=== PATIENT | female | born 1960 | race Two or more races ===

== ENCOUNTER 2022-11-23 10:54 | Outpatient (AMB) | payer BC, SELFPAY ==
--- NOTE | 2022-11-23 11:08 | A.OFFVIS_ITS ---
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 Patient was previously seen at [facility] and her last cortisone injection was 09/2021 that provided her relief for about 3 months. She would like to discuss possible surgery. Currently has constant pain in shoulder that will travel down to hand as well as a tingling sensation. Limited ROM. Hx of PT with no results. 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 He was seen at [facility] and had her last injection in September 2021 which provided her relief for about 3 months. She states she has constant pain, limited ROM and tingling in her shoulder which radiates down to her hand. She had undergone physical therapy in the past without benefits. She would like to discuss other options as her shoulder continues to limit her daily activities. 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 Review of Systems Const All systems reviewed & are unremarkable except as noted in HPI and below Physical Exam Vital Signs: BMI result Body Mass Index 28.9 Const General: cooperative, healthy appearing, comfortable, no acute distress, well developed and alert Orientation/consciousness: patient oriented x3 HEENT Head: Yes normal to inspection, Yes normocephalic and Yes atraumatic Eyes General: appearance normal, both eyes and all related structures Resp Effort & Inspection: normal respiratory effort and able to speak in complete sentences Cardio Rate: regular rate Peripheral pulses: Peripheral pulses 2+ throughout GI Palpation (GI): Soft to palpation Skin Lesions: no lesions Rashes: no rashes Neuro General: patient oriented x3 Extrem Other: Left shoulder normal to inspection. Tenderness over the bicipital groove and along the deltoid region of the shoulder. Forward flexion to 175, external rotation to 90, internal rotation to S1. RTC weakness on left when compared to contralateral side. Negative Lemons and cross body abduction. NVI. Results Reviewed Results Reviewed: Xrays were obtained in the office today and personally reviewed by me of the left shoulder negative for fracture or dislocation Mri of the left shoulder imported from- [facility] 09/08/22 1. high-grade likely full thickness tear of the mid-distal supraspinatus tendon -partial thickness tear of the supraspinatus tendon more proximally 2. Mild moderate arthrosis at the ac joint 3. Mild OA changes at the gh joint Assessment & Plan Assessment & Plan (1) Rotator cuff tear, left: Code(s): M75.102 - Unspecified rotator cuff tear or rupture of left shoulder, not s pecified as traumatic Plan I discussed her findings of MRI on exam and explained to her that there does appear to be some abnormality of RTC tendon. I would like her to meet with Dr. Barber to discuss RTC repair. We did briefly discuss the surgery itself along with the recovery process. She is interested to meet with Dr. Barber to discuss surgical intervention. Orders: Orders XR shoulder LT min 2V Today M25.512 - Pain in left shoulder Patient Instructions: Scribed for Junito Mendieta PA-C, by Mehrdad Delarosa medical physicist, on 11/23/2022 at 11:00 AM EST. I, Junito Mendieta PA-C, have personally reviewed and agree with the information entered by the scribe. Coding Level of Care Code New Pt Level 4 (18192) Diagnoses Rotator cuff tear, left M75.102
[2022-11-23 11:13] VITALS: BMI 28.9
== END 2022-11-23 11:31 | disposition home or self-care (01) ==
PROVIDERS: PCP Nurse Practitioner Adult Health; Visit Provider Physician Assistant
DX: M75.122 Complete rotator cuff tear or rupture of left shoulder, not specified as traumatic (principal); M19.012 Primary osteoarthritis, left shoulder
CPT/HCPCS: 99204

== ENCOUNTER 2022-11-23 11:01 | Outpatient (REF) | payer BC, SELFPAY ==
--- NOTE | ~2022-11-23 | XR_ITS ---
EXAMINATION: XR SHOULDER, LEFT CLINICAL INFORMATION: Pain COMPARISON: None available. TECHNIQUE: AP external rotation, Grashey, scapular Y, and axillary views of the left shoulder. FINDINGS: The bones and soft tissues are normal. No fracture. Glenohumeral and acromioclavicular alignment is anatomic with normal joint space. No abnormal soft tissue calcifications. XR/XR shoulder LT min 2V IMPRESSION: Normal left shoulder.
== END 2022-11-23 11:02 | disposition home or self-care (01) ==
LOC: HO.HOSX 11:01
PROVIDERS: Visit Provider Physician Assistant
DX: M75.102 Unspecified rotator cuff tear or rupture of left shoulder, not specified as traumatic (principal)
CPT/HCPCS: 73030

== ENCOUNTER 2022-12-15 10:43 | Outpatient (AMB) | payer BC, SELFPAY ==
--- NOTE | 2022-12-15 11:03 | MHC.OFFVIS ---
Intake Intake Visit Reasons: Dr Barber discuss RTC repair -MRI scanned in Intake Note: Maki is a 63 year old female who presents today to discuss surgical intervention of the left shoulder. Allergies No Known Allergies Allergy (Verified 11/23/22 11:10) HPI Dr Barber discuss RTC repair -MRI scanned in HPI Details Maki is a 62 year old woman with a left RTC tear. She has pain with daily activity, worse with overhead activity, heavy lifting, and at night. She says she has some occasional pain that radiates down into her fingers. 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 She had minimal relief from 3 injections in the past, and limited improvement with PT last year. She has a hx of double mastectomy and takes a daily oral medication to keep her in remission. 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 Review of Systems Const All systems reviewed & are unremarkable except as noted in HPI and below Physical Exam Const General: no acute distress, alert and awake Orientation/consciousness: patient oriented x3 HEENT Head: Yes normocephalic and Yes atraumatic Eyes EOM: EOMs intact bilaterally Resp Effort & Inspection: normal respiratory effort and able to speak in complete sentences Cardio Jugular venous distension: no JVD Skin General skin exam: turgor normal Rashes: no rashes Neuro General: patient oriented x3 Extrem Other: Left Shoulder: 4/5 empty can 90/120/35/L5 - liftoff Psych Appearance: grossly normal Affect: normal affect Attitude: cooperative Results Reviewed Results Reviewed: I personally reviewed the MR images. High grade partial thickness vs full thickness rtc tear without retraction. Assessment & Plan Assessment & Plan (1) Rotator cuff tear, left: Code(s): M75.102 - Unspecified rotator cuff tear or rupture of left shoulder, not specified as traumatic Plan: This is a 62 year old woman with a high-grade partial tear of the left RTC. She has pain with daily activity, worse with overhead activity, lifting, and at night. She feels limited in her ADLs and at her workplace. She has failed conservative treatment and is unable to live her life the way she wants to. I discussed her diagnosis and treatment options. I recommend a left RTC repair. I discussed the risks, benefits, and alternatives including, but not limited to, the risk of pain, infection, stiffness, need for further surgery as well as potential medical complications such as blood clots, pulmonary embolism and cardiac complications. I discussed the recovery timeline and process as well as the importance of PT. Maki is a good candidate for this surgery, and she wishes to proceed with this decision. She will speak with our planner/scheduler for this procedure. Plan Scribed for Harley Barber MD by Oscar Almonte, durable medical equipment repairer, on 12/15/22 at 11:10 AM, EST. Coding Level of Care Code Est Pt Level 4 (83614) Diagnoses Rotator cuff tear, left M75.102
== END 2022-12-15 11:31 | disposition home or self-care (01) ==
PROVIDERS: PCP Nurse Practitioner Adult Health; Visit Provider Orthopaedic Surgery
DX: M75.112 Incomplete rotator cuff tear or rupture of left shoulder, not specified as traumatic (principal)
CPT/HCPCS: 99214

== ENCOUNTER → 2022-12-15 10:43 | Outpatient (BNVA) | payer BC, SELFPAY | PROVIDERS: PCP Nurse Practitioner Adult Health; Visit Provider Orthopaedic Surgery ==

== ENCOUNTER 2023-01-06 10:14 | Outpatient (AMB) | payer BC, SELFPAY ==
[2023-01-06 10:20] VITALS: BMI 28.9
--- NOTE | 2023-01-06 10:20 | A.OFFVIS_ITS ---
Intake Vital Signs 01/06/23 10:20 Height 5 ft 8 in Weight 190 lb BMI 28.9 Intake Visit Reasons: Pre-Op LT RTC Repair 01/18/23NE Intake Note: Maki is a 62 year old 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 female who presents today for a pre op appointment left RTC repair, 01/18/23 NE. Allergies No Known Allergies Allergy (Verified 01/06/23 10:24) HPI Pre-Op LT RTC Repair 01/18/23NE HPI Details 62-year-old 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 female who presents in the office today for her preoperative history and physical exam prior to a left rotator cuff repair to be performed on 01/18/[address] Barber. Patient has no known allergy history. 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 Review of Systems Const All systems reviewed & are unremarkable except as noted in HPI and below Physical Exam Vital Signs: BMI result Body Mass Index 28.9 Const General: cooperative, healthy appearing, comfortable, no acute distress, well developed, alert and awake Orientation/consciousness: patient oriented x3 HEENT Head: Yes normal to inspection, Yes normocephalic and Yes atraumatic Eyes General: appearance normal, both eyes and all related structures EOM: EOMs intact bilaterally Neck Neck: Yes normal visual inspection and Yes no lymphadenopathy Resp Effort & Inspection: normal respiratory effort and able to speak in complete sentences Cardio Jugular venous distension: no JVD Rate: regular rate Peripheral pulses: Peripheral pulses 2+ throughout GI Inspection: Yes normal to inspection Palpation (GI): Soft to palpation Skin General skin exam: no rashes or lesions noted Rashes: no rashes Neuro General: patient oriented x3 Extrem Other: Left Shoulder: Skin is clean, dry, and intact. 4/5 empty can 90/120/35/L5 - liftoff Psych Appearance: grossly normal Mental Status: mental status grossly normal Affect: normal affect Attitude: cooperative Assessment & Plan Assessment & Plan (1) Rotator cuff tear, left: Code(s): M75.102 - Unspecified rotator cuff tear or rupture of left shoulder, not specified as traumatic Plan Ms. Whitfield is a 62-year-old 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 female who presents in the office today for her preoperative history and physical exam prior to a left rotator cuff repair to be performed on 01/18/[address] Barber. Patient has no known allergy history. Patient is currently taking, as follows: -Anastrozole 1 mg PO daily -Escitalopram oxalate (Lexapro) 20 mg PO daily -Gabapentin 800 mg PO TID -Lorazepam (Ativan) 0.5 mg PO daily PRN Patient has a medical history, as follows: -Anxiety -Hx of breast cancer Patient has a surgical history, as follows: -Hx of bilateral mastectomy I discussed in detail the procedure and what to expect pre and post operatively. We discussed the risks, benefits and alternatives to the surgery as well as the rehabilitation course. The risks; which include, but are not limited to infection, bleeding, nerve injury, ongoing pain, swelling, and stiffness, perioperative risk of injury to bones and soft tissues, and blood clots. I have answered all questions and with their understanding they have consented to move forward with a left rotator cuff repair to be performed on 01/18/[address] Harley Barber. Follow up will be at the post operative appointment on 01/23/2023 at 2:15 pm, or sooner if needed. Patient Instructions: Scribed for Sindhu Howell PA-C by Leonie Rosas medical data entry clerk, on 01/06/2023 at 10:17 am, EST. Coding Level of Care Code Global (08356) Diagnoses Rotator cuff tear, left M75.102
== END 2023-01-06 10:50 | disposition home or self-care (01) ==
PROVIDERS: PCP Nurse Practitioner Adult Health; Visit Provider Physician Assistant
DX: M75.102 Unspecified rotator cuff tear or rupture of left shoulder, not specified as traumatic (principal)
CPT/HCPCS: 99024

== ENCOUNTER → 2023-01-06 10:14 | Outpatient (BNVA) | payer BC, SELFPAY | PROVIDERS: PCP Nurse Practitioner Adult Health; Visit Provider Physician Assistant ==

== ENCOUNTER 2023-01-18 06:53 | Day surgery (SDC) | payer BC, SELFPAY ==
[2023-01-13 10:56] VITALS: BMI 28.9
--- NOTE | 2023-01-17 08:29 | HO.ANESPROP2 ---
Documented by User: Shanique Mueller NP 01/17/23 08:29 HPI - Anesthesia Eval Consult details Narrative: 62yo F for Left Arthroscopic Rotator Cuff Repair PMFSH Active Problems Active Problems: All Active Problems (Updated 01/13/23 @ 10:52 by Dulce Maria Gómez RN) Rotator cuff tear, left (Acute) Past Medical History Medical History Anxiety Anxiety HX: breast cancer Hyperlipidemia Palpitations Surgical History Surgical History H/O colonoscopy Hx of bilateral mastectomy Social History Social History Patient Tobacco Use Status: Former Tobacco user Advance Directives: No Advance Directives Information Provided: Yes Current occupational status: employed 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, 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 Meds Allergies Allergy/AdvReac Type Severity Reaction Status Date / Time No Known Allergies Allergy Verified 01/06/23 10:24 Home Medications Medication Instructions Recorded Confirmed Last Taken Type anastrozole 1 mg tablet 1 mg PO DAILY 11/23/22 01/13/23 Unknown History escitalopram oxalate 20 mg tablet 20 mg PO DAILY 11/23/22 01/13/23 Unknown History (Lexapro) gabapentin 800 mg tablet 800 mg PO TID 11/23/22 01/13/23 Unknown History lorazepam 0.5 mg tablet (Ativan) 0.5 mg PO DAILY PRN Anxiety 11/23/22 01/13/23 Unknown History omeprazole 20 mg tablet,delayed 20 mg PO DAILY 01/13/23 01/13/23 Unknown History release Exam Exam Date and Time: January 17, 2023 0829 Height,Weight and Vital Signs: Height 5 ft 8 in Weight 86.183 kg Assessment and Plan Assessment Anesthesia Assessment: Chart Reviewed Documented by User: Enoch Stephens MD 01/18/23 07:15 PMFSH Past Medical History Medical History Anxiety Anxiety HX: breast cancer Hyperlipidemia Palpitations Family History Family history of problems with anesthesia: No Surgical History Surgical History H/O colonoscopy Hx of bilateral mastectomy History of Problems with Anesthesia: No Social History Social History Patient Tobacco Use Status: Former Tobacco user Advance Directives: No Advance Directives Information Provided: Yes Current occupational status: employed 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, 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 Meds Allergies Allergy/AdvReac Type Severity Reaction Status Date / Time No Known Allergies Allergy Verified 01/06/23 10:24 Home Medications Medication Instructions Recorded Confirmed Last Taken Type anastrozole 1 mg tablet 1 mg PO DAILY 11/23/22 01/13/23 Unknown History escitalopram oxalate 20 mg tablet 20 mg PO DAILY 11/23/22 01/13/23 Unknown History (Lexapro) gabapentin 800 mg tablet 800 mg PO TID 11/23/22 01/13/23 Unknown History lorazepam 0.5 mg tablet (Ativan) 0.5 mg PO DAILY PRN Anxiety 11/23/22 01/13/23 Unknown History omeprazole 20 mg tablet,delayed 20 mg PO DAILY 01/13/23 01/13/23 Unknown History release Exam Airway Mallampati Class: III TM Dist: >3cm Neck ROM: Full Loose/Missing/Broken Teeth: No Heart: [id number]+[id number] Lungs: cta b/l Assessment and Plan Assessment Anesthesia Assessment: Anesthesia Plan Discussed Final Anesthetic Review Family History of Problems with Anesthesia: No History of Problems with Anesthesia: No NPO: Yes ASA Class: III Final Preanesthetic Review: No Changes in Pt Med Stat, Meds/Allgs Chart Reviewed, Consent Obtained/Reviewed and Anes Risks/Benef Reviewed Patient Risk: Intermediate Procedure Risk: Intermediate Assessment/Block/Sedation in SS: Assess/Block/Sedation-SS Anesthetic Plan Anesthetic Plan: GA, Regional Block and Agree w/ Assess. and Plan Disposition: Standard PACU
[2023-01-18] VITALS (10 sets, daily range): BP systolic 125–148; BP diastolic 72–85; PULSE 62–93; RESP 14–16; TEMP 36.2–36.5; O2SAT 93–96
[2023-01-18] MEDS: Lactated Ringers 1,000 ML 100 ML IVCONT (07:33)
--- NOTE | 2023-01-18 09:12 | P.BOP_ITS ---
Brief Operative Note Date of Service: 01/18/23 Pre-op diagnosis: Left RTC tear Post-op diagnosis: other (1- left RTC tear 2) left SLAP tear) Procedure: 1) RTC repair 2) Biceps tentomy and labral debridement Implants: [employer] double loaded halacoil x 2 and knotless 5.0 helacoil x 2 Surgeon: Harley Barber MD Anesthesia: GETA Was an Manufacturing Assembler used for this Procedure?: Yes Manufacturing Assembler: Junito Mendieta Estimated blood loss (mL): 10 IV fluids (mL): 850 Pathology: none sent Condition: stable Disposition: PACU
--- NOTE | 2023-01-18 09:12 | MHC.SHP ---
Pre-Procedural Eval Section A Date of Service: 01/18/23 The patient is an INPATIENT: No Changes since office visit: No Cold of Flu in the past 2 weeks, No New Medical Problems, No Changes in Medication and No Patient answered all questions The History & Physical has been completed within 30 days and I have reviewed it.: Yes Section B Chief Complaint: Unspecified rotator cuff tear or rupture of left s Allergies: Allergies Allergy/AdvReac Type Severity Reaction Status Date / Time No Known Allergies Allergy Verified 01/06/23 10:24 Plan I have reviewed the history and physical and performed a pertinent physical examination on my patient. No changes have occurred unless specified. Time Spent With Patient Time: Total time managing care of this patient today ____ minutes.
--- NOTE | 2023-02-03 09:21 | W.PM.OPN ---
Operative Note Operative Note Date of Service: 01/18/23 Narrative: Date of Service: 01/18/23 Pre-op diagnosis: Left RTC tear Post-op diagnosis: other (1- left RTC tear 2) left SLAP tear) Procedure: 1) RTC repair 2) Biceps tentomy and labral debridement Implants: [employer] double loaded halacoil x 2 and knotless 5.0 helacoil x 2 Surgeon: Harley Barber MD Anesthesia: GETA Was an Director Financial Systems used for this Procedure?: Yes Director Financial Systems: Junito Mendieta Estimated blood loss (mL): 10 IV fluids (mL): 850 Pathology: none sent Condition: stable Disposition: PACU Procedure in detail: Patient was brought to the operating room and placed the the beach chair position. All bony prominences were well padded and the limb was prepped and draped in standard sterile fashion. A time out was called to identify proper site, proper procedure and proper surgeon. IV antibiotics per weight were administered. I began by making a posterolateral stab incision with a 15 blade. A blunt trochar was placed into the glenohumeral joint and I insufflated the joint with saline and a 30 degree arthroscope was placed. I established an outside- in anterior portal just distal to the biceps tendon. I then began my inspection of the glenohumeral joint. There was a large degenerative SLAP tear at hte biceps anchor ( Type 2). There were minimal cartilage changes at the inferior glenoid without humeral head changes. There was a full thickness undersurface RTC tear. The subcapularis was intact. I debrided the loose cartilage of the glenoid and the degenerative labral tearing and performed a biceps tenotomy. I then removed the trochar and entered the subacromial space. A direct lateral portal was then established and I performed a bursectomy. The cuff was then examined. There was a full thickness tear of the supra and infraspinatus without retraction. The tear was mobile. I placed two medial row double loaded anchors after using a tap just adjacent to the articular cartilage and then brought the suture limbs ( 8) through the medial cuff. I then debrided the bare area down to bleeding bone and, using a cross bridge configuration, brought 4 limbs to each of two lateral 5.0 anchors. This re-approximated the cuff anatomy anatomically. Once I was satisfied with the repair final images were captured and I removed all instrumentation. Portals were closed with nylon. Patient was placed in an abduction sling, extubated and brought to the recovery room in stable condition. There were no known complications.
== END 2023-01-18 12:19 | disposition home or self-care (01) ==
PROVIDERS: PCP Nurse Practitioner Adult Health; Visit Provider Orthopaedic Surgery
PROC: (CPT 29827; principal; 2023-01-18 08:40)
DX: M75.102 Unspecified rotator cuff tear or rupture of left shoulder, not specified as traumatic (principal); S43.432A Superior glenoid labrum lesion of left shoulder, initial encounter; X58.XXXA Exposure to other specified factors, initial encounter; Y93.9 Activity, unspecified; Y92.9 Unspecified place or not applicable; Y99.8 Other external cause status; C50.812 Malignant neoplasm of overlapping sites of left female breast; Z17.0 Estrogen receptor positive status [ER+]; Z79.811 Long term (current) use of aromatase inhibitors; Z92.21 Personal history of antineoplastic chemotherapy; Z90.13 Acquired absence of bilateral breasts and nipples; T45.1X5A Adverse effect of antineoplastic and immunosuppressive drugs, initial encounter; G62.0 Drug-induced polyneuropathy; R00.2 Palpitations; E78.00 Pure hypercholesterolemia, unspecified; E66.3 Overweight; Z68.28 Body mass index [BMI] 28.0-28.9, adult; F41.1 Generalized anxiety disorder; Z79.899 Other long term (current) drug therapy; Z87.891 Personal history of nicotine dependence
CPT/HCPCS: 29827; 29826; 29822; C1713; J0171; J0690; J1100; J1885; J2250; J2795; J3010

== ENCOUNTER → 2023-01-18 06:53 | Outpatient (BNV) | payer BC, SELFPAY | PROVIDERS: PCP Nurse Practitioner Adult Health; Visit Provider Orthopaedic Surgery | DX: S43.431A Superior glenoid labrum lesion of right shoulder, initial encounter (principal); M75.121 Complete rotator cuff tear or rupture of right shoulder, not specified as traumatic | CPT/HCPCS: 29807; 29827 ==

== ENCOUNTER 2023-01-19 10:23 | Outpatient (AMB) | payer BC, SELFPAY ==
--- NOTE | 2023-01-19 10:35 | MHC.OFFVIS ---
Intake Intake Visit Reasons: PO, pain control discussion Intake Note: Maki a 62 year old female who presents today for a post operative LT RTC repair, biceps tentomy and labral debridement on 01/18/23. Patient reports here to discuss pain control. Allergies No Known Allergies Allergy (Verified 01/06/23 10:24) HPI PO, pain control discussion HPI Details 62-year-old female who returns to the office today s/p left RTC repair, bicep tenotomy and labral debridement, 01/18/23. She states she is here to discuss pain control. She states since the nerve block wore off she has had a difficult time managing her pain. She finds no relief with morphine and transient relief with Percocet. She does have a h/o opiate dependence and has concerns of becoming dependent again. 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 Splint intact. NVI. Assessment & Plan Assessment & Plan (1) Rotator cuff tear, left: Code(s): M75.102 - Unspecified rotator cuff tear or rupture of left shoulder, not specified as traumatic Qualifiers: Rotator cuff tear extent: complete Rotator cuff tear trauma status: unspecified whether traumatic Qualified Code(s): M75.122 - Complete rotator cuff tear or rupture of left shoulder, not specified as traumatic Plan I briefly discussed the procedure and operative findings from DOS 01/18/23. She will continue to use the sling at all times except for hygiene and pendulum. We did discuss pain management. We will discontinue the use of Percocet and begin oxycodone 5 mg every 4-6 hours as needed. She can also supplement with a Tylenol 650 mg every 4-6 hours as needed. I did explain that her pain may be present for the next several weeks especially as she begins physical therapy, but this is something we should continue to manage with occasional pain medication, icing and being sure to not overuse the shoulder. She does have a referral for physical therapy which she should begin in the next couple of days and her post-op appointment is scheduled for January 23 which she will attend. She will see me back sooner if needed. Medications: New oxycodone Partial Fill upon patient request. 5 mg PO Q4-6H 5 days PRN 30 tabs 0RF pain M75.102 - Unspecified rotator cuff tear or rupture of left shoulder, not specified as traumatic acetaminophen 650 mg (2 x 325 mg) PO Q4-6H 30 days PRN 240 tabs 0RF fever or pain Patient Instructions: Scribed for Junito Mendieta PA-C, by Mehrdad Delarosa district medical examiner, on 01/19/2023 at 10:30 AM EST. I, Junito Mendieta PA-C, have personally reviewed and agree with the information entered by the scribe. Coding Level of Care Code Global (29379) Diagnoses Complete tear of left rotator cuff, unspecified whether traumatic M75.122 Rotator cuff tear extent: complete Rotator cuff tear trauma status: unspecified whether traumatic
== END 2023-01-19 11:52 | disposition home or self-care (01) ==
LOC: HO.HOS 10:23
PROVIDERS: PCP Nurse Practitioner Adult Health; Visit Provider Physician Assistant
DX: M75.122 Complete rotator cuff tear or rupture of left shoulder, not specified as traumatic (principal)
CPT/HCPCS: 99024

== ENCOUNTER → 2023-01-19 10:23 | Outpatient (BNVA) | payer BC, SELFPAY | PROVIDERS: PCP Nurse Practitioner Adult Health; Visit Provider Physician Assistant ==

== ENCOUNTER 2023-01-23 14:15 | Outpatient (AMB) | payer BC, SELFPAY ==
--- NOTE | 2023-01-23 14:16 | A.OFFVIS_ITS ---
Intake Intake Visit Reasons: PO LT RTC Repair 01/18/23NE Intake Note: Maki a 62 year old female who presents today for a post operative left RTC repair on 01/18/23. Patient reports she is doing well, states pain is controlled. Allergies No Known Allergies Allergy (Verified 01/23/23 14:21) HPI PO LT RTC Repair 01/18/23NE HPI Details 62-year-old female who returns to the [facility] today for post-op left RTC repair, 01/18/[address] Barber. She has been taking Oxycodone 10mg q8 hrs with the tylenol which has been helping. She has no concerns today. 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 Minimal swelling. Deltoid sensation is intact. Assessment & Plan Assessment & Plan (1) Rotator cuff tear, left: Code(s): M75.102 - Unspecified rotator cuff tear or rupture of left shoulder, not specified as traumatic Qualifiers: Rotator cuff tear extent: complete Rotator cuff tear trauma status: unspecified whether traumatic Qualified Code(s): M75.122 - Complete rotator cuff tear or rupture of left shoulder, not specified as traumatic Plan Sutures removed today, steri strips applied. She will begin physical therapy tomorrow to work on ROM, periscapular stabilization, no RTC strengthening. She will continue to use her sling at all time but she can remove the sling for hygiene and therapy. She will see us back in 4-5 weeks, sooner if needed. Patient Instructions: Scribed for Junito Mendieta PA-C, by Mehrdad Delarosa medical lab technician, on 01/23/2023 at 2:15 PM EST. I, Junito Mendieta PA-C, have personally reviewed and agree with the information entered by the scribe. Coding Level of Care Code Global (98387) Diagnoses Complete tear of left rotator cuff, unspecified whether traumatic M75.122 Rotator cuff tear extent: complete Rotator cuff tear trauma status: unspecified whether traumatic
== END 2023-01-23 14:51 | disposition home or self-care (01) ==
PROVIDERS: PCP Nurse Practitioner Adult Health; Visit Provider Physician Assistant
DX: M75.122 Complete rotator cuff tear or rupture of left shoulder, not specified as traumatic (principal); Z48.02 Encounter for removal of sutures
CPT/HCPCS: 99024

== ENCOUNTER → 2023-01-23 14:15 | Outpatient (BNVA) | payer BC, SELFPAY | PROVIDERS: PCP Nurse Practitioner Adult Health; Visit Provider Physician Assistant ==

== ENCOUNTER 2023-01-27 08:55 | Emergency (ER) | payer BC, SELFPAY ==
[2023-01-27 09:03] VITALS: BP 141/71; PULSE 64; RESP 17; TEMP 36; O2SAT 96; BMI 29.0
--- NOTE | 2023-01-27 11:03 | ED.GENADULT ---
HPI - General Adult General Chief complaint: Wound/Laceration Stated complaint: R arm cut Time Seen by Provider: 01/27/23 09:25 Source: patient Mode of arrival: ambulatory Limitations: no limitations History of Present Illness HPI narrative: 62 female history of breast cancer and recent left shoulder rotator cuff tear presents to the ED for right forearm laceration caused by cutting her wrist onto objects return to break a fall. Patient denies hitting head or loss of consciousness. Patient has complete range of motion of right upper extremity and does not have pain on range of motion. Related Data Home Medications Medication Instructions Recorded Confirmed anastrozole 1 mg tablet 1 mg PO DAILY 11/23/22 01/13/23 escitalopram oxalate 20 mg tablet 20 mg PO DAILY 11/23/22 01/13/23 (Lexapro) gabapentin 800 mg tablet 800 mg PO TID 11/23/22 01/13/23 lorazepam 0.5 mg tablet (Ativan) 0.5 mg PO DAILY PRN Anxiety 11/23/22 01/13/23 omeprazole 20 mg tablet,delayed 20 mg PO DAILY 01/13/23 01/13/23 release Previous Rx's Medication Instructions Recorded morphine 15 mg tablet,extended 15 mg PO Q12H 3 days #6 tabs 01/18/23 release (MS Contin) acetaminophen 325 mg tablet 650 mg (2 x 325 mg) PO Q4-6H PRN 01/19/23 fever or pain 30 days #240 tabs oxycodone 10 mg tablet 10 mg PO Q8H 7 days #21 tabs 01/22/23 cephalexin 500 mg capsule 500 mg PO QID 7 days #28 caps 01/27/23 Allergies Allergy/AdvReac Type Severity Reaction Status Date / Time No Known Allergies Allergy Verified 01/23/23 14:21 Review of Systems Review of Systems: Right forearm laceration Yes all other systems are reviewed and are negative [facility] Past Medical History Medical History Anxiety Anxiety HX: breast cancer Hyperlipidemia Palpitations Surgical History H/O colonoscopy Hx of bilateral mastectomy Social History Social History Alcohol intake: never Patient Tobacco Use Status: Former Tobacco user Current occupational status: employed 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, 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 Physical Exam ED Vital Signs: Vital Signs - 24 hr 01/27/23 09:03 Temperature 96.8 F Pulse Rate 64 Respiratory Rate 17 Blood Pressure 141/71 H Pulse Oximetry 96 Oxygen Delivery Method Room Air BMI result Body Mass Index 29.0 Const General: cooperative, healthy appearing, comfortable, no acute distress, well developed, alert, awake and Physically active Orientation/consciousness: oriented to person, oriented to place, oriented to time and patient oriented x3 [facility] Head: Yes normal to inspection, Yes No palpable skull fracture present, Yes normocephalic, Yes atraumatic and No abrasion Eyes General: appearance normal, both eyes and all related structures Neck Neck: Yes normal visual inspection, Yes full ROM, Yes no lymphadenopathy, Yes no meningeal signs, Yes trachea midline, Yes supple, No anterior neck swelling and No tender Chest Chest palpation & inspection: normal inspection of the chest and normal palpation of entire chest wall Resp Effort & Inspection: normal respiratory effort and able to speak in complete sentences Auscultation: clear to auscultation bilaterally Cardio Jugular venous distension: no JVD Heart sounds: S1 normal heart sound present and S2 normal heart sound present GI Inspection: Yes normal to inspection and No abdominal wall ecchymosis Palpation (GI): Soft to palpation, not firm, nontender, no guarding and not rigid General: No CVA tenderness and Yes no CVA tenderness Back/Spine/Pelvis Back: no CVA tenderness, No CVA tenderness and No back tenderness Skin General skin exam: no rashes or lesions noted and elasticity normal Neuro General: oriented to person, oriented to place, oriented to time, patient oriented x3, gait normal, tone normal, moves all extremities, Normal light touch and pain sensation, no meningeal signs, no focal motor deficits, CN's II-XI intact bilaterally and normal sensation to monofilament Extrem General: Yes normal to inspection and Yes full ROM Elbow/forearm/wrist images: 1. with laceration with skin coming off. negative for any nerve or tendon exposure. Negative for bone exposure. Negative for signs of tendon/nerve injury. Motor/ neuro/vascular exam of right upper extremity intact. Psych Appearance: grossly normal, well kempt and not disheveled Medications Administered Discontinued Medications Generic Name Dose Route Start Last Admin Trade Name Freq PRN Reason Stop Dose Admin Diphtheria/Tetanus/Acell Pertussis 0.5 ml 01/27/23 10:06 01/27/23 11:04 Diphth,Pertus(Acell),Tet Adult 0.5 Ml Syringe IM 01/27/23 10:07 0.5 ml .ONCE ONE Administration Lidocaine HCl 2 ml 01/27/23 10:08 01/27/23 10:26 Lidocaine Hcl 2% 2 Ml Vial INFILTRATI 01/27/23 10:09 2 ml ONCE ONE Administration Lidocaine HCl 2 ml 01/27/23 10:08 01/27/23 10:26 Lidocaine Hcl 2% 2 Ml Vial INFILTRATI 01/27/23 10:09 2 ml ONCE ONE Administration Lidocaine HCl 2 ml 01/27/23 10:08 01/27/23 10:26 Lidocaine Hcl 2% 2 Ml Vial INFILTRATI 01/27/23 10:09 2 ml ONCE ONE Administration Lidocaine HCl 2 ml 01/27/23 10:08 01/27/23 10:26 Lidocaine Hcl 2% 2 Ml Vial INFILTRATI 01/27/23 10:09 2 ml ONCE ONE Administration Lidocaine HCl 2 ml 01/27/23 10:08 01/27/23 10:26 Lidocaine Hcl 2% 2 Ml Vial INFILTRATI 01/27/23 10:09 2 ml ONCE ONE Administration Medical Decision Making Medical Decision Making MDM Narrative: 62-year-old female history of recent left shoulder rotator cuff surgery and breast cancer presents to ED for right forearm laceration caused by a metal object in kitchen while breaking her fall. Patient denies any head trauma, loss of consciousness, or any other complaints. Patient has complete range of motion right upper extremity. Negative for tenderness ecchymosis, erythema, crepitus on exam of right upper extremity including forearm. Tdap ordered. This piece of skin that was coming off was cut off which made laceration wider. Laceration cleaned with sterile saline Betadine iodine. Laceration anesthetized with 2% lidocaine 10 mL. Size 4 mono filament nylon suture used. To vertical mattress sutures were placed. Three more simple sutures were placed. Differential Diagnosis Differential Diagnoses: The differential diagnosis associated with the presentation includes ( Forearm/wrist / hand/ elbow fracture, cellulitis, nerve injury, tendon injury, dislocation) Independent Historian Clinical information obtained from an independent historian. History obtained from or confirmed by: Spouse External Record Review External record reviewed: Other (Prior to ED visit) Tests considered The following testing was considered but not selected: Xray Prescription Management I considered prescription management with: Antibiotic Discharge Plan Discharge Clinical Impression: Laceration Patient Disposition: Home, Self-Care Instructions: Laceration (ED) Additional Instructions: return to the ED immediately for any redness, swelling, red streaks, pus discharge, foul odor, bluish black discoloration, fever, chills, inability to move extremity, tingling /numbness, or any other concerning symptoms. Please follow-up with primary care provider. You will be discharged with antibiotics. Sutures should be removed in 10-11 days for suture removal. Prescriptions: New cephalexin 500 mg capsule 500 mg PO QID 7 Days Qty: 28 0RF No Action oxycodone 10 mg tablet 10 mg PO Q8H 7 Days Qty: 21 0RF Rx Instructions: Partial Fill upon patient request. omeprazole 20 mg Tablet,Delayed Release (Dr/Ec) 20 mg PO DAILY morphine [MS Contin] 15 mg tablet extended release 15 mg PO Q12H 3 Days Qty: 6 0RF Rx Instructions: Partial Fill upon patient request. acetaminophen 325 mg tablet 650 mg PO Q4-6H PRN (Reason: fever or pain) 30 Days Qty: 240 0RF gabapentin 800 mg tablet 800 mg PO TID anastrozole 1 mg tablet 1 mg PO DAILY escitalopram oxalate [Lexapro] 20 mg tablet 20 mg PO DAILY lorazepam [Ativan] 0.5 mg tablet 0.5 mg PO DAILY PRN (Reason: Anxiety) Interventions: ED Discharge Assessment Last Done: 01/27/23 11:17 Discharge Date/Time: 01/27/23 11:18 Print Language: Welsh
[2023-01-27] MEDS: Diphth,Pertus(ACell),Tet Adult 0.5 ML SYRINGE IM (11:04)
== END 2023-01-27 11:18 | disposition home or self-care (01) ==
PROVIDERS: Emergency Provider Emergency Medicine Emergency Medical Services; PCP Nurse Practitioner Adult Health
DX: S51.811A Laceration without foreign body of right forearm, initial encounter (principal); W26.9XXA Contact with unspecified sharp object(s), initial encounter; Y93.9 Activity, unspecified; Y92.89 Other specified places as the place of occurrence of the external cause; Y99.9 Unspecified external cause status
CPT/HCPCS: 12001; 90471; 90715; 99283; 99284

== ENCOUNTER 2023-02-23 11:06 | Outpatient (AMB) | payer BC, SELFPAY ==
--- NOTE | 2023-02-23 11:09 | MHC.OFFVIS ---
Intake Vital Signs 02/23/23 11:10 Height 5 ft 8 in Weight 190 lb BMI 28.9 Intake Visit Reasons: PO, LT RTC Repair 01/18/23 NE Intake Note: Maki is a 62 year old 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 female who presents today for a post operative visit s/p left RTC repair on 01/18/23. Patient reports that she is doing well with no concerns. Denies numbness and tingling Allergies No Known Allergies Allergy (Verified 01/23/23 14:21) HPI PO, LT RTC Repair 01/18/23 NE HPI Details Maki is a 62 year old woman ~1 month S/P left RTC repair with biceps tenotomy & labral debridement. She says she is doing well and has no complaints today. She has some pain if she moves her shoulder wrong but denies any usual pain since her first week following surgery. She has been attending PT and would like to know when she is able to stop wearing her sling. She would also like to know when she can resume driving. 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 Review of Systems Const All systems reviewed & are unremarkable except as noted in HPI and below Physical Exam Vital Signs: BMI result Body Mass Index 28.9 Const General: no acute distress, alert and awake Orientation/consciousness: patient oriented x3 HEENT Head: Yes normocephalic and Yes atraumatic Eyes EOM: EOMs intact bilaterally Resp Effort & Inspection: normal respiratory effort and able to speak in complete sentences Cardio Jugular venous distension: no JVD Skin General skin exam: turgor normal Rashes: no rashes Neuro General: patient oriented x3 Extrem Other: Left Shoulder: Portals C/D/I Psych Appearance: grossly normal Affect: normal affect Attitude: cooperative Assessment & Plan Assessment & Plan (1) S/P left rotator cuff repair: Code(s): Z98.890 - Other specified postprocedural states Plan: This is a 62 year old woman S/P left RTC repair with biceps tenotomy & labral debridement, DOS: 01/18/23. She is doing well, without complaints, and is happy with the results of her surgery. She has been attending PT. She will discontinue her sling at this time, and I ordered a new course of PT for her. She will avoid any heavy lifting or overhead activities and be mindful to not push through pain. She will follow up in 6 weeks. She is able to resume driving in 2 weeks. Plan Scribed for Harley Barber MD by Oscar Almonte, medical research assistant, on 02/23/23 at 11:40 AM, EST. Coding Level of Care Code Global (48562) Diagnoses S/P left rotator cuff repair Z98.890
[2023-02-23 11:10] VITALS: BMI 28.9
== END 2023-02-23 11:56 | disposition home or self-care (01) ==
PROVIDERS: PCP Nurse Practitioner Adult Health; Visit Provider Orthopaedic Surgery
DX: Z98.890 Other specified postprocedural states (principal)
CPT/HCPCS: 99024

== ENCOUNTER → 2023-02-23 11:06 | Outpatient (BNVA) | payer BC, SELFPAY | PROVIDERS: PCP Nurse Practitioner Adult Health; Visit Provider Orthopaedic Surgery ==

== ENCOUNTER 2023-03-12 10:35 | Emergency (ER) | payer BC, SELFPAY ==
[2023-03-12 10:43] VITALS: BP 165/89; PULSE 74; RESP 19; TEMP 36.6; O2SAT 99; BMI 28.9
--- NOTE | 2023-03-12 10:46 | ECG_ITS ---
Test Reason : PALP Blood Pressure : / mmHG Vent. Rate : 071 BPM Atrial Rate : 071 BPM P-R Int : 156 ms QRS Dur : 074 ms QT Int : 414 ms P-R-T Axes : 038 -21 047 degrees QTc Int : 449 ms Normal sinus rhythm Inferior infarct , age undetermined Abnormal ECG No previous ECGs available Referred By: Generic ED Physician Electronically Signed By:MOISÉS ANGULO MD
[2023-03-12 11:09] LABS: MANUAL DIFF FLAG NO
[2023-03-12 11:12] LABS: Basophils Absolute Auto 0.1 X10*3/uL (0.0-0.2); Basophils Percent Auto 1.3 % (0-2); Eosinophils Absolute Auto 0.2 X10*3/uL (0.0-0.4); Eosinophils Percent Auto 6.1 % (0-4); Hematocrit 44.3 % (37.0-47.0); Hemoglobin 15.1 g/dl (12.0-16.0); Imm Gran Abs Auto 0.01 X10*3/uL (0.00-0.03); Imm Gran Pct Auto 0.3 % (0.0-0.4); Lymphocytes Absolute Auto 1.4 X10*3/uL (1.2-4.9); Lymphocytes Percent Auto 34.9 % (20-40); Mean Corpuscular HGB Conc 34.1 g/dl (31.0-35.0); Mean Corpuscular Hemoglobin 30.5 pg (27.0-33.0); Mean Corpuscular Volume 89.5 fL (80.0-98.0); Mean Platelet Volume 9.2 fL (9.4-12.3); Monocytes Absolute Auto 0.3 X10*3/uL (0.1-1.2); Monocytes Percent Auto 6.3 % (2-11); Neutrophils Percent Auto 51.1 % (45-73); Platelet Count 238 X10*3/uL (160-400); Red Blood Count 4.95 X10*6/uL (4.20-5.50); Red Cell Distribution Width 11.9 % (11.0-16.0)
[2023-03-12 11:25] LABS: Anion Gap 15 (12-20); Blood Urea Nitrogen 15 mg/dL (9-16); Calcium 10.2 mg/dL (8.4-10.2); Carbon Dioxide 24 mmol/L (22-29); Chloride 106 mmol/L (96-108); Estimated Glomerular Filt Rate > 60; Glucose Random 108 mg/dL (60-115); Sodium 141 mmol/L (135-145)
[2023-03-12 11:37] LABS: Troponin-I High Sensitivity < 2.7 ng/L (<3.5-17.0)
[2023-03-12 12:00] VITALS: BP 165/89; PULSE 61; PULSE 62; RESP 18; TEMP 36.6; O2SAT 95
--- NOTE | 2023-03-12 12:03 | PC.NURSE ---
a&ox3, vss aside from being slightly hypertensive, nsr on the cardiac sonographer. pt states that she was at oncology appointment last monday where she had elevated BP. pt states checking BP throughout the week and she was having intermittent hypertensive episodes. pt c/o constant palpitations. pt has hx of anxiety- takes 1mg of ativan at bedtime. pt verbalizes a significant increase in life stressors w/ family at this time. pt currently denies SOB or any other sx at this time. respirations even and unlabored. call hanna placed within reach.
--- NOTE | 2023-03-12 13:44 | ED.GENADULT ---
HPI - General Adult General Chief complaint: Arrhythmia/Palpitations Stated complaint: high bp Time Seen by Provider: 03/12/23 13:13 Source: patient and family Mode of arrival: ambulatory History of Present Illness HPI narrative: 62F presents with concerns of having high blood pressure and she has no history. She denies any issues of visual changes/speech changes/motor or sensory deficits. Patient also denies chest pain or palpitations. Patient denies any use of steroids or ibuprofen/Motrin Related Data Home Medications Medication Instructions Recorded Confirmed anastrozole 1 mg tablet 1 mg PO DAILY 11/23/22 01/13/23 escitalopram oxalate 20 mg tablet 20 mg PO DAILY 11/23/22 01/13/23 (Lexapro) gabapentin 800 mg tablet 800 mg PO TID 11/23/22 01/13/23 lorazepam 0.5 mg tablet (Ativan) 0.5 mg PO DAILY PRN Anxiety 11/23/22 01/13/23 omeprazole 20 mg tablet,delayed 20 mg PO DAILY 01/13/23 01/13/23 release Previous Rx's Medication Instructions Recorded morphine 15 mg tablet,extended 15 mg PO Q12H 3 days #6 tabs 01/18/23 release (MS Contin) acetaminophen 325 mg tablet 650 mg (2 x 325 mg) PO Q4-6H PRN 01/19/23 fever or pain 30 days #240 tabs oxycodone 10 mg tablet 10 mg PO Q8H 7 days #21 tabs 01/22/23 cephalexin 500 mg capsule 500 mg PO QID 7 days #28 caps 01/27/23 Allergies Allergy/AdvReac Type Severity Reaction Status Date / Time No Known Allergies Allergy Verified 03/12/23 10:42 Review of Systems Review of Systems: Pertinent positives and negatives as stated in HPI [facility] Past Medical History Source: nursing notes reviewed Medical History Palpitations Anxiety Hyperlipidemia Anxiety HX: breast cancer Surgical History H/O colonoscopy Hx of bilateral mastectomy Social History Social History Alcohol intake: current Alcohol intake frequency: a few times a week Patient Tobacco Use Status: Former Tobacco user Smoked in Last 30 Days: No Use of substances other than those prescribed or required for medical reasons: No Advance Directives: Yes Advance Directives Information Provided: Yes Advance Directives on File: No Patient : No Current occupational status: employed 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 GENERAL: Well developed, well nourished, in no acute distress. HEAD: Normocephalic/atraumatic EYES: PERRLA, EOMI EARS: Ext canals without abnormality NOSE: Nares patent bilateral OROPHARYNX: no oral lesions noted, posterior pharynx clear NECK: Supple, no adenopathy LUNGS: Normal breath sounds. No adventitious sounds or accessory muscle use. SpO2<95> CARDIOVASCULAR: Regular rate and rhythm without noted murmurs ABDOMEN: Soft, non-tender, non-distended with bowel sounds. MUSCULOSKELETAL: No tenderness, deformities, or effusions noted on gross inspection. EXTREMITIES: No cyanosis, clubbing or edema. SKIN: Inspection of the skin reveals no rashes NEUROLOGIC: Alert and oriented x 4. Strength and sensation to light touch were grossly intact x 4 no facial asymmetry, no pronator drift, cranial nerves 2-12 are grossly intact.. Medical Decision Making Medical Decision Making [facility] Narrative: 62 year old female with history and clinical presentation, DDX: Medication etiology for elevated blood pressure, diet for elevated blood pressure but otherwise no cardiac or neurologic symptoms. I reviewed all investigations and hematologic indices are negative for leukocytosis or left shift, there is no anemia or thrombocytopenia. Chemistry indices are negative for MICHELLE or electrolyte derangements and high sensitivity troponin is undetectable. EKG does not demonstrate any STEMI. And repeat blood pressures have continued to trend down words. My interpretation is that patient likely has essential hypertension without concerning symptoms and she was given all results and instructed to follow-up with primary care doctor for which she has a scheduled appointment tomorrow and discuss possible medication. Differential Diagnosis Differential Diagnoses: The differential diagnosis associated with the presentation includes Please see the discussion above Admission/Observation Consideration of admission/observation: Escalation of care including admission/observation considered Please see the discussion above Lab Data [facility] Lab Attestation statement: I reviewed the patient's lab results. Please see the discussion above 03/12/23 11:03 03/12/23 11:03 Labs: Lab Results 03/12/23 Range/Units 11:03 WBC 4.0 L (4.8-10.8) X10*3/uL RBC 4.95 (4.20-5.50) X10*6/uL Hgb 15.1 (12.0-16.0) g/dl Hct 44.3 (37.0-47.0) % MCV 89.5 (80.0-98.0) fL MCH 30.5 (27.0-33.0) pg MCHC 34.1 (31.0-35.0) g/dl RDW 11.9 (11.0-16.0) % Plt Count 238 (160-400) X10*3/uL MPV 9.2 L (9.4-12.3) fL Immature Gran % (Auto) 0.3 (0.0-0.4) % Neut % (Auto) 51.1 (45-73) % Lymph % (Auto) 34.9 (20-40) % Norman % (Auto) 6.3 (2-11) % Eos % (Auto) 6.1 H (0-4) % Baso % (Auto) 1.3 (0-2) % Lymph # (Auto) 1.4 (1.2-4.9) X10*3/uL Norman # (Auto) 0.3 (0.1-1.2) X10*3/uL Eos # (Auto) 0.2 (0.0-0.4) X10*3/uL Baso # (Auto) 0.1 (0.0-0.2) X10*3/uL Abs Immat Gran (auto) 0.01 (0.00-0.03) X10*3/uL Absolute Neuts (auto) 2.0 (2.0-8.3) x10*3/uL Absolute Nucleated RBC 0.000 (0.0-0.012) X10*3/uL Nucleated RBC % (auto) 0.0 (0.0-0.2) /100WBC Sodium 141 (135-145) mmol/L Potassium 4.0 (3.3-5.1) mmol/L Chloride 106 (96-108) mmol/L Carbon Dioxide 24 (22-29) mmol/L Anion Gap 15 (12-20) BUN 15 (9-16) mg/dL Creatinine 0.77 (0.5-1.4) mg/dL Estim Creat Clear Calc 87.0 Estimated GFR > 60 Random Glucose 108 (60-115) mg/dL Calcium 10.2 (8.4-10.2) mg/dL Troponin I High Sens < 2.7 (<3.5-17.0) ng/L Independent Interpretation I performed an independent interpretation of an: EKG Interpretation: Normal sinus rhythm, HR-71, no STEMI, NM/QRS/QTC is within normal limits. External Record Review External record reviewed: Outpatient record, Prior outpatient labs and Prior outpatient radiology Chronic Conditions Patient?s care impacted by: Cancer and Other Anxiety Critical Care Time Critical Care Time Critical Care Time: Yes Total Critical Care Time: 30 Attestation: I personally attest to this time spent taking care of the patient. Discharge Plan Discharge Clinical Impression: Elevated blood pressure reading Patient Disposition: Home, Self-Care Instructions: DASH Eating Plan (ED), Hypertension (ED) Additional Instructions: 1. Please keep your scheduled appointment with your primary care doctor tomorrow and discuss being started on a medication to control your blood pressure. Do not hesitate to return to the emergency room if you experience any visual/speech difficulties, chest pain/palpitations. Prescriptions: No Action oxycodone 10 mg tablet 10 mg PO Q8H 7 Days Qty: 21 0RF Rx Instructions: Partial Fill upon patient request. cephalexin 500 mg capsule 500 mg PO QID 7 Days Qty: 28 0RF omeprazole 20 mg Tablet,Delayed Release (Dr/Ec) 20 mg PO DAILY morphine [MS Contin] 15 mg tablet extended release 15 mg PO Q12H 3 Days Qty: 6 0RF Rx Instructions: Partial Fill upon patient request. acetaminophen 325 mg tablet 650 mg PO Q4-6H PRN (Reason: fever or pain) 30 Days Qty: 240 0RF gabapentin 800 mg tablet 800 mg PO TID anastrozole 1 mg tablet 1 mg PO DAILY escitalopram oxalate [Lexapro] 20 mg tablet 20 mg PO DAILY lorazepam [Ativan] 0.5 mg tablet 0.5 mg PO DAILY PRN (Reason: Anxiety) Referrals: Darryl Henriquez [facility] [Primary Care Provider] - Interventions: ED Discharge Assessment Last Done: 03/12/23 13:51 Discharge Date/Time: 03/12/23 13:52
== END 2023-03-12 13:52 | disposition home or self-care (01) ==
PROVIDERS: Emergency Provider Student in an Organized Health Care Education/Training Program; PCP Nurse Practitioner Adult Health
DX: R03.0 Elevated blood-pressure reading, without diagnosis of hypertension (principal); R00.2 Palpitations; Z79.899 Other long term (current) drug therapy
CPT/HCPCS: 36415; 80048; 84484; 85025; 93005; 99284; 99285

== ENCOUNTER 2023-03-21 13:00 | Outpatient (RCR) | payer BC, SELFPAY ==
--- NOTE | 2023-06-13 11:44 | MHC.PT.DC ---
[facility] [place] Office [place] Office [place] Office [address] Mary Mondragon [address] [phone] F: [phone] F: [phone] F: [phone] F: [phone] Physical Therapy Discharge Report Diagnosis: L large RTC tear with L SLAP tear, underwent RTC repair Supraspinatus and infraspinatus, with bicep tenotomy and labral debridement Date of Surgery: 01/18/23 Date of Evaluation: 02/03/23 Date of Discharge: 04/21/23 Treatments to Date: 11 Cancellations to Date: 2 No Shows to Date: 1 Discharge Status: Improved Function Patient Elected to Stop Visit Non-compliance Discharge Summary: Pt is a 62yo female who participated in 11 PT treatment sessions for post-op shoulder rehab. Pt progressed slowly due to extensive scar tissue s/p B mastectomy, and limitations of protocol. Pt's elevation ROM improved to 110 degrees. Pt f/u with MD and did not return to PT to continue rehab despite need to progress ROM and strength further. 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 D/C at this time due to loss of contact with patient and visit non-compliance. Recommend return to PT for further rehab as indicated by MD. Electronically signed by: Dianne Kee PT, DPT Please sign and return to therapist. Thank you for your referral.
== END 2023-06-13 11:45 | disposition home or self-care (01) ==
LOC: HO.PT 13:00
PROVIDERS: PCP Nurse Practitioner Adult Health; Visit Provider Physician Assistant
DX: M75.102 Unspecified rotator cuff tear or rupture of left shoulder, not specified as traumatic (principal)
CPT/HCPCS: 97110; 97140; 97162

== ENCOUNTER 2023-04-03 10:45 | Outpatient (AMB) | payer BC, SELFPAY ==
--- NOTE | 2023-04-03 10:50 | A.OFFVIS_ITS ---
Intake Intake Visit Reasons: PO- LT RTC Repair 01/18/23 NE Intake Note: Maik is a 62 year old 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 female who presents today for a post operative visit s/p left RTC repair on 01/18/23. Patient reports that she is doing well overall, she does feel like something is snapping over occasionally in the shoulder. Allergies No Known Allergies Allergy (Verified 04/03/23 10:51) HPI PO- LT RTC Repair 01/18/23 NE HPI Details Maki is a 62 year old woman ~3 months S/P left RTC repair with biceps tenotomy & labral debridement. She says she is doing well and denies any pain. She reports feeling something snap or move over her shoulder at times with motion, and she is concerned about this. She says this is only mildly bothersome and not particularly painful. She has been attending PT, which she says is going well. 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 Review of Systems Const All systems reviewed & are unremarkable except as noted in HPI and below Physical Exam Const General: no acute distress, alert and awake Orientation/consciousness: patient oriented x3 HEENT Head: Yes normocephalic and Yes atraumatic Eyes EOM: EOMs intact bilaterally Resp Effort & Inspection: normal respiratory effort and able to speak in complete sentences Cardio Jugular venous distension: no JVD Skin General skin exam: turgor normal Rashes: no rashes Neuro General: patient oriented x3 Extrem Other: Left Shoulder: Psych Appearance: grossly normal Affect: normal affect Attitude: cooperative Assessment & Plan Assessment & Plan (1) S/P left rotator cuff repair: Code(s): Z98.890 - Other specified postprocedural states Plan: This is a 62 year old woman S/P left RTC repair with biceps tenotomy & labral debridement, DOS: 01/18/23. She is doing well, without complaints, and is happy with the results of her surgery. She has been attending PT. I recommend she continue with PT and activity as tolerated, being mindful to not push through pain. She can follow up prn. Plan Scribed for Harley Barber MD by Oscar Almonte, medical office asst, on 04/03/23 at 11:00 AM, EST. Coding Level of Care Code Global (42216) Diagnoses S/P left rotator cuff repair Z98.890
== END 2023-04-03 11:09 | disposition home or self-care (01) ==
PROVIDERS: PCP Nurse Practitioner Adult Health; Visit Provider Orthopaedic Surgery
DX: Z98.890 Other specified postprocedural states (principal)
CPT/HCPCS: 99024

== ENCOUNTER → 2023-04-03 10:45 | Outpatient (BNVA) | payer BC, SELFPAY | PROVIDERS: PCP Nurse Practitioner Adult Health; Visit Provider Orthopaedic Surgery ==

== ENCOUNTER 2023-05-22 14:00 | Outpatient (AMB) | payer BC, SELFPAY ==
--- NOTE | 2023-05-22 14:08 | MHC.OFFVIS ---
Intake Vital Signs 05/22/23 14:31 Height 5 ft 8 in Weight 195 lb BMI 29.6 BP 130/82 Blood Pressure Location Lt brachial Position Sitting Respiration 12 Pulse 87 Pulse Source Pulse Oximeter Pulse Oximetry (%) 98 Oxygen Delivery Method Room Air Intake Visit Reasons: Chemotherapy-induced peripheral neuropathy/# not w Allergies No Known Allergies Allergy (Verified 05/22/23 14:33) Medication List - Last Reconciled 05/22/23 by Mely Javed LPN acetaminophen 650 mg (2 x 325 mg) PO Q4-6H PRN 30 days anastrozole 1 mg PO DAILY escitalopram oxalate (Lexapro) 20 mg PO DAILY gabapentin 800 mg PO TID lorazepam (Ativan) 0.5 mg PO DAILY PRN omeprazole 20 mg PO DAILY oxycodone 10 mg PO Q8H 7 days HPI Chemotherapy-induced peripheral neuropathy/# not w HPI Details 62-year-old female who presents today to the office for an evaluation of chemotherapy induced peripheral neuropathy. The patient was diagnosed with breast cancer in 2019. She had a bilateral mastectomy eight months ago. She is currently on chemotherapy treatment. She reports developing neuropathy after the second round of chemotherapy. She reports constant mild numbness and paresthesia in her hands and feet. She reports warm and cold sensations in the hands and feet since chemotherapy. She has been taking oxycodone for pain management. She has tried topical patches for the pain but had an allergic reaction to the skin and also had cramps in her neck and calf. She has tried acupuncture and meditation in the past with some relief. The patient underwent left RTC repair with a biceps tenotomy and labral debridement on 01/18/23. She is currently in physical therapy. She continues to take gabapentin and Tylenol. 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 Alert and oriented. Mood and affect appropriate. Follows and participates in conversation appropriately. Respiratory effort is unlabored. Able to transition from sit to stand unassisted. Ambulates with bilaterally normal heel strike and toe off. Results Reviewed Results Reviewed: No imaging is available for review. Assessment & Plan Assessment & Plan (1) Chemotherapy-induced peripheral neuropathy: Code(s): G62.0 - Drug-induced polyneuropathy; T45.1X5A - Adverse effect of antineoplastic and immunosuppressive drugs, initial encounter Plan We discussed different types of conservative measures of treatment with the patient. I recommended trying scrambler therapy for her pain. We also went through some locations that are available nearby. The patient will call to let us know when she finds a location to proceed. I also advised trying Tramadol for her pain management. The patient can reach out to her primary care physician for the prescription of Tramadol. Follow up as needed. Scribed for Dr. Marr by Hai Julian, medical laboratory technicians, on 05/22/2023. I, Dr. Marr, have personally reviewed and agree with the information entered by the scribe. Coding Level of Care Code New Pt Level 4 (62538) Diagnoses Chemotherapy-induced peripheral neuropathy G62.0; T45.1X5A
[2023-05-22 14:31] VITALS: BP 130/82; PULSE 87; RESP 12; O2SAT 98; BMI 29.6
== END 2023-05-22 15:48 | disposition home or self-care (01) ==
PROVIDERS: PCP Nurse Practitioner Adult Health; Referring Provider Nurse Practitioner Adult Health; Visit Provider Internal Medicine
DX: G62.0 Drug-induced polyneuropathy (principal); T45.1X5A Adverse effect of antineoplastic and immunosuppressive drugs, initial encounter
CPT/HCPCS: 99203

== ENCOUNTER → 2023-05-22 14:00 | Outpatient (BNVA) | payer BC, SELFPAY | PROVIDERS: PCP Nurse Practitioner Adult Health; Referring Provider Nurse Practitioner Adult Health; Visit Provider Internal Medicine ==

== ENCOUNTER 2023-12-21 13:32 | Outpatient (AMB) | payer BC, SELFPAY ==
--- NOTE | 2023-12-21 13:35 | MHC.OFFVIS ---
Vital Signs 12/21/23 13:41 Height 5 ft 8 in Weight 187 lb 8 oz BMI 28.5 BP 136/91 H Blood Pressure Location Rt brachial Position Sitting Pulse 67 Pulse Source Pulse Oximeter Pulse Oximetry (%) 97 Oxygen Delivery Method Room Air Intake Visit Reasons: Neuropathy due to chemotherapy? 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 She was initially seen by Dr. Marr in May and was recommended to pursue trying scrambler therapy for her pain. Patient reports she has found several places who offer scrambler therapy but due to high out of pocket costs, she did not trial it. Patient is currently on hormone based chemotherapy, anastrozole 1 mg daily for 5 more years per patient. Reports chronic daily burning, tingling, numbness, hot and cold sensations in her hands and feet since chemotherapy. She takes gabapentin and cannabis gummies through local dispensary for pain and sleep with partial relief. Patient lorazepam for anxiety. Denies any recent cough, cold, infection, fever or other significant changes in medical history since last office visit. PRIOR Dr. Marr 05/22/23: 62-year-old female who presents today to the office for an evaluation of chemotherapy induced peripheral neuropathy. The patient was diagnosed with breast cancer in 2019. She had a bilateral mastectomy eight months ago. She is currently on chemotherapy treatment. She reports developing neuropathy after the second round of chemotherapy. She reports constant mild numbness and paresthesia in her hands and feet. She reports warm and cold sensations in the hands and feet since chemotherapy. She has been taking oxycodone for pain management. She has tried topical patches for the pain but had an allergic reaction to the skin and also had cramps in her neck and calf. She has tried acupuncture and meditation in the past with some relief. The patient underwent left RTC repair with a biceps tenotomy and labral debridement on 01/18/23. She is currently in physical therapy. She continues to take gabapentin and Tylenol. 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 Alert and oriented. Mood and affect appropriate. Follows and participates in conversation appropriately. Respiratory effort is unlabored. Able to transition from sit to stand unassisted. Ambulates with bilaterally normal heel strike and toe off. Neuro General: moves all extremities, Normal light touch and pain sensation and CN's II-XI intact bilaterally Cognition (Neuro): normal cognition Gait exam (Neuro): Normal gait present Motor exam (neuro): 5/5 motor strength present throughout and no tremor noted Extrem General: Yes capillary refill normal, Yes no clubbing, cyanosis or edema and Yes no calf tenderness Quality Reporting (2020) Depression/Bipolar (159/160/161/177) PHQ-9: Total score: 3 Results Reviewed Results Reviewed: No imaging is available for review. Assessment & Plan Assessment & Plan (1) Chemotherapy-induced peripheral neuropathy: Code(s): G62.0 - Drug-induced polyneuropathy; T45.1X5A - Adverse effect of antineoplastic and immunosuppressive drugs, initial encounter Category: Medical (2) Chronic pain syndrome: Code(s): G89.4 - Chronic pain syndrome Category: Medical Plan Discussed and reviewed different types of interventional treatments with the patient, including topical 8% capsaicin application and spinal cord stimulation, acupuncture, compression therapy, TENS unit, massage therapy and medical management. Will try to arrange topical 8% capsaicin application for bilateral foot pain as the next step once we have confirmed availability. On evaluation, it was determined that there was a continued need to continue palliative chronic opioid prescribing. Patient reports her current PCP does not offer opioid prescribing. Risks and benefits were discussed with the patient. Patient believes she was more functional and less symptomatic on chronic opioids, especially during severe pain exacerbations up to 3-4 times during every month. MassPAT was reviewed and is consistent with her history. Patient agreed to have the UDS performed tomorrow, Monday morning. She is aware that this office can not prescribe until the UDS is reviewed and contracts are signed. All questions were answered and she is agreeable to the plan. Follow up in two weeks for a UDS review and to thoroughly review/sign contracts. Coding Level of Care Code Est Pt Level 4 (08726) Diagnoses Chemotherapy-induced peripheral neuropathy G62.0; T45.1X5A Chronic pain syndrome G89.4 PHQ-9 Over the last 2 weeks, how often have you been bothered by any of the following problems? 1. Little interest or pleasure in doing things: several days 2. Feeling down, depressed, or hopeless: several days 3. Trouble falling or staying asleep, or sleeping too much: several days 4. Feeling tired or having little energy: not at all 5. Poor appetite or overeating: not at all 6. Feeling bad about yourself - or that you are a failure or have let yourself or your family down: not at all 7. Trouble concentrating on things, such as reading the newspaper or watching television: not at all 8. Moving or speaking so slowly that other people could have noticed. Or the opposite - being so fidgety or restless that you have been moving around a lot more than usual: not at all 9. Thoughts that you would be better off or of hurting yourself in some way: not at all Total score: 3 Depression Screening Interpretation: Positive Depression Screening Follow-up: Existing condition Depression Screening Done: Yes 62525 - PHQ-9 Billing: Yes Source: Developed by Drs. Micheal Nails, Olivia Charlton, Sanya Willson and colleagues, with an educational jamie from [employer].
[2023-12-21 13:41] VITALS: BP 136/91; PULSE 67; O2SAT 97; BMI 28.5
== END 2023-12-21 14:14 | disposition home or self-care (01) ==
PROVIDERS: PCP Nurse Practitioner Adult Health; Visit Provider Nurse Practitioner Family
DX: G62.0 Drug-induced polyneuropathy (principal); T45.1X5A Adverse effect of antineoplastic and immunosuppressive drugs, initial encounter; G89.4 Chronic pain syndrome
CPT/HCPCS: 99214

== ENCOUNTER → 2023-12-21 13:32 | Outpatient (BNVA) | payer BC, SELFPAY | PROVIDERS: PCP Nurse Practitioner Adult Health; Visit Provider Nurse Practitioner Family ==

== ENCOUNTER 2024-01-08 11:31 | Outpatient (AMB) | payer BC, SELFPAY ==
--- NOTE | 2024-01-08 11:32 | MHC.OFFVIS ---
Vital Signs 01/08/24 11:41 Height 5 ft 8 in Weight 188 lb BMI 28.6 BP 148/72 H Blood Pressure Location Rt brachial Position Sitting Pulse 62 Pulse Source Pulse Oximeter Pulse Oximetry (%) 100 Oxygen Delivery Method Room Air Intake Visit Reasons: Follow up Intake Note: Pain today 11/21. Allergies No Known Allergies Allergy (Verified 12/21/23 13:38) Medication List - Last Reconciled 01/08/24 by VIRY Licea anastrozole 1 mg PO DAILY escitalopram oxalate (Lexapro) 20 mg PO DAILY gabapentin 800 mg PO TID ketorolac 0.5% dradali ophthalmic (eye) lorazepam (Ativan) 0.5 mg PO DAILY PRN HPI Comments Details: Patient presents today for UDS review and opioid contract paperwork review. UDS was consistent, noted for positive THC. Per risk assessment, she is at moderate risk for adverse effects from opioids. PHQ score was 4. Detailed risk assessment scanned under activity tab. Contract reviewed and signed. Patient is also interested to start topical 8% capsaicin for chronic peripheral neuropathy. Denies any recent cough, cold, infection, fever, any significant changes in her medical history, medications or recent hospitalizations. PHQ-9 SCORE: 4 OPIOID RISK STRATIFICATION SURVEY SCORE: 15 Given this, patient is deemed to be a MODERATE RISK for chronic opioid addiction. 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 The patient understands that the medication she is requesting is an opioid, which carries risks of dependence, tolerance, hyperalgesia, addiction, respiratory failure and possibly . Patient verbalized understanding of this and accepted these risks on her own volition. The patient accepts the responsibility to adhere to the opioid medication use agreement. There is no evidence of misuse, abuse or diversion at this time. Patient is aware she will be required to attend monthly pill counts and if there are any discrepancies, because of her risk of addiction she will be suspended for ONE YEAR. ?? PRIOR: Patient is a pleasant 63 years old female presents today for follow up for painful chronic chemotherapy induced peripheral neuropathy. She was initially seen by Dr. Marr in May and was recommended to pursue trying scrambler therapy for her pain. Patient reports she has found several places who offer scrambler therapy but due to high out of pocket costs, she did not trial it. Patient is currently on hormone based chemotherapy, anastrozole 1 mg daily for 5 more years per patient. Reports chronic daily burning, tingling, numbness, hot and cold sensations in her hands and feet since chemotherapy. She takes gabapentin and cannabis gummies through local dispensary for pain and sleep with partial relief. Patient lorazepam for anxiety. Denies any recent cough, cold, infection, fever or other significant changes in medical history since last office visit. PRIOR Dr. Marr 05/22/23: 62-year-old female who presents today to the office for an evaluation of chemotherapy induced peripheral neuropathy. The patient was diagnosed with breast cancer in 2019. She had a bilateral mastectomy eight months ago. She is currently on chemotherapy treatment. She reports developing neuropathy after the second round of chemotherapy. She reports constant mild numbness and paresthesia in her hands and feet. She reports warm and cold sensations in the hands and feet since chemotherapy. She has been taking oxycodone for pain management. She has tried topical patches for the pain but had an allergic reaction to the skin and also had cramps in her neck and calf. She has tried acupuncture and meditation in the past with some relief. The patient underwent left RTC repair with a biceps tenotomy and labral debridement on 01/18/23. She is currently in physical therapy. She continues to take gabapentin and Tylenol. 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 Alert and oriented. Mood and affect appropriate. Follows and participates in conversation appropriately. Respiratory effort is unlabored. Able to transition from sit to stand unassisted. Ambulates with bilaterally normal heel strike and toe off. Extrem General: Yes capillary refill normal, Yes no clubbing, cyanosis or edema and Yes no calf tenderness Psych Appearance: grossly normal and well kempt Mental Status: mental status grossly normal Speech and movement: Normal speech and movement present and Clear speech present Affect: normal affect Attitude: cooperative Thought process: Normal thought process present Thought content: Normal thought content present, suicidality (none), no hallucinations and No Depressive thoughts present Insight: Good insight present (Psych) Judgement: Good judgement present (Psych) Results Reviewed Results Reviewed: No imaging is available for review. 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 UDS was consistent, noted for positive THC which patient informed our office before and Per risk assessment, she is at moderate risk for adverse effects from opioids. Detailed risk assessment scanned under activity tab. Contract reviewed and signed. Script sent for hydrocodone-acetaminophen 5-325 mg BID prn for moderate-severe pain. Side effects and precautions reviewed with herminio. Discussed with the patient the risks associated with benzodiazepine and opioid use. She is aware and verbalized an agreement to take the medications at least two hours apart and she has Narcan at home. Topical 8% capsaicin application for chemotherapy-induced peripheral neuropathy has been approved. Script sent for EMLA cream. Also previously discussed spinal cord stimulation, acupuncture, compression therapy, TENS unit and massage therapy. All questions and concerns have been answered and patient agreed with the plan. Follow up in 2 weeks and sooner as needed. Medications: New lidocaine-prilocaine 2.5-2.5 % Apply to both clean feet 15-30 min prior to Qutenza visit 1 appl topical ONCE 1 day 30 grams 3RF pain G62.0 - Drug-induced polyneuropathy, T45.1X5A - Adverse effect of antineoplastic and immunosuppressive drugs, initial encounter hydrocodone-acetaminophen 5-325 mg Partial Fill upon patient request. 1 tab PO BID 2 weeks PRN 28 tabs 0RF pain G62.0 - Drug-induced polyneuropathy, G89.4 - Chronic pain syndrome, T45.1X5A - Adverse effect of antineoplastic and immunosuppressive drugs, initial encounter naloxone 4 mg/actuation (Narcan) spray 1 dose into ONE nostril; alternate nostrils w each dose until help arrives 4 mg intranasal Q2M PRN 2 ea 0RF opioid overdose Z79.891 - half-way (current) use of opiate analgesic Coding Level of Care Code Est Pt Level 4 (85410) Diagnoses Chemotherapy-induced peripheral neuropathy G62.0; T45.1X5A Chronic pain syndrome G89.4 Opioid contract exists Z79.891
[2024-01-08 11:41] VITALS: BP 148/72; PULSE 62; O2SAT 100; BMI 28.6
== END 2024-01-08 12:13 | disposition home or self-care (01) ==
PROVIDERS: PCP Nurse Practitioner Adult Health; Visit Provider Nurse Practitioner Family
DX: G62.0 Drug-induced polyneuropathy (principal); T45.1X5A Adverse effect of antineoplastic and immunosuppressive drugs, initial encounter; G89.4 Chronic pain syndrome; Z79.891 Long term (current) use of opiate analgesic
CPT/HCPCS: 99214

== ENCOUNTER → 2024-01-08 11:31 | Outpatient (BNVA) | payer BC, SELFPAY | PROVIDERS: PCP Nurse Practitioner Adult Health; Visit Provider Nurse Practitioner Family ==

== ENCOUNTER 2024-01-22 13:27 | Outpatient (AMB) | payer BC, SELFPAY ==
--- NOTE | 2024-01-22 13:41 | MHC.OFFVIS ---
Vital Signs 01/22/24 13:42 01/22/24 13:58 01/22/24 14:19 01/22/24 14:21 Height 5 ft 8 in Weight 188 lb BMI 28.6 BP 138/78 142/79 H 164/104 H 144/95 H Blood Pressure Location Rt brachial Rt brachial Rt brachial Rt brachial Position Sitting Sitting Sitting Sitting Pulse 72 77 70 70 Pulse Source Pulse Oximeter Pulse Oximeter Pulse Oximeter Pulse Oximeter Pulse Oximetry (%) 99 98 98 Oxygen Delivery Method Room Air Room Air Room Air Comment 15 mins after qutenza application 30 mins after qutenza application Intake Visit Reasons: PILL COUNT/QUTENZA Intake Note: Maki comes in today for a pill count to hydrocodone-acetaminophen, patient should have 0 tablets 21.5 tablets which she last took about 1 week ago. 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 Patient is supposed to have #0 pills, in her possession has #21.5 pills. This demonstrates a responsible attitude in regards to the medication regimen. Patient reports she could not obtain significant pain relief with hydrocodone-acetaminophen as she was in the past so she stopped taking it. Denies any adverse or side effects. Pain is rated at 8/10. Denies any fever, chills, nausea, sedation, dizziness, or urinary retention. Patient reports she used Smooth Move tea for occasional constipation with good results. PRIOR: Patient presents today for UDS review and opioid contract paperwork review. UDS was consistent, noted for positive THC. Per risk assessment, she is at moderate risk for adverse effects from opioids. PHQ score was 4. Detailed risk assessment scanned under activity tab. Contract reviewed and signed. Patient is also interested to start topical 8% capsaicin for chronic peripheral neuropathy. Denies any recent cough, cold, infection, fever, any significant changes in her medical history, medications or recent hospitalizations. PHQ-9 SCORE: 4 OPIOID RISK STRATIFICATION SURVEY SCORE: 15 Given this, patient is deemed to be a MODERATE RISK for chronic opioid addiction. Educated patient on senior care effects of opioid use including sexual dysfunction, cardiac, renal and immunosuppressive effects. The patient understands that the medication she is requesting is an opioid, which carries risks of dependence, tolerance, hyperalgesia, addiction, respiratory failure and possibly . Patient verbalized understanding of this and accepted these risks on her own volition. The patient accepts the responsibility to adhere to the opioid medication use agreement. There is no evidence of misuse, abuse or diversion at this time. Patient is aware she will be required to attend monthly pill counts and if there are any discrepancies, because of her risk of addiction she will be suspended for ONE YEAR. ?? PRIOR: Patient is a pleasant 63 years old female presents today for follow up for painful chronic chemotherapy induced peripheral neuropathy. She was initially seen by Dr. Marr in May and was recommended to pursue trying scrambler therapy for her pain. Patient reports she has found several places who offer scrambler therapy but due to high out of pocket costs, she did not trial it. Patient is currently on hormone based chemotherapy, anastrozole 1 mg daily for 5 more years per patient. Reports chronic daily burning, tingling, numbness, hot and cold sensations in her hands and feet since chemotherapy. She takes gabapentin and cannabis gummies through local dispensary for pain and sleep with partial relief. Patient lorazepam for anxiety. Denies any recent cough, cold, infection, fever or other significant changes in medical history since last office visit. PRIOR Dr. Marr 05/22/23: 62-year-old female who presents today to the office for an evaluation of chemotherapy induced peripheral neuropathy. The patient was diagnosed with breast cancer in 2019. She had a bilateral mastectomy eight months ago. She is currently on chemotherapy treatment. She reports developing neuropathy after the second round of chemotherapy. She reports constant mild numbness and paresthesia in her hands and feet. She reports warm and cold sensations in the hands and feet since chemotherapy. She has been taking oxycodone for pain management. She has tried topical patches for the pain but had an allergic reaction to the skin and also had cramps in her neck and calf. She has tried acupuncture and meditation in the past with some relief. The patient underwent left RTC repair with a biceps tenotomy and labral debridement on 01/18/23. She is currently in physical therapy. She continues to take gabapentin and Tylenol. 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 Alert and oriented. Mood and affect appropriate. Follows and participates in conversation appropriately. Respiratory effort is unlabored. Able to transition from sit to stand unassisted. Ambulates with bilaterally normal heel strike and toe off. Extrem Other: There is a decreased sensation over the soles of the feet and toes. Reports numbness, burning, hot, tingling in both feet, worse at night time. No breaks in the skin. No soft tissue swelling or warmth. +2 pedal pulses bilaterally. General: Yes capillary refill normal, Yes no clubbing, cyanosis or edema and Yes no calf tenderness Psych Appearance: grossly normal and well kempt Mental Status: mental status grossly normal Speech and movement: Normal speech and movement present and Clear speech present Affect: normal affect Attitude: cooperative Thought process: Normal thought process present Thought content: Normal thought content present, suicidality (none), no hallucinations and No Depressive thoughts present Insight: Good insight present (Psych) Judgement: Good judgement present (Psych) Office Procedures Topical Capsaicin Date 1:: 01/22/24 Main area of pain on the body: Bilateral feet and toes Laterality: Bilateral Location of left foot pain: Anterior, Posterior, Plantar, Proximal, Dorsal, Medial, Lateral and Distal Location of right foot pain: Anterior, Posterior, Plantar, Proximal, Dorsal, Medial, Lateral and Distal Quality of pain: Aching, Nagging, Burning, Gnawing, Numb-like and Penetrating Details:: Two patches, 560 cm2 were utilized per each foot. EMLA Cream (lidocaine 2.5% and prilocaine 2.5%) was not applied at home by patient prior to application of the patches. Patient elected to proceed with the procedure without EMLA cream. The patient tolerated the procedure well. Patient?s vitals signs remained stable throughout the procedure. Patient was able to complete the stipulated 30 minutes of the therapeutic application without any discomfort. 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 Assessment & Plan Assessment & Plan (1) Chemotherapy-induced peripheral neuropathy: Code(s): G62.0 - Drug-induced polyneuropathy; T45.1X5A - Adverse effect of antineoplastic and immunosuppressive drugs, initial encounter Category: Medical (2) Chronic pain syndrome: Code(s): G89.4 - Chronic pain syndrome Category: Medical (3) Opioid contract exists: Code(s): Z79.891 - long-term (current) use of opiate analgesic Category: Medical Plan Patient has shown accountability for her medication regimen and the pill count was accurate. There is no evidence of misuse, abuse or diversion at this time. MassPat reviewed. Patient will stop hydrocodone-acetaminophen. Medication discarded per office policy. Script sent today for oxycodone 5 mg BID prn for moderate-severe pain. Side effects and precautions reviewed with herminio. Discussed with the patient the risks associated with benzodiazepine and opioid use. She is aware and verbalized an agreement to take the medications at least two hours apart and she has Narcan at home. Patient is status post 1st round of application of topical capsaicin 8% for peripheral neuropathy in bilateral feet. Patient tolerated the procedure without significant discomfort without application of EMLA cream prior to the procedure. She was discharged home in stable condition with discharge instructions. Previously discussed spinal cord stimulation, acupuncture, compression therapy, TENS unit and massage therapy. All questions and concerns have been answered and patient agreed with the plan. Follow up in 2 weeks and sooner as needed. Greater than 45 minutes were spent in therapeutic application, pill count, documentation and coordination of the care. Orders: Orders AMB Capsaicin Patch - Practice Supplied Today G62.0 - Drug-induced polyneuropathy, T45.1X5A - Adverse effect of antineoplastic and immunosuppressive drugs, initial encounter Medications: New oxycodone Partial Fill upon patient request. 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 Discontinued Reason: Patient no longer taking 1 tab PO BID 2 weeks PRN 28 tabs 0RF pain G62.0 - Drug-induced polyneuropathy, G89.4 - Chronic pain syndrome, T45.1X5A - Adverse effect of antineoplastic and immunosuppressive drugs, initial encounter Coding Level of Care Code Est Pt Level 4 (18281) Complex EM visit Add On G2211 Diagnoses Chemotherapy-induced peripheral neuropathy G62.0; T45.1X5A Chronic pain syndrome G89.4 Opioid contract exists Z79.890
[2024-01-22 13:42] VITALS: BP 138/78; PULSE 72; O2SAT 99; BMI 28.6
[2024-01-22 13:58] VITALS: BP 142/79; PULSE 77; O2SAT 98
[2024-01-22 14:19] VITALS: BP 164/104; PULSE 70
[2024-01-22 14:21] VITALS: BP 144/95; PULSE 70; O2SAT 98
== END 2024-01-22 14:24 | disposition home or self-care (01) ==
PROVIDERS: PCP Nurse Practitioner Adult Health; Visit Provider Nurse Practitioner Family
DX: G62.0 Drug-induced polyneuropathy (principal); T45.1X5A Adverse effect of antineoplastic and immunosuppressive drugs, initial encounter; G89.4 Chronic pain syndrome; Z79.891 Long term (current) use of opiate analgesic; Z45.1 Encounter for adjustment and management of infusion pump
CPT/HCPCS: 17999; 99214

== ENCOUNTER → 2024-01-22 13:27 | Outpatient (BNVA) | payer BC, SELFPAY | PROVIDERS: PCP Nurse Practitioner Adult Health; Visit Provider Nurse Practitioner Family | DX: G62.0 Drug-induced polyneuropathy (principal); T45.1X5A Adverse effect of antineoplastic and immunosuppressive drugs, initial encounter; G89.4 Chronic pain syndrome; Z79.891 Long term (current) use of opiate analgesic | CPT/HCPCS: 17999; J7336 ==

== ENCOUNTER 2024-02-05 12:53 | Outpatient (AMB) | payer BC, SELFPAY ==
--- NOTE | 2024-02-05 12:55 | MHC.OFFVIS ---
Vital Signs 02/05/24 13:01 Height 5 ft 8 in Weight 188 lb BMI 28.6 BP 135/75 Blood Pressure Location Rt brachial Position Sitting Pulse 61 Pulse Source Pulse Oximeter Pulse Oximetry (%) 99 Oxygen Delivery Method Room Air Intake Visit Reasons: Pill Count Intake Note: Maki comes in today for a pill count to oxycodone, patient should have 0 tablets and presents with 9 tablets which she last took last night 02/04/24 at 7pm. 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 Patient is supposed to have #0 pills, in her possession has # pills. This demonstrates a responsible attitude in regards to the medication regimen. Patient reports adequate analgesia on current regime oxycodone 5 mg BID prn without noted side effects. Denies any adverse or side effects. Pain is rated at 5/10. Denies any fever, chills, nausea, sedation, dizziness, or urinary retention. She utilizes dietary fiber and Smooth move tea for occasional constipation. Patient reports opioid medication allows her to be less symptomatic and more functional. 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 Alert and oriented. Mood and affect appropriate. Follows and participates in conversation appropriately. Respiratory effort is unlabored. Able to transition from sit to stand unassisted. Ambulates with bilaterally normal heel strike and toe off. Extrem General: Yes capillary refill normal, Yes no clubbing, cyanosis or edema and Yes no calf tenderness Psych Appearance: grossly normal Mental Status: mental status grossly normal Speech and movement: Normal speech and movement present and Clear speech present Affect: normal affect Attitude: cooperative Thought process: Normal thought process present Thought content: Normal thought content present, suicidality (none), no hallucinations and No Depressive thoughts present Insight: Good insight present (Psych) Judgement: Good judgement present (Psych) Results Reviewed Results Reviewed: No imaging is available for review. Assessment & Plan Assessment & Plan (1) Chemotherapy-induced peripheral neuropathy: Code(s): G62.0 - Drug-induced polyneuropathy; T45.1X5A - Adverse effect of antineoplastic and immunosuppressive drugs, initial encounter Category: Medical (2) Chronic pain syndrome: Code(s): G89.4 - Chronic pain syndrome Category: Medical (3) Opioid contract exists: Code(s): Z79.891 - assisted (current) use of opiate analgesic Category: Medical Plan Patient has shown accountability for her medication regimen and the pill count was accurate. There is no evidence of misuse, abuse or diversion at this time. MassPat reviewed. Refill sent for oxycodone 5 mg BID prn for moderate-severe pain with advanced date of 02/22/24. Patient has Narcan at home. Discussed with the patient the risks associated with benzodiazepine and opioid use. She is aware and verbalized an agreement to take the medications at least two hours apart. All questions and concerns have been answered and patient agreed with the plan. Follow up in 4 weeks and sooner as needed. Medications: Changed From oxycodone Partial Fill upon patient request. 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
[2024-02-05 13:01] VITALS: BP 135/75; PULSE 61; O2SAT 99; BMI 28.6
== END 2024-02-05 13:07 | disposition home or self-care (01) ==
PROVIDERS: PCP Nurse Practitioner Adult Health; Visit Provider Nurse Practitioner Family
DX: G62.0 Drug-induced polyneuropathy (principal); T45.1X5A Adverse effect of antineoplastic and immunosuppressive drugs, initial encounter; G89.4 Chronic pain syndrome; Z79.891 Long term (current) use of opiate analgesic
CPT/HCPCS: 99214

== ENCOUNTER → 2024-02-05 12:53 | Outpatient (BNVA) | payer BC, SELFPAY | PROVIDERS: PCP Nurse Practitioner Adult Health; Visit Provider Nurse Practitioner Family ==

== ENCOUNTER 2024-03-04 13:02 | Outpatient (AMB) | payer BC, SELFPAY ==
--- NOTE | 2024-03-04 13:03 | MHC.OFFVIS ---
Vital Signs 03/04/24 13:10 Height 5 ft 8 in Weight 188 lb BMI 28.6 BP 130/70 Blood Pressure Location Rt brachial Position Sitting Pulse 72 Pulse Source Pulse Oximeter Pulse Oximetry (%) 98 Oxygen Delivery Method Room Air Intake Visit Reasons: Pill Count Intake Note: Maki comes in today for a pill count to oxycodone, patient should have 18 tablets and presents with 30 tablets which she last took last bight 03/03/24 at 8pm. Pain today 11/21 Visual Developer Required: No Accompanied by: Self / Same As Patient Allergies No Known Allergies Allergy (Verified 03/04/24 13:11) HPI Comments Details: Patient presents today for a pill count. Patient is supposed to have #18 pills, in her possession has #30 pills. This demonstrates a responsible attitude in regards to the medication regimen. Patient reports adequate analgesia on current regime oxycodone 5 mg BID prn without noted side effects. Denies any adverse or side effects. Pain is rated at 5/10. Denies any fever, chills, nausea, sedation, dizziness, or urinary retention. She utilizes dietary fiber and Smooth move tea for occasional constipation. Patient reports opioid medication allows her to be less symptomatic and more functional. 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 Alert and oriented. Mood and affect appropriate. Follows and participates in conversation appropriately. Respiratory effort is unlabored. Able to transition from sit to stand unassisted. Ambulates with bilaterally normal heel strike and toe off. Psych Appearance: grossly normal Mental Status: mental status grossly normal Speech and movement: Normal speech and movement present and Clear speech present Affect: normal affect Attitude: cooperative Thought process: Normal thought process present Thought content: Normal thought content present, suicidality (none), no hallucinations and No Depressive thoughts present Insight: Good insight present (Psych) Judgement: Good judgement present (Psych) Results Reviewed Results Reviewed: No imaging is available for review. 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 There is no evidence of misuse, abuse or diversion at this time. MassPat reviewed. Refill sent for oxycodone 5 mg BID prn for moderate-severe pain with advanced date of 03/18/24. Patient has Narcan at home. Discussed with the patient the risks associated with benzodiazepine and opioid use. She is aware and verbalized an agreement to take the medications at least two hours apart. Neurodiagnostic studies to evaluate degree of peripheral neuropathy in BLE. Reports significant burning pain s/p recent Qutenza application-will hold capsaicin applications at this time. All questions and concerns have been answered and patient agreed with the plan. Follow up in 4 weeks and sooner as needed. Orders: Orders NE electromyogram (EMG) Today G62.0 - Drug-induced polyneuropathy, T45.1X5A - Adverse effect of antineoplastic and immunosuppressive drugs, initial encounter NE nerve conduction velocity Today G62.0 - Drug-induced polyneuropathy, T45.1X5A - Adverse effect of antineoplastic and immunosuppressive drugs, initial encounter Medications: Refilled oxycodone Partial Fill upon patient request. 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
[2024-03-04 13:10] VITALS: BP 130/70; PULSE 72; O2SAT 98; BMI 28.6
== END 2024-03-04 13:24 | disposition home or self-care (01) ==
PROVIDERS: PCP Nurse Practitioner Adult Health; Visit Provider Nurse Practitioner Family
DX: G62.0 Drug-induced polyneuropathy (principal); T45.1X5A Adverse effect of antineoplastic and immunosuppressive drugs, initial encounter; G89.4 Chronic pain syndrome; Z79.891 Long term (current) use of opiate analgesic
CPT/HCPCS: 99214

== ENCOUNTER → 2024-03-04 13:02 | Outpatient (BNVA) | payer BC, SELFPAY | PROVIDERS: PCP Nurse Practitioner Adult Health; Visit Provider Nurse Practitioner Family ==

== ENCOUNTER 2024-03-28 13:34 | Outpatient (REF) | payer BC, SELFPAY ==
--- NOTE | 2024-03-28 13:36 | EMG_ITS ---
Chief complaint: At least 2 years of numbness and pain on both feet, associated with chemotherapy for breast cancer Reason for referral: Evaluate for neuropathy Referred by: Lakshmi Watson NP Procedure done: Bilateral lower extremity NCS/EMG Precautions and/or limitations: None The limb temperature was monitored continuously and remained between 32-36 degrees C during the performance of the NCS. Nerve Conduction Studies Anti Sensory Summary Table ?Stim Site NR Onset (ms) Norm Onset (ms) Peak (ms) Norm Peak (ms) O-P Amp (?V) Norm O-P Amp Site1 Site2 Delta-0 (ms) Dist (cm) Mykel (m/s) Norm Mykel (m/s) Left Sural Anti Sensory Run #1 (Lat Mall) Calf ? 2.4 3.3 <4.0 8.2 >5.0 Calf Lat Mall 2.4 14.0 58 ? 2.7 3.4 5.7 Left Sural Anti Sensory Run #2 (Lat Mall) Calf ? 2.9 3.8 <4.0 0.5 >5.0 Calf Lat Mall 2.9 14.0 48 Right Sural Anti Sensory (Lat Mall) Calf ? 3.3 4.0 <4.0 5.7 >5.0 Calf Lat Mall 3.3 14.0 42 Motor Summary Table ?Stim Site NR Onset (ms) Norm Onset (ms) O-P Amp (mV) Norm O-P Amp iAmp (mV) Amp (1st) (%) Site1 Site2 Delta-0 (ms) Dist (cm) Mykel (m/s) Norm Mykel (m/s) Right Peroneal Motor (Ext Dig Brev) Ankle ? 5.0 <4.0 2.9 >2.5 3.5 100.0 Ankle Ext Dig Brev 5.0 0.0 B Fib ? 13.1 2.4 2.7 82.8 B Fib Ankle 8.1 32.0 40 >40 Poplt ? 14.3 2.3 2.7 79.3 Poplt B Fib 1.2 5.0 42 >40 Left Tibial Motor (Abd Jeffers Brev) Ankle ? 5.1 <5 5.1 >2.5 5.1 100.0 Ankle Abd Jeffers Brev 5.1 0.0 Knee ? 17.3 2.3 2.3 45.1 Knee Ankle 12.2 38.0 31 >40 Right Tibial Motor (Abd Jeffers Brev) Ankle ? 4.4 <5 6.0 >2.5 6.0 100.0 Ankle Abd Jeffers Brev 4.4 0.0 Knee ? 16.3 2.6 2.7 43.3 Knee Ankle 11.9 39.0 33 >40 EMG ?Side Muscle Nerve Root Ins Act Fibs Psw Amp Dur Poly Recrt Int Pat Comment Right AbdHallucis MedPlantar S1-2 Incr 1+ 1+ Nml Nml 0 Nml Complete Right AntTibialis Dp Br Peron L4-5 Nml Nml Nml Nml Nml 0 Nml Complete Right PostTibialis Tibial L5, S1 Nml Nml Nml Nml Nml 0 Nml Complete Right MedGastroc Tibial S1-2 Nml Nml Nml Nml Nml 0 Nml Complete Right VastusMed Femoral L2-4 Nml Nml Nml Nml Nml 0 Nml Complete Left AbdHallucis MedPlantar S1-2 Incr 1+ 1+ Nml Nml 0 Nml Complete Left AntTibialis Dp Br Peron L4-5 Nml Nml Nml Nml Nml 0 Nml Complete Left PostTibialis Tibial L5, S1 Nml Nml Nml Nml Nml 0 Nml Complete Left MedGastroc Tibial S1-2 Nml Nml Nml Nml Nml 0 Nml Complete Left VastusMed Femoral L2-4 Nml Nml Nml Nml Nml 0 Nml Complete Paraspinal EMG ?Side Muscle Nerve Root Ins Act Fibs Psw Comment Right Lumbar Upper Rami Nml Nml Nml Right Lumbar Mid Rami Nml Nml Nml Right Lumbar Lower Rami Nml Nml Nml Left Lumbar Upper Rami Nml Nml Nml Left Lumbar Mid Rami Nml Nml Nml Left Lumbar Lower Rami Nml Nml Nml FINDINGS: Right peroneal nerve showed prolonged distal latency, normal amplitude and normal conduction velocity. Right tibial nerve showed normal distal latency, normal amplitude and slow conduction velocity. Left tibial nerve showed prolonged distal latency, normal amplitude and slow conduction velocity. Bilateral sural nerves were present but on the low side for amplitude. Concentric needle EMG was performed in selected muscles of the bilateral lower extremity and lumbar paraspinals. Study revealed signs of electric abnormalities as shown in the table above. Bilateral AH showed increased insertional activity, PSWs and fibrillations. No denervation seen on lumbar paraspinals. IMPRESSION: 1. This is an abnormal study. 2. There are electrodiagnostic findings suggestive for peripheral neuropathy, affecting motor primarily. 3. There is no electrodiagnostic evidence for lumbosacral plexopathy or lumbar radiculopathy. Thank you for your kind referral. Rosario Knapp MD, SABRINA Board Certified, [place] [employer] and [employer] (ABPMR) Board Certified, [place] Board [employer] Electrodiagnostic Medicine (ABEM) CODIN 67617 x 2 MTDD
== END 2024-03-28 13:35 | disposition home or self-care (01) ==
LOC: HO.NEURO 13:34
PROVIDERS: PCP Nurse Practitioner Adult Health; Visit Provider Nurse Practitioner Family
DX: G62.0 Drug-induced polyneuropathy (principal); T45.1X5A Adverse effect of antineoplastic and immunosuppressive drugs, initial encounter
CPT/HCPCS: 95886; 95909

== ENCOUNTER → 2024-03-28 13:36 | Outpatient (BNV) | payer BC, SELFPAY | PROVIDERS: PCP Nurse Practitioner Adult Health; Visit Provider Physical Medicine & Rehabilitation | DX: G62.0 Drug-induced polyneuropathy (principal) | CPT/HCPCS: 95886; 95909 ==

== ENCOUNTER 2024-04-01 13:31 | Outpatient (AMB) | payer BC, SELFPAY ==
--- NOTE | 2024-04-01 13:33 | A.OFFVIS_ITS ---
Vital Signs 04/01/24 13:34 Height 5 ft 8 in Weight 188 lb BMI 28.6 BP 177/78 H Blood Pressure Location Rt brachial Position Sitting Respiration 16 Pulse 64 Pulse Source Pulse Oximeter Pulse Oximetry (%) 97 Oxygen Delivery Method Room Air Intake Visit Reasons: Pill Count Intake Note: Pt states she last took oxy 03/31/24 @ 8pm Allergies No Known Allergies Allergy (Verified 04/01/24 13:36) Medication List - Last Reconciled 04/01/24 by Mely Javed LPN anastrozole 1 mg PO DAILY escitalopram oxalate (Lexapro) 20 mg PO DAILY gabapentin 800 mg PO TID lorazepam (Ativan) 0.5 mg PO DAILY PRN naloxone 4 mg/actuation (Narcan) 4 mg intranasal Q2M PRN oxycodone 5 mg PO BID PRN 30 days HPI Comments Details: Patient presents today for a pill count. Patient is supposed to have #28 pills, in her possession has #30 pills. This demonstrates a responsible attitude in regards to the medication regimen. She reports mild analgesia on current regime oxycodone 5 mg BID prn without noted side effects. Reports increasing pain in her feet, especially with walking. Pain is rated at 6/10. Patient reports analgesia with oxycodone is lasting about 2 hours. She has several days when she needs to take a third pill due to significant pain. Neurodiagnostic studies were complete on 03/28/24 and are noted below. She continues to take gabapentin. Denies any fever, chills, nausea, sedation, dizziness, or urinary retention. She utilizes dietary fiber and Smooth move tea for occasional constipation. Patient reports opioid medication allows her to be less symptomatic and more functional. 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 Alert and oriented. Mood and affect appropriate. Follows and participates in conversation appropriately. Respiratory effort is unlabored. Able to transition from sit to stand unassisted. Ambulates with bilaterally normal heel strike and toe off. Extrem Other: There is a decreased sensation over the soles of the feet and toes. Reports numbness, burning, hot, tingling in both feet, worse at night time. No soft tissue swelling or warmth. +2 pedal pulses bilaterally. General: Yes capillary refill normal, Yes no clubbing, cyanosis or edema and Yes no calf tenderness Psych Appearance: grossly normal Mental Status: mental status grossly normal Speech and movement: Normal speech and movement present and Clear speech present Affect: normal affect Attitude: cooperative Thought process: Normal thought process present Thought content: Normal thought content present, suicidality (none), no hallucinations and No Depressive thoughts present Insight: Good insight present (Psych) Judgement: Good judgement present (Psych) Results Reviewed Results Reviewed: NE electromyogram (EMG); NE nerve conduction velocity 03/28/24: FINDINGS: Right peroneal nerve showed prolonged distal latency, normal amplitude and normal conduction velocity. Right tibial nerve showed normal distal latency, normal amplitude and slow conduction velocity. Left tibial nerve showed prolonged distal latency, normal amplitude and slow conduction velocity. Bilateral sural nerves were present but on the low side for amplitude. Concentric needle EMG was performed in selected muscles of the bilateral lower extremity and lumbar paraspinals. Study revealed signs of electric abnormalities as shown in the table above. Bilateral AH showed increased insertional activity, PSWs and fibrillations. No denervation seen on lumbar paraspinals. IMPRESSION: 1. This is an abnormal study. 2. There are electrodiagnostic findings suggestive for peripheral neuropathy, affecting motor primarily. 3. There is no electrodiagnostic evidence for lumbosacral plexopathy or lumbar radiculopathy. Assessment & Plan Assessment & Plan (1) Chemotherapy-induced peripheral neuropathy: Code(s): G62.0 - Drug-induced polyneuropathy; T45.1X5A - Adverse effect of antineoplastic and immunosuppressive drugs, initial encounter Category: Medical (2) Chronic pain syndrome: Code(s): G89.4 - Chronic pain syndrome Category: Medical (3) Opioid contract exists: Code(s): Z79.891 - long-term (current) use of opiate analgesic Category: Medical Plan Patient has shown accountability for her medication regimen and the pill count was accurate. There is no evidence of misuse, abuse or diversion at this time. [employer] reviewed. Refill sent for an increased dose for oxycodone 5 mg TID prn for moderate-severe pain with advanced date of 04/09/24. Patient has Narcan at home. Continue with gabapentin. Discussed with the patient the risks associated with benzodiazepine and opioid use. She is aware and verbalized an agreement to take the medications at least two hours apart. Neurodiagnostic studies results were discussed with patient today. Patient is holding off on [employer] applications due to significant increase in burning pain with last application. All questions and concerns have been answered and patient agreed with the plan. Follow up in 4 weeks and sooner as needed. Medications: Changed From oxycodone Partial Fill upon patient request. 5 mg PO BID 30 days PRN 60 tabs 0RF pain (scale score 7-10) G62.0 - Drug-induced polyneuropathy, G89.4 - Chronic pain syndrome, T45.1X5A - Adverse effect of antineoplastic and immunosuppressive drugs, initial encounter, Z79.891 - long-term (current) use of opiate analgesic To oxycodone Partial Fill upon patient request. 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
[2024-04-01 13:34] VITALS: BP 177/78; PULSE 64; RESP 16; O2SAT 97; BMI 28.6
== END 2024-04-01 13:53 | disposition home or self-care (01) ==
PROVIDERS: PCP Nurse Practitioner Adult Health; Visit Provider Nurse Practitioner Family
DX: G62.0 Drug-induced polyneuropathy (principal); T45.1X5A Adverse effect of antineoplastic and immunosuppressive drugs, initial encounter; G89.4 Chronic pain syndrome; Z79.891 Long term (current) use of opiate analgesic
CPT/HCPCS: 99214

== ENCOUNTER 2024-04-29 13:30 | Outpatient (AMB) | payer BC, SELFPAY ==
--- NOTE | 2024-04-29 13:34 | MHC.OFFVIS ---
Vital Signs 04/29/24 13:42 Height 5 ft 8 in Weight 190 lb 2 oz BMI 28.9 BP 156/75 H Blood Pressure Location Rt brachial Position Sitting Pulse 64 Pulse Source Pulse Oximeter Pulse Oximetry (%) 97 Oxygen Delivery Method Room Air Intake Visit Reasons: PILL COUNT Intake Note: Maki comes in today for a pill count to oxycodone, patient should have 45 tablets and presents with 60.5 tablets which she last took last night 04/28/24 at 8pm. Pain today 8/10 Chemical Maker Required: No Accompanied by: Self / Same As Patient Allergies No Known Allergies Allergy (Verified 04/29/24 13:43) HPI Comments Details: Patient presents today for a pill count. Patient is supposed to have #45 pills, in her possession has #60.5 pills. This demonstrates a responsible attitude in regards to the medication regimen. She reports adequate analgesia on current regime oxycodone 5 mg TID prn without noted side effects. Pain is rated at 8/10. She has not taking any pills today yet as she avoids taking medication during work hours. Denies any fever, chills, nausea, sedation, dizziness, or urinary retention. She utilizes dietary fiber and Smooth move tea for occasional constipation. Patient reports opioid medication allows her to be less symptomatic and more functional. Denies any significant changes in her medical history, medications or recent hospitalizations except for getting her COVID and flu vaccines yesterday. 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 Alert and oriented. Mood and affect appropriate. Follows and participates in conversation appropriately. Respiratory effort is unlabored. Able to transition from sit to stand unassisted. Ambulates with bilaterally normal heel strike and toe off. Extrem General: Yes capillary refill normal, Yes no clubbing, cyanosis or edema and Yes no calf tenderness Psych Appearance: grossly normal Mental Status: mental status grossly normal Speech and movement: Normal speech and movement present and Clear speech present Affect: normal affect Attitude: cooperative Thought process: Normal thought process present Thought content: Normal thought content present, suicidality (none), no hallucinations and No Depressive thoughts present Insight: Good insight present (Psych) Judgement: Good judgement present (Psych) Results Reviewed Results Reviewed: NE electromyogram (EMG); NE nerve conduction velocity 03/28/24: FINDINGS: Right peroneal nerve showed prolonged distal latency, normal amplitude and normal conduction velocity. Right tibial nerve showed normal distal latency, normal amplitude and slow conduction velocity. Left tibial nerve showed prolonged distal latency, normal amplitude and slow conduction velocity. Bilateral sural nerves were present but on the low side for amplitude. Concentric needle EMG was performed in selected muscles of the bilateral lower extremity and lumbar paraspinals. Study revealed signs of electric abnormalities as shown in the table above. Bilateral AH showed increased insertional activity, PSWs and fibrillations. No denervation seen on lumbar paraspinals. IMPRESSION: 1. This is an abnormal study. 2. There are electrodiagnostic findings suggestive for peripheral neuropathy, affecting motor primarily. 3. There is no electrodiagnostic evidence for lumbosacral plexopathy or lumbar radiculopathy. Assessment & Plan Assessment & Plan (1) Chemotherapy-induced peripheral neuropathy: Code(s): G62.0 - Drug-induced polyneuropathy; T45.1X5A - Adverse effect of antineoplastic and immunosuppressive drugs, initial encounter Category: Medical (2) Chronic pain syndrome: Code(s): G89.4 - Chronic pain syndrome Category: Medical (3) Opioid contract exists: Code(s): Z79.891 - residential (current) use of opiate analgesic Category: Medical Plan Patient has shown accountability for her medication regimen and the pill count was accurate. There is no evidence of misuse, abuse or diversion at this time. [employer] reviewed. Script sent for oxycodone 5 mg TID prn for moderate-severe pain with advanced date of 05/18/24. Patient has Narcan at home. Continue with gabapentin. Discussed with the patient the risks associated with benzodiazepine and opioid use. She is aware and verbalized an agreement to take the medications at least two hours apart. All questions and concerns have been answered and patient agreed with the plan. Follow up in 4-5 weeks and sooner as needed. Medications: Refilled oxycodone Partial Fill upon patient request. 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
[2024-04-29 13:42] VITALS: BP 156/75; PULSE 64; O2SAT 97; BMI 28.9
== END 2024-04-29 13:47 | disposition home or self-care (01) ==
PROVIDERS: PCP Nurse Practitioner Adult Health; Visit Provider Nurse Practitioner Family
DX: G62.0 Drug-induced polyneuropathy (principal); T45.1X5A Adverse effect of antineoplastic and immunosuppressive drugs, initial encounter; G89.4 Chronic pain syndrome; Z79.891 Long term (current) use of opiate analgesic
CPT/HCPCS: 99214

== ENCOUNTER → 2024-04-29 13:30 | Outpatient (BNVA) | payer BC, SELFPAY | PROVIDERS: PCP Nurse Practitioner Adult Health; Visit Provider Nurse Practitioner Family ==

== ENCOUNTER → 2024-06-03 13:17 | Outpatient (BNVA) | payer BC, SELFPAY | PROVIDERS: PCP Nurse Practitioner Adult Health; Visit Provider Nurse Practitioner Family ==

== ENCOUNTER 2024-07-04 13:27 | Outpatient (AMB) | payer OTHER, SELFPAY ==
--- NOTE | 2024-07-04 13:28 | A.OFFVIS_ITS ---
Vital Signs 07/04/24 13:34 Height 5 ft 8 in Weight 190 lb BMI 28.9 BP 133/82 Blood Pressure Location Lt brachial Position Sitting Pulse 84 Pulse Source Pulse Oximeter Pulse Oximetry (%) 98 Oxygen Delivery Method Room Air Intake Visit Reasons: PILL COUNT Intake Note: Maki comes in today for a pill count to oxycodone, patient should have 42 tablets and presents with 48 tablets which she last took last night 07/03/24 at 7pm. Pain today 710 Brand Leader Required: No Accompanied by: Self / Same As Patient Allergies No Known Allergies Allergy (Verified 04/29/24 13:43) Medication List - Last Reconciled 07/04/24 by VIRY Licea anastrozole 1 mg PO DAILY escitalopram oxalate (Lexapro) 20 mg PO DAILY escitalopram oxalate 5 mg PO BEDTIME gabapentin 800 mg PO TID lorazepam (Ativan) 0.5 mg PO DAILY PRN naloxone 4 mg/actuation (Narcan) 4 mg intranasal Q2M PRN oxycodone 5 mg PO TID PRN 23 days HPI Comments Details: Patient presents today for a pill count. Patient is supposed to have #42 pills, in her possession has #48 pills. This demonstrates a responsible attitude in regards to the medication regimen. She reports mild-moderate analgesia on current regime oxycodone 5 mg TID prn without noted side effects. Pain is rated at 7/10. Denies any fever, chills, nausea, sedation, dizziness, or urinary retention. She utilizes dietary fiber and Smooth move tea for occasional constipation. Patient reports opioid medication allows her to be less symptomatic and more functional. Denies any significant changes in her medical history, medications or recent hospitalizations. 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 Alert and oriented. Mood and affect appropriate. Follows and participates in conversation appropriately. Respiratory effort is unlabored. Able to transition from sit to stand unassisted. Ambulates with bilaterally normal heel strike and toe off. Resp Effort & Inspection: normal respiratory effort, able to speak in complete sentences, no cough, no respiratory distress and symmetric chest movement Extrem General: Yes capillary refill normal, Yes no clubbing, cyanosis or edema and Yes no calf tenderness Psych Appearance: grossly normal Mental Status: mental status grossly normal Speech and movement: Normal speech and movement present and Clear speech present Affect: normal affect Attitude: cooperative Thought process: Normal thought process present Thought content: Normal thought content present, suicidality (none), no hallucinations and No Depressive thoughts present Insight: Good insight present (Psych) Judgement: Good judgement present (Psych) Results Reviewed Results Reviewed: NE electromyogram (EMG); NE nerve conduction velocity 03/28/24: FINDINGS: Right peroneal nerve showed prolonged distal latency, normal amplitude and normal conduction velocity. Right tibial nerve showed normal distal latency, normal amplitude and slow conduction velocity. Left tibial nerve showed prolonged distal latency, normal amplitude and slow conduction velocity. Bilateral sural nerves were present but on the low side for amplitude. Concentric needle EMG was performed in selected muscles of the bilateral lower extremity and lumbar paraspinals. Study revealed signs of electric abnormalities as shown in the table above. Bilateral AH showed increased insertional activity, PSWs and fibrillations. No denervation seen on lumbar paraspinals. IMPRESSION: 1. This is an abnormal study. 2. There are electrodiagnostic findings suggestive for peripheral neuropathy, affecting motor primarily. 3. There is no electrodiagnostic evidence for lumbosacral plexopathy or lumbar radiculopathy. 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 There is no evidence of misuse, abuse or diversion at this time. [employer] reviewed. Script sent for oxycodone 5 mg TID prn for moderate-severe pain with advanced date of 07/24/24. Patient has Narcan at home. Continue with gabapentin. Di scussed with the patient the risks associated with benzodiazepine and opioid use. She is aware and verbalized an agreement to take the medications at least two hours apart. We discussed long-term opioid, Belbuca and Butrans patch for more adequate pain control. Patient reports history of rash with patch application. She recently completed 12-lead EKG at [facility]. We will request medical release for it prior to consideration of Belbuca to current regime with the goal of oxycodone for breakthrough pain only. All questions and concerns have been answered and patient agreed with the plan. Follow up in 4-5 weeks and sooner as needed. Coding Level of Care Code Est Pt Level 4 (22062) Complex EM visit Add On G2211 Diagnoses Chemotherapy-induced peripheral neuropathy G62.0; T45.1X5A Chronic pain syndrome G89.4 Opioid contract exists Z79.891
[2024-07-04 13:34] VITALS: BP 133/82; PULSE 84; O2SAT 98; BMI 28.9
== END 2024-07-04 13:52 | disposition home or self-care (01) ==
PROVIDERS: PCP Nurse Practitioner Adult Health; Visit Provider Nurse Practitioner Family
DX: G89.4 Chronic pain syndrome (principal); G62.0 Drug-induced polyneuropathy; T45.1X5A Adverse effect of antineoplastic and immunosuppressive drugs, initial encounter; Z79.891 Long term (current) use of opiate analgesic
CPT/HCPCS: 99214

== ENCOUNTER → 2024-07-04 13:27 | Outpatient (BNVA) | payer OTHER, SELFPAY | PROVIDERS: PCP Nurse Practitioner Adult Health; Visit Provider Nurse Practitioner Family ==

== ENCOUNTER → 2024-08-02 12:58 | Outpatient (BNVA) | payer OTHER, SELFPAY | PROVIDERS: PCP Nurse Practitioner Adult Health; Visit Provider Nurse Practitioner Family ==

== ENCOUNTER 2024-08-30 13:14 | Outpatient (AMB) | payer OTHER, SELFPAY ==
[2024-08-30 13:38] VITALS: BP 138/69; PULSE 72; O2SAT 98; BMI 27.4
--- NOTE | 2024-08-30 13:38 | MHC.OFFVIS ---
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 Patient is supposed to have #48 pills, in her possession has #45 pills. She reports mild-moderate analgesia on current regime oxycodone 5 mg TID prn without noted side effects. Pain is rated at 8/10. Denies any fever, chills, nausea, sedation, dizziness, or urinary retention. She utilizes dietary fiber and Smooth move tea for occasional constipation. She also takes gabapentin 800 mg TID which she prefers taken in 8 caps of 100 mg for easy swallowing. Patient reports opioid medication allows her to be less symptomatic and more functional. Denies any significant changes in her medical history, medications or recent hospitalizations. 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 Alert and oriented. Mood and affect appropriate. Follows and participates in conversation appropriately. Respiratory effort is unlabored. Able to transition from sit to stand unassisted. Ambulates with bilaterally normal heel strike and toe off. Extrem General: Yes capillary refill normal, Yes no clubbing, cyanosis or edema and Yes no calf tenderness Psych Appearance: grossly normal Mental Status: mental status grossly normal Speech and movement: Normal speech and movement present and Clear speech present Affect: normal affect Attitude: cooperative Thought process: Normal thought process present Thought content: Normal thought content present, suicidality (none), no hallucinations and No Depressive thoughts present Insight: Good insight present (Psych) Judgement: Good judgement present (Psych) Results Reviewed Results Reviewed: NE electromyogram (EMG); NE nerve conduction velocity 03/28/24: FINDINGS: Right peroneal nerve showed prolonged distal latency, normal amplitude and normal conduction velocity. Right tibial nerve showed normal distal latency, normal amplitude and slow conduction velocity. Left tibial nerve showed prolonged distal latency, normal amplitude and slow conduction velocity. Bilateral sural nerves were present but on the low side for amplitude. Concentric needle EMG was performed in selected muscles of the bilateral lower extremity and lumbar paraspinals. Study revealed signs of electric abnormalities as shown in the table above. Bilateral AH showed increased insertional activity, PSWs and fibrillations. No denervation seen on lumbar paraspinals. IMPRESSION: 1. This is an abnormal study. 2. There are electrodiagnostic findings suggestive for peripheral neuropathy, affecting motor primarily. 3. There is no electrodiagnostic evidence for lumbosacral plexopathy or lumbar radiculopathy. Assessment & Plan Assessment & Plan (1) Chemotherapy-induced peripheral neuropathy: Code(s): G62.0 - Drug-induced polyneuropathy; T45.1X5A - Adverse effect of antineoplastic and immunosuppressive drugs, initial encounter Category: Medical (2) Chronic pain syndrome: Code(s): G89.4 - Chronic pain syndrome Category: Medical (3) Opioid contract exists: Code(s): Z79.891 - intermediate (current) use of opiate analgesic Category: Medical Plan Patient has shown accountability for her medication regimen and the pill count was accurate. There is no evidence of misuse, abuse or diversion at this time. [facility]. Script sent for oxycodone 5 mg TID prn for moderate-severe pain with advanced date of 09/14/24. Patient has Narcan at home. Continue with gabapentin. Patient reports challenges with refilling gabapentin 800 mg TID which she prefers 100 mg capsules x8 for easy swallowing due to esophageal stricture which gets dilatation every few years. She states 800 mg capsules are very large and difficult to swallow and prompts her to cut in half or more pieces to be able to swallow. Due to recent provider change, she is asking me to take over prescribing for gabapentin. Discussed with the patient the risks associated with benzodiazepine and opioid use. She is aware and verbalized an agreement to take the medications at least two hours apart. All questions and concerns have been answered and patient agreed with the plan. Follow up in 4-5 weeks and sooner as needed. 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 5 mg PO TID 30 days PRN 90 tabs 0RF pain (scale score 7-10) G62.0 - Drug-induced polyneuropathy, G89.4 - Chronic pain syndrome, T45.1X5A - Adverse effect of antineoplastic and immunosuppressive drugs, initial encounter, Z79.891 - intermediate (current) use of opiate analgesic Coding Level of Care Code Est Pt Level 4 (69998) Complex EM visit Add On G2211 Diagnoses Chemotherapy-induced peripheral neuropathy G62.0; T45.1X5A Chronic pain syndrome G89.4 Opioid contract exists Z79.891
== END 2024-08-30 13:47 | disposition home or self-care (01) ==
LOC: HO.PMC 13:15
PROVIDERS: PCP Nurse Practitioner Adult Health; Visit Provider Nurse Practitioner Family
DX: G62.0 Drug-induced polyneuropathy (principal); T45.1X5A Adverse effect of antineoplastic and immunosuppressive drugs, initial encounter; G89.4 Chronic pain syndrome; Z79.891 Long term (current) use of opiate analgesic
CPT/HCPCS: 99214

== ENCOUNTER → 2024-08-30 13:14 | Outpatient (BNVA) | payer OTHER, SELFPAY | PROVIDERS: PCP Nurse Practitioner Adult Health; Visit Provider Nurse Practitioner Family ==

== ENCOUNTER 2024-09-27 13:18 | Outpatient (AMB) | payer OTHER, SELFPAY ==
--- NOTE | 2024-09-27 13:20 | A.OFFVIS_ITS ---
Vital Signs 09/27/24 13:28 Height 5 ft 8 in Weight 180 lb BMI 27.4 BP 133/102 H Blood Pressure Location Rt brachial Position Sitting Pulse 70 Pulse Source Pulse Oximeter Pulse Oximetry (%) 97 Oxygen Delivery Method Room Air Intake Visit Reasons: Pill count Intake Note: Maki comes in today for a pill count to oxycodone, patient should have 48 tablets and presents with 53 tablets which she last took last night 09/26/24 at 11pm. 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 Patient is supposed to have #48 pills, in her possession has #53 pills. She reports mild-moderate analgesia on current regime oxycodone 5 mg TID prn without noted side effects. Pain is rated at 8/10. The patient experiences difficulty in obtaining adequate pain control, especially after work hours, necessitating evening doses to ensure sleep and comfort. A recent addition to her medication regimen for hypercholesterolemia has been noted to cause muscle aches but is otherwise manageable with mild rashes already under control. Previous trials of morphine for pain were ineffective, and the patient prefers not to repeat its use. Pain management needs careful reassessment to enhance efficacy without significant side effects. Denies any fever, chills, nausea, sedation, dizziness, or urinary retention. She utilizes dietary fiber and Smooth move tea for occasional constipation. She also takes gabapentin 800 mg TID which she prefers taken in 8 caps of 100 mg for easy swallowing. Patient reports opioid medication allows her to be less symptomatic and more functional. Denies any significant changes in her medical history, medications or recent hospitalizations. 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 Alert and oriented. Mood and affect appropriate. Follows and participates in conversation appropriately. Respiratory effort is unlabored. Able to transition from sit to stand unassisted. Ambulates with bilaterally normal heel strike and toe off. Psych Appearance: grossly normal Mental Status: mental status grossly normal Speech and movement: Normal speech and movement present and Clear speech present Affect: normal affect Attitude: cooperative Thought process: Normal thought process present Thought content: Normal thought content present, suicidality (none), no hallucinations and No Depressive thoughts present Insight: Good insight present (Psych) Judgement: Good judgement present (Psych) Results Reviewed Results Reviewed: NE electromyogram (EMG); NE nerve conduction velocity 03/28/24: FINDINGS: Right peroneal nerve showed prolonged distal latency, normal amplitude and normal conduction velocity. Right tibial nerve showed normal distal latency, normal amplitude and slow condu ction velocity. Left tibial nerve showed prolonged distal latency, normal amplitude and slow conduction velocity. Bilateral sural nerves were present but on the low side for amplitude. Concentric needle EMG was performed in selected muscles of the bilateral lower extremity and lumbar paraspinals. Study revealed signs of electric abnormalities as shown in the table above. Bilateral AH showed increased insertional activity, PSWs and fibrillations. No denervation seen on lumbar paraspinals. IMPRESSION: 1. This is an abnormal study. 2. There are electrodiagnostic findings suggestive for peripheral neuropathy, affecting motor primarily. 3. There is no electrodiagnostic evidence for lumbosacral plexopathy or lumbar radiculopathy. 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 There is no evidence of misuse, abuse or diversion at this time. [facility] sent for [facility]one 5 mg TID prn for moderate-severe pain with advanced date of 09/14/24. Patient has Narcan at home. Continue gabapentin. Discussed with the patient the risks associated with benzodiazepine and opioid use. She is aware and verbalized an agreement to take the medications at least two hours apart. We will maintain the current analgesic regime of gabapentin and oxycodone, reviewing the pain efficacy and side effects for potential adjustments. Regular checking for constipation due to oxycodone is necessary, but current management seems effective. Further interventions may involve a cautious increase in either pain medication subject to future assessments for sustained relief. We'll closely monitor her response to treatment and adjust as necessary. All questions and concerns have been answered and patient agreed with the plan. Follow up in 4-5 weeks for pill count and sooner as needed. Patient was informed and verbally consented to the use of an ambient scribe for clinic note documentation during this visit. Medications: Refilled oxycodone Partial Fill upon patient request. 5 mg PO TID 30 days PRN 90 tabs 0RF pain (scale score 7-10) G62.0 - Drug-induced polyneuropathy, G89.4 - Chronic pain syndrome, T45.1X5A - Adverse effect of antineoplastic and immunosuppressive drugs, initial encounter, Z79.891 - [facility] (current) use of opiate analgesic Coding Level of Care Code Est Pt Level 4 (98506) Complex EM visit Add On G2211 Diagnoses Chemotherapy-induced peripheral neuropathy G62.0; T45.1X5A Chronic pain syndrome G89.4 Opioid contract exists Z79.891
[2024-09-27 13:28] VITALS: BP 133/102; PULSE 70; O2SAT 97; BMI 27.4
== END 2024-09-27 13:35 | disposition home or self-care (01) ==
LOC: HO.PMC 13:18
PROVIDERS: PCP Nurse Practitioner Adult Health; Visit Provider Nurse Practitioner Family
DX: G62.0 Drug-induced polyneuropathy (principal); T45.1X5A Adverse effect of antineoplastic and immunosuppressive drugs, initial encounter; G89.4 Chronic pain syndrome; Z79.891 Long term (current) use of opiate analgesic
CPT/HCPCS: 99214

== ENCOUNTER → 2024-09-27 13:18 | Outpatient (BNVA) | payer OTHER, SELFPAY | PROVIDERS: PCP Nurse Practitioner Adult Health; Visit Provider Nurse Practitioner Family ==

== ENCOUNTER 2024-10-25 12:57 | Outpatient (AMB) | payer OTHER, SELFPAY ==
--- NOTE | 2024-10-25 13:01 | A.OFFVIS_ITS ---
Vital Signs 10/25/24 13:10 Height 5 ft 8 in Weight 180 lb BMI 27.4 BP 137/78 Blood Pressure Location Rt brachial Position Sitting Pulse 66 Pulse Source Pulse Oximeter Pulse Oximetry (%) 97 Oxygen Delivery Method Room Air Intake Visit Reasons: Pill count Intake Note: Maki comes in today for a pill count to oxycodone, patient should have 60 tablets and presents with 65 tablets which she last took last night 10/24/24 at 10pm. 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 Patient is supposed to have #60 pills, in her possession has #65 pills. She reports mild analgesia on current regime oxycodone 5 mg TID prn without noted side effects. Pain is rated at 8/10. Her chronic pain syndrome primarily affects her feet, with associated neuropathy in her hands. Pain intensity is reported to be severe, leading to sleep disturbances. The patient has managed this medication regimen carefully to maintain functionality during work hours but reports inconsistent pain relief and possible tolerance development, as the effectiveness of the medication has diminished over time. She has had previous unsuccessful experiences with a Butrans patch that caused skin reactions and neck cramps. The patient supplements her pain management with gabapentin for neuropathy and a liquid form of marijuana for sleep. Denies any fever, chills, nausea, sedation, dizziness, or urinary retention. She utilizes dietary fiber and Smooth move tea for occasional constipation. - Onset/Timing: Chronic, severe pain primarily in the feet, with episodes intensifying post work and waking her at night. - Quality/Character: Severe, with sensations of freezing in hands and severe foot pain. - Primary Location: Feet, with neuropathic involvement of the hands. - Exacerbating Factors: Activity and working hours delay medication intake. - Relieving Factors: Partial relief with oxycodone, additional pain perceived when medication effect diminishes. - Functional Interference: Impacts sleep significantly and necessitates careful management of medication around work hours. - Affect: The pain has significant impact on her sleep quality and daily functioning. - Analgesia: Currently using oxycodone 5 mg, three times a day as needed. Reports inconsistent relief and possible development of tolerance. - Adverse Effects: No drowsiness with current 5 mg oxycodone dose; significant adverse effects with previous Butrans patch. - Activities of Daily Living: Pain management strategy involves not taking medication during work hours due to concern for side effects, impacting daily functioning. - Aberrant Drug Related Behaviors: None reported; committed to keeping medication use within prescribed regimen. 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 - Musculoskeletal: Reports chronic severe pain in feet. - Dermatological: Reports skin irritation with past use of Butrans patch. - Sleep: Reports insomnia due to pain. All systems reviewed & are unremarkable except as noted in HPI and below Physical Exam General: Appears afebrile. Alert and oriented. Mood and affect appropriate. Follows and participates in conversation appropriately. Respiratory effort is unlabored. Able to transition from sit to stand unassisted. Ambulates with bilaterally normal heel strike and toe off. Psych Appearance: grossly normal Mental Status: mental status grossly normal Speech and movement: Normal speech and movement present and Clear speech present Affect: normal affect Attitude: cooperative Thought process: Normal thought process present Thought content: Normal thought content present, suicidality (none), no hallucinations and No Depressive thoughts present Insight: Good insight present (Psych) Judgement: Good judgement present (Psych) Results Reviewed Results Reviewed: NE electromyogram (EMG); NE nerve conduction velocity 03/28/24: FINDINGS: Right peroneal nerve showed prolonged distal latency, normal amplitude and normal conduction velocity. Right tibial nerve showed normal distal latency, normal amplitude and slow conduction velocity. Left tibial nerve showed prolonged distal latency, normal amplitude and slow conduction velocity. Bilateral sural nerves were present but on the low side for amplitude. Concentric needle EMG was performed in selected muscles of the bilateral lower extremity and lumbar paraspinals. Study revealed signs of electric abnormalities as shown in the table above. Bilateral AH showed increased insertional activity, PSWs and fibrillations. No denervation seen on lumbar paraspinals. IMPRESSION: 1. This is an abnormal study. 2. There are electrodiagnostic findings suggestive for peripheral neuropathy, affecting motor primarily. 3. There is no electrodiagnostic evidence for lumbosacral plexopathy or lumbar radiculopathy. Assessment & Plan Assessment & Plan (1) Chemotherapy-induced peripheral neuropathy: Code(s): G62.0 - Drug-induced polyneuropathy; T45.1X5A - Adverse effect of antineoplastic and immunosuppressive drugs, initial encounter Category: Medical (2) Chronic pain syndrome: Code(s): G89.4 - Chronic pain syndrome Category: Medical (3) Opioid contract exists: Code(s): Z79.891 - long-term (current) use of opiate analgesic Category: Medical Plan Patient has shown accountability for her medication regimen and the pill count was accurate. There is no evidence of misuse, abuse or diversion at this time. [facility] reviewed. Script sent for icnreased dose of oxycodone 5 mg from TID to QID prn for moderate-severe pain with advanced date of 11/09/24. Patient has Narcan at home. Continue gabapentin. Discussed with the patient the risks associated with benzodiazepine and opioid use. She is aware and verbalized an agreement to take the medications at least two hours apart. We will maintain the current analgesic regime of gabapentin and oxycodone, reviewing the pain efficacy and side effects for potential adjustments. All questions and concerns have been answered and patient agreed with the plan. Follow up in 4-5 weeks for pill count and sooner as needed. Patient was informed and verbally consented to the use of an ambient scribe for clinic note documentation during this visit. Medications: Changed From oxycodone Partial Fill upon patient request. 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 - Continue using gabapentin as prescribed for neuropathy. - Monitor for any side effects or insufficient relief with the adjusted dosage. - Maintain a log of pain relief duration and any breakthrough pain occurrences. - Use pain medication reasonably around work hours. - Seek care if experiencing unmanageable side effects or ineffective pain control. - Return for follow-up as scheduled or sooner if pain management goals are not met. Coding Level of Care Code Est Pt Level 4 (77160) Complex EM visit Add On G2211 Diagnoses Chemotherapy-induced peripheral neuropathy G62.0; T45.1X5A Chronic pain syndrome G89.4 Opioid contract exists Z79.517
[2024-10-25 13:10] VITALS: BP 137/78; PULSE 66; O2SAT 97; BMI 27.4
== END 2024-10-25 13:28 | disposition home or self-care (01) ==
LOC: HO.PMC 12:58
PROVIDERS: PCP Nurse Practitioner Adult Health; Visit Provider Nurse Practitioner Family
DX: G62.0 Drug-induced polyneuropathy (principal); T45.1X5A Adverse effect of antineoplastic and immunosuppressive drugs, initial encounter; G89.4 Chronic pain syndrome; Z79.891 Long term (current) use of opiate analgesic
CPT/HCPCS: 99214

== ENCOUNTER → 2024-10-25 12:57 | Outpatient (BNVA) | payer OTHER, SELFPAY | PROVIDERS: PCP Nurse Practitioner Adult Health; Visit Provider Nurse Practitioner Family ==

== ENCOUNTER 2024-11-18 12:36 | Outpatient (AMB) | payer OTHER, SELFPAY ==
[2024-11-18 12:48] VITALS: BP 118/78; PULSE 73; TEMP 36.9; O2SAT 96; BMI 27.5
--- NOTE | 2024-11-18 12:48 | MHC.OFFWIV ---
Intake Vital Signs 11/18/24 12:48 Height 5 ft 8 in Weight 181 lb BMI 27.5 BP 118/78 Blood Pressure Location Rt brachial Position Sitting Pulse 73 Pulse Source Pulse Oximeter Temp 98.4 F Temp Source Oral Pulse Oximetry (%) 96 Oxygen Delivery Method Room Air Intake Visit Reasons: EP Cough,wheezing Intake Note: presents with non productive cough, chest congestion, headache x4 days on robitussin Patient Tobacco Use Status: Former Tobacco user Allergies No Known Allergies Allergy (Verified 11/18/24 12:51) Do you need a note to return to daycare/school/sports/work: No HPI HPI Comments History of Present Illness Details History - The patient is a 63-year-old female presenting with a persistent cough. - The cough has persisted for approximately four days, characterized by a sensation of phlegm without expectoration. - The patient reports slight fever and night sweats, but no significant fever. - Wheezing is noted, although the patient has no history of asthma. - The patient has been using Robitussin DM with some relief, but symptoms persist. - COVID-19 and influenza tests were conducted at home, both yielding negative results. - The patient experiences postnasal drip contributing to chest congestion. - No ear pain, sore throat, or gastrointestinal symptoms reported. - She denies CP or SOB, abd pain, n/v/d. - She denies recent travel. Physical Exam General: Cooperative, healthy appearing, comfortable and no acute distress Orientation/consciousness: Patient oriented x3 Limitations: No limitations Head: Normal to inspection Ears: Hearing grossly normal bilaterally, external ears normal and TM's normal bilaterally Nose: Normal external nose present, normal nares present, and no nasal discharge present. Face and sinus: Sinuses nontender to palpation. Mouth: Normal oral and palatal mucosa present and moist mucous membranes noted. Throat: Tonsils normal. Uvula is midline. Posterior oropharynx with erythema and no exudates. Eyes: Appearance normal, both eyes and all related structures Neck: Normal visual inspection, full ROM. No lymphadenopathy noted. Respiratory: Wheezing noted. Clear to auscultation bilaterally. Normal respiratory effort, able to speak in complete sentences. No respiratory distress, not tachypneic, no tripod positioning and no use of accessory muscles. Cardiovascular: Regular rate and rhythm. 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 Review of Systems Const All systems reviewed & are unremarkable except as noted in HPI and below Physical Exam Vital Signs: Last Vital Signs Temp 98.4 F 11/18/24 12:48 Pulse 73 11/18/24 12:48 BP 118/78 11/18/24 12:48 Pulse Ox 96 11/18/24 12:48 Oxygen Delivery Method Room Air 11/18/24 12:48 BMI result Body Mass Index 27.5 Assessment & Plan Assessment & Plan (1) Acute cough: Code(s): R05.1 - Acute cough Plan Most likely URI vs CAP vs bronchitis vs covid vs flu vs viral illness Plan - Prescribe antibiotics to cover potential bacterial infection - Prescribe an inhaler to alleviate wheezing and improve airflow. - Continue use of Robitussin DM for symptomatic relief of cough. - VSS, pt well appearing - tylenol or motrin as needed for pain or fever - follow up with PCP Medications: New azithromycin For 250 mg dose pack: take 500 mg today (day 1), then 250 mg for 4 days (days 2-5) PO 6 tabs 0RF albuterol sulfate 90 mcg/actuation 2 puffs inhalation Q6H PRN 8.5 grams 0RF shortness of breath or wheezing or cough Coding Level of Care Code Est Pt Level 3 (21066) Diagnoses Acute cough R05.1
== END 2024-11-18 13:44 | disposition home or self-care (01) ==
PROVIDERS: PCP Nurse Practitioner Adult Health; Visit Provider Physician Assistant Medical
DX: R05.1 Acute cough (principal)

== ENCOUNTER 2024-12-17 11:00 | Outpatient (AMB) | payer OTHER, SELFPAY ==
--- NOTE | 2024-12-17 11:08 | A.OFFVIS_ITS ---
Vital Signs 12/17/24 11:15 Height 5 ft 8 in Weight 178 lb 8 oz BMI 27.1 BP 139/84 Blood Pressure Location Rt brachial Position Sitting Pulse 65 Pulse Source Pulse Oximeter Pulse Oximetry (%) 97 Oxygen Delivery Method Room Air Intake Visit Reasons: Pill count/random UDS Intake Note: Maki comes in today for a pill count to oxycodone, patient should have 108 tablets and presents with 114 which she last took today 12/17/24 at 8am. Pain today 09/21 Patient will also have a random UDS done today, aware that she will need to go to the lab on the first floor of this building today 12/17/24 before 12pm. Operational Risk Consultant Required: No Allergies No Known Allergies Allergy (Verified 12/17/24 11:58) HPI Comments Details: Patient presents today for a pill count. Patient is supposed to have #108 pills, in her possession has #114 pills. She reports mild to moderate analgesia on current regime oxycodone 5 mg QID prn without noted side effects. Pain is rated at 5/10. Her chronic pain syndrome primarily affects her feet, with associated neuropathy in her hands. Patient supplements her pain management with gabapentin for neuropathy and a liquid form of marijuana for sleep. The chronic pain has been persistent, with fluctuations in intensity, sometimes reaching a level of 9-10/10, making it difficult for her to walk. She has been managing the pain with oxycodone, gabapentin, and occasionally Tylenol or ibuprofen, but the pain remains significant at times. The peripheral neuropathy is attributed to prior chemotherapy treatment, and the patient reports that the condition affects her legs. She has been advised that opioids are not effective for neuropathic pain, and alternative treatments such as spinal cord stimulation have been discussed. The patient has expressed concerns about the invasiveness of such procedures. Denies any fever, chills, nausea, sedation, dizziness, or urinary retention. She utilizes dietary fiber and Smooth move tea for occasional constipation. 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 Alert and oriented. Mood and affect appropriate. Follows and participates in conversation appropriately. Respiratory effort is unlabored. Able to transition from sit to stand unassisted. Ambulates with bilaterally normal heel strike and toe off. Eyes General: appearance normal, both eyes and all related structures Psych Appearance: grossly normal Mental Status: mental status grossly normal Speech and movement: Normal speech and movement present and Clear speech present Affect: normal affect Attitude: cooperative Thought process: Normal thought process present Thought content: Normal thought content present, suicidality (none), no hallucinations and No Depressive thoughts present Insight: Good insight present (Psych) Judgement: Good judgement present (Psych) Results Reviewed Results Reviewed: NE electromyogram (EMG); NE nerve conduction velocity 03/28/24: FINDINGS: Right peroneal nerve showed prolonged distal latency, normal amplitude and normal conduction velocity. Right tibial nerve showed normal distal latency, normal amplitude and slow conduction velocity. Left tibial nerve showed prolonged distal latency, normal amplitude and slow conduction velocity. Bilateral sural nerves were present but on the low side for amplitude. Concentric needle EMG was performed in selected muscles of the bilateral lower extremity and lumbar paraspinals. Study revealed signs of electric abnormalities as shown in the table above. Bilateral AH showed increased insertional activity, PSWs and fibrillations. No denervation seen on lumbar paraspinals. IMPRESSION: 1. This is an abnormal study. 2. There are electrodiagnostic findings suggestive for peripheral neuropathy, affecting motor primarily. 3. There is no electrodiagnostic evidence for lumbosacral plexopathy or lumbar radiculopathy. Assessment & Plan Assessment & Plan (1) Chemotherapy-induced peripheral neuropathy: Code(s): G62.0 - Drug-induced polyneuropathy; T45.1X5A - Adverse effect of antineoplastic and immunosuppressive drugs, initial encounter Category: Medical (2) Chronic pain syndrome: Code(s): G89.4 - Chronic pain syndrome Category: Medical (3) Opioid contract exists: Code(s): Z79.891 - alf (current) use of opiate analgesic Category: Medical Plan Patient has shown accountability for her medication regimen and the pill count was accurate. There is no evidence of misuse, abuse or diversion at this time. [facility] Will obtain random [facility]DS today. Refill sent for oxycodone 5 mg QID prn for moderate-severe pain with advanced date of 01/15/24. Patient has Narcan at home. Discussed with the patient the risks associated with benzodiazepine and opioid use. She is aware and verbalized an agreement to take the medications at least two hours apart. Alternative pain management strategies, such as spinal cord stimulation, have been discussed, although the patient is hesitant about the procedure. The patient is advised to continue with current pain management strategies without further opioid increases and to consider consulting a Neurologist for further evaluation of her peripheral neuropathy. All questions and concerns have been answered and patient agreed with the plan. Follow up next month for pill count and sooner as needed. Patient was informed and verbally consented to the use of an ambient scribe for clinic note documentation during this visit. Medications: Refilled oxycodone Partial Fill upon patient request. 5 mg PO Q6H PRN 120 tabs 0RF pain (scale score 7-10) 30 days G62.0 - Drug-induced polyneuropathy, G89.4 - Chronic pain syndrome, T45.1X5A - Adverse effect of antineoplastic and immunosuppressive drugs, initial encounter, Z79.891 - alf (current) use of opiate analgesic Coding Level of Care Code Est Pt Level 4 (03994) Complex EM visit Add On G2211 Diagnoses Chemotherapy-induced peripheral neuropathy G62.0; T45.1X5A Chronic pain syndrome G89.4 Opioid contract exists Z79.891
[2024-12-17 11:15] VITALS: BP 139/84; PULSE 65; O2SAT 97; BMI 27.1
--- OUTSIDE RECORDS SUMMARY | 2024-12-17 11:49 | XMS_ITS | Encounter Summary ---
Author Organization [facility] Address [address] [place] [address] [address] [place] [address] Phone Care Team Providers Care Certified Pedorthotist Name Role Phone Bay Aguilar MD Unavailable Santino Santacruz MD Unavailable [phone] Heriberto Apodaca MD Unavailable Russell Ge MD Unavailable Maryan Christy TOBACCO STRIPPER Unavailable Sisi Pinto MD Unavailable Francois Nails MD Unavailable Darryl Henriquez [facility] Primary Care Provider Ana Soria COMMUNITY SERVICE PATROL OFFICER Unavailable Heriberto Apodaca MD Primary Care Provider [phone] Darryl Henriquez [facility] Primary Care Provider [phone] Justen Etienne DO Unavailable Meghana Green Unavailable Bin Hsieh MD Unavailable Darryl Henriquez [facility] Primary Care Provider Darryl Henriquez [facility] Primary Care Provider Heriberto Apodaca MD Primary Care Provider [phone] Darryl Henriquez CNP Primary Care Provider + Heriberto Apodaca MD Primary Care Provider [phone] Darryl Henriquez APARTMENT COORDINATOR Primary Care Provider [phone] Silvia Spencer MD Unavailable [phone] Don Chen MD Unavailable [phone] Soledad Menard MD Unavailable [phone] Don Chen MD Primary Care Provider [phone] Darryl Henriquez CNP Primary Care Provider + Heriberto Apodaca MD Unavailable [phone] Encounter Details Date Type Department Care Team (Late Contact Info) Description 07/27/2020 Procedure Pass [facility], [address] [address] Social History Tobacco Use Types Packs/Day Years Used Date Smoking Tobacco: Former Cigarettes 1 25 1 979 - 2004 Smokeless Tobacco: Never Alcohol Use Standard Drinks/Week Comments Never 0 (1 standard drink = 0.6 oz pur e alcohol) Comments No Sex and Gender Information Value Date Recorded Sex Assigned at Female 05/22/2017 9:38 AM EST Legal Sex Female 9:47 PM EDT Gender Identity Female 05/22/2017 9:38 AM EST Sexual Orientation Lesbian or Montiel 01/20/2022 12 :51 PM EDT 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 Not on file Not on file documented as of this encounter Plan of Treatment Upcoming Encounters Date Type Department Care Team (Late Contact Info) Description 01/02/2025 1:00 PM EDT Telemedicine - audio only [facility] Genetic Counseling [address] [place] [address] Silvia Spencer MD [address] [place] [phone] [email or web address] documented as of this encounter Visit Diagnoses Not on filedocumented in this encounter Additional Health Concerns Infection Onset Date Last Indicated Resolved Time CoV-Presumed 10/29/2021 10/29/2021 11/19/2021 1:21 AM EDT CoV-Risk 01/12/2022 01/12/2022 01/23/2022 1:22 AM EDT CoV-Risk 06/22/2022 06/22/2022 07/03/2022 1:22 AM EST COVID-19 05/03/2024 05/03/2024 05/24/2024 1:23 AM EST Assessment Noted Time PHQ-2 Depression Total Score: 0 11/01/19 8:47 AM EDT documented as of this encounter Care Teams Certified Pedorthotist Relationship Specialty Start Date End Date Darryl Henriquez CNP [address] [facility], [address] [place] [address] [email or web address] PCP - General Family Medicine 01/28/20 07/29/20 Heriberto Apodaca MD [address] [facility], [address] [place] [id number] [email or web address] PCP - General Family Medicine 07/30/20 08/13/20 Darryl Henriquez CNP [address] [facility], [address] [place] [phone] PCP - General Family Medicine 08/14/20 03/21/21 Darryl Henriquez CNP [address] [facility], [address] [place] [address] [email or web address] PCP - General Family Medicine 03/22/21 03/22/21 Darryl Henriquez CNP [address] [place] [address], [address] [place] [address] [email or web address] PCP - General Family Medicine 03/23/21 03/30/21 Heriberto Apodaca MD [address] [place] [address], [address] [place] [address] [email or web address] PCP - General Family Medicine 03/31/21 05/31/21 Darryl Henriquez CNP [address] [place] [address], [address] [place] [address] [email or web address] PCP - General Family Medicine 06/01/21 07/19/21 Heriberto Apodaca MD [address] [place] [address], [address] [place] [address] [email or web address] PCP - General Family Medicine 07/20/21 08/30/21 Darryl Henriquez CNP [address] [place] [address], [address] [place] [address] [email or web address] PCP - General Family Medicine 08/31/21 10/23/23 Don Chen MD [address] [place] [address], [address] [place] [address] [email or web address] PCP - General Internal Medicine 10/24/23 11/19/23 Darryl Henriquez CNP [address] [place] [address], [address] [place] [address] [email or web address] PCP - General Adult Health 11/20/23 Bay Aguilar MD [address] [place] [id number] [email or web address] Historical LMR Provider 02/28/17 05/22/21 Santino Santacruz MD [address] [facility], [address] [place] [address] [email or web address] Historical LMR Provider 02/28/17 05/22/21 Heriberto Apodaca MD [address] [facility] [place] [address] [email or web address] Insurance Assigned Provider 09/15/18 08/20/22 Russell Ge MD [address] [place] [address], [address] [place] [address] [email or web address] Ophthalmology 10/31/18 Maryan Christy, TOBACCO STRIPPER [address] [place] [phone] Psychiatry 11/26/19 Sisi Pinto MD [address] [place] [address], 2nd [place] [address] [email or web address] General Surgery 01/13/20 Francois Nails MD [address] [place] [phone] [email or web address] Endocrinology 01/28/20 Ana Soria, COMMUNITY SERVICE PATROL OFFICER [address] [place] [address] Nurse Practitioner Medical Oncology 06/26/20 Justen Etienne DO [address] [place] [address], [address] [place] [address] [email or web address] Allergy and Immunology 09/29/20 Meghana Green PA [address] [place] [address] [email or web address] Physician Cost Control Specialist Oncology 11/10/20 02/02/21 Bin Hsieh MD [address] [place] [phone] Palliative Care 02/27/21 Silvia Spencer MD [address] [place] [address] Primary Oncologist Medical Oncology 02/28/22 Don Chen MD [address] [place] [address], [address] [place] [phone] Insurance Assigned Provider 08/19/23 09/21/24 Soledad Menard MD [address] [place] [address] Ophthalmology 10/24/23 Heriberto Apodaca MD [address] [place] [address], [address] [place] [phone] Insurance Assigned Provider 09/21/24 documented as of this encounter Additional Source Comments The information contained in this document represents components of the legal health record. It is not the complete legal health record.[facility]
== END 2024-12-17 11:32 | disposition home or self-care (01) ==
LOC: HO.PMC 11:01
PROVIDERS: PCP Nurse Practitioner Adult Health; Visit Provider Nurse Practitioner Family
DX: G62.0 Drug-induced polyneuropathy (principal); T45.1X5A Adverse effect of antineoplastic and immunosuppressive drugs, initial encounter; G89.4 Chronic pain syndrome; Z79.891 Long term (current) use of opiate analgesic
CPT/HCPCS: 99214

== ENCOUNTER 2025-01-28 11:23 | Outpatient (AMB) | payer OTHER, SELFPAY ==
--- NOTE | 2025-01-28 11:22 | MHC.OFFVIS ---
Vital Signs 01/28/25 11:29 Height 5 ft 8 in Weight 178 lb BMI 27.1 BP 146/61 H Blood Pressure Location Rt brachial Position Sitting Pulse 75 Pulse Source Pulse Oximeter Pulse Oximetry (%) 98 Oxygen Delivery Method Room Air Intake Visit Reasons: Pill Count Intake Note: Maki comes in today for a pill count to oxycodone, patient should have 76 tablets and presents with 74 tablets which she last took today 01/28/25 at 7:30 am. Pain today 7/10 Party Supply Specialist Required: No Accompanied by: Self / Same As Patient Allergies No Known Allergies Allergy (Verified 01/28/25 11:29) HPI Comments Details: Patient presents today for a pill count. Patient is supposed to have #76 pills, in her possession has #74 pills. She reports adequate analgesia on current regime oxycodone 5 mg QID prn without noted side effects. Pain is rated at 7/10. Her chronic pain syndrome primarily affects her feet, with associated neuropathy in her hands. Patient supplements her pain management with gabapentin for neuropathy and a liquid form of marijuana for sleep. The chronic pain has been persistent, with fluctuations in intensity, sometimes reaching a level of 9-10/10, making it difficult for her to walk. She also reports experiencing falls due to balance issues, although she has not sustained any injuries since a previous significant fall that required an emergency room visit. She attributes the falls to a loss of balance and is awaiting further evaluation to determine the cause through her other providers. She has been managing the pain with oxycodone, gabapentin, and occasionally Tylenol or ibuprofen, but the pain remains significant at times. The patient reports a history of esophageal stricture, which causes food to occasionally get caught before reaching the stomach. The condition was previously managed by a physician who stretched the esophagus, but symptoms have recurred. She reports there is a pending GI referral. Denies any fever, chills, nausea, sedation, dizziness, or urinary retention. She utilizes dietary fiber and Smooth move tea for rare constipation. 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 Alert and oriented. Mood and affect appropriate. Follows and participates in conversation appropriately. Respiratory effort is unlabored. Able to transition from sit to stand unassisted. Ambulates with bilaterally normal heel strike and toe off. Eyes General: appearance normal, both eyes and all related structures Back/Spine/Pelvis Cervical Spine: cervical ROM normal, cervical muscular tenderness, pain with cervical ROM and No Cervical spine tenderness Thoracic/Lumbar Spine: thoraco-lumbar ROM normal, paraspinal muscle tenderness, thoraco-lumbar ROM limited, No thoracic spinal tenderness and No lumbar spinal tenderness Psych Appearance: grossly normal Mental Status: mental status grossly normal Speech and movement: Normal speech and movement present and Clear speech present Affect: normal affect Attitude: cooperative Thought process: Normal thought process present Thought content: Normal thought content present, suicidality (none), no hallucinations and No Depressive thoughts present Insight: Good insight present (Psych) Judgement: Good judgement present (Psych) Results Reviewed Results Reviewed: NE electromyogram (EMG); NE nerve conduction velocity 03/28/24: FINDINGS: Right peroneal nerve showed prolonged distal latency, normal amplitude and normal conduction velocity. Right tibial nerve showed normal distal latency, normal amplitude and slow conduction velocity. Left tibial nerve showed prolonged distal latency, normal amplitude and slow conduction velocity. Bilateral sural nerves were present but on the low side for amplitude. Concentric needle EMG was performed in selected muscles of the bilateral lower extremity and lumbar paraspinals. Study revealed signs of electric abnormalities as shown in the table above. Bilateral AH showed increased insertional activity, PSWs and fibrillations. No denervation seen on lumbar paraspinals. IMPRESSION: 1. This is an abnormal study. 2. There are electrodiagnostic findings suggestive for peripheral neuropathy, affecting motor primarily. 3. There is no electrodiagnostic evidence for lumbosacral plexopathy or lumbar radiculopathy. Assessment & Plan Assessment & Plan (1) Chemotherapy-induced peripheral neuropathy: Code(s): G62.0 - Drug-induced polyneuropathy; T45.1X5A - Adverse effect of antineoplastic and immunosuppressive drugs, initial encounter Category: Medical (2) Chronic pain syndrome: Code(s): G89.4 - Chronic pain syndrome Category: Medical (3) Opioid contract exists: Code(s): Z79.891 - termite technician (current) use of opiate analgesic Category: Medical Plan Patient has shown accountability for her medication regimen and the pill count was accurate. There is no evidence of misuse, abuse or diversion at this time. MassPat reviewed. Recent random UDS was positive for THC otherwise UDS was concordant. Refill sent for oxycodone 5 mg QID prn for moderate-severe pain with advanced date of 02/14/24. Patient has Narcan at home. Discussed with the patient the risks associated with benzodiazepine and opioid use. She is aware and verbalized an agreement to take the medications at least two hours apart. She is advised to follow up with a rhythmic gymnastics coach for further evaluation of her esophageal stricture, as she is awaiting a procedure to investigate the cause of her symptoms. Additionally, she should monitor her balance issues and consider further evaluation if the falls persist or worsen. All questions and concerns have been answered and patient agreed with the plan. Follow up one month for pill count and sooner as needed. Patient was informed and verbally consented to the use of an ambient scribe for clinic note documentation during this visit. Medications: Refilled oxycodone Partial Fill upon patient request. 5 mg PO Q6H PRN 120 tabs 0RF pain (scale score 7-10) 30 days G62.0 - Drug-induced polyneuropathy, G89.4 - Chronic pain syndrome, T45.1X5A - Adverse effect of antineoplastic and immunosuppressive drugs, initial encounter, Z79.891 - senior living (current) use of opiate analgesic Coding Level of Care Code Est Pt Level 4 (00231) Complex EM visit Add On G2211 Diagnoses Chemotherapy-induced peripheral neuropathy G62.0; T45.1X5A Chronic pain syndrome G89.4 Opioid contract exists Z79.891
[2025-01-28 11:29] VITALS: BP 146/61; PULSE 75; O2SAT 98; BMI 27.1
--- OUTSIDE RECORDS SUMMARY | 2025-01-28 15:27 | XMS_ITS | Encounter Summary ---
Author Organization [facility] Address [address] [place] [address] [address] [place] [address] Phone Care Team Providers Care Casino Cashier Name Role Phone Bay Aguilar MD Unavailable [phone] Santino Santacruz MD Unavailable Heriberto Apodaca MD Unavailable [phone] Russell Ge MD Unavailable Maryan Christy PRICER BAGGER Unavailable Sisi Pinto MD Unavailable Francois Nails MD Unavailable [phone] Darryl Henriquez [facility] Primary Care Provider [phone] Heriberto Apodaca MD Primary Care Provider [phone] Darryl Henriquez [facility] Primary Care Provider [phone] Justen Etienne DO Unavailable Meghana Green Unavailable Bin Hsieh MD Unavailable Darryl Henriquez [facility] Primary Care Provider [phone] Darryl Henriquez [facility] Primary Care Provider [phone] Heriberto Apodaca MD Primary Care Provider [phone] LynnDarryl jacobson [employer] Primary Care Provider +[phone] Heriberto Apodaca MD Primary Care Provider + JurgenmarioParisjessy [facility] Primary Care Provider + Silvia Spencer MD Unavailable [phone] Don Chen MD Unavailable [phone] Soledad Menard MD Unavailable [phone] Don Chen MD Primary Care Provider JurgenmarioDarryl [facility] Primary Care Provider + Heriberto Apodaca MD Unavailable + [phone] Encounter Details Date Type Department Care Team (Late Contact Info) Description 04/08/2020 Telephone [facility] [address] [place] [address] Sisi Pinto MD [address] [place] [address] [email or web address] Social History Tobacco Use Types Packs/Day Years [...] Department Care Team (Late Contact Info) Description 01/31/2025 2:00 PM EDT Office Visit [facility] [address] [place] [address] Silvia Spencer MD [address] [place] [address] [email or web address] documented as of this encounter Visit Diagnoses [...] documented as of this encounter Care Teams Casino Cashier Relationship Specialty Start Date End Date Darryl Henriquez CNP [address] [place] [address], [address] [place] [address] [email or web address] PCP - General Family Medicine 01/28/20 07/29/20 Heriberto Apodaca MD [address] [place] [address], [address] [place] [address] [email or web address] PCP - General Family Medicine 07/30/20 08/13/20 Darryl Henriquez CNP [address] [place] [address], [address] [place] [address] [email or web address] PCP - General Family Medicine 08/14/20 03/21/21 Darryl Henriquez CNP [address] [place] [address], [address] [place] [address] [email or web address] PCP - General Family Medicine 03/22/21 03/22/21 Darryl Henriquez CNP [address] [place] [address], [address] [place] [address] [email or web address] PCP - General Family Medicine 03/23/21 03/30/21 Heriberto Apodaca MD [address] [place] [address], [address] [place] [address] [email or web address] PCP - General Family Medicine 03/31/21 05/31/21 Darryl Henriquez CNP [address] [place] [address], [address] [place] [address] [email or web address] PCP - General Family Medicine 06/01/21 07/19/21 Heriberto Apodaca MD [address] [place] [address], [address] [place] [address] [email or web address] PCP - General Family Medicine 07/20/21 08/30/21 Darryl Henriquez CNP [address] [place] [address], [address] [place] [address] [email or web address] PCP - General Family Medicine 08/31/21 10/23/23 Don Chen MD [address] [place] [address], [address] [place] [address] [email or web address] PCP - General Internal Medicine 10/24/23 11/19/23 Darryl Henriquez CNP [address] [place] [address], [address] [place] [address] [email or web address] PCP - General Adult Health 11/20/23 Bay Aguilar MD [address] [place] [address] [email or web address] Historical LMR Provider 02/28/17 05/22/21 Santino Santacruz MD [address] [place] [address], [address] [place] [address] [email or web address] Historical LMR Provider 02/28/17 05/22/21 Heriberto Apodaca MD [address] [place] [address], [address] [place] [address] [email or web address] Insurance Assigned Provider 09/15/18 08/20/22 Russell Ge MD [address] [place] [address], [address] [place] [address] [email or web address] Ophthalmology 10/31/18 Maryan Christy, PRICER BAGGER [address] [place] [address] Psychiatry 11/26/19 Sisi Pinto MD [address] [place] [address], 2nd [place] [address] [email or web address] General Surgery 01/13/20 Francois Nails MD [address] [place] [address] [email or web address] Endocrinology 01/28/20 Justen Etienne DO [address] [place] [address], [address] [place] [address] [email or web address] and [email or web address] 09/29/20 Meghana Green PA [address] [place] [address] [email or web address] Physician Belly Roller Oncology 11/10/20 02/02/21 Bin Hsieh MD [address] [place] [address] Palliative Care 02/27/21 Silvia Spencer MD [address] [place] [address] Primary Oncologist Medical Oncology 02/28/22 Don Chen MD [address] [place] [address], [address] [place] [address] Insurance Assigned Provider 08/19/23 09/21/24 Soledad Menard MD [address] [place] [address] Ophthalmology 10/24/23 Heriberto Apodaca MD [address] [place] [address], [address] [place] [address] Insurance Assigned Provider 09/21/24 documented as of this encounter Additional Source Comments The information contained in this document represents components of the legal health record. It is not the complete legal health record.[facility]
--- OUTSIDE RECORDS SUMMARY | 2025-01-28 15:27 | XMS_ITS | Encounter Summary ---
Author Organization [facility] Address [address] [place] [address] [address] [place] [address] Phone Care Team Providers Care Photogrammetric Technician Name Role Phone Bay Aguilar MD Unavailable [phone] Santino Santacruz MD Unavailable Heriberto Apodaca MD Unavailable [phone] Russell Ge MD Unavailable [phone] Maryan Christy ASSOCIATE CIVIL ENGINEER Unavailable Sisi Pinto MD Unavailable Francois Nails MD Unavailable Darryl Hneriquez [facility] Primary Care Provider [phone] Heriberto Apodaca MD Primary Care Provider [phone] Darryl Henriquez [facility] Primary Care Provider [phone] Justen Etienne DO Unavailable Meghana Green Unavailable [phone] Bin Hsieh MD Unavailable Darryl Henriquez [facility] Primary Care Provider [phone] Darryl Henriquez [facility] Primary Care Provider [phone] Heriberto Apodaca MD Primary Care Provider [phone] FlorenceDarryl NETWORK ENGINEER ADMINISTRATOR Primary Care Provider [phone] Heriberto Apodaca MD Primary Care Provider +[phone] Darryl Henriquez [facility] Primary Care Provider + Silvia Spencer MD Unavailable [phone] Don Chen MD Unavailable [phone] Soledad Menard MD Unavailable [phone] Don Chen MD Primary Care Provider JurgenmarioParisjessy [facility] Primary Care Provider + Heriberto Apodaca MD Unavailable + [phone] Encounter Details Date Type Department Care Team (Late Contact Info) Description 04/18/2020 Procedure [facility] [address] [place] [address] Social History Tobacco Use Types Packs/Day Years Used Date Smoking Tobacco: Former Cigarettes 1 25 1 979 - 2003 Smokeless Tobacco: Never Alcohol Use Standard Drinks/Week [...] Description 01/31/2025 2:00 PM EDT Office Visit [facility] at [address] [address] Silvia Spencer MD [address] [place] [address] [email or web address] documented as of this encounter Visit Diagnoses [...] documented as of this encounter Care Teams Photogrammetric Technician Relationship Specialty Start Date End Date Darryl Henriquez CNP [address] [place] [address], [address] [place] [address] PCP - General Family Medicine 01/28/20 07/29/20 Heriberto Apodaca MD [address] [place] [address], [address] [place] [address] PCP - General Family Medicine 07/30/20 08/13/20 Darryl Henriquez CNP [address] [place] [address], [address] [place] [address] PCP - General Family Medicine 08/14/20 03/21/21 Darryl Henriquez CNP [address] [place] [address], [address] [place] [address] PCP - General Family Medicine 03/22/21 03/22/21 Darryl Henriquez CNP [address] [place] [address], [address] [place] [address] PCP - General Family Medicine 03/23/21 03/30/21 Heriberto Apodaca MD [address] [place] [address], [address] [place] [address] [email or web address] PCP - General Family Medicine 03/31/21 05/31/21 Darryl Henriquez CNP [address] [place] [address], [address] [place] [address] [email or web address] PCP - General Family Medicine 06/01/21 07/19/21 Heriberto Apodaca MD [address] [place] [address], [address] [place] [address] [email or web address] PCP - General Family Medicine 07/20/21 08/30/21 Darryl Henriquez CNP [address] [place] [address], [address] [place] [address] [email or web address] PCP - General Family Medicine 08/31/21 10/23/23 Don Chen MD [address] [place] [address], [address] [place] [address] [email or web address] PCP - General Internal Medicine 10/24/23 11/19/23 Darryl Henriquez CNP [address] [place] [address], [address] [place] [address] [email or web address] PCP - General Adult Health 11/20/23 Bay Aguilar MD [address] [place] [address] [email or web address] Historical LMR Provider 02/28/17 05/22/21 Santino Santacruz MD [address] [place] [address], [address] [place] [address] [email or web address] Historical LMR Provider 02/28/17 05/22/21 Heriberto Apodaca MD [address] [place] [address], [address] [place] [address] [email or web address] Insurance Assigned Provider 09/15/18 08/20/22 Russell Ge MD [address] [place] [address], [address] [place] [address] [email or web address] Ophthalmology 10/31/18 Maryan Christy CNS [address] [place] [address] Psychiatry 11/26/19 Sisi Pinto MD [address] [place] [address], 2nd [place] [address] [email or web address] General Surgery 01/13/20 Francois Nails MD [address] [place] [address] [email or web address] Endocrinology 01/28/20 Justen Etienne DO [address] [place] [address], [address] [place] [address] [email or web address] and [email or web address] 09/29/20 Meghana Green PA [address] [place] [address] [email or web address] Physician Faith Doctor Oncology 11/10/20 02/02/21 Bin Hsieh MD [address] [place] [address] Palliative Care 02/27/21 Silvia Spencer MD [address] [place] [address] Primary Oncologist Medical Oncology 02/28/22 Don Chen MD [address] [place] [address], [address] [place] [address] Insurance Assigned Provider 08/19/23 09/21/24 Soledad Menard MD [address] [place] [address] Ophthalmology 10/24/23 Heriberto Apodaca MD [address] [place] [address], [address] [place] [address] Insurance Assigned Provider 09/21/24 documented as of this encounter Additional Source Comments The information contained in this document represents components of the legal health record. It is not the complete legal health record.[facility]
--- OUTSIDE RECORDS SUMMARY | 2025-01-28 15:27 | XMS_ITS | Encounter Summary ---
Author Organization [facility] Address [address] [place] [address] Phone Care Team Providers Care Machine Sizer Name Role Phone Russell Ge MD Unavailable [phone] Maryan Christy [facility] Unavailable Sisi Pinto MD Unavailable Francois Nails MD Unavailable Justen Etienne DO Unavailable [phone] Bin Hsieh MD Unavailable Silvia Spencer MD Unavailable [phone] Soledad Menard MD Unavailable [phone] Darryl Henriquez [facility] Primary Care Provider [phone] Heriberto Apodaca MD Unavailable [phone] Reason for Visit * Reason Onset Date Comments Results 01/20/2025 Encounter Details Date Type Department Care Team (Late st Contact Info) Description 01/20/2025 Telephone [employer] [facility] [address] [place], [place] [id number] Beatrice Villaotro, RN [address] [place] [address] [email or web address] Results Social History Tobacco Use Types Packs/Day Years Used Date Smoking Tobacco: Former Cigarettes 1 25 1 979 - 2003 Smokeless Tobacco: Never Alcohol Use Standard Drinks/Week Comments Not Currently 0 (1 standard drink = 0.6 oz pur e alcohol) occasionally Child or Family Care Answer Date Record ed Do you have problems with on e of the following making it difficult for you to work, study, or receive health care? No 10/04/2023 Education Answer Date Recorded Are you interested in help w ith more adult education (for example, completing high school, GED, job training, learning the Lithuanian language, technical skills, or developing parenting skills)? No 10/04/2023 Are you concerned about learning? Not on file 10/04/2023 No 10/04/2023 Yes 10/04/2023 Food Answer Date Recorded Within the past 6 months we worried whether our food would run out before we got money to buy more. Never True 10/04/2023 Within the past 6 months the food we bought just didn't last and we didn't have enough money to get more. Never True Residential Stability Answer Date Recor ded What is your housing situation today? I have chastity sing 10/04/2023 How many times have you move d in the past 12 months? Zero (I did not move) 10/04/2023 Paying for Meds Answer Date Recorded Do you have trouble paying for medicines? No 10/04/2023 Paying Utility Bills Answer Date Record ed Do you have trouble paying your heating or elect ricity bill? No 10/04/2023 Transportation Answer Date Recorded Has the lack of transportati on kept you from medical appointments or from getting medications? No 10/04/2023 Unemployment Answer Date Recorded Are you currently unemployed or working on a part-time or temporary basis, and looking for work? No 07/13/2022 Digital Access Answer Date Recorded No 10/06/2022 No 10/06/2022 Reliable internet access at home? Not on file 10/06/2022 Device with a working camera? Not on file Intimate Partner Violence Answer Date R ecorded Are you denied basic needs s uch as food, clothing, or medical care? No 10/11/2024 In the past 12 months have y ou been in a relationship with a person who hurts, threatens, or tries to control you? No 10/11/2024 Are you denied basic needs s uch as food, clothing, or medical care? No 10/11/2024 In the past 12 months have y ou been in a relationship with a person who hurts, threatens, or tries to control you? 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 * Beatrice Villatoro RN - 01/20/2025 8:58 AM EDT Patient notified of EEG results and instructions as per provider. Verbalizes understanding and agreement. She was not aware of the needing to [facility] neurolog[facility]. She has been to them in the past and will give them a call. She asks about the GI referral. Notified referral signed for [facility]. She will give them a call. Verbalizes she will call Dr. Spencer to schedule an appointment. Message Received: Today Darryl Henriquez CNP [facility] Rn Please call Javier. There is no evidence of seizure activity on the EEG. Is she scheduled with neuro at [facility]? When? Please also ask her to schedule a follow up with Dr. Spencer (oncology) as it looks like she has missed a couple of calls from them since she reached out to schedule. documented in this encounter Plan of Treatment Upcoming Encounters Date Type Department Care Team (Late st Contact Info) Description 01/31/2025 2:00 PM EDT Office Visit [facility] at [address] [address] Silvia Spencer MD [address] [place] [address] [email or web address] documented as of this encounter Visit Diagnoses Not on filedocumented in this encounter Additional Health Concerns Assessment Noted Time PHQ-9 Depression Total Score: 11 025 11:24 AM EDT PHQ-2 Depression Total Score: 3 01/02/20 25 11:24 AM EDT documented as of this encounter Care Teams Machine Sizer Relationship Specialty Start Date End Date Darryl Henriquez CNP [address] [facility] [facility] [place] [address] [email or web address] PCP - General Adult Health 11/20/23 Russell Ge MD [email or web address] Ophthalmology 10/31/18 Maryan Christy, DIRECTOR OF OFFICIATING [address] [place] [address] Psychiatry 11/26/19 Sisi Pinto MD [address] [facility], 2nd [place] [address] [email or web address] General Surgery 01/13/20 Francois Nails MD [address] [place] [address] [email or web address] Endocrinology 01/28/20 Justen Etienne DO [address] [place] [address] [email or web address] Allergy and Immunology 09/29/20 Bin Hsieh MD [address] [place] [address] [email or web address] Palliative Care 02/27/21 Silvia Spencer MD [address] [place] [address] [email or web address] Primary Oncologist Medical Oncology 02/28/22 Soledad Menard MD [address] [place] [address] Ophthalmology 10/24/23 Heriberto Apodaca MD [address] [place] [address], [address] [place] [address] [email or web address] Insurance Assigned Provider 09/21/24 documented as of this encounter Additional Source Comments The information contained in this document represents components of the legal health record. It is not the complete legal health record.[facility]
--- OUTSIDE RECORDS SUMMARY | 2025-01-28 15:27 | XMS_ITS | Encounter Summary ---
Author Organization [facility] Address [address] [place] [address] [address] [place] [address] Phone Care Team Providers Care Composite Laminator Name Role Phone Bay Aguilar MD Unavailable Santino Santacruz MD Unavailable [phone] Heriberto Apodaca MD Unavailable [phone] Russell Ge MD Unavailable Maryan Christy [employer]ATING [employer] RE[employer]ERATION INSPECTOR Unavailable Darryl Henriquez [facility] Primary Care Provider [phone] Heriberto Apodaca MD Primary Care Provider [phone] Darryl Henriquez [facility] Primary Care Provider [phone] Heriberto Apodaca MD Primary Care Provider [phone] Darryl Henriquez [facility] Primary Care Provider [phone] Sisi Pinto MD Unavailable Heriberto Apodaca MD Primary Care Provider [phone] Francois Nails MD Unavailable Darryl Henriquez [facility] Primary Care Provider Heriberto Apodaca MD Primary Care Provider [phone] Darryl Henriquez [facility] Primary Care Provider Justen Etienne Unavailable [phone] Meghana Green Unavailable Bin Hsieh MD Unavailable Florence Parisjessy [facility] Primary Care Provider [phone] Darryl Henriquez [facility] Primary Care Provider Heriberto Apodaca MD Primary Care Provider [phone] JurgenDarryl martin [facility] Primary Care Provider Heriberto Apodaca MD Primary Care Provider [phone] JurgenDarryl martin [facility] Primary Care Provider Silvia Spencer MD Unavailable [phone] Don Chen MD Unavailable [phone] Soledad Menard MD Unavailable [phone] Don Chen MD Primary Care Provider JurgenDarryl martin [facility] Primary Care Provider Heriberto Apodaca MD Unavailable [phone] Encounter Details Date Type Department Care Team (Late st Contact Info) Description 12/23/2019 Ancillary Orders [address] [id number] Sisi Pinto MD [address] [place] [address], [address] [place] [address] [email or web address] Breast mass Social History Tobacco Use Types Packs/Day Years Used Date Smoking Tobacco: Former Cigarettes 1 25 1 979 - 2004 Smokeless Tobacco: Never Alcohol Use Standard Drinks/Week Comments Yes 0 (1 standard drink = 0.6 oz pur e alcohol) <1 drink/year Comments No Sex and Gender Information Value [...] Description 01/31/2025 2:00 PM EDT Office Visit [facility] at [address] [address] Silvia Spencer MD [address] [place] [address] [email or web address] documented as of this encounter Results * BI MAMMOGRAM DIAGNOSTIC POST PROCEDURE NO TOMOSYNTHESIS NO CAD (LEFT) (12/23/2019 10:00 AM EDT) Anatomical Region Laterality Modality Breast Left Left Mammography 12/23/2019 10:3 9 AM EDT Addenda Addendum by Betty Bernard MD on 12/25/2019 12:30 PM EDT ADDENDUM: Pathology results as follows: Lesion #1, deeper 2:00 to 3:00 at 4 cm from the nipple, heart clip: Invasive ductal carcinoma grade 3 Lesion #2, superficial 2:00 to 3:00 at 4 cm from the nipple, [place] clip: Invasive ductal carcinoma, grade 3 Lesion #3, superficial 3:00 at 2 cm from the nipple, ribbon clip: Invasive ductal carcinoma with micropapillary features, grade 3 All three pathology results are malignant and concordant with imaging findings. Dr. Pinto is aware of the pathology results at the time of this addendum. Impressions 12/23/2019 1:37 PM EDT Left breast ultrasound-guided core biopsy of three targets completed. Pathology pending. Concordance addendum will be generated when pathologic analysis is complete. Narrative 12/23/2019 1:37 PM EDT EXAMS: 1.BI LONG-TERM BIOPSY OF BREAST (LEFT) 2.BI MAMMOGRAM DIAGNOSTIC POST PROCEDURE NO TOMOSYNTHESIS NO CAD (LEFT) History: Left breast mass for ultrasound-guided core biopsy. Diagnostic mammogram/ultrasound workup for palpable abnormality on December 19, 2019 revealed three suspicious masses as follows: -- 2:30 o'clock at 4 cm from the nipple measuring 1.6 cm -- 2-3:00 at 4 cm from the nipple measuring 2.8 cm x 1.6 x 2.3 cm -- 1 o'clock position at 2 cm from the nipple measuring 2.1 cm x 2.5 x 1.9 cm The procedure was explained to the patient including benefits and alternatives. The risks, including but not limited to infection and bleeding, were reviewed and the patient agreed to undergo the procedure, signing the consent form. Her identity was confirmed with two unique patient identifiers. Left breast ultrasound-guided core biopsy: The patient's left breast was imaged with the [facility] ultrasound unit and images of the following 3 masses were obtained: --Superficial 2:00 to 3:00 at 4 cm from the nipple measuring 1.7 x 0.6 x 0.8 cm labeled as lesion #2 --Deeper 2:00 to 3:00 at 4 cm from the nipple measuring 3.2 x 3.0 x 1.6 cm, labeled as lesion #1 --Superficial 3:00 at 2 cm from the nipple measuring 2.2 x 1.9 x 2.2 cm labeled as lesion #3 The breast was prepped for the procedure and area was anesthetized with a local anesthetic. Using a Bard 14-gauge 13 cm needle, one pass was made through the area and --Three specimens were obtained for the lesion #1, followed by heart shaped clip placement --Three specimens were obtained for the lesion #2, followed by Suly shape clip placement --Three specimens were obtained for the lesion #3, followed by ribbon shape clip placement. Not that the ribbon shape clip was deployed adjacent to the distal margin of the lesion. The patient experienced no complications during the procedure. Postprocedure full field digital mammogram: The patient was then moved to a digital mammographic room where CC, MLO and ML 90 degrees full field digital mammographic images of the breast were obtained. These show satisfactory placement of all 3 micromarkers. Note that the ribbon shape clip is positioned adjacent to the medial margin of the lesion (and not centered). Procedure Note Betty Bernard MD - 12/23/2019 EXAMS: 1.BI LONG-TERM BIOPSY OF BREAST (LEFT) 2.BI MAMMOGRAM DIAGNOSTIC POST PROCEDURE NO TOMOSYNTHESIS NO CAD (LEFT) History: Left breast mass for ultrasound-guided core biopsy. Diagnosticmammogram/ultrasound workup for palpable abnormality on December 19, 2019revealed three suspicious masses as follows: -- 2:30 o'clock at 4 cm from the nipple measuring 1.6 cm -- 2-3:00 at 4 cm from the nipple measuring 2.8 cm x 1.6 x 2.3 cm -- 1 o'clock position at 2 cm from the nipple measuring 2.1 cm x 2.5 x 1.9cm The procedure was explained to the patient including benefits andalternatives. The risks, including but not limited to infection andbleeding, were reviewed and the patient agreed to undergo the procedure,signing the consent form. Her identity was confirmed with two uniquepatient identifiers. Left breast ultrasound-guided core biopsy: The patient's left breast was imaged with the [facility] ultrasound unit andimages of the following 3 masses were obtained: --Superficial 2:00 to 3:00 at 4 cm from the nipple measuring 1.7 x 0.6 x0.8 cm labeled as lesion #2 --Deeper 2:00 to 3:00 at 4 cm from the nipple measuring 3.2 x 3.0 x 1.6cm, labeled as lesion #1 --Superficial 3:00 at 2 cm from the nipple measuring 2.2 x 1.9 x 2.2 cmlabeled as lesion #3 The breast was prepped for the procedure and area was anesthetized with alocal anesthetic. Using a Bard 14-gauge 13 cm needle, one pass was madethrough the area and --Three specimens were obtained for the lesion #1, followed by heartshaped clip placement --Three specimens were obtained for the lesion #2, followed by Suly shapeclip placement --Three specimens were obtained for the lesion #3, followed by ribbonshape clip placement. Not that the ribbon shape clip was deployed adjacentto the distal margin of the lesion. The patient experienced no complications during the procedure. Postprocedure full field digital mammogram: The patient was then moved to a digital mammographic room where Jos KING 90 degrees full field digital mammographic images of the breastwere obtained. These show satisfactory placement of all 3 micromarkers.Note that the ribbon shape clip is positioned adjacent to the medialmargin of the lesion (and not centered). IMPRESSION: Left breast ultrasound-guided core biopsy of three targets completed.Pathology pending. Concordance addendum will be generated when pathologic analysis iscomplete. us Sisi Pinto MD IMG MG EXAMS Edited Resul t - Final documented in this encounter Visit Diagnoses Diagnosis Breast mass Lump or mass in breast Breast mass Lump or mass in breast documented in this encounter Additional Health Concerns Infection Onset Date Last Indicated Resolved Time CoV-Presumed 10/29/2021 10/29/2021 11/19/2021 1:21 AM EDT CoV-Risk 01/12/2022 01/12/2022 01/23/2022 1:22 AM EDT CoV-Risk 06/22/2022 06/22/2022 07/03/2022 1:22 AM EST COVID-19 05/03/2024 05/03/2024 05/24/2024 1:23 AM EST Assessment Noted Time PHQ-2 Depression Total Score: 0 11/01/19 19 8:47 AM EDT documented as of this encounter Care Teams Composite Laminator Relationship Specialty Start Date End Date Darryl Henriquez CNP [address] [place] [address], [address] [place] [address] PCP - General Family Medicine 12/20/19 12/26/19 Heriberto Apodaca MD [address] [place] [address], [address] [place] [address] PCP - General Family Medicine 12/27/19 12/29/19 Darryl Henriquez CNP [address] [place] [address], [address] [place] [address] [email or web address] PCP - General Family Medicine 12/30/19 12/30/19 Heriberto Apodaca MD [address] [place] [address], [address] [place] [address] [email or web address] PCP - General Family Medicine 12/31/19 01/07/20 Darryl Henriquez CNP [address] [place] [address], [address] [place] [address] [email or web address] PCP - General Family Medicine 01/08/20 01/20/20 Heriberto Apodaca MD [address] [place] [address], [address] [place] [address] [email or web address] PCP - General Family Medicine 01/21/20 01/27/20 Darryl Henriquez CNP [address] [place] [address], [address] [place] [address] [email or web address] PCP - General Family Medicine 01/28/20 07/29/20 Heriberto Apodaca MD [address] [place] [address], [address] [place] [address] [email or web address] PCP - General Family Medicine 07/30/20 08/13/20 Darryl Henriquez CNP [address] [place] [address], [address] [place] [address] PCP - General Family Medicine 08/14/20 03/21/21 Darryl Henriquez CNP [address] [place] [address], [address] [place] [address] [email or web address] PCP - General Family Medicine 03/22/21 03/22/21 Darryl Henriquez CNP [address] [place] [address], [address] [place] [address] [email or web address] PCP - General Family Medicine 03/23/21 03/30/21 Heriberto Apodaca MD [address] [place] [address], [address] [place] [address] [email or web address] PCP - General Family Medicine 03/31/21 05/31/21 Darryl Henriquez CNP [address] [place] [address], [address] [place] [address] [email or web address] PCP - General Family Medicine 06/01/21 07/19/21 Heriberto Apodaca MD [address] [place] [address], [address] [place] [address] [email or web address] PCP - General Family Medicine 07/20/21 08/30/21 Darryl Henriquez CNP [address] [place] [address], [address] [place] [address] [email or web address] PCP - General Family Medicine 08/31/21 10/23/23 Don Chen MD [address] [place] [address], [address] [place] [address] [email or web address] PCP - General Internal Medicine 10/24/23 11/19/23 Darryl Henriquez CNP [address] [facility] [place] [address] [email or web address] PCP - General Adult Health 11/20/23 Bay Aguilar MD [address] [place] [address] [email or web address] Historical LMR Provider 02/28/17 05/22/21 Santino Santacruz MD [address] [place] [address], [address] [place] [address] [email or web address] Historical LMR Provider 02/28/17 05/22/21 Heriberto Apodaca MD [address] [place] [address], [address] [place] [address] [email or web address] Insurance Assigned Provider 09/15/18 08/20/22 Russell Ge MD [address] [place] [address], [address] [place] [address] Ophthalmology 10/31/18 Maryan Christy CNS [address] [place] [address] Psychiatry 11/26/19 Sisi Pinto MD [address] [place] [address], 2nd [place] [address] General Surgery 01/13/20 Francois Nails MD [address] [place] [address] [email or web address] Endocrinology 01/28/20 Justen Etienne DO [address] [place] [address] [email or web address] 09/29/20 Meghana Green PA [address] [place] [address] [email or web address] Physician Refractive Surgeon Oncology 11/10/20 02/02/21 Bin Hsieh MD [address] [place] [address] Palliative Care 02/27/21 Silvia Spencer MD [address] [place] [address] Primary Oncologist Medical Oncology 02/28/22 Don Chen MD [address] [place] [address], [address] [place] [address] Insurance Assigned Provider 08/19/23 09/21/24 Soledad Menard MD [address] [place] [address] Ophthalmology 10/24/23 Heriberto Apodaca MD [address] [place] [address], [address] [place] [address] Insurance Assigned Provider 09/21/24 documented as of this encounter Additional Source Comments The information contained in this document represents components of the legal health record. It is not the complete legal health record.[facility]
--- OUTSIDE RECORDS SUMMARY | 2025-01-28 15:27 | XMS_ITS | Encounter Summary ---
Author Organization [facility] Address [address] [place] [address] [address] [place] [address] Phone Care Team Providers Care School Cook Name Role Phone Bay Aguilar MD Unavailable Santino Santacruz MD Unavailable Heriberto Apodaca MD Unavailable [phone] Russell Ge MD Unavailable Maryan Christy [facility] Unavailable Heriberto Apodaca MD Primary Care Provider [phone] Darryl Henriquez [facility] Primary Care Provider [phone] Heriberto Apodaca MD Primary Care Provider [phone] Darrly Henriquez [facility] Primary Care Provider [phone] Sisi Pinto MD Unavailable [phone] Heriberto Apodaca MD Primary Care Provider +[phone] Francois Nails MD Unavailable Darryl Henriquez [facility] Primary Care Provider [phone] Heriberto Apodaca MD Primary Care Provider +[phone] Darryl Henriquez [facility] Primary Care Provider [phone] Justen Etienne DO Unavailable +[phone] NormaMeghana jin Shawnadaryn BETH Unavailable +[phone] Bin Hsieh MD Unavailable JurgenmarioDarryl [facility] Primary Care Provider [phone] Santrabiakavon Darryl [facility] Primary Care Provider [phone] Heriberto Apodaca MD Primary Care Provider +[phone] Jurgenmario Darryl [facility] Primary Care Provider [phone] Heriberto Apodaca MD Primary Care Provider +[phone] Jurgenmario Darryl [facility] Primary Care Provider +[phone] Silvia Spencer MD Unavailable [phone] Don Chen MD Unavailable Soledad Menard MD Unavailable [phone] Don Chen MD Primary Care Provider +[phone] Jurgenrabiakavon Darryl [facility] Primary Care Provider +[phone] Heriberto Apodaca MD Unavailable [phone] Encounter Details Date Type Department Care Team (Late st Contact Info) Description 12/27/2019 Procedure Pass [facility], Ct Scan - [address] [address] Social History Tobacco Use Types Packs/Day Years [...] Description 01/31/2025 2:00 PM EDT Office Visit [facility] [address] [place] [address] Silvia Spencer MD [address] [place] [address] [email or web address] documented as of this encounter Visit Diagnoses [...] documented as of this encounter Care Teams School Cook Relationship Specialty Start Date End Date Heriberto Apodaca MD [address] [place] [address], [address] [address] [email or web address] PCP - General Family Medicine 12/27/19 12/29/19 Darryl Henriquez, DIRECT SUPPORT PROFESSIONAL [address] [place] [address], [address] [address] [email or web address] PCP - General Family Medicine 12/30/19 12/30/19 Heriberto Apodaca MD [address] [place] [address], [address] [address] [email or web address] PCP - General Family Medicine 12/31/19 01/07/20 Darryl Henriquez CNP [address] [place] [address], [address] [address] [email or web address] PCP - General Family Medicine 01/08/20 01/20/20 Heriberto Apodaca MD [address] [place] [address], [address] [place] [address] [email or web address] PCP - General Family Medicine 01/21/20 01/27/20 Darryl Henriquez CNP [address] [place] [address], [address] [place] [address] PCP - General Family Medicine 01/28/20 07/29/20 Heriberto Apodaca MD [address] [place] [address], [address] [place] [address] [email or web address] PCP - General Family Medicine 07/30/20 08/13/20 Darryl Henriquez CNP [address] [place] [address], [address] [place] [address] [email or web address] PCP - General Family Medicine 08/14/20 03/21/21 Darryl Henriquez CNP [address] [place] [address], [address] [place] [address] PCP - General Family Medicine 03/22/21 03/22/21 Darryl Henriquez CNP [address] [place] [address], [address] [place] [address] PCP - General Family Medicine 03/23/21 03/30/21 Heriberto Apodaca MD 22 [facility], [address] [place] [address] [email or web address] PCP - General Family Medicine 03/31/21 05/31/21 Darryl Henriquez CNP 22 [facility], [address] [place] [address] [email or web address] PCP - General Family Medicine 06/01/21 07/19/21 Heriberto Apodaca MD [address] [place] [address], [address] [place] [address] [email or web address] PCP - General Family Medicine 07/20/21 08/30/21 Darryl Henriquez CNP [address] [place] [address], [address] [place] [address] [email or web address] PCP - General Family Medicine 08/31/21 10/23/23 Don Chen MD [address] [place] [address], [address] [place] [address] [email or web address] PCP - General Internal Medicine 10/24/23 11/19/23 Darryl Henriquez CNP [address] [place] [address], [address] [place] [address] [email or web address] PCP - General Adult Health 11/20/23 Bay Aguilar MD [address] [place] [address] [email or web address] Historical LMR Provider 02/28/17 05/22/21 Santino Santacruz MD [address] [place] [address], [address] [place] [address] [email or web address] Historical LMR Provider 02/28/17 05/22/21 Heriberto Apodaca MD [address] [place] [address], [address] [place] [address] [email or web address] Insurance Assigned Provider 09/15/18 08/20/22 Russell Ge MD [address] [place] [address], [address] [place] [address] [email or web address] Ophthalmology 10/31/18 Maryan Christy [facility] [address] [place] [address] Psychiatry 11/26/19 Sisi Pinto MD [address] [place] [address], 2nd [place] [address] [email or web address] General Surgery 01/13/20 Francois Nails MD [address] [place] [address] [email or web address] Endocrinology 01/28/20 Justen Etienne DO [address] [place] [address] [email or web address] [email or web address] 09/29/20 Meghana Green PA [address] [place] [address] [email or web address] Physician Data Technician Oncology 11/10/20 02/02/21 Bin Hsieh MD [address] [place] [address] Palliative Care 02/27/21 Silvia Spencer MD [address] [place] [address] Primary Oncologist Medical Oncology 02/28/22 Don Chen MD [address] [place] [address], [address] [place] [address] Insurance Assigned Provider 08/19/23 09/21/24 Soledad Menard MD [address] [place] [address] Ophthalmology 10/24/23 Heriberto Apodaca MD [address] [place] [address], [address] [address] Insurance Assigned Provider 09/21/24 documented as of this encounter Additional Source Comments The information contained in this document represents components of the legal health record. It is not the complete legal health record.[facility]
--- OUTSIDE RECORDS SUMMARY | 2025-01-28 15:27 | XMS_ITS | Encounter Summary ---
Author Organization [facility] Address [address] [place] [address] [address] [place] [address] Phone Care Team Providers Care C Engineer Name Role Phone Bay Aguilar MD Unavailable Santino Santacruz MD Unavailable [phone] Heriberto Apodaca MD Unavailable [phone] Russell Ge MD Unavailable [phone] Maryan Christy [facility] Unavailable Heriberto Apodaca MD Primary Care Provider [phone] Darryl Henriquez [facility] Primary Care Provider [phone] Heriberto Apodaca MD Primary Care Provider [phone] Darryl Henriquez [facility] Primary Care Provider [phone] Sisi Pinto MD Unavailable [phone] Heriberto Apodaca MD Primary Care Provider [phone] Francois Nails MD Unavailable Darryl Henriquez [facility] Primary Care Provider [phone] Heriberto Apodaca MD Primary Care Provider [phone] Darryl Henriquez [facility] Primary Care Provider [phone] Justen Etienne DO Unavailable [phone] NormaMeghana jin Shawnadrayn BETH Unavailable [phone] Bin Hsieh MD Unavailable JurgenmarioDarryl [facility] Primary Care Provider [phone] Santrabiakavon Darryl [facility] Primary Care Provider [phone] Heriberto Apodaca MD Primary Care Provider [phone] Jurgenmario Darryl [facility] Primary Care Provider [phone] Heriberto Apodaca MD Primary Care Provider [phone] Jurgenmario Darryl [facility] Primary Care Provider [phone] Silvia Spencer MD Unavailable [phone] Don Chen MD Unavailable [phone] Soledad Menard MD Unavailable [phone] Don Chen MD Primary Care Provider [phone] Jurgenrabiakavon Darryl [facility] Primary Care Provider [phone] Heriberto Apodaca MD Unavailable [phone] Encounter Details Date Type Department Care Team (Late st Contact Info) Description 12/27/2019 Procedure Pass [place] [facility], Ct Scan - [address] [address] Social History Tobacco Use Types Packs/Day Years [...] Office Visit [facility] [address] [place] [address] Silvia Spencer MD [address] [place] [address] [email or web address] documented as of this encounter Visit Diagnoses [...] documented as of this encounter Care Teams C Engineer Relationship Specialty Start Date End Date Heriberto Apodaca MD [address] [place] [address], [address] [address] [email or web address] PCP - General Family Medicine 12/27/19 12/29/19 Darryl Henriquez, GLASS MELT OPERATOR [address] [place] [address], [address] [address] [email or web address] PCP - General Family Medicine 12/30/19 12/30/19 Heriberto Apodaca MD [address] [place] [address], [address] [address] [email or web address] PCP - General Family Medicine 12/31/19 01/07/20 Darryl Henriquez CNP [address] [place] [address], [address] [address] [email or web address] PCP - General Family Medicine 01/08/20 01/20/20 Heriberto Apodaca MD [address] [place] [address], [address] [place] [address] [email or web address] PCP - General Family Medicine 01/21/20 01/27/20 Darryl Henriquez CNP [address] [place] [address], [address] [place] [address] PCP - General Family Medicine 01/28/20 07/29/20 Heriberto Apodaca MD [address] [place] [address], [address] [place] [address] [email or web address] PCP - General Family Medicine 07/30/20 08/13/20 Darryl Henriquez CNP [address] [place] [address], [address] [place] [address] [email or web address] PCP - General Family Medicine 08/14/20 03/21/21 Darryl Henriquez CNP [address] [place] [address], [address] [place] [address] PCP - General Family Medicine 03/22/21 03/22/21 Darryl Henriquez CNP [address] [place] [address], [address] [place] [address] PCP - General Family Medicine 03/23/21 03/30/21 Heriberto Apodaca MD 22 [facility], [address] [place] [address] [email or web address] PCP - General Family Medicine 03/31/21 05/31/21 Darryl Henriquez CNP 22 [facility], [address] [place] [address] [email or web address] PCP - General Family Medicine 06/01/21 07/19/21 Heriberto Apodaca MD [address] [place] [address], [address] [place] [address] [email or web address] PCP - General Family Medicine 07/20/21 08/30/21 Darryl Henriquez CNP [address] [place] [address], [address] [place] [address] [email or web address] PCP - General Family Medicine 08/31/21 10/23/23 Don Chen MD [address] [place] [address], [address] [place] [address] [email or web address] PCP - General Internal Medicine 10/24/23 11/19/23 Darryl Henriquez CNP [address] [place] [address], [address] [place] [address] [email or web address] PCP - General Adult Health 11/20/23 Bay Aguilar MD [address] [place] [address] [email or web address] Historical LMR Provider 02/28/17 05/22/21 Santino Santacruz MD [address] [place] [address], [address] [place] [address] [email or web address] Historical LMR Provider 02/28/17 05/22/21 Heriberto Apodaca MD [address] [place] [address], [address] [place] [address] [email or web address] Insurance Assigned Provider 09/15/18 08/20/22 Russell Ge MD [address] [place] [address], [address] [place] [address] [email or web address] Ophthalmology 10/31/18 Maryan Christy [facility] [address] [place] [address] Psychiatry 11/26/19 Sisi Pinto MD [address] [place] [address], 2nd [place] [address] [email or web address] General Surgery 01/13/20 Francois Nails MD [address] [place] [address] [email or web address] Endocrinology 01/28/20 Justen Etienne DO [address] [place] [address] [email or web address] and [email or web address] 09/29/20 Meghana Green PA [address] [place] [address] [email or web address] Physician Whittling Room Operator Oncology 11/10/20 02/02/21 Bin Hsieh MD [address] [place] [address] Palliative Care 02/27/21 Silvia Spencer MD [address] [place] [email or web address] Primary Oncologist Medical Oncology 02/28/22 Don Chen MD [address] [place] [address], [address] [place] [address] Insurance Assigned Provider 08/19/23 09/21/24 Soledad Menard MD [address] [place] [address] Ophthalmology 10/24/23 Heriberto Apodaca MD [address] [place] [address], [address] [address] Insurance Assigned Provider 09/21/24 documented as of this encounter Additional Source Comments The information contained in this document represents components of the legal health record. It is not the complete legal health record.[facility]
--- OUTSIDE RECORDS SUMMARY | 2025-01-28 15:27 | XMS_ITS | Encounter Summary ---
Author Organization [facility] Address [address] [place] [address] [place] [address] Phone Care Team Providers Care Engineering Clerk Name Role Phone Bay Aguilar MD Unavailable [phone] Santino Santacruz MD Unavailable [phone] Heriberto Apodaca MD Unavailable [phone] Russell Ge MD Unavailable Maryan Christy TECHN[employer] SOLUTIONS DIRECTOR Unavailable Sisi Pinto MD Unavailable Francois Nails MD Unavailable Darryl Henriquez [facility] Primary Care Provider [phone] Justen Etienne DO Unavailable Meghana Green Unavailable Bin Hsieh MD Unavailable Darryl Henriquez CNP Primary Care Provider [phone] Darryl Henriquez [facility] Primary Care Provider [phone] Heriberto Apodaca MD Primary Care Provider [phone] Darryl Henriquez [facility] Primary Care Provider [phone] Heriberto Apodaca MD Primary Care Provider [phone] Darryl Henriquez [facility] Primary Care Provider [phone] Silvia Spencer MD Unavailable [phone] Don Chen MD Unavailable [phone] Soledad Menard MD Unavailable [phone] Don Chen MD Primary Care Provider Darryl Henriquez [facility] Primary Care Provider +[phone] Heriberto Apodaca MD Unavailable [phone] Encounter Details Date Type Department Care Team (Late Contact Info) Description 10/20/2020 Procedure Pass [facility] [address] [place] [address] Social History Tobacco Use Types Packs/Day Years [...] Description 01/31/2025 2:00 PM EDT Office Visit [facility] [address] [place] [address] Silvia Spencer MD [address] [place] [address] [email or web address] documented as of this encounter Visit Diagnoses [...] documented as of this encounter Care Teams Engineering Clerk Relationship Specialty Start Date End Date Darryl Henriquez CNP [address] [facility], [address] [place] [address] [email or web address] PCP - General Family Medicine 08/14/20 03/21/21 Darryl Henriquez CNP [address] [facility], [address] [place] [address] PCP - General Family Medicine 03/22/21 03/22/21 Darryl Henriquez CNP [address] [facility], [address] [place] [address] PCP - General Family Medicine 03/23/21 03/30/21 Heriberto Apodaca MD [address] [facility], [address] [place] [address] PCP - General Family Medicine 03/31/21 05/31/21 Darryl Henriquez CNP [address] [place] [address], [address] [place] [address] PCP - General Family Medicine 06/01/21 07/19/21 Heriberto Apodaca MD [address] [place] [address], [address] [place] [address] [email or web address] PCP - General Family Medicine 07/20/21 08/30/21 Darryl Henriquez, BLAZE [address] [place] [address], [address] [place] [address] [email or web address] PCP - General Family Medicine 08/31/21 10/23/23 Don Chen MD [address] [place] [address], [address] [place] [address] [email or web address] PCP - General Internal Medicine 10/24/23 11/19/23 Darryl Henriquez CNP [address] [place] [address], [address] [place] [address] [email or web address] PCP - General Adult Health 11/20/23 Bay Aguilar MD [address] [place] [address] [email or web address] Historical LMR Provider 02/28/17 05/22/21 Santino Santacruz MD [address] [place] [address], [address] [place] [address] [email or web address] Historical LMR Provider 02/28/17 05/22/21 Heriberto Apodaca MD [address] [place] [address], [address] [place] [address] [email or web address] Insurance Assigned Provider 09/15/18 08/20/22 Russell Ge MD [address] [place] [address], [address] [place] [address] [email or web address] Ophthalmology 10/31/18 Maryan Christy CNS [address] [place] [address] Psychiatry 11/26/19 Sisi Pinto MD [address] [place] [address], 2nd [place] [address] [email or web address] General Surgery 01/13/20 Francois Nails MD [address] [place] [address] [email or web address] Endocrinology 01/28/20 Justen Etienne DO [address] [place] [address], [address] [place] [address] [email or web address] and [email or web address] 09/29/20 Meghana Green PA [address] [place] [address] [email or web address] Physician Celery Cutter Oncology 11/10/20 02/02/21 Bin Hsieh MD [address] [place] [address] Palliative Care 02/27/21 Silvia Spencer MD [address] [place] [address] Primary Oncologist Medical Oncology 02/28/22 Don Chen MD [address] [place] [address], [address] [place] [address] [email or web address] Insurance Assigned Provider 08/19/23 09/21/24 Soledad Menard MD [address] [place] [address] Ophthalmology 10/24/23 Heriberto Apodaca MD [address] [place] [address], [address] [place] [address] [email or web address] Insurance Assigned Provider 09/21/24 documented as of this encounter Additional Source Comments The information contained in this document represents components of the legal health record. It is not the complete legal health record.[facility]
--- OUTSIDE RECORDS SUMMARY | 2025-01-28 15:27 | XMS_ITS | Encounter Summary ---
Author Organization [facility] Address [address] [place] [address] [address] [place] [address] Phone Care Team Providers Care Lap Welder Name Role Phone Bay Aguilar MD Unavailable Santino Santacruz MD Unavailable [phone] Heriberto Apodaca MD Unavailable [phone] Russell Ge MD Unavailable Maryan Christy DEPUTY DIRECTOR OF FINANCE Unavailable Darryl Henriquez [facility] Primary Care Provider [phone] Heriberto Apodaca MD Primary Care Provider [phone] Darryl Henriquez [facility] Primary Care Provider [phone] Heriberto Apodaca MD Primary Care Provider [phone] Darryl Henriquez [facility] Primary Care Provider [phone] Sisi Pinto MD Unavailable Heriberto Apodaca MD Primary Care Provider [phone] Francois Nails MD Unavailable Darryl Henriquez [facility] Primary Care Provider Heriberto Apodaca MD Primary Care Provider +[phone] Darryl Henriquez [facility] Primary Care Provider Justen Etienne DO Unavailable [phone] Meghana Green Unavailable Bin Hsieh MD Unavailable Jurgenmario Darryl HAULPAK DRIVER Primary Care Provider [phone] Darryl Henriquez [facility] Primary Care Provider [phone] Heriberto Apodaca MD Primary Care Provider [phone] JurgenDarryl martin [facility] Primary Care Provider [phone] Heriberto Apodaca MD Primary Care Provider +[phone] JurgenDarryl martin [facility] Primary Care Provider +[phone] Silvia Spencer MD Unavailable [phone] Don Chen MD Unavailable [phone] Soledad Menard MD Unavailable [phone] Don Chen MD Primary Care Provider +[phone] JurgenDarryl martin [facility] Primary Care Provider +[phone] Heriberto Apodaca MD Unavailable [phone] Encounter Details Date Type Department Care Team (Late st Contact Info) Description 12/25/2019 Procedure Pass [address] [place] [address] Social History Tobacco Use Types Packs/Day Years [...] on file documented as of this encounter Last Filed Vital Signs Vital Sign Reading Time Taken Comments Blood Pressure - - Pulse - - Temperature - - Respiratory Rate - - Oxygen Saturation - - Inhaled Oxygen Concentration - - Weight 86.2 kg (190 lb) 12/25/2019 1:41 PM EDT Height 170.2 cm (5' 7 ) 12/25/2019 1:41 PM EDT Body Mass Index 29.76 12/25/2019 1:41 PM EDT documented in this encounter Plan of Treatment Upcoming Encounters Date Type Department Care Team (Late st Contact Info) Description 01/31/2025 2:00 PM EDT Office Visit [facility] [address] [place] [address] Silvia Spencer MD [address] [place] [address] [email or web address] documented as of this [...] documented as of this encounter Care Teams Lap Welder Relationship Specialty Start Date End Date Darryl Henriquez CNP [address] [place] [address], [address] [place] [address] PCP - General Family Medicine 12/20/19 12/26/19 Heriberto Apodaca MD [address] [place] [address], [address] [place] [address] PCP - General Family Medicine 12/27/19 12/29/19 Darryl Henriquez CNP 22 [facility], [address] [place] [address] [email or web address] PCP - General Family Medicine 12/30/19 12/30/19 Heriberto Apodaca MD [address] [place] [address], [address] [place] [address] [email or web address] PCP - General Family Medicine 12/31/19 01/07/20 Darryl Henriquez CNP [address] [place] [address], [address] [place] [address] [email or web address] PCP - General Family Medicine 01/08/20 01/20/20 Heriberto Apodaca MD [address] [place] [address], [address] [place] [address] [email or web address] PCP - General Family Medicine 01/21/20 01/27/20 Darryl Henriquez CNP [address] [place] [address], [address] [place] [address] [email or web address] PCP - General Family Medicine 01/28/20 07/29/20 Heriberto Apodaca MD 22 [facility], [address] [place] [address] [email or web address] PCP - General Family Medicine 07/30/20 08/13/20 Darryl Henriquez CNP [address] [place] [address], [address] [place] [address] [email or web address] PCP - General Family Medicine 08/14/20 03/21/21 Darryl Henriquez CNP 22 [facility], [address] [place] [address] [email or web address] PCP - General Family Medicine 03/22/21 03/22/21 Darryl Henriquez, HAULPAK DRIVER 22 [facility], [address] [place] [address] [email or web address] PCP - General Family Medicine 03/23/21 03/30/21 Heriberto Apodaca MD [address] [place] [address], [address] [place] [address] [email or web address] PCP - General Family Medicine 03/31/21 05/31/21 Darryl Henriquez CNP [address] [place] [address], [address] [place] [address] [email or web address] PCP - General Family Medicine 06/01/21 07/19/21 Heriberto Apodaca MD [address] [place] [address], [address] [place] [address] [email or web address] PCP - General Family Medicine 07/20/21 08/30/21 Darryl Henriquez CNP [address] [place] [address], [address] [place] [address] PCP - General Family Medicine 08/31/21 10/23/23 Don Chen MD 22 [facility], [address] [place] [address] [email or web address] PCP - General Internal Medicine 10/24/23 11/19/23 Darryl Henriquez CNP [address] [place] [address], [address] [place] [address] [email or web address] PCP - General Adult Health 11/20/23 Bay Aguilar MD [address] [place] [address] [email or web address] Historical LMR Provider 02/28/17 05/22/21 Santino Santacruz MD [address] [place] [address], [address] [place] [address] [email or web address] Historical LMR Provider 02/28/17 05/22/21 Heriberto Apodaca MD [address] [place] [address], [address] [place] [address] Insurance Assigned Provider 09/15/18 08/20/22 Russell Ge MD [address] [place] [address], [address] [place] [address] [email or web address] Ophthalmology 10/31/18 Maryan Christy CNS [address] [place] [address] Psychiatry 11/26/19 Sisi Pinto MD [address] [place] [address], 2nd [place] [address] [email or web address] General Surgery 01/13/20 Francois Nails MD [address] [place] [address] [email or web address] Endocrinology 01/28/20 Justen Etienne DO [address] [place] [address] [email or web address] Allergy and Immunology 09/29/20 Meghana Green PA [address] [place] [address] [email or web address] Physician Dry Ice Machine Operator Oncology 11/10/20 02/02/21 Bin Hsieh MD [address] [place] [address] [email or web address] Palliative Care 02/27/21 Silvia Spencer MD [address] [place] [address] [email or web address] Primary Oncologist Medical Oncology 02/28/22 Don Chen MD 22 [facility], [address] [place] [address] [email or web address] Insurance Assigned Provider 08/19/23 09/21/24 Soledad Menard MD [address] [place] [address] Ophthalmology 10/24/23 Heriberto Apodaca MD [address] [place] [address], [address] [place] [address] [email or web address] Insurance Assigned Provider 09/21/24 documented as of this encounter Additional Source Comments The information contained in this document represents components of the legal health record. It is not the complete legal health record.[facility]
--- OUTSIDE RECORDS SUMMARY | 2025-01-28 15:27 | XMS_ITS | Encounter Summary ---
Author Organization [facility] Address [address] [place] [address] [address] [place] [address] Phone Care Team Providers Care Host Name Role Phone Bay Aguilar MD Unavailable [phone] Santino Santacruz MD Unavailable [phone] Heriberto Apodaca MD Unavailable [phone] Russell Ge MD Unavailable Maryan Christy BOTANY LABORATORY ASSISTANT Unavailable Sisi Pinto MD Unavailable Francois Nails MD Unavailable Darryl Henriquez [facility] Primary Care Provider [phone] Heriberto Apodaca MD Primary Care Provider [phone] Darryl Henriquez [facility] Primary Care Provider [phone] Justen Etienne DO Unavailable Meghana Green Unavailable [phone] Bin Hsieh MD Unavailable Darryl Henriquez [facility] Primary Care Provider [phone] Darryl Henriquez [facility] Primary Care Provider [phone] Heriberto Apodaca MD Primary Care Provider +[phone] FlorenceDarryl MOTION DESIGNER Primary Care Provider + Heriberto Apodaca MD Primary Care Provider + Darryl Henriquez [facility] Primary Care Provider + Silvia Spencer MD Unavailable [phone] Don Chen MD Unavailable [phone] Soledad Menard MD Unavailable [phone] Don Chen MD Primary Care Provider [phone] JurgenmarioParisjessy MOTION DESIGNER Primary Care Provider + Heriberto Apodaca MD Unavailable + Encounter Details Date Type Department Care Team (Late st Contact Info) Description 07/27/2020 Procedure Pass [facility], [address] [address] Social History Tobacco Use Types Packs/Day Years [...] Description 01/31/2025 2:00 PM EDT Office Visit [facility] at [address] [address] Silvia Spencer MD [address] [place] [address] [email or web address] documented as of this encounter Visit [...] documented as of this encounter Care Teams Host Relationship Specialty Start Date End Date Darryl Henriquez CNP [address] [place] [address], [address] [place] [address] PCP - General Family Medicine 01/28/20 07/29/20 Heriberto Apodaca MD [address] [place] [address], [address] [place] [address] PCP - General Family Medicine 07/30/20 08/13/20 Darryl Henriquez CNP [address] [place] [address], [address] [place] [address] PCP - General Family Medicine 08/14/20 03/21/21 Darryl Henriquez CNP 22 [facility], [address] [place] [address] PCP - General Family Medicine 03/22/21 03/22/21 Darryl Henriquez CNP [address] [place] [address], [address] [place] [address] PCP - General Family Medicine 03/23/21 03/30/21 Heriberto Apodaca MD [address] [place] [address], [address] [place] [address] [email or web address] PCP - General Family Medicine 03/31/21 05/31/21 Darryl Henriquez CNP [address] [place] [address], [address] [place] [address] [email or web address] PCP - General Family Medicine 06/01/21 07/19/21 Heriberto Apodaca MD [address] [place] [address], [address] [place] [address] [email or web address] PCP - General Family Medicine 07/20/21 08/30/21 Darryl Henriquez CNP [address] [place] [address], [address] [place] [address] [email or web address] PCP - General Family Medicine 08/31/21 10/23/23 Don Chen MD [address] [place] [address], [address] [place] [address] [email or web address] PCP - General Internal Medicine 10/24/23 11/19/23 Darryl Henriquez CNP [address] [place] [address], [address] [place] [address] [email or web address] PCP - General Adult Health 11/20/23 Bay Aguilar MD [address] [place] [address] [email or web address] Historical LMR Provider 02/28/17 05/22/21 Santino Santacruz MD [address] [place] [address], [address] [place] [address] [email or web address] Historical LMR Provider 02/28/17 05/22/21 Heriberto Apodaca MD [address] [place] [address], [address] [place] [address] [email or web address] Insurance Assigned Provider 09/15/18 08/20/22 Russell Ge MD [address] [place] [address], [address] [place] [address] [email or web address] Ophthalmology 10/31/18 Maryan Christy, BOTANY LABORATORY ASSISTANT [address] [place] [address] Psychiatry 11/26/19 Sisi Pinto MD [address] [place] [address], 2nd [place] [address] [email or web address] General Surgery 01/13/20 Francois Nails MD [address] [place] [address] [email or web address] Endocrinology 01/28/20 Justen Etienne DO [address] [place] [address], [address] [place] [address] [email or web address] and Immunology 09/29/20 Meghana Green PA [address] [place] [address] [email or web address] Physician Brass Wind Instruments Tube Bender Oncology 11/10/20 02/02/21 Bin Hsieh MD [address] [place] [address] Palliative Care 02/27/21 Silvia Spencer MD [address] [place] [email or web address] Primary Oncologist Medical Oncology 02/28/22 Don Chen MD [address] [place] [address], [address] [place] [address] Insurance Assigned Provider 08/19/23 09/21/24 Soledad Menard MD [address] [place] [address] Ophthalmology 10/24/23 Heriberto Apodaca MD [address] [place] [address], [address] [place] [address] Insurance Assigned Provider 09/21/24 documented as of this encounter Additional Source Comments The information contained in this document represents components of the legal health record. It is not the complete legal health record.[facility]
--- OUTSIDE RECORDS SUMMARY | 2025-01-28 15:27 | XMS_ITS | Encounter Summary ---
Author Organization [facility] Address [address] [place] [address] [address] [place] [address] Phone Care Team Providers Care Molten Iron Pourer Name Role Phone Bay Aguilar MD Unavailable [phone] Santino Santacruz MD Unavailable Heriberto Apodaca MD Unavailable [phone] Russlel Ge MD Unavailable Maryan Christy SWING SAW OPERATOR Unavailable Sisi Pinto MD Unavailable Francois Nails MD Unavailable Darryl Henriquez [facility] Primary Care Provider [phone] Heriberto Apodaca MD Primary Care Provider [phone] Darryl Henriquez [facility] Primary Care Provider [phone] Justen Etienne DO Unavailable Meghana Green Unavailable [phone] Bin Hsieh MD Unavailable Darryl Henriquez [facility] Primary Care Provider [phone] Darryl Henriquez [facility] Primary Care Provider +[phone] Heriberto Apodaca MD Primary Care Provider +1- FlorenceDaryrl [facility] Primary Care Provider + Heriberto Apodaca MD Primary Care Provider + Darryl Henriquez [facility] Primary Care Provider + Silvia Spencer MD Unavailable [phone] oDn Chen MD Unavailable +[phone] Soledad Menard MD Unavailable [phone] Don Chen MD Primary Care Provider [phone] JurgenmarioParisjessy [facility] Primary Care Provider + Heriberto Apodaca MD Unavailable + Encounter Details Date Type Department Care Team (Late Contact Info) Description 04/07/2020 Procedure Pass OR Admitting Dept - Virtual Department [address] [place] [address] Social History Tobacco Use Types Packs/Day Years [...] Description 01/31/2025 2:00 PM EDT Office Visit [facility] at [address] [address] Silvia Spencer MD [address] [place] [address] [email or web address] documented as of this [...] documented as of this encounter Care Teams Molten Iron Pourer Relationship Specialty Start Date End Date Darryl Henriquez CNP [address] [place] [address], [address] [place] [address] PCP - General Family Medicine 01/28/20 07/29/20 Heriberto Apodaca MD [address] [place] [address], [address] [place] [address] PCP - General Family Medicine 07/30/20 08/13/20 Darryl Henriquez CNP [address] [place] [address], [address] [place] [address] PCP - General Family Medicine 08/14/20 03/21/21 Darryl Henriquez CNP 22 [facility], [address] [place] [address] PCP - General Family Medicine 03/22/21 03/22/21 Darryl Henriquez CNP [address] [place] [address], [address] [place] [address] PCP - General Family Medicine 03/23/21 03/30/21 Heriberto Apodaca MD [address] [place] [address], [address] [place] [address] [email or web address] PCP - General Family Medicine 03/31/21 05/31/21 Darryl Henriquez CNP [address] [place] [address], [address] [place] [address] [email or web address] PCP - General Family Medicine 06/01/21 07/19/21 Heriberto Apodaca MD [address] [place] [address], [address] [place] [address] [email or web address] PCP - General Family Medicine 07/20/21 08/30/21 Darryl Henriquez CNP [address] [place] [address], [address] [place] [address] [email or web address] PCP - General Family Medicine 08/31/21 10/23/23 Don Chen MD [address] [place] [address], [address] [place] [address] [email or web address] PCP - General Internal Medicine 10/24/23 11/19/23 Darryl Henriquez CNP [address] [place] [address], [address] [place] [address] [email or web address] PCP - General Adult Health 11/20/23 Bay Aguilar MD [address] [place] [address] [email or web address] Historical LMR Provider 02/28/17 05/22/21 Santino Santacruz MD [address] [place] [address], [address] [place] [address] [email or web address] Historical LMR Provider 02/28/17 05/22/21 Heriberto Apodaca MD [address] [place] [address], [address] [place] [address] [email or web address] Insurance Assigned Provider 09/15/18 08/20/22 Russell Ge MD [address] [place] [address], [address] [place] [address] [email or web address] Ophthalmology 10/31/18 Maryan Christy, SWING SAW OPERATOR [address] [place] [address] Psychiatry 11/26/19 Sisi Pinto MD [address] [place] [address], 2nd [place] [address] [email or web address] General Surgery 01/13/20 Franocis Nails MD [address] [place] [address] [email or web address] Endocrinology 01/28/20 Justen Etienne DO [address] [place] [address], [address] [place] [address] [email or web address] Allergy and Immunology 09/29/20 Meghana Green PA [address] [place] [address] [email or web address] Physician System Planning Engineer Oncology 11/10/20 02/02/21 Bin Hsieh MD [address] [place] [address] Palliative Care 02/27/21 Silvia Spencer MD [address] [place] [address] Primary Oncologist Medical Oncology 02/28/22 Don Chen MD [address] [place] [address], [address] [place] [address] Insurance Assigned Provider 08/19/23 09/21/24 Soledad Menard MD [address] [place] [address] Ophthalmology 10/24/23 Heriberto Apodaca MD [address] [place] [address], [address] [place] [address] Insurance Assigned Provider 09/21/24 documented as of this encounter Additional Source Comments The information contained in this document represents components of the legal health record. It is not the complete legal health record.[facility]
--- OUTSIDE RECORDS SUMMARY | 2025-01-28 15:28 | XMS_ITS | Encounter Summary ---
Author Organization [facility] Address [address] [place] [address] [address] [place] [address] Phone Care Team Providers Care Potato Loader Name Role Phone Bay Aguilar MD Unavailable Heriberto Apodaca MD Unavailable [phone] Santino Santacruz MD Unavailable Bren Walker MD Unavailable [phone] Darryl Henriquez CNP Primary Care Provider + Heriberto Apodaca MD Unavailable +[phone] Russell Ge MD Unavailable [phone] Heriberto Apodaca MD Primary Care Provider +[phone] Darryl Henriquez CNP Primary Care Provider +[phone] Maryan Christy PRODUCTION MAINTENANCE MECHANIC Unavailable [phone] Heriberto Apodaca MD Primary Care Provider [phone] Darryl Henriquez CNP Primary Care Provider + Heriberto Apodaca MD Primary Care Provider [phone] Darryl Henriquez CNP Primary Care Provider [phone] Heriberto Apodaca MD Primary Care Provider [phone] Darryl Henriquez CNP Primary Care Provider [phone] Sisi Pinto MD Unavailable [phone] Heriberto Apodaca MD Primary Care Provider +[phone] Francois Nails MD Unavailable +[phone] Santrabiali Parisice CYTOGENETIC TECHNICIAN Primary Care Provider [phone] Heriberto Apodaca MD Primary Care Provider [phone] Santorelli Chalice CYTOGENETIC TECHNICIAN Primary Care Provider +[phone] Justen Etienne DO Unavailable +[phone] Meghana Green Unavailable Bin Hsieh MD Unavailable Santorelli, Parisice CYTOGENETIC TECHNICIAN Primary Care Provider [phone] Santorelli, Chalice CYTOGENETIC TECHNICIAN Primary Care Provider +[phone] Heriberto Apodaca MD Primary Care Provider +[phone] SantrabialiParisice CYTOGENETIC TECHNICIAN Primary Care Provider +[phone] Heriberto Apodaca MD Primary Care Provider +[phone] SantDarryl martin CYTOGENETIC TECHNICIAN Primary Care Provider [phone] Silvia Spencer MD Unavailable +[phone] Don Chen MD Unavailable [phone] Soledad Menard MD Unavailable [phone] Don Chen MD Primary Care Provider SantDarryl martin CYTOGENETIC TECHNICIAN Primary Care Provider Heriberto Apodaca MD Unavailable [phone] Encounter Details Date Type Department Care Team (Late st Contact Info) Description 04/04/2018 Ancillary Orders [address] [place] [address] SantDarryl martin, CYTOGENETIC TECHNICIAN [address] [facility], [address] [place] [address] [email or web address] Breast screening Social History Tobacco Use Types Packs/Day Years Used Date Smoking Tobacco: Former Smokeless Tobacco: Never Alcohol Use Standard Drinks/Week Comments No 0 (1 standard drink = 0.6 oz pur e alcohol) Comments No Sex and Gender Information Value Date Recorded Sex Assigned at Female 05/22/2017 9:38 AM EST Legal Sex Female 9:47 PM EDT Gender Identity Female 05/22/2017 9:38 AM EST Sexual Orientation Lesbian or Montiel 01/20/2022 12 :51 PM EDT documented as of this encounter Plan of Treatment Upcoming Encounters Date Type Department Care Team (Late st Contact Info) Description 01/31/2025 2:00 PM EDT Office Visit [facility] at [address] [address] Silvia Spencer MD [address] [place] [address] [email or web address] documented as of this encounter Results * BI MAMMOGRAM SCREENING WITH TOMOSYNTHESIS WITH CAD (BILATERAL) (05/07/2018 9:00 AM EST) Anatomical Region Laterality Modality Breast Left, Breast Right, Breast Bilateral Bila teral Mammography 05/07/2018 10:4 4 AM EST Impressions 05/07/2018 10:46 AM EST No mammographic evidence of malignancy. BI-RADS CATEGORY: 1 - Negative. DENSITY: There are scattered fibroglandular densities. POS - CDHMAMA Narrative 05/07/2018 10:46 AM EST Standard digital full-field 2-D C view and two-plane tomographic imaging was performed and compared with multiple prior studies, most recently 03/07/2017, with utilization of computer-aided detection. The breasts are composed of scattered fibroglandular densities. The stromal markings are essentially unchanged in overall appearance and distribution. No dominant spiculated mass, suspicious clustered microcalcifications, or focal zone of pathologic skin thickening or retraction are noted to have arisen in the interim. Procedure Note Cuco Clark MD - 05/07/2018 Standard digital full-field 2-D C view and two-plane tomographic imagingwas performed and compared with multiple prior studies, most oikumhym90/24/2017, with utilization of computer-aided detection. The breasts are composed of scattered fibroglandular densities. Thestromal markings are essentially unchanged in overall appearance anddistribution. No dominant spiculated mass, suspicious clusteredmicrocalcifications, or focal zone of pathologic skin thickening orretraction are noted to have arisen in the interim. IMPRESSION: No mammographic evidence of malignancy. BI-RADS CATEGORY: 1 - Negative. DENSITY: There are scattered fibroglandular densities. POS - CDHMAMA us Darryl Henriquez CNP IMG MG EXAMS Final Res ult documented in this encounter Visit Diagnoses Diagnosis Breast screening Breast screening, unspecified Breast screening Breast screening, unspecified documented in this encounter Additional Health Concerns Infection Onset Date Last Indicated Resolved Time CoV-Presumed 10/29/2021 10/29/2021 11/19/2021 1:21 AM EDT CoV-Risk 01/12/2022 01/12/2022 01/23/2022 1:22 AM EDT CoV-Risk 06/22/2022 06/22/2022 07/03/2022 1:22 AM EST COVID-19 05/03/2024 05/03/2024 05/24/2024 1:23 AM EST documented as of this encounter Care Teams Potato Loader Relationship Specialty Start Date End Date Darryl Henriquez CNP [address] [place] [address], [address] [place] [address] PCP - General 05/05/17 05/10/19 Heriberto Apodaca MD [address] [place] [address], [address] [place] [address] PCP - General Family Medicine 05/11/19 05/13/19 Darryl Henriquez CNP [address] [facility], [address] [place] [address] [email or web address] PCP - General Family Medicine 05/14/19 12/18/19 Heriberto Apodaca MD [address] [place] [address], [address] [place] [address] [email or web address] PCP - General Family Medicine 12/19/19 12/19/19 Darryl Henriquez CNP [address] [place] [address], [address] [place] [address] [email or web address] PCP - General Family Medicine 12/20/19 12/26/19 Heriberto Apodaca MD [address] [place] [address], [address] [place] [address] [email or web address] PCP - General Family Medicine 12/27/19 12/29/19 Darryl Henriquez CNP [address] [place] [address], [address] [place] [address] [email or web address] PCP - General Family Medicine 12/30/19 12/30/19 Heriberto Apodaca MD [address] [place] [address], [address] [place] [address] [email or web address] PCP - General Family Medicine 12/31/19 01/07/20 Darryl Henriquez CNP [address] [place] [address], [address] [place] [address] [email or web address] PCP - General Family Medicine 01/08/20 01/20/20 Heriberto Apodaca MD [address] [place] [address], [address] [place] [address] [email or web address] PCP - General Family Medicine 01/21/20 01/27/20 Darryl Henriquez CNP [address] [place] [address], [address] [place] [address] [email or web address] PCP - General Family Medicine 01/28/20 07/29/20 Heriberto Apodaca MD [address] [place] [address], [address] [place] [address] [email or web address] PCP - General Family Medicine 07/30/20 08/13/20 Darryl Henriquez CNP [address] [place] [address], [address] [place] [address] [email or web address] PCP - General Family Medicine 08/14/20 03/21/21 Darryl Henriquez CNP [address] [place] [address], [address] [place] [address] [email or web address] PCP - General Family Medicine 03/22/21 03/22/21 Darryl Henriquez CNP [address] [place] [address], [address] [place] [address] [email or web address] PCP - General Family Medicine 03/23/21 03/30/21 Heriberto Apodaca MD [address] [place] [address], [address] [place] [address] [email or web address] PCP - General Family Medicine 03/31/21 05/31/21 Darryl Henriquez CNP [address] [place] [address], [address] [place] [address] [email or web address] PCP - General Family Medicine 06/01/21 07/19/21 Heriberto Apodaca MD [address] [place] [address], [address] [place] [address] [email or web address] PCP - General Family Medicine 07/20/21 08/30/21 Darryl Henriquez CNP [address] [place] [address], [address] [place] [address] [email or web address] PCP - General Family Medicine 08/31/21 10/23/23 Don Chen MD [address] [place] [address], [address] [place] [id number] [email or web address] PCP - General Internal Medicine 10/24/23 11/19/23 Darryl Henriquez CNP [address] [place] [address], [address] [place] [address] [email or web address] PCP - General Adult Health 11/20/23 Bay Aguilar MD [address] [place] [address] [email or web address] Historical LMR Provider 02/28/17 05/22/21 Heriberto Apodaca MD [address] [facility], [address] [place] [address] [email or web address] Historical LMR Provider 02/28/17 10/30/18 Santino Santacruz MD [address] [place] [address], [address] [place] [address] [email or web address] Historical LMR Provider 02/28/17 05/22/21 Bren Walker MD [address] [place] [address], [address] [place] [address] [email or web address] Historical LMR Provider 02/28/17 11/25/19 Heriberto Apodaca MD [address] [place] [address], [address] [place] [address] [email or web address] Insurance Assigned Provider 09/15/18 08/20/22 Russell Ge MD [address] [place] [address], [address] [place] [address] Ophthalmology 10/31/18 Maryan Christy CNS [address] [place] [address] Psychiatry 11/26/19 Sisi Pinto MD [address] [place] [address] General Surgery 01/13/20 Francois Nails MD [address] [place] [address] [email or web address] 01/28/20 Justen Etienne DO [address] [place] [address] [email or web address] and [email or web address] 09/29/20 Meghana Green PA [address] [place] [address] [email or web address] Physician Office Clerk Assistant Oncology 11/10/20 02/02/21 Bin Hsieh MD [address] [place] [address] Palliative Care 02/27/21 Silvia Spencer MD [address] [place] [phone] [email or web address] Primary Oncologist Medical Oncology 02/28/22 Don Chen MD [address] [place] [address], [address] [place] [address] Insurance Assigned Provider 08/19/23 09/21/24 Soledad Menard MD [address] [place] [address] Ophthalmology 10/24/23 Heriberto Apodaca MD [address] [place] [address], [address] [place] [address] Insurance Assigned Provider 09/21/24 documented as of this encounter Additional Source Comments The information contained in this document represents components of the legal health record. It is not the complete legal health record.[facility]
--- OUTSIDE RECORDS SUMMARY | 2025-01-28 15:28 | XMS_ITS | Encounter Summary ---
Author Organization [facility] Address [address] [place] [address] [address] [place] [address] Phone Care Team Providers Care Cast Associate Name Role Phone Bay Aguilar MD Unavailable [phone] Santino Santacruz MD Unavailable Heriberto Apodaca MD Unavailable [phone] Russell Ge MD Unavailable [phone] Maryan Christy CIGAR HEAD HOLER Unavailable Darryl Henriquez [facility] Primary Care Provider [phone] Sisi Pinto MD Unavailable Heriberto Apodaca MD Primary Care Provider [phone] Francois Nails MD Unavailable Darryl Henriquez [facility] Primary Care Provider [phone] Heriberto Apodaca MD Primary Care Provider [phone] Darryl Henriquez [facility] Primary Care Provider [phone] Justen Etienne DO Unavailable Meghana Green Unavailable [phone] Bin Hsieh MD Unavailable Darryl Henriquez [facility] Primary Care Provider [phone] FlorenceDarryl MICROFILM EQUIPMENT INSPECTOR Primary Care Provider [phone] Heriberto Apodaca MD Primary Care Provider +[phone] Jurgenmario Parisjessy [facility] Primary Care Provider +[phone] Heriberto Apodaca MD Primary Care Provider [phone] Darryl Henriquez [facility] Primary Care Provider +[phone] Silvia Spencer MD Unavailable [phone] Don Chen MD Unavailable [phone] Soledad Menard MD Unavailable Don Chen MD Primary Care Provider JurgenmarioDarryl [facility] Primary Care Provider + Heriberto Apodaca MD Unavailable +[phone] Encounter Details Date Type Department Care Team (Late Contact Info) Description 01/16/2020 Procedure Pass OR Admitting Dept - Virtual Department [address] [place] [phone] Social History Tobacco Use Types Packs/Day Years [...] Description 01/31/2025 2:00 PM EDT Office Visit [facility] at [address] [address] Silvia Spencer MD [address] [place] [address] [email or web address] documented as of this encounter Visit Diagnoses [...] documented as of this encounter Care Teams Cast Associate Relationship Specialty Start Date End Date Darryl Henriquez CNP [address] [place] [address], [address] [place] [address] [email or web address] PCP - General Family Medicine 01/08/20 01/20/20 Heriberto Apodaca MD [address] [place] [address], [address] [place] [address] [email or web address] PCP - General Family Medicine 01/21/20 01/27/20 Darryl Henriquez CNP [address] [place] [address], [address] [place] [address] [email or web address] PCP - General Family Medicine 01/28/20 07/29/20 Heriberto Apodaca MD [address] [place] [address], [address] [place] [address] [email or web address] PCP - General Family Medicine 07/30/20 08/13/20 Darryl Henriquez CNP [address] [place], [place] [address] [place] [address] [email or web address] PCP - General Family Medicine 08/14/20 03/21/21 Darryl Henriquez CNP [address] [place] [address], [address] [place] [address] [email or web address] PCP - General Family Medicine 03/22/21 03/22/21 Darryl Henriquez CNP [address] [place] [address], [address] [place] [address] [email or web address] PCP - General Family Medicine 03/23/21 03/30/21 Heriberto Apodaca MD [address] [place] [address], [address] [place] [address] [email or web address] PCP - General Family Medicine 03/31/21 05/31/21 Darryl Henrqiuez CNP [address] [place] [address], [address] [place] [address] [email or web address] PCP - General Family Medicine 06/01/21 07/19/21 Heriberto Apodaca MD [address] [place] [address], [address] [place] [address] PCP - General Family Medicine 07/20/21 08/30/21 Darryl Henriquez CNP [address] [place] [address], [address] [place] [address] PCP - General Family Medicine 08/31/21 10/23/23 oDn Chen MD [address] [place] [address], [address] [place] [address] [email or web address] PCP - General Internal Medicine 10/24/23 11/19/23 Darryl Henriquez CNP [address] [place] [address], [address] [place] [address] [email or web address] PCP - General Adult Health 11/20/23 Bay Aguilar MD [address] [place] [address] [email or web address] Historical LMR Provider 02/28/17 05/22/21 Santino Santacruz MD [address] [place] [address], [address] [place] [address] [email or web address] Historical LMR Provider 02/28/17 05/22/21 Heriberto Apodaca MD [address] [place] [address], [address] [place] [address] [email or web address] Insurance Assigned Provider 09/15/18 08/20/22 Russell Ge MD [address] [place] [address], [address] [place] [address] [email or web address] Ophthalmology 10/31/18 Maryan Christy CNS [address] [place] [address] Psychiatry 11/26/19 Sisi Pinto MD [address] [facility], [address]nd [place] [address] [email or web address] General Surgery 01/13/20 Francois Nails MD [address] [place] [address] [email or web address] 01/28/20 Justen Etienne DO [address] [place] [address] [email or web address] Allergy and Immunology 09/29/20 Meghana Green PA [address] [place] [address] [email or web address] Physician Wastewater Project Manager Oncology 11/10/20 02/02/21 Bin Hsieh MD [address] [place] [address] Palliative Care 02/27/21 Silvia Spencer MD [address] [place] [address] [email or web address] Primary Oncologist Medical Oncology 02/28/22 Don Chen MD [address] [facility], [address] [place] [address] [email or web address] Insurance Assigned Provider 08/19/23 09/21/24 Soledad Menard MD [address] [place] [address] Ophthalmology 10/24/23 Heriberto Apodaca MD [address] [place] [address], [address] [place] [address] [email or web address] Insurance Assigned Provider 09/21/24 documented as of this encounter Additional Source Comments The information contained in this document represents components of the legal health record. It is not the complete legal health record.[facility]
--- OUTSIDE RECORDS SUMMARY | 2025-01-28 15:28 | XMS_ITS | Encounter Summary ---
Author Organization [facility] Address [address] [place] [address] [address] [place] [address] Phone Care Team Providers Care Senior Power Scheduler Name Role Phone Bay Aguilar MD Unavailable [phone] Santino Santacruz MD Unavailable Heriberto Apodaca MD Unavailable [phone] Russell Ge MD Unavailable Maryan Christy [employer] Unavailable Sisi Pinto MD Unavailable Francois Nails MD Unavailable Darryl Henriquez [facility] Primary Care Provider [phone] Heriberto Apodaca MD Primary Care Provider [phone] Darryl Henriquez [facility] Primary Care Provider [phone] Justen Etienne DO Unavailable Meghana Green Unavailable [phone] Bin Hsieh MD Unavailable Darryl Henriquez [facility] Primary Care Provider [phone] Darryl Henriquez [facility] Primary Care Provider [phone] Heriberto Apodaca MD Primary Care Provider [phone] Darryl Henriquez CNP Primary Care Provider + Heriberto Apodaca MD Primary Care Provider + Darryl Henriquez [facility] Primary Care Provider + Silvia Spenecr MD Unavailable [phone] Don Chen MD Unavailable [phone] Soledad Menard MD Unavailable [phone] Don Chen MD Primary Care Provider [phone] Darryl Henriquez CNP Primary Care Provider + Heriberto Apodaca MD Unavailable + Encounter Details Date Type Department Care Team (Late st Contact Info) Description 03/10/2020 Procedure Pass [facility], [address] [place] [address] Social History Tobacco Use Types Packs/Day Years Used Date Smoking Tobacco: Former Cigarettes 1 1 979 - 2003 Smokeless Tobacco: Never [...] - Inhaled Oxygen Concentration - - Weight 88 kg (194 lb) 03/12/2020 5:24 PM EDT Height 170.2 cm (5' 7 ) 03/12/2020 5:24 PM EDT Body Mass Index 30.38 03/12/2020 5:24 PM EDT documented in this encounter Plan of Treatment Upcoming Encounters Date Type Department Care Team (Late st Contact Info) Description 01/31/2025 2:00 PM EDT Office Visit [facility] at [address] [place] [address] Silvia Spencer MD [address] [place] [address] [email or web address] documented as of this encounter Visit Diagnoses [...] documented as of this encounter Care Teams Senior Power Scheduler Relationship Specialty Start Date End Date Darryl Henriquez CNP [address] [place] [address], [address] [place] [address] [email or web address] PCP - General Family Medicine 01/28/20 07/29/20 Heriberto Apodaca MD [address] [place] [address], [address] [address] [email or web address] PCP - General Family Medicine 07/30/20 08/13/20 Darryl Henriquez CNP [address] [facility], [address] [place] [address] [email or web address] PCP - General Family Medicine 08/14/20 03/21/21 Darryl Henriquez CNP [address] [place] [address], [address] [place] [address] [email or web address] PCP - General Family Medicine 03/22/21 03/22/21 Darryl Henriquez CNP [address] [place] [address], [address] [place] [address] [email or web address] PCP - General Family Medicine 03/23/21 03/30/21 Heriberto Apodaca MD [address] [place] [address], [address] [place] [address] [email or web address] PCP - General Family Medicine 03/31/21 05/31/21 Darryl Henriquez CNP [address] [place] [address], [address] [place] [address] [email or web address] PCP - General Family Medicine 06/01/21 07/19/21 Heriberto Apodaca MD [address] [place] [address], [address] [place] [address] [email or web address] PCP - General Family Medicine 07/20/21 08/30/21 Darryl Henriquez CNP [address] [place] [address], [address] [place] [address] [email or web address] PCP - General Family Medicine 08/31/21 10/23/23 Don Chen MD [address] [place] [address], [address] [place] [address] PCP - General Internal Medicine 10/24/23 11/19/23 Darryl Henriquez CNP [address] [place] [address], [address] [place] [address] [email or web address] PCP - General Adult Health 11/20/23 Bay Aguilar MD [address] [place] [address] [email or web address] Historical LMR Provider 02/28/17 05/22/21 Santino Santacruz MD [address] [facility], [address] [place] [address] [email or web address] Historical LMR Provider 02/28/17 05/22/21 Heriberto Apodaca MD [address] [facility] [place] [address] [email or web address] Insurance Assigned Provider 09/15/18 08/20/22 Russell Ge MD [address] [place] [address], [address] [place] [address] [email or web address] Ophthalmology 10/31/18 Maryan Christy, [employer] [address] [place] [address] Psychiatry 11/26/19 Sisi Pinto MD [address] [facility], 2nd [place] [address] [email or web address] General Surgery 01/13/20 Francois Nails MD [address] [place] [address] [email or web address] Endocrinology 01/28/20 Justen Etienne DO [address] [place] [address], [address] [place] [address] [email or web address] Allergy and Immunology 09/29/20 Meghana Green PA [address] [place] [address] [email or web address] Officer Oncology 11/10/20 02/02/21 Bin Hsieh MD [address] [place] [address] Palliative Care 02/27/21 Silvia Spencer MD [address] [place] [email or web address] Primary Oncologist Medical Oncology 02/28/22 Don Chen MD [address] [place] [address], [address] [place] [address] Insurance Assigned Provider 08/19/23 09/21/24 Soledad Menard MD [address] [place] [address] Ophthalmology 10/24/23 Heriberto Apodaca MD [address] [place] [address], [address] [address] Insurance Assigned Provider 09/21/24 documented as of this encounter Additional Source Comments The information contained in this document represents components of the legal health record. It is not the complete legal health record.[facility]
--- OUTSIDE RECORDS SUMMARY | 2025-01-28 15:28 | XMS_ITS ---
Author Organization [facility] Address [address] [facility] [address] [address] [place] [address] Phone Care Team Providers Care Classifier Operator Name Role Phone Russell Ge MD Unavailable Maryan Christy [facility] Unavailable Sisi Pinto MD Unavailable Francois Nails MD Unavailable [phone] Justen Etienne DO Unavailable Bin Hsieh MD Unavailable Silvia Spencer MD Unavailable Soledad Menard MD Unavailable [phone] Darryl Henriquez [facility] Primary Care Provider [phone] Heriberto Apodaca MD Unavailable Active Problems Patient Care Coordination No te Formatting of this note migh t be different from the original. Height 172 cm no shoes 03/08/22 Problem Noted Date Diagnosed Date Abnormal barium swallow 07/03/2024 Assessment & Plan (01/01/2025 12:18 PM EDT): She will call [facility] to reschedule the esophageal manometry. She had mild symptoms yesterday. Assessment & Plan (07/03/2024 1:45 PM EST): Plan is for EGD for evaluation of possible early achalasia. Eczema 12/21/2023 Assessment & Plan (12/21/2023 3:09 PM EDT): Chronic redness and flaking of the skin on the face, particularly on the forehead and sides of the nose. Discussed the risks/benefits of topical corticosteroids, including skin thinning and withdrawal symptoms with prolonged use. -Prescribe Triamcinolone cream, apply twice daily for a maximum of two weeks at a time. -Advise to moisturize daily with a plain moisturizer like CeraVe, applying over the steroid cream. -If no improvement or worsening, patient to contact the office. -If symptoms resolve within the two-week treatment period, stop the cream. -If symptoms recur after a week off treatment, the cream can be restarted. Cataract 10/24/2023 Status post left rotator cuff repair 03/14/2023 Assessment & Plan (03/14/2023 7:34 AM EDT): She is doing PT once weekly due to high co-pay cost and is compliant with HEP. Continue the same. F/up with orthopedics as planned. Elevated LDL cholesterol level 07/13/2022 Assessment & Plan (01/01/2025 12:18 PM EDT): She will try to have fasting lipid panel drawn this week. New order placed as the prior . Orders: Lipid panel; Future Assessment & Plan (07/10/2024 12:23 PM EST): LDL should be less than 100 blood pressure less than 130 systolic Chemotherapy-induced peripheral neuropathy 02/05 Assessment & Plan (01/01/2025 12:18 PM EDT): On opioid therapy and gabapentin through [facility] pain [facility]. [employer] P[employer] B[employer]ER checked. Assessment & Plan (10/24/2023 11:36 AM EDT): She had SI on duloxetine. She continues on gabapentin 800 mg TID. Defer to oncology re: opioids. Support offered. Assessment & Plan (06/19/2023 4:17 PM EST): She continues on gabapentin through oncology. Pain management recommended consideration of scramble therapy which is cost prohibitive. Avoid opioids. Assessment & Plan (03/14/2023 7:36 AM EDT): She continues on gabapentin. She plans to hold Arimidex in March to see if pain improves. She is referred to [facility] to discuss further. Wellbutrin and duloxetine caused suicidal ideation. She has not tried pregabalin and this may be an option. She will avoid opioids but pain is limiting. Overweight (BMI 25.0-29.9) 07/13/2020 Malignant neoplasm of overla pping sites of left breast in female, estrogen receptor positive 01/08/2020 Assessment & Plan (01/01/2025 12:18 PM EDT): Due for follow up visit with Dr. Spencer/oncology. She will call to schedule. On anastrozole. Assessment & Plan (10/21/2024 5:05 PM EDT): Assessment & Plan (07/03/2024 1:45 PM EST): Assessment & Plan (06/19/2023 4:18 PM EST): She will see Dr. Spencer in follow up later this week. Javier does think that anastrazole is contributing to pain symptoms. Assessment & Plan (03/23/2020 1:02 PM EST): Pausing chemotherapy at this juncture as above. Surgery with Dr. Pinto is scheduled for 04/07. Patient with follow up with Dr. Spencer 1.5 - 2 weeks post-op. Will adjuvantly resume planned care with Taxol and Herceptin. Palpitations 05/14/2019 Assessment & Plan (07/10/2024 12:23 PM EST): She has no cardiorespiratory symptoms at this time Alvarado fracture 02/19/2019 Retinal hole of left eye 05/23/2018 Posterior vitreous detachment of left eye 2018 Anxiety 04/10/2017 Assessment & Plan (01/01/2025 12:18 PM EDT): She continues on medications through psychiatry. She has the name of a new therapist from whom she is waiting to hear. She endorses high stress at work and related to the political situation. Written reminders provided. Assessment & Plan (07/10/2024 12:23 PM EST): She has anxiety but I reassured her today Former smoker 04/10/2017 History of hyperlipidemia 04/10/2017 Seborrheic dermatitis 04/10/2017 Viral wart 04/10/2017 Current Treatment and Therapy Plans ACCESS AND FLUSH ([facility])* Plan Start Date:02/11/2020 Plan Provider:Silvia Spencer MD Linked Problems Malignant neoplasm of overla pping sites of left breast in female, estrogen receptor positive Treatment Medications No medications scheduled. Past Treatment and Therapy Plans TREATMENT PLAN Plan Name Start Date Discontinue Date Treatment Medications Discontinue Reason Plan Provider Cycles TRASTUZUMAB WEEKLY/PACLITA XEL WEEKLY 05/06/20 20 04/01/2021 PACLitaxel (TAXOL) IVPB in 250 mL (Doses >85 mg to 199 mg)trastuzumab-dks t (OGIVRI) IVPB Bag a. Therapy Complete Silvia Spencer MD 15 of 16 cycles started ACTH - AC/PACLITAXEL/ TRASTUZUMAB 0 03/23/2020 cycloPHOSphamide (CYTOXAN) infusion 250 mL (powder vial)DOXOrubicin (ADRIAMYCIN)PACLit triny (TAXOL)trastuzumab e. Reapplying Amended Protocol / Plan Silvia Spencer MD 4 of 21 cycles started Lifetime Dose Tracking * Chemical Lifetime Dose Automatic Entry Manual Entr y doxorubicin 239.701 mg/m2 (480 mg) 239.701 mg/m2 (480 mg) 0 mg/m2 (0 mg) Resolved Problems Problem Noted Date Diagnosed Date Resolved Date Pre-op exam 10/24/2023 10/21/2024 Assessment & Plan (10/24/2023 11:35 AM EDT): Javier reports that her retinal specialist cleared her for surgery. From my perspective she is of acceptable risk for planned left cataract surgery in November. Copy of this note to Dr. Menard today. Acute cough 10/24/2023 10/21/2024 Assessment & Plan (10/24/2023 11:35 AM EDT): O2 saturation is normal, lungs are clear. Push fluids, limit dairy. Try to expectorate sputum; she could use Mucinex if needed. Acute midline low back pain without sciatica 4 10/24/2023 Assessment & Plan (06/19/2023 4:17 PM EST): 6 week history of low back pain. Pelvis is high on the left. No red flags to suggest cauda equina, strength is intact. I recommended manual physical therapy and HEP as well as consult with physiatry to consider injections if symptoms worsen or fail to improve. CT imaging in the ER was reassuring for no evidence of malignancy. Sinus congestion 06/22/2022 10/24/2023 Assessment & Plan (06/22/2022 12:22 PM EST): Will get rapid flu and COVID PCR. Likely result of viral upper respiratory infection. Advised continued home care measures such as saline nasal rinses for congestion. Advised tea with honey, salt water gargle and/or throat lozenges for sore throat. Advised she could use Tylenol 1000 mg every 6 hours as needed for pain or fever or ibuprofen 600 mg every 8 hours as needed for pain or fever. Advised she continue to use saline nasal spray every 1-2 hours in each nostril as needed for nasal congestion. Advised to call the office if her symptoms are not improving in about 1 week, or if they have not resolved in 3 weeks. If your symptoms are getting worse, please call the office sooner. Localized swelling of left lower leg 11/26/2019 07/13/2022 Otalgia of left ear 09/06/2019 10/24/19 Assessment & Plan (09/06/2019 1:43 PM EDT): She probably has some inflammation of her cartilage from the ear buds. I recommend she discontinue using them and she can use Tylenol or ibuprofen as needed for pain. She will let us know if her symptoms do not gradually improve. Medical marijuana use 06/28/20172018 Elevated blood pressure read ing in office without diagnosis of hypertension 05/23/20172023 Assessment & Plan (03/14/2023 7:33 AM EDT): Blood pressure is at goal during her visit today. Blood pressure readings through the [facility] system recently have been fine as well. It seems that her home cuff may be inaccurate and I suggested that she not use it since she is not having symptoms of HTN and BP was good today. She is planning cataract surgery in early 2023 and will schedule a pre-op when she has her surgical date; we'll recheck BP at that time. Syncope 04/10/2017 10/24/2023
--- OUTSIDE RECORDS SUMMARY | 2025-01-28 15:28 | XMS_ITS | Encounter Summary ---
Author Organization [facility] Address [address] [place] [address] Phone Care Team Providers Care Top Ironer Name Role Phone Russell Ge MD Unavailable Maryan Christy [facility] Unavailable Sisi Pinto MD Unavailable Francois Nails MD Unavailable Justen Etienne DO Unavailable [phone] Bin Hsieh MD Unavailable Silvia Spencer MD Unavailable Soledad Menard MD Unavailable [phone] Darryl Henriquez [employer] Primary Care Provider [phone] Heriberto Apodaca MD Unavailable [phone] Encounter Details Date Type Department Care Team (Late st Contact Info) Description 10/21/2024 Procedure Pass [facility], Ct Scan - [facility] [address] [place] [address] Social History Tobacco Use Types Packs/Day Years [...] high school, GED, job training, learning the Greek language, technical skills, or developing parenting skills)? [...] your housing situation today? I have chastity eg 10/04/2023 How many times have you move [...] Description 01/31/2025 2:00 PM EDT Office Visit [facility] at [facility] [address] [place] [address] Silvia Spencer MD [address] [place] [address] documented as of this encounter Visit Diagnoses Not on filedocumented in this encounter Additional Health Concerns Assessment Noted Time PHQ-9 Depression Total Score: 4 03/13/20 23 3:55 PM EDT PHQ-2 Depression Total Score: 1 03/13/20 23 3:55 PM EDT documented as of this encounter Care Teams Top Ironer Relationship Specialty Start Date End Date Darryl Henriquez CNP [address] [facility] [place] [address] PCP - General Adult Health 11/20/23 Russell Ge MD Ophthalmology 10/31/18 Maryan Christy CNS [address] [place] [address] Psychiatry 11/26/19 Sisi Pinto MD [address] [facility], 2nd [place] [address] [email or web address] General Surgery 01/13/20 Francois Nails MD [address] [place] [address] [email or web address] Endocrinology 01/28/20 Jusetn Etienne DO [address] [place] [address] [email or web address] Allergy and Immunology 09/29/20 Bin Hsieh MD [address] [place] [address] Palliative Care 02/27/21 Silvia Spencer MD [address] [place] [address] Primary Oncologist Medical Oncology 02/28/22 Soledad Menard MD [address] [place] [address] Ophthalmology 10/24/23 Heriberto Apodaca MD [address] [place] [address], [address] [place] [address] [email or web address] Insurance Assigned Provider 09/21/24 documented as of this encounter Additional Source Comments The information contained in this document represents components of the legal health record. It is not the complete legal health record.[facility]
--- OUTSIDE RECORDS SUMMARY | 2025-01-28 15:28 | XMS_ITS | Encounter Summary ---
Author Organization [facility] Address [address] [place] [address] Phone Care Team Providers Care Civil Rights Representative Name Role Phone Russell Ge MD Unavailable Maryan Christy [facility] Unavailable Sisi Pinto MD Unavailable Francois Nails MD Unavailable Justen Etienne DO Unavailable [phone] Bin Hsieh MD Unavailable Silvia Spencer MD Unavailable [phone] Don Chen MD Unavailable [phone] Soledad Menard MD Unavailable [phone] Darryl Henriquez [facility] Primary Care Provider [phone] Heriberto Apodaca MD Unavailable [phone] Encounter Details Date Type Department Care Team (Late st Contact Info) Description 06/21/2024 Procedure Pass [facility] [address] [place] [address] Social History Tobacco Use Types Packs/Day Years Used Date Smoking Tobacco: Former Cigarettes 1 25 1 979 - 2004 Smokeless Tobacco: Never Alcohol Use Standard Drinks/Week Comments Not Currently 0 (1 standard drink = 0.6 oz pur e alcohol) <1 drink/week (2023) Child or Family Care Answer Date Record ed Do you have problems with on e of the following making it difficult for you to work, study, or receive health care? No 10/04/2023 Education Answer Date Recorded Are you interested in help w ith more adult education (for example, completing high school, GED, job training, learning the Senegalese language, technical skills, or developing parenting skills)? [...] as food, clothing, or medical care? No 05/09/2023 In the past 12 months have y ou been in a relationship with a person who hurts, threatens, or tries to control you? No 05/09/2023 Are you denied basic needs s uch as food, clothing, or medical care? No 05/09/2023 In the past 12 months have y ou been in a relationship with a person who hurts, threatens, or tries to control you? No 05/09/2023 Comments No Sex and Gender Information Value [...] Description 01/31/2025 2:00 PM EDT Office Visit [facility] [address] [place] [address] Silvia Spencre MD [address] [place] [address] documented as of this encounter Visit Diagnoses Not on filedocumented in this encounter Additional Health Concerns Assessment Noted Time PHQ-9 Depression Total Score: 4 03/13/20 23 3:55 PM EDT PHQ-2 Depression Total Score: 1 03/13/20 23 3:55 PM EDT documented as of this encounter Care Teams Civil Rights Representative Relationship Specialty Start Date End Date Darryl Henriquez CNP [address] [facility] [place] [address] PCP - General Adult Health 11/20/23 Russell Ge MD Ophthalmology 10/31/18 Maryan Christy CNS [address] [place] [address] Psychiatry 11/26/19 Sisi Pinto MD [address] [facility], 2nd [place] [address] [email or web address] General Surgery 01/13/20 Francois Nails MD [address] [place] [address] [email or web address] Endocrinology 01/28/20 Justen Etienne DO [address] [place] [address] [email or web address] Allergy and Immunology 09/29/20 Bin Hsieh MD [address] [place] [address] Palliative Care 02/27/21 Silvia Spencer MD [address] [place] [address] Primary Oncologist Medical Oncology 02/28/22 Don Chen MD [address] [place] [address], [address] [place] [address] Insurance Assigned Provider 08/19/23 09/21/24 Soledad Menard MD [address] [place] [address] Ophthalmology 10/24/23 Heriberto Apodaca MD [address] [place] [address], [address] [address] [email or web address] Insurance Assigned Provider 09/21/24 documented as of this encounter Additional Source Comments The information contained in this document represents components of the legal health record. It is not the complete legal health record.[facility]
--- OUTSIDE RECORDS SUMMARY | 2025-01-28 15:28 | XMS_ITS | Encounter Summary ---
Author Organization [facility] Address [address] [place] [address] [address] [place] [address] Phone Care Team Providers Care Manager Search Engine Name Role Phone Bay Aguilar MD Unavailable [phone] Santino Santacruz MD Unavailable Heriberto Apodaca MD Unavailable [phone] [place] Ge MD Unavailable Maryan Christy SPOT WELDER LINE Unavailable Sisi Pinot MD Unavailable Francois Nails MD Unavailable Darryl Henriquez [facility] Primary Care Provider [phone] Heriberto Apodaca MD Primary Care Provider [phone] Darryl Henriquez [facility] Primary Care Provider [phone] Justen Etienne DO Unavailable eMghana Green Unavailable Bin Hsieh MD Unavailable Darryl Henriquez [facility] Primary Care Provider [phone] Darryl Henriquez [facility] Primary Care Provider [phone] Heriberto Apodaca MD Primary Care Provider [phone] LynnDarryl jacobson FINISHING POWDER PRESS OPERATOR Primary Care Provider +[phone] Heriberto Apodaca MD Primary Care Provider +[phone] JurgenrabiaDarryl jacobson [facility] Primary Care Provider + Silvia Spencer MD Unavailable [phone] Don Chen MD Unavailable [phone] Soledad Menard MD Unavailable [phone] Don Chen MD Primary Care Provider [phone] JurgenrabiaDarryl jacobson [facility] Primary Care Provider + Heriberto Apodaca MD Unavailable + [phone] Encounter Details Date Type Department Care Team (Late st Contact Info) Description 03/23/2020 Prep for Surgery [facility] General Surgical Care [address] [place] [address] Sisi Pinto MD [address] [place] [address], [address] [place] [address] [email or web address] Malignant neoplasm of upper-outer quadrant of left breast in female, estrogen receptor positive (Primary Dx) Social History Tobacco Use Types Packs/Day Years [...] Description 01/31/2025 2:00 PM EDT Office Visit [facility] [address] [place] [address] Silvia Hernandez MD [address] [place] [address] [email or web address] documented as of this encounter Visit Diagnoses Diagnosis Malignant neoplasm of upper-outer quadrant of left breast in female, estrogen receptor positive- Primary documented in this encounter Additional Health Concerns Infection Onset Date Last Indicated Resolved Time CoV-Presumed 10/29/2021 10/29/2021 11/19/2021 1:21 AM EDT CoV-Risk 01/12/2022 01/12/2022 01/23/2022 1:22 AM EDT CoV-Risk 06/22/2022 06/22/2022 07/03/2022 1:22 AM EST COVID-19 05/03/2024 05/03/2024 05/24/2024 1:23 AM EST Assessment Noted Time PHQ-2 Depression Total Score: 0 11/01/19 8:47 AM EDT documented as of this encounter Care Teams Manager Search Engine Relationship Specialty Start Date End Date Darryl Henriquez CNP [address] [place] [address], [address] [place] [address] [email or web address] PCP - General Family Medicine 01/28/20 07/29/20 Heriberto Apodaca MD [address] [place] [address], [address] [address] [email or web address] PCP - General Family Medicine 07/30/20 08/13/20 Darryl Henriquez CNP [address] [facility], [address] [place] [address] PCP - General Family Medicine 08/14/20 03/21/21 Darryl Henriquez CNP [address] [place] [address], [address] [place] [address] [email or web address] PCP - General Family Medicine 03/22/21 03/22/21 Darryl Henriquez CNP [address] [place] [address], [address] [place] [address] [email or web address] PCP - General Family Medicine 03/23/21 03/30/21 Heriberto Apodaca MD [address] [place] [address], [address] [place] [address] [email or web address] PCP - General Family Medicine 03/31/21 05/31/21 Darryl Henriquez CNP [address] [place] [address], [address] [place] [address] [email or web address] PCP - General Family Medicine 06/01/21 07/19/21 Heriberto Apodaca MD [address] [place] [address], [address] [place] [address] [email or web address] PCP - General Family Medicine 07/20/21 08/30/21 Darryl Henriquez CNP [address] [place] [address], [address] [place] [address] [email or web address] PCP - General Family Medicine 08/31/21 10/23/23 Don Chen MD [address] [place] [address], [address] [place] [address] [email or web address] PCP - General Internal Medicine 10/24/23 11/19/23 Darryl Henriquez CNP [address] [place] [address], [address] [place] [address] [email or web address] PCP - General Adult Health 11/20/23 Bay Augilar MD [address] [place] [address] [email or web address] Historical LMR Provider 02/28/17 05/22/21 Santino Santacruz MD [address] [place] [address], [address] [place] [address] [email or web address] Historical LMR Provider 02/28/17 05/22/21 Heriberto Apodaca MD [address] [place] [address], [address] [place] [address] [email or web address] Insurance Assigned Provider 09/15/18 08/20/22 [place] Ge MD [address] [place] [address], [address] [place] [address] [email or web address] Ophthalmology 10/31/18 Maryan Christy, SPOT WELDER LINE [address] [place] [address] Psychiatry 11/26/19 Sisi Pinto MD [address] [place] [address], 2nd [place] [address] [email or web address] General Surgery 01/13/20 Francois Nails MD [address] [place] [address] [email or web address] Endocrinology 01/28/20 Justen Etienne DO [address] [place] [address], [address] [place] [address] [email or web address] [email or web address] and Immunology 09/29/20 Meghana Green PA [address] [place] [address] [email or web address] Physician Gaming Surveillance Observer Oncology 11/10/20 02/02/21 Bin Hsieh MD [address] [place] [address] Palliative Care 02/27/21 Silvia [place] MD [address] [place] [address] [email or web address] Primary Oncologist Medical Oncology 02/28/22 Don Chen MD [address] [place] [address], [address] [place] [address] Insurance Assigned Provider 08/19/23 09/21/24 Soledad Menard MD [address] [place] [address] Ophthalmology 10/24/23 Heriberto Apodaca MD [address] [place] [address], [address] [place] [address] Insurance Assigned Provider 09/21/24 documented as of this encounter Additional Source Comments The information contained in this document represents components of the legal health record. It is not the complete legal health record.[facility]
--- OUTSIDE RECORDS SUMMARY | 2025-01-28 15:28 | XMS_ITS | Encounter Summary ---
Author Organization [facility] Address [address] [place] [address] [address] [place] [address] Phone Care Team Providers Care Senior Information Security Analyst Name Role Phone Bay Aguilar MD Unavailable Santino Santacruz MD Unavailable Heriberto Apodaca MD Unavailable [phone] [place] Ge MD Unavailable Maryan Christy MAIL ORDER BILLER Unavailable Darryl Henriquez [facility] Primary Care Provider [phone] Heriberto Apodaca MD Primary Care Provider [phone] Darryl Henriquez [facility] Primary Care Provider [phone] Heriberto Apodaca MD Primary Care Provider [phone] Darryl Henriquez [facility] Primary Care Provider [phone] Sisi Pinto MD Unavailable Heriberto Apodaca MD Primary Care Provider [phone] Francois Nails MD Unavailable [phone] Darryl Henriquez [facility] Primary Care Provider Heriberto Apodaca MD Primary Care Provider [phone] Darryl Henriquez [facility] Primary Care Provider [phone] Justen Etienne Unavailable [phone] Meghana Green Unavailable [phone] Bin Hsieh MD Unavailable Florence Darryl SENIOR ESCROW OFFICER Primary Care Provider [phone] Paris Henriquezjessy [facility] Primary Care Provider [phone] Heriberto Apodaca MD Primary Care Provider [phone] JurgenDarryl martin [facility] Primary Care Provider Heriberto Apodaca MD Primary Care Provider [phone] JurgenDarryl martin [facility] Primary Care Provider [phone] Silvia [place] MD Unavailable [phone] Don Chen MD Unavailable [phone] Soledad Menard MD Unavailable [phone] Don Chen MD Primary Care Provider JurgenDarryl martin [facility] Primary Care Provider [phone] Heriberto Apodaca MD Unavailable [phone] Encounter Details Date Type Department Care Team (Late st Contact Info) Description 12/20/2019 Procedure Pass [facility], [address] [address] Social History Tobacco Use Types Packs/Day Years [...] Description 01/31/2025 2:00 PM EDT Office Visit [facility] [address] [place] [address] Silvia [place] MD [address] [place] [address] [email or web address] documented as of this encounter Visit Diagnoses [...] as of this encounter Care Teams Senior Information Security Analyst Relationship Specialty Start Date End Date Darryl Henriquez CNP [address] [place] [address], [address] [address] PCP - General Family Medicine 12/20/19 12/26/19 Heribetro Apodaca MD [address] [place] [address], [address] [address] PCP - General Family Medicine 12/27/19 12/29/19 Darryl Henriquez CNP [address] [place] [address], [address] [address] PCP - General Family Medicine 12/30/19 12/30/19 Heriberto Apodaca MD 22 [facility], [address] [place] [address] [email or web address] PCP - General Family Medicine 12/31/19 01/07/20 Darryl Henriquez CNP [address] [facility], [address] [place] [address] [email or web address] PCP - General Family Medicine 01/08/20 01/20/20 Heriberto Apodaca MD [address] [place] [address], [address] [place] [address] [email or web address] PCP - General Family Medicine 01/21/20 01/27/20 Darryl Henriquez CNP [address] [place] [address], [address] [place] [address] [email or web address] PCP - General Family Medicine 01/28/20 07/29/20 Heriberto Apodaca MD 22 [facility], [address] [place] [address] [email or web address] PCP - General Family Medicine 07/30/20 08/13/20 Darryl Henriquez CNP 22 [facility], [address] [place] [address] PCP - General Family Medicine 08/14/20 03/21/21 Darryl Henriquez CNP 22 [facility], [address] [place] [address] PCP - General Family Medicine 03/22/21 03/22/21 Darryl Henriquez CNP [address] [place] [address], [address] [place] [address] [email or web address] PCP - General Family Medicine 03/23/21 03/30/21 Heriberto Apodaca MD [address] [place] [address], [address] [place] [address] [email or web address] PCP - General Family Medicine 03/31/21 05/31/21 Darryl Henriquez CNP [address] [place] [address], [address] [place] [address] [email or web address] PCP - General Family Medicine 06/01/21 07/19/21 Heriberto Apodaca MD [address] [place] [address], [address] [place] [address] [email or web address] PCP - General Family Medicine 07/20/21 08/30/21 Darryl Henriquez CNP [address] [place] [address], [address] [place] [address] [email or web address] PCP - General Family Medicine 08/31/21 10/23/23 Don Chen MD [address] [place] [address], [address] [place] [address] [email or web address] PCP - General Internal Medicine 10/24/23 11/19/23 Darryl Henriquez CNP [address] [place] [address], [address] [place] [address] [email or web address] PCP - General Adult Health 11/20/23 Bay Aguilar MD [address] [place] [address] [email or web address] Historical LMR Provider 02/28/17 05/22/21 Santino Santacruz MD [address] [place] [address], [address] [place] [address] [email or web address] Historical LMR Provider 02/28/17 05/22/21 Heriberto Apodaca MD [address] [place] [address], [address] [place] [address] [email or web address] Insurance Assigned Provider 09/15/18 08/20/22 [place] Ge MD [address] [place] [address], [address] [place] [address] [email or web address] Ophthalmology 10/31/18 Maryan Christy, MAIL ORDER BILLER [address] [place] [address] Psychiatry 11/26/19 Sisi Pinto MD [address] [place] [address], 2nd [place] [address] [email or web address] General Surgery 01/13/20 Francois Nails MD [address] [place] [address] [email or web address] Endocrinology 01/28/20 Justen Etienne DO [address] [place] [address] [email or web address] and [email or web address] 09/29/20 Meghana Green PA [address] [place] [address] [email or web address] Physician Right Of Way Man Oncology 11/10/20 02/02/21 Bin Hsieh MD [address] [place] [address] Palliative Care 02/27/21 Silvia [place] MD [address] [place] [address] [email or web address] Primary Oncologist Medical Oncology 02/28/22 Don Chen MD [address] [place] [address], [address] [place] [address] Insurance Assigned Provider 08/19/23 09/21/24 Soledad Menard MD [address] [place] [address] Ophthalmology 10/24/23 Heriberto Apodaca MD [address] [place] [address], [address] [place] [address] Insurance Assigned Provider 09/21/24 documented as of this encounter Additional Source Comments The information contained in this document represents components of the legal health record. It is not the complete legal health record.[facility]
--- OUTSIDE RECORDS SUMMARY | 2025-01-28 15:28 | XMS_ITS | Encounter Summary ---
Author Organization [facility] Address [address] [facility] [address] [place] [address] Phone Care Team Providers Care Pasteurizing Machine Operator Name Role Phone [place] Ge MD Unavailable Maryan Christy [facility] Unavailable [phone] Sisi Pinto MD Unavailable Francois Nails MD Unavailable Justen Etienne DO Unavailable [phone] Bin Hsieh MD Unavailable Silvia [place] MD Unavailable [phone] Soledad Menard MD Unavailable [phone] Darryl Henriquez [facility] Primary Care Provider [phone] Heriberto Apodaca MD Unavailable [phone] Encounter Details Date Type Department Care Team (Late st Contact Info) Description 11/12/2024 Telephone [facility]oscopy [address] [place] [address] Elaine Kumar, RN [address] [place] [address] [email or web address] Social History Tobacco Use [...] high school, GED, job training, learning the Frisian language, technical skills, or developing parenting skills)? [...] Description 01/31/2025 2:00 PM EDT Office Visit [facility] at [address] [address] Silvia [place] MD [address] [place] [address] documented as of this encounter Visit Diagnoses Not on filedocumented in this encounter Additional Health Concerns Assessment Noted Time PHQ-9 Depression Total Score: 4 03/13/20 23 3:55 PM EDT PHQ-2 Depression Total Score: 1 03/13/20 23 3:55 PM EDT documented as of this encounter Care Teams Pasteurizing Machine Operator Relationship Specialty Start Date End Date Darryl Henriquez CNP [address] [facility], [address] [place] [address] PCP - General Adult Health 11/20/23 [place] Ge MD Ophthalmology 10/31/18 Maryan Christy CNS [address] [place] [address] Psychiatry 11/26/19 Sisi Pinto MD [address] [facility], 2nd [place] [address] [email or web address] General Surgery 01/13/20 Francois Nails MD [address] [place] [address] [email or web address] Endocrinology 01/28/20 Justen Etienne DO [address] [place] [address] [email or web address] Allergy and Immunology 09/29/20 Bin Hsieh MD [address] [place] [address] Palliative Care 02/27/21 Silvia [place] MD [address] [place] [address] [email or web address] Primary Oncologist Medical Oncology 02/28/22 Soledad Menard MD [address] [place] [address] Ophthalmology 10/24/23 Heriberto Apodaca MD [address] [facility], [address] [place] [address] [email or web address] Insurance Assigned Provider 09/21/24 documented as of this encounter Additional Source Comments The information contained in this document represents components of the legal health record. It is not the complete legal health record.[facility]
--- OUTSIDE RECORDS SUMMARY | 2025-01-28 15:28 | XMS_ITS | Encounter Summary ---
Author Organization [facility] Address [address] [place] [address] [address] [place] [address] Phone Care Team Providers Care Fur Clipper Name Role Phone Bay Aguilar MD Unavailable Santino Santacruz MD Unavailable Bren Walker MD Unavailable [phone] Darryl Henriquez CNP Primary Care Provider [phone] Heriberto Apodaca MD Unavailable [phone] Russell Ge MD Unavailable [phone] Heriberto Apodaca MD Primary Care Provider [phone] Darryl Henriquez [facility] Primary Care Provider [phone] Maryan Christy SENIOR FIELD SERVICE ENGINEER Unavailable Heriberto Apodaca MD Primary Care Provider [phone] Darryl Henriquez MENU PLANNER Primary Care Provider [phone] Heriberto Apodaca MD Primary Care Provider [phone] Darryl Henriquez [facility] Primary Care Provider + Heriberto Apodaca MD Primary Care Provider [phone] Darryl Henriquez [facility] Primary Care Provider [phone] Sisi Pinto MD Unavailable [phone] Heriberto Apodaca MD Primary Care Provider [phone] Francois Nails MD Unavailable [phone] Florence Parisjessy [facility] Primary Care Provider [phone] Heriberto Apodaca MD Primary Care Provider [phone] Jurgenmario Parisjessy [facility] Primary Care Provider [phone] Justen Etienne DO Unavailable [phone] Meghana Green Unavailable Bin Hsieh MD Unavailable Darryl Henriquez [facility] Primary Care Provider [phone] Florence Parisjessy MENU PLANNER Primary Care Provider +[phone] Heriberto Apodaca MD Primary Care Provider +[phone] JurgenDarryl martin [facility] Primary Care Provider [phone] Heriberto Apodaca MD Primary Care Provider [phone] Jurgenmario Parisjessy [facility] Primary Care Provider +[phone] Silvia Spencer MD Unavailable [phone] Don Chen MD Unavailable [phone] Soledad Menard MD Unavailable [phone] Don Chen MD Primary Care Provider Darryl Henriquez [facility] Primary Care Provider +[phone] Heriberto Apodaca MD Unavailable [phone] Encounter Details Date Type Department Care Team (Late st Contact Info) Description 04/04/2019 Ancillary Orders Virtual Department [address] [place] [address] Darryl Henriquez CNP [address] [facility], [address] [place] [address] [email or web address] Breast [email or web address] Social History Tobacco Use [...] Visit [facility] at [address] [address] Silvia Spencer MD [address] [place] [address] [email or web address] documented as of this encounter Visit Diagnoses Diagnosis Breast screening Breast screening, unspecified documented in [...] documented as of this encounter Care Teams Fur Clipper Relationship Specialty Start Date End Date Darryl Henriquez CNP [address] [place] [address], [address] [place] [address] PCP - General 05/05/17 05/10/19 Heriberto Apodaca MD [address] [facility], [address] [place] [address] [email or web address] PCP - General Family Medicine 05/11/19 05/13/19 Darryl Henriquez, MENU PLANNER [address] [place] [address], [address] [place] [address] [email or web address] PCP - General Family Medicine 05/14/19 12/18/19 Heriberto Apodaca MD [address] [place] [address], [address] [place] [address] [email or web address] PCP - General Family Medicine 12/19/19 12/19/19 Darryl Henriquez, MENU PLANNER [address] [place] [address], [address] [place] [address] [email or web address] PCP - General Family Medicine 12/20/19 12/26/19 Heriberto Apodaca MD [address] [place] [address], [address] [place] [address] [email or web address] PCP - General Family Medicine 12/27/19 12/29/19 Darryl Henriquez, MENU PLANNER [address] [place] [address], [address] [place] [address] [email or web address] PCP - General Family Medicine 12/30/19 12/30/19 Heriberto Apodaca MD [address] [place] [address], [address] [place] [address] [email or web address] PCP - General Family Medicine 12/31/19 01/07/20 Darryl Henriquez CNP [address] [facility] [place] [address] [email or web address] PCP - General Family Medicine 01/08/20 01/20/20 Heriberto Apodaca MD [address] [facility], [address] [place] [address] [email or web address] PCP - General Family Medicine 01/21/20 01/27/20 Darryl Henriquez CNP [address] [place] [address], [address] [place] [address] [email or web address] PCP - General Family Medicine 01/28/20 07/29/20 Heriberto Apodaca MD [address] [place] [address], [address] [place] [address] [email or web address] PCP - General Family Medicine 07/30/20 08/13/20 Darryl Henriquez CNP [address] [facility], [address] [place] [address] [email or web address] PCP - General Family Medicine 08/14/20 03/21/21 Darryl Henriquez CNP [address] [facility], [address] [place] [address] [email or web address] PCP - General Family Medicine 03/22/21 03/22/21 Darryl Henriquez CNP [address] [place] [address], [address] [place] [address] [email or web address] PCP - General Family Medicine 03/23/21 03/30/21 Heriberto Apodaca MD [address] [place] [address], [address] [place] [address] [email or web address] PCP - General Family Medicine 03/31/21 05/31/21 Darryl Henriquez CNP [address] [place] [address], [address] [place] [address] [email or web address] PCP - General Family Medicine 06/01/21 07/19/21 Heriberto Apodaca MD [address] [place] [address], [address] [place] [address] [email or web address] PCP - General Family Medicine 07/20/21 08/30/21 Darryl Henriquez CNP [address] [place] [address], [address] [place] [address] [email or web address] PCP - General Family Medicine 08/31/21 10/23/23 Don Chen MD [address] [place] [address], [address] [place] [address] [email or web address] PCP - General Internal Medicine 10/24/23 11/19/23 Darryl Henriquez CNP [address] [place] [address], [address] [place] [address] [email or web address] PCP - General Adult Health 11/20/23 Bay Aguilar MD [address] [place] [address] [email or web address] Historical LMR Provider 02/28/17 05/22/21 Santino Santacruz MD [address] [place] [address], [address] [place] [address] [email or web address] Historical LMR Provider 02/28/17 05/22/21 Bren Walker MD [address] [place] [address] [email or web address] Historical LMR Provider 02/28/17 11/25/19 Heriberto Apodaca MD [address] [place] [address], [address] [place] [address] [email or web address] Insurance Assigned Provider 09/15/18 08/20/22 Russell Ge MD [address] [place] [address], [address] [place] [address] Ophthalmology 10/31/18 Maryan Christy, SENIOR FIELD SERVICE ENGINEER [address] [place] [address] Psychiatry 11/26/19 Sisi Pinto MD [address] [place] [address] General Surgery 01/13/20 Francois Nails MD [address] [place] [address] [email or web address] Endocrinology 01/28/20 Justen Etienne DO [address] [place] [address] [email or web address] Allergy and Immunology 09/29/20 Meghana Green PA [address] [place] [address] [email or web address] Physician Music Therapist Oncology 11/10/20 02/02/21 Bin Hsieh MD [address] [place] [address] Palliative Care 02/27/21 Silvia Spencer MD [address] [place] [address] Primary Oncologist Medical Oncology 02/28/22 Don Chen MD [address] [place] [address], [address] [place] [address] Insurance Assigned Provider 08/19/23 09/21/24 Soledad Menard MD [address] [place] [address] Ophthalmology 10/24/23 Heriberto Apodaca MD [address] [place] [address] Insurance Assigned Provider 09/21/24 documented as of this encounter Additional Source Comments The information contained in this document represents components of the legal health record. It is not the complete legal health record.[facility]
--- OUTSIDE RECORDS SUMMARY | 2025-01-28 15:28 | XMS_ITS | Encounter Summary ---
Author Organization [facility] Address [address] [facility] [address] [place] [address] Phone Care Team Providers Care Credit Card Control Clerk Name Role Phone Russell Ge MD Unavailable Maryan Christy [facility] Unavailable Sisi Pinto MD Unavailable Francois Nails MD Unavailable [phone] Justen Etienne DO Unavailable [phone] Bin Hsieh MD Unavailable Silvia Spencer MD Unavailable [phone] Soledad Menard MD Unavailable [phone] Darryl Henriquez [facility] Primary Care Provider + [phone] Heriberto Apodaca MD Unavailable [phone] Encounter Details Date Type Department Care Team (Late st Contact Info) Description 11/20/2024 Procedure Pass [facility] Endoscopy Admitting Dept Virtual Department [address] [place] [address] Social History Tobacco Use Types Packs/Day Years [...] high school, GED, job training, learning the [place] Citizen language, technical skills, or developing parenting skills)? [...] 01/31/2025 2:00 PM EDT Office Visit [facility] [address] [place] [address] Silvia Spencer MD [address] [place] [address] [email or web address] documented as of this encounter Visit Diagnoses Not on filedocumented in this encounter Additional Health Concerns Assessment Noted Time PHQ-9 Depression Total Score: 4 03/13/20 23 3:55 PM EDT PHQ-2 Depression Total Score: 1 03/13/20 23 3:55 PM EDT documented as of this encounter Care Teams Credit Card Control Clerk Relationship Specialty Start Date End Date Darryl Henriquez CNP [address] [facility], [address] [place] [address] PCP - General Adult Health 11/20/23 Russell Ge MD Ophthalmology 10/31/18 Maryan Christy CNS [address] [place] [address] Psychiatry 11/26/19 Sisi Pinto MD [address] [facility], 2nd [place] [address] [email or web address] General Surgery 01/13/20 Francois Nails MD [address] [place] [address] [email or web address] Endocrinology 01/28/20 Justen Etienne DO [address] [place] [address] [email or web address] and [email or web address] 09/29/20 Bin Hsieh MD [address] [place] [address] Palliative Care 02/27/21 Silvia Spencer MD [address] [place] [address] [email or web address] Primary Oncologist Medical Oncology 02/28/22 Soledad Menard MD [address] [place] [address] Ophthalmology 10/24/23 Heriberto Apodaca MD [address] [place] [address], [address] [place] [address] [email or web address] Insurance Assigned Provider 09/21/24 documented as of this encounter Additional Source Comments The information contained in this document represents components of the legal health record. It is not the complete legal health record.[facility]
--- OUTSIDE RECORDS SUMMARY | 2025-01-28 15:28 | XMS_ITS | Encounter Summary ---
Author Organization [facility] Address [address] [facility] [address] [place] [address] Phone Care Team Providers Care Commercial Energy Rater Name Role Phone Russell Ge MD Unavailable [phone] Maryan Christy [facility] Unavailable Sisi Pinto MD Unavailable [phone] Francois Nails MD Unavailable Justen Etienne DO Unavailable Bin Hsieh MD Unavailable Silvia Spencer MD Unavailable [phone] Soledad Menard MD Unavailable [phone] Darryl Henriquez [facility] Primary Care Provider + [phone] Heriberto Apodaca MD Unavailable [phone] Encounter Details Date Type Department Care Team (Late st Contact Info) Description 11/06/2024 Procedure Pass [facility] Endoscopy Admitting Dept Virtual Department [address] [place] [address] Social History Tobacco Use Types Packs/Day Years Used Date Smoking Tobacco: Former Cigarettes 25 1 979 - 2004 Smokeless Tobacco: [...] high school, GED, job training, learning the [place] language, technical skills, or developing parenting skills)? [...] Description 01/31/2025 2:00 PM EDT Office Visit [facility] [address] [place] [address] Silvia Spencer MD [address] [place] [address] [email or web address] documented as of this encounter Visit Diagnoses Not on filedocumented in this encounter Additional Health Concerns Assessment Noted Time PHQ-9 Depression Total Score: 4 03/13/20 23 3:55 PM EDT PHQ-2 Depression Total Score: 1 03/13/20 23 3:55 PM EDT documented as of this encounter Care Teams Commercial Energy Rater Relationship Specialty Start Date End Date Darryl Henriquez CNP [address] [facility], [address] [place] [address] PCP - General Adult Health 11/20/23 Russell Ge MD Ophthalmology 10/31/18 Maryan Christy CNS [address] [place] [address] Psychiatry 11/26/19 Sisi Pinto MD [address] [facility], 2nd [place] [address] [email or web address] General Surgery 01/13/20 Francois Nails MD [address] [place] [address] [email or web address] Endocrinology 01/28/20 Justen Etienne DO [address] [place] [address] [email or web address] [email or web address] and [email or web address] 09/29/20 Bin Hsieh MD [address] [place] [address] Palliative Care 02/27/21 Silvia Spencer MD [address] [place] [address] [email or web address] Primary Oncologist Medical Oncology 02/28/22 Soledad Menard MD [address] [place] [address] Ophthalmology 10/24/23 Heriberto Apodaca MD [address] [place] [address], [address] [place] [address] [email or web address] Insurance Assigned Provider 09/21/24 documented as of this encounter Additional Source Comments The information contained in this document represents components of the legal health record. It is not the complete legal health record.[facility]
--- OUTSIDE RECORDS SUMMARY | 2025-01-28 15:28 | XMS_ITS | Encounter Summary ---
Author Organization [facility] Address [address] [place] [address] [address] [place] [address] Phone Care Team Providers Care Personal Development Mentor Name Role Phone Bay Aguilar MD Unavailable Santino Santacruz MD Unavailable [phone] Bren Walker MD Unavailable [phone] Darryl Henriquez CNP Primary Care Provider [phone] Heriberto Apodaca MD Unavailable [phone] Russell Ge MD Unavailable [phone] Heriberto Apdoaca MD Primary Care Provider [phone] Darryl Henriquez [facility] Primary Care Provider [phone] Maryan Christy TEST CENTER ADMINISTRATOR Unavailable Heriberto Apodaca MD Primary Care Provider [phone] Darryl Henriquez ASSET AVAILABILITY LEADER Primary Care Provider [phone] Heriberto Apodaca MD Primary Care Provider [phone] Darryl Henriquez [facility] Primary Care Provider + Heriberto Apodaca MD Primary Care Provider [phone] Darryl Henriquez [facility] Primary Care Provider [phone] Sisi Pinto MD Unavailable [phone] Heriberto Apodaca MD Primary Care Provider [phone] Francois Nails MD Unavailable [phone] Darryl Henriquez [facility] Primary Care Provider [phone] Heriberto Apodaca MD Primary Care Provider [phone] Darryl Henriquez [facility] Primary Care Provider [phone] Justen Etienne DO Unavailable [phone] Meghana Green Unavailable +[phone] iBn Hsieh MD Unavailable Darryl Henriquez [facility] Primary Care Provider Darryl Henriquez ASSET AVAILABILITY LEADER Primary Care Provider [phone] Heriberto Apodaca MD Primary Care Provider [phone] Darryl Henriquez [facility] Primary Care Provider Heriberto Apodaca MD Primary Care Provider +[phone] Darryl Henriquez [facility] Primary Care Provider [phone] Silvia Spencer MD Unavailable [phone] Don Chen MD Unavailable [phone] Soledad Menard MD Unavailable [phone] Don Chen MD Primary Care Provider Darryl Henriquez [facility] Primary Care Provider Heriberto Apodaca MD Unavailable [phone] Encounter Details Date Type Department Care Team (Late st Contact Info) Description 04/04/2019 [facility] [address] [place] [address] Darryl Henriquez CNP [address] [facility], [address] [place] [address] Social History Tobacco Use Types Packs/Day Years [...] Description 01/31/2025 2:00 PM EDT Office Visit [facility] at [address] [address] Silvia Spencer MD [address] [place] [address] documented as of this encounter Visit Diagnoses [...] documented as of this encounter Care Teams Personal Development Mentor Relationship Specialty Start Date End Date Darryl Henriquez CNP [address] [place] [address], [address] [place] [address] PCP - General 05/05/17 05/10/19 Heriberto Apodaca MD [address] [place] [address], [address] [place] [address] [email or web address] PCP - General Family Medicine 05/11/19 05/13/19 Darryl Henriquez, ASSET AVAILABILITY LEADER [address] [facility] [place] [address] [email or web address] PCP - General Family Medicine 05/14/19 12/18/19 Heriberto Apodaca MD [address] [place] [address], [address] [place] [address] [email or web address] PCP - General Family Medicine 12/19/19 12/19/19 Darryl Henriquez, ASSET AVAILABILITY LEADER [address] [place] [address], [address] [place] [address] [email or web address] PCP - General Family Medicine 12/20/19 12/26/19 Heriberto Apodaca MD [address] [place] [address], [address] [place] [address] [email or web address] PCP - General Family Medicine 12/27/19 12/29/19 Darryl Henriquez, ASSET AVAILABILITY LEADER [address] [place] [address], [address] [place] [address] [email or web address] PCP - General Family Medicine 12/30/19 12/30/19 Heriberto Apodaca MD [address] [place] [address], [address] [place] [address] [email or web address] PCP - General Family Medicine 12/31/19 01/07/20 Darryl Henriquez CNP [address] [place] [address], [address] [place] [address] [email or web address] PCP - General Family Medicine 01/08/20 01/20/20 Heriberto Apodaca MD [address] [facility] [place] [address] [email or web address] PCP - General Family Medicine 01/21/20 01/27/20 Darryl Henriquez CNP [address] [place] [address], [address] [place] [address] [email or web address] PCP - General Family Medicine 01/28/20 07/29/20 Heriberto Apodaca MD [address] [place] [address], [address] [place] [address] [email or web address] PCP - General Family Medicine 07/30/20 08/13/20 Darryl Henriquez CNP [address] [facility] [place] [address] [email or web address] PCP - General Family Medicine 08/14/20 03/21/21 Darryl Henriquez CNP [address] [place] [address], [address] [place] [address] [email or web address] PCP - General Family Medicine 03/22/21 03/22/21 Darryl Henriquez CNP [address] [place] [address], [address] [place] [address] [email or web address] PCP - General Family Medicine 03/23/21 03/30/21 Heriberto Apodaca MD [address] [place] [address], [address] [place] [address] [email or web address] PCP - General Family Medicine 03/31/21 05/31/21 Darryl Henriquez CNP [address] [place] [address], [address] [place] [address] [email or web address] PCP - General Family Medicine 06/01/21 07/19/21 Heriberto Apodaca MD [address] [place] [address], [address] [place] [address] [email or web address] PCP - General Family Medicine 07/20/21 08/30/21 Darryl Henriquez CNP [address] [place] [address], [address] [place] [address] [email or web address] PCP - General Family Medicine 08/31/21 10/23/23 Don Chen MD [address] [place] [address], [address] [place] [address] [email or web address] PCP - General Internal Medicine 10/24/23 11/19/23 Darryl Henriquez CNP [address] [place] [address], [address] [place] [address] [email or web address] PCP - General Adult Health 11/20/23 Bay Aguilar MD [address] [place] [address] [email or web address] Historical LMR Provider 02/28/17 05/22/21 Santino Santacruz MD [address] [place] [address], [address] [place] [address] [email or web address] Historical LMR Provider 02/28/17 05/22/21 Bren Walker MD [address] [place] [address], [address] [place] [address] [email or web address] Historical LMR Provider 02/28/17 11/25/19 Heriberto Apodaca MD [address] [place] [address], [address] [place] [address] [email or web address] Insurance Assigned Provider 09/15/18 08/20/22 Russell Ge MD [address] [place] [address], [address] [place] [address] [email or web address] Ophthalmology 10/31/18 Maryan Christy, TEST CENTER ADMINISTRATOR [address] [place] [address] Psychiatry 11/26/19 Sisi Pinto MD [address] [place] [address], [address] [place] [address] General Surgery 01/13/20 Francois Nails MD [address] [place] [address] [email or web address] Endocrinology 01/28/20 Justen Etienne DO [address] [place] [address] [email or web address] [email or web address] and [email or web address] 09/29/20 Meghana Green PA [address] [place] [address] [email or web address] [facility] Physician Mainframe Applications Developer Oncology 11/10/20 02/02/21 Bin Hsieh MD [address] [place] [address] Palliative Care 02/27/21 Silvia Spencer MD [address] [place] [address] Primary Oncologist Medical Oncology 02/28/22 Don Chen MD [address] [place] [address], [address] [place] [address] Insurance Assigned Provider 08/19/23 09/21/24 Soledad Menard MD [address] [place] [address] Ophthalmology 10/24/23 Heriberto Apodaca MD [address] [place] [address], [address] [place] [address] Insurance Assigned Provider 09/21/24 documented as of this encounter Additional Source Comments The information contained in this document represents components of the legal health record. It is not the complete legal health record.[facility]
--- OUTSIDE RECORDS SUMMARY | 2025-01-28 15:28 | XMS_ITS | Encounter Summary ---
Author Organization [facility] Address [address] [facility] [address] [place] [address] Phone Care Team Providers Care Registered Nurse Bone Marrow Transplant Name Role Phone Russell Ge MD Unavailable Maryan Christy [facility] Unavailable Sisi Pinto MD Unavailable [phone] Francois Nails MD Unavailable [phone] Justen Etienne DO Unavailable [phone] Bin Hsieh MD Unavailable Silvia Spencer MD Unavailable Don Chen MD Unavailable [phone] Soledad Menard MD Unavailable [phone] Darryl Henriquez [facility] Primary Care Provider [phone] Heriberto Apodaca MD Unavailable [phone] Reason for Visit * Reason Comments Medication Refill Encounter Details Date Type Department Care Team (Late st Contact Info) Description 08/03/2024 Refill [facility] [address] [place] [address] Ana Soria, [facility] [address] [place] [address] Medication Refill Social History Tobacco Use Types Packs/Day Years Used Date Smoking Tobacco: Former Cigarettes 25 1 979 - 2003 Smokeless Tobacco: [...] high school, GED, job training, learning the [place] language, technical skills, or developing parenting skills)? [...] as of this encounter Progress Notes * Asa Duffy CMA - 08/05/2024 2:11 PM EDT TO: DESTINY documented in this encounter Plan of Treatment Upcoming Encounters Date Type Department Care Team (Late st Contact Info) Description 01/31/2025 2:00 PM EDT Office Visit [facility] at [address] [address] Silvia Spencer MD [address] [place] [address] [email or web address] documented as of this encounter Visit Diagnoses Diagnosis Malignant neoplasm of overlapping sites of left breast in female, estrogen receptor positive documented in this encounter Additional Health Concerns Assessment Noted Time PHQ-9 Depression Total Score: 4 03/13/20 23 3:55 PM EDT PHQ-2 Depression Total Score: 1 03/13/20 23 3:55 PM EDT documented as of this encounter Care Teams Registered Nurse Bone Marrow Transplant Relationship Specialty Start Date End Date Darryl Henriquez CNP [address] [place] [address], [address] [place] [address] PCP - General Adult Health 11/20/23 Russell Ge MD Ophthalmology 10/31/18 Maryan Christy, DEPUTY K [address] [place] [address] Psychiatry 11/26/19 Sisi Pinto MD [address] [place] [address], 2nd [place] [address] [email or web address] General Surgery 01/13/20 Francois Nails MD [address] [place] [address] [email or web address] Endocrinology 01/28/20 Justen Etienne DO [address] [place] [address] [email or web address] 09/29/20 Bin Hsieh MD [address] [place] [address] [email or web address] Palliative Care 02/27/21 Silvia Spencer MD [address] [place] [address] [email or web address] Primary Oncologist Medical Oncology 02/28/22 Don Chen MD [address] [place] [address], [address] [place] [address] [email or web address] Insurance Assigned Provider 08/19/23 09/21/24 Soledad Menard MD [address] [place] [address] Ophthalmology 10/24/23 Heriberto Apodaca MD [address] [place] [address], [address] [place] [address] [email or web address] Insurance Assigned Provider 09/21/24 documented as of this encounter Additional Source Comments The information contained in this document represents components of the legal health record. It is not the complete legal health record.[facility]
--- OUTSIDE RECORDS SUMMARY | 2025-01-28 15:28 | XMS_ITS | Encounter Summary ---
Author Organization [facility] Address [address] [place] [address] [address] [place] [address] Phone Care Team Providers Care Manufacturer Agent Name Role Phone Bay Aguilar MD Unavailable Santino Santacruz MD Unavailable Bren Walker MD Unavailable [phone] Heriberto Apodaca MD Unavailable [phone] Russell Ge MD Unavailable [phone] Darryl Henriquez [facility] Primary Care Provider [phone] Maryan Christy DEALER CARD ROOM Unavailable Heriberto Apodaca MD Primary Care Provider [phone] Darryl Henriquez [facility] Primary Care Provider +[phone] Heriberto Apodaca MD Primary Care Provider +[phone] Darryl Henriquez [facility] Primary Care Provider +[phone] Heriberto Apodaca MD Primary Care Provider +[phone] Darryl Henriquez [facility] Primary Care Provider [phone] Sisi Pinto MD Unavailable [phone] Heriberto Apodaca MD Primary Care Provider +[phone] Francois Nails MD Unavailable Darryl Henriquez NETWORK SUPPORT ENGINEER Primary Care Provider [phone] Heriberto Apodaca MD Primary Care Provider [phone] Darryl Henriquez [facility] Primary Care Provider [phone] Jaimie Justen Garcia Unavailable Meghana Green Unavailable Bin Hsieh MD Unavailable Darryl Henriquez [facility] Primary Care Provider [phone] Darryl Henriquez [facility] Primary Care Provider [phone] Heriberto Apodaca MD Primary Care Provider [phone] Darryl Henriquez [facility] Primary Care Provider [phone] Heriberto Apodaca MD Primary Care Provider +[phone] Darryl Henriquez [facility] Primary Care Provider [phone] Silvia Spencer MD Unavailable [phone] Don Chen MD Unavailable [phone] Soledad Menard MD Unavailable [phone] Don Chen MD Primary Care Provider Darryl Henriquez [facility] Primary Care Provider Heriberto Apodaca MD Unavailable [phone] Encounter Details Date Type Department Care Team (Late st Contact Info) Description 11/11/2019 Ancillary Orders Virtual Department [address] [place] [address] Darryl Henriquez NETWORK SUPPORT ENGINEER [address] [facility] [place] [address] [email or web address] Breast [email or web address] Social History Tobacco Use [...] Description 01/31/2025 2:00 PM EDT Office Visit [facility] at [address] [address] Silvia Spencer MD [address] [place] [address] [email or web address] documented as of this encounter Visit Diagnoses [...] documented as of this encounter Care Teams Manufacturer Agent Relationship Specialty Start Date End Date Darryl Henriquez CNP [address] [place] [address], [address] [place] [address] PCP - General Family Medicine 05/14/19 12/18/19 Heriberto Apodaca MD [address] [facility] [place] [address] [email or web address] PCP - General Family Medicine 12/19/19 12/19/19 Darryl Henriquez CNP [address] [place] [address], [address] [place] [address] [email or web address] PCP - General Family Medicine 12/20/19 12/26/19 Heriberto Apodaca MD [address] [place] [address], [address] [place] [address] [email or web address] PCP - General Family Medicine 12/27/19 12/29/19 Darryl Henriquez CNP [address] [place] [address], [address] [place] [address] [email or web address] PCP - General Family Medicine 12/30/19 12/30/19 Heriberto Apodaca MD [address] [place] [address], [address] [place] [address] [email or web address] PCP - General Family Medicine 12/31/19 01/07/20 Darryl Henriquez CNP [address] [place] [address], [address] [place] [address] [email or web address] PCP - General Family Medicine 01/08/20 01/20/20 Heriberto Apodaca MD [address] [place] [address], [address] [place] [address] [email or web address] PCP - General Family Medicine 01/21/20 01/27/20 Darryl Henriquez CNP [address] [place] [address], [address] [place] [address] [email or web address] PCP - General Family Medicine 01/28/20 07/29/20 Heriberto Apodaca MD [address] [place] [address], [address] [place] [address] PCP - General Family Medicine 07/30/20 08/13/20 Darryl Henriquez CNP [address] [place] [address], [address] [place] [address] PCP - General Family Medicine 08/14/20 03/21/21 Darryl Henriquez CNP [address] [place] [address], [address] [place] [address] PCP - General Family Medicine 03/22/21 03/22/21 Darryl Henriquez CNP [address] [place] [address], [address] [place] [address] PCP - General Family Medicine 03/23/21 03/30/21 Heriberto Apodaca MD [address] [place] [address], [address] [place] [address] PCP - General Family Medicine 03/31/21 05/31/21 Darryl Henriquez CNP [address] [place] [address], [address] [place] [address] PCP - General Family Medicine 06/01/21 07/19/21 Heriberto Apodaca MD [address] [facility] [place] [address] PCP - General Family Medicine 07/20/21 08/30/21 Darryl Henriquez CNP [address] [facility] [place] [address] PCP - General Family Medicine 08/31/21 10/23/23 Don Chen MD [address] [place] [address], [address] [place] [address] [email or web address] PCP - General Internal Medicine 10/24/23 11/19/23 Darryl Henriquez CNP [address] [place] [address], [address] [place] [address] [email or web address] PCP - General Adult Health 11/20/23 Bay Aguilar MD [address] [place] [address] [email or web address] Historical LMR Provider 02/28/17 05/22/21 Santino Santacruz MD [address] [facility] [place] [address] [email or web address] Historical LMR Provider 02/28/17 05/22/21 Bren Walker MD [address] [facility], 2nd [place] [address] Historical LMR Provider 02/28/17 11/25/19 Heriberto Apodaca MD [address] [place] [address], [address] [place] [address] [email or web address] Insurance Assigned Provider 09/15/18 08/20/22 Russell Ge MD [address] [place] [address], [address] [place] [address] [email or web address] Ophthalmology 10/31/18 Maryan Christy DEALER CARD ROOM [address] [place] [address] Psychiatry 11/26/19 Sisi Pinto MD [address] [place] [address], 2nd [place] [address] [email or web address] General Surgery 01/13/20 Francois Nails MD [address] [place] [address] [email or web address] Endocrinology 01/28/20 Justen Etienne DO [address] [place] [address] [email or web address] and [email or web address] 09/29/20 Meghana Green PA [address] [place] [address] [email or web address] Physician Devops Developer Oncology 11/10/20 02/02/21 Bin Hsieh MD [address] [place] [address] Palliative Care 02/27/21 Silvia Spencer MD [address] [place] [address] Primary Oncologist Medical Oncology 02/28/22 Don Chen MD [address] [place] [address], [address] [place] [address] Insurance Assigned Provider 08/19/23 09/21/24 Soledad Menard MD [address] [place] [address] Ophthalmology 10/24/23 Heriberto Apodaca MD [address] [place] [address], [address] [place] [address] [email or web address] Insurance Assigned Provider 09/21/24 documented as of this encounter Additional Source Comments The information contained in this document represents components of the legal health record. It is not the complete legal health record.[facility]
--- OUTSIDE RECORDS SUMMARY | 2025-01-28 15:28 | XMS_ITS | Encounter Summary ---
Author Organization [facility] Address [address] [place] [address] [address] [place] [address] Phone Care Team Providers Care Electromechanical Technologist Name Role Phone Bay Aguilar MD Unavailable [phone] Santino Santacruz MD Unavailable Heriberto Apodaca MD Unavailable [phone] Russell Ge MD Unavailable Maryan Christy CLIENT ADVOCATE Unavailable Darryl Henriquez [facility] Primary Care Provider [phone] Sisi Pinto MD Unavailable Heriberto Apodaca MD Primary Care Provider [phone] Francois Nails MD Unavailable [phone] Darryl Henriquez [facility] Primary Care Provider [phone] Heriberto Apodaca MD Primary Care Provider [phone] Darryl Henriquez [facility] Primary Care Provider [phone] Justen Etienne DO Unavailable [phone] Meghana Green Unavailable Bin Hsieh MD Unavailable Darryl Henriquez [facility] Primary Care Provider [phone] FlorenceDarryl SOCK KNITTER Primary Care Provider +[phone] Heriberto Apodaca MD Primary Care Provider +[phone] Jurgenmario Parisjessy [facility] Primary Care Provider +1 Heriberto Apodaca MD Primary Care Provider [phone] Darryl Henriquez [facility] Primary Care Provider +1 Silvia Spencer MD Unavailable [phone] Don Chen MD Unavailable [phone] Soledad Menard MD Unavailable [phone] Don Chen MD Primary Care Provider JurgenmarioDarryl [facility] Primary Care Provider + Heriberto Apodaca MD Unavailable +[phone] Encounter Details Date Type Department Care Team (Late Contact Info) Description 01/16/2020 Procedure Pass OR Admitting Dept - Virtual Department [address] [place] [id number] Social History Tobacco Use Types Packs/Day Years [...] Description 01/31/2025 2:00 PM EDT Office Visit [facility] at [address] [address] Silvia Spencer MD [address] [place] [address] [email or web address] documented as of this encounter Visit Diagnoses [...] documented as of this encounter Care Teams Electromechanical Technologist Relationship Specialty Start Date End Date Darryl Henriquez CNP [address] [place] [address], [address] [place] [address] [email or web address] PCP - General Family Medicine 01/08/20 01/20/20 Heriberto Apodaca MD [address] [place] [address], [address] [place] [address] [email or web address] PCP - General Family Medicine 01/21/20 01/27/20 Darryl Henriquez CNP [address] [place] [address], [address] [place] [address] [email or web address] PCP - General Family Medicine 01/28/20 07/29/20 Heriberto Apodaca MD [address] [place] [address], [address] [place] [address] [email or web address] PCP - General Family Medicine 07/30/20 08/13/20 Darryl Henriquez CNP [address] [place], [place] [address] [place] [address] [email or web address] PCP - General Family Medicine 08/14/20 03/21/21 Darryl Henriquez CNP [address] [place] [address], [address] [place] [address] [email or web address] PCP - General Family Medicine 03/22/21 03/22/21 Darryl Henriquez CNP [address] [place] [address], [address] [place] [address] [email or web address] PCP - General Family Medicine 03/23/21 03/30/21 Heriberto Apodaca MD [address] [place] [address], [address] [place] [address] [email or web address] PCP - General Family Medicine 03/31/21 05/31/21 Darryl Henriquez CNP [address] [place] [address], [address] [place] [address] [email or web address] PCP - General Family Medicine 06/01/21 07/19/21 Heriberto Apodaca MD [address] [place] [address], [address] [place] [address] PCP - General Family Medicine 07/20/21 08/30/21 Darryl Henriquez CNP [address] [place] [address], [address] [place] [address] PCP - General Family Medicine 08/31/21 10/23/23 Don Chen MD [address] [place] [address], [address] [place] [address] [email or web address] PCP - General Internal Medicine 10/24/23 11/19/23 Darryl Henriquez CNP [address] [place] [address], [address] [place] [address] [email or web address] PCP - General Adult Health 11/20/23 Bay Aguilar MD [address] [place] [address] [email or web address] Historical LMR Provider 02/28/17 05/22/21 Santino Santacruz MD [address] [place] [address], [address] [place] [address] [email or web address] Historical LMR Provider 02/28/17 05/22/21 Heriberto Apodaca MD [address] [place] [address], [address] [place] [address] [email or web address] Insurance Assigned Provider 09/15/18 08/20/22 Russell Ge MD [address] [place] [address], [address] [place] [address] [email or web address] Ophthalmology 10/31/18 Maryan Christy CNS [address] [place] [address] Psychiatry 11/26/19 Sisi Pinto MD [address] [facility], 2nd [place] [address] [email or web address] General Surgery 01/13/20 Francois Nails MD [address] [place] [address] [email or web address] Endocrinology 01/28/20 Justen Etienne DO [address] [place] [address] [email or web address] Allergy and Immunology 09/29/20 Meghana Green PA [address] [place] [address] [email or web address] Physician Trainer Oncology 11/10/20 02/02/21 Bin Hsieh MD [address] [place] [address] Palliative Care 02/27/21 Silvia Spencer MD [address] [place] [email or web address] Primary Oncologist Medical Oncology 02/28/22 Don Chen MD [address] [facility], [address] [place] [address] [email or web address] Insurance Assigned Provider 08/19/23 09/21/24 Soledad Menard MD [address] [place] [address] Ophthalmology 10/24/23 Heriberto Apodaca MD [address] [place] [address], [address] [place] [address] [email or web address] Insurance Assigned Provider 09/21/24 documented as of this encounter Additional Source Comments The information contained in this document represents components of the legal health record. It is not the complete legal health record.[facility]
--- OUTSIDE RECORDS SUMMARY | 2025-01-28 15:28 | XMS_ITS | Encounter Summary ---
Author Organization [facility] Address [address] [place] [address] [address] [place] [address] Phone Care Team Providers Care Duplicating Machine Mechanic Name Role Phone Bay Aguilar MD Unavailable Santino Santacruz MD Unavailable [phone] Bren Walker MD Unavailable [phone] Heriberto Apodaca MD Unavailable [phone] Russell Ge MD Unavailable [phone] Darryl Henriquez [facility] Primary Care Provider [phone] Maryan Christy COURTESY CAR DRIVER Unavailable Heriberto Apodaca MD Primary Care Provider [phone] Darryl Henriquez [facility] Primary Care Provider +[phone] Heriberto Apodaca MD Primary Care Provider +[phone] Darryl Henriquez [facility] Primary Care Provider +[phone] Heriberto Apodaca MD Primary Care Provider +[phone] Darryl Henriquez [facility] Primary Care Provider [phone] Sisi Pinto MD Unavailable [phone] Heriberto Apodaca MD Primary Care Provider [phone] Francois Nails MD Unavailable JurgenmarioDarryl CUTTER OPERATOR TILE Primary Care Provider [phone] Heriberto Apodaca MD Primary Care Provider [phone] JurgenrabiaDarryl jacobson [facility] Primary Care Provider [phone] Justen Etienne Jose Unavailable Meghana Green Unavailable Bin Hsieh MD Unavailable Jurgenmario Darryl CUTTER OPERATOR TILE Primary Care Provider [phone] Santmario Darryl CUTTER OPERATOR TILE Primary Care Provider [phone] Heriberto Apodaca MD Primary Care Provider [phone] Jurgenmario Darryl CUTTER OPERATOR TILE Primary Care Provider Heriberto Apodaca MD Primary Care Provider [phone] Jurgenmario Parisjessy [facility] Primary Care Provider Silvia Spencer MD Unavailable [phone] Don Chen MD Unavailable Soledad Menard MD Unavailable Don Chen MD Primary Care Provider Jurgenmario Parisjessy [facility] Primary Care Provider Heriberto Apodaca MD Unavailable [phone] Encounter Details Date Type Department Care Team (Late st Contact Info) Description 11/11/2019 Ancillary Orders [facility] [address] [place] [address] Darryl Henriquez CNP [address] [facility], [address] [place] [address] [email or web address] Social History Tobacco Use Types Packs/Day Years Used Date Smoking Tobacco: Former Cigarettes 06 08 1 979 - 2003 Smokeless Tobacco: Never [...] Office Visit [facility] at [address] [address] Silvia Spencer MD [address] [place] [address] [email or web address] documented as of this encounter Visit Diagnoses [...] documented as of this encounter Care Teams Duplicating Machine Mechanic Relationship Specialty Start Date End Date Darryl Henriquez CNP [address] [facility], [address] [place] [address] PCP - General Family Medicine 05/14/19 12/18/19 Heriberto Apodaca MD [address] [facility], [address] [place] [address] [email or web address] PCP - General Family Medicine 12/19/19 12/19/19 Darryl Henriquez CNP [address] [place] [address], [address] [place] [address] [email or web address] PCP - General Family Medicine 12/20/19 12/26/19 Heribreto Apodaca MD [address] [place] [address], [address] [place] [address] [email or web address] PCP - General Family Medicine 12/27/19 12/29/19 Darryl Henriquez CNP [address] [place] [address], [address] [place] [address] [email or web address] PCP - General Family Medicine 12/30/19 12/30/19 Heriberto Apodaca MD [address] [place] [address], [address] [place] [address] [email or web address] PCP - General Family Medicine 12/31/19 01/07/20 Darryl Henriquez CNP [address] [place] [address], [address] [place] [address] [email or web address] PCP - General Family Medicine 01/08/20 01/20/20 Heriberto Apodaca MD [address] [place] [address], [address] [place] [address] [email or web address] PCP - General Family Medicine 01/21/20 01/27/20 Darryl Henriquez CNP [address] [place] [address], [address] [place] [address] [email or web address] PCP - General Family Medicine 01/28/20 07/29/20 Heriberto Apodaca MD [address] [place] [address], [address] [place] [address] PCP - General Family Medicine 07/30/20 08/13/20 Darryl Henriquez CNP [address] [place] [address], [address] [place] [address] [email or web address] PCP - General Family Medicine 08/14/20 03/21/21 Darryl Henriquez CNP [address] [place] [address], [address] [place] [address] [email or web address] PCP - General Family Medicine 03/22/21 03/22/21 Darryl Henriquez CNP [address] [place] [address], [address] [place] [address] [email or web address] PCP - General Family Medicine 03/23/21 03/30/21 Heriberto Apodaca MD [address] [place] [address], [address] [place] [address] PCP - General Family Medicine 03/31/21 05/31/21 Darryl Henriquez CNP [address] [place] [address], [address] [place] [address] PCP - General Family Medicine 06/01/21 07/19/21 Heriberto Apodaca MD [address] [facility], [address] [place] [address] [email or web address] PCP - General Family Medicine 07/20/21 08/30/21 Darryl Henriquez CNP [address] [facility], [address] [place] [address] [email or web address] PCP - General Family Medicine 08/31/21 10/23/23 Don Chen MD [address] [place] [address], [address] [place] [address] [email or web address] PCP - General Internal Medicine 10/24/23 11/19/23 Darryl Henriquez CNP [address] [place] [address], [address] [place] [address] [email or web address] PCP - General Adult Health 11/20/23 Bay Aguilar MD [address] [place] [address] [email or web address] Historical LMR Provider 02/28/17 05/22/21 Santino Santacruz MD [address] [facility], [address] [place] [address] [email or web address] Historical LMR Provider 02/28/17 05/22/21 Bren Walker MD [address] [facility], 2nd [place] [address] [email or web address] Historical LMR Provider 02/28/17 11/25/19 Heriberto Apodaca MD [address] [place] [address], [address] [place] [address] [email or web address] Insurance Assigned Provider 09/15/18 08/20/22 Russell Ge MD [address] [place] [address], [address] [place] [address] [email or web address] Ophthalmology 10/31/18 Maryan Christy CNS [address] [place] [address] Psychiatry 11/26/19 Sisi Pinto MD [address] [place] [address], 2[address] [place] [address] [email or web address] General Surgery 01/13/20 Francois Nails MD [address] [place] [address] [email or web address] Endocrinology 01/28/20 Justen Etienne DO [address] [place] [address] [email or web address] Allergy and Immunology 09/29/20 Meghana Green PA [address] [place] [address] [email or web address] Physician Airframe [employer] Powerplant Mechanic Oncology 11/10/20 02/02/21 Bin Hsieh MD [address] [place] [address] Palliative Care 02/27/21 Silvia Spencer MD [address] [place] [address] Primary Oncologist Medical Oncology 02/28/22 Don Chen MD [address] [place] [address], [address] [place] [address] Insurance Assigned Provider 08/19/23 09/21/24 Soledad Menard MD [address] [place] [address] Ophthalmology 10/24/23 Heriberto Apodaca MD [address] [place] [address], [address] [place] [address] [email or web address] Insurance Assigned Provider 09/21/24 documented as of this encounter Additional Source Comments The information contained in this document represents components of the legal health record. It is not the complete legal health record.[facility]
--- OUTSIDE RECORDS SUMMARY | 2025-01-28 15:28 | XMS_ITS | Encounter Summary ---
Author Organization [facility] Address [address] [place] [address] [address] [place] [address] Phone Care Team Providers Care Production Operations Engineer Name Role Phone Bay Aguilar MD Unavailable Heriberto Apodaca MD Unavailable [phone] Santino Santacruz MD Unavailable Bren Walker MD Unavailable [phone] Darryl Henriquez CNP Primary Care Provider + Heriberto Apodaca MD Unavailable +[phone] Russell Ge MD Unavailable +[phone] Heriberto Apodaca MD Primary Care Provider +[phone] Darryl Henriquez CNP Primary Care Provider +[phone] Maryan Christy COST ENGINEER Unavailable [phone] Heriberto Apodaca MD Primary Care Provider +[phone] Darryl Henriquez CNP Primary Care Provider + Heriberto Apodaca MD Primary Care Provider +[phone] Darryl Henriquez CNP Primary Care Provider +[phone] Heriberto Apodaca MD Primary Care Provider +[phone] Darryl Henriquez CNP Primary Care Provider [phone] Sisi Pinto MD Unavailable [phone] Heriberto Apodaca MD Primary Care Provider +[phone] Francois Nails MD Unavailable +[phone] Santrabiali Parisice PHYSICIST [place] [place] Primary Care Provider +[phone] Heriberto Apodaca MD Primary Care Provider [phone] Santorelli Chalice PHYSICIST [place] Primary Care Provider +[phone] Justen Etienne DO Unavailable +[phone] Meghana Green Unavailable Bin Hsieh MD Unavailable Santorelli, Parisice PHYSICIST [place] [place] Primary Care Provider +[phone] Santorelli, Chalice PHYSICIST [place] Primary Care Provider +[phone] Heriberto Apodaca MD Primary Care Provider +[phone] SantrabialiParisice PHYSICIST [place] Primary Care Provider +[phone] Heriberto Apodaca MD Primary Care Provider +[phone] SantDarryl martin PHYSICIST [place] Primary Care Provider +[phone] Silvia Spencer MD Unavailable +[phone] Don Chen MD Unavailable [phone] Soledad Menard MD Unavailable +[phone] Don Chen MD Primary Care Provider SantDarryl martin PHYSICIST [place] Primary Care Provider Heriberto Apodaca MD Unavailable [phone] Encounter Details Date Type Department Care Team (Late st Contact Info) Description 04/04/2018 Ancillary Orders [address] [place] [address] SantDarryl martin, PHYSICIST [place] [place] 22 [facility], [address] [place] [address] Social History Tobacco Use Types Packs/Day Years [...] 01/31/2025 2:00 PM EDT Office Visit [facility] at [address] [address] Silvia Spencer MD [address] [place] [address] [email or web address] documented as of this encounter Visit Diagnoses Not on filedocumented in this encounter Additional Health Concerns Infection Onset Date Last Indicated Resolved Time CoV-Presumed 10/29/2021 10/29/2021 11/19/2021 1:21 AM EDT CoV-Risk 01/12/2022 01/12/2022 01/23/2022 1:22 AM EDT CoV-Risk 06/22/2022 06/22/2022 07/03/2022 1:22 AM EST COVID-19 05/03/2024 05/03/2024 05/24/2024 1:23 AM EST documented as of this encounter Care Teams Production Operations Engineer Relationship Specialty Start Date End Date Darryl Henriquez CNP [address] [place] [address], [address] [place] [address] PCP - General 05/05/17 05/10/19 Heriberto Apodaca MD [address] [place] [address], [address] [place], [place] [id number] [email or web address] PCP - General Family Medicine 05/11/19 05/13/19 Darryl Henriquez CNP 22 [facility], [address] [place] [address] [email or web address] PCP - General Family Medicine 05/14/19 12/18/19 Heriberto Apodaca MD [address] [place] [address], [address] [place] [address] [email or web address] PCP - General Family Medicine 12/19/19 12/19/19 Darryl Henriquez CNP [address] [place] [address], [address] [place] [address] [email or web address] PCP - General Family Medicine 12/20/19 12/26/19 Heriberto Apodaca MD 22 [facility], [address] [place] [address] [email or web address] PCP - General Family Medicine 12/27/19 12/29/19 Darryl Henriquez CNP [address] [place] [address], [address] [place] [address] [email or web address] PCP - General Family Medicine 12/30/19 12/30/19 Heriberto Apodaca MD [address] [place] [address], [address] [place] [address] PCP - General Family Medicine 12/31/19 01/07/20 Darryl Henriquez CNP 22 [facility], [address] [place] [address] [email or web address] PCP - General Family Medicine 01/08/20 01/20/20 Heriberto Apodaca MD 22 [facility], [address] [place] [address] [email or web address] PCP - General Family Medicine 01/21/20 01/27/20 Darryl Henriquez CNP 22 [facility], [address] [place] [address] [email or web address] PCP - General Family Medicine 01/28/20 07/29/20 Heriberto Apodaca MD [address] [place] [address], [address] [place] [address] [email or web address] PCP - General Family Medicine 07/30/20 08/13/20 Darryl Henriquez CNP 22 [facility], [address] [place] [address] [email or web address] PCP - General Family Medicine 08/14/20 03/21/21 Daryrl Henriquez CNP [address] [place] [address], [address] [place] [address] [email or web address] PCP - General Family Medicine 03/22/21 03/22/21 Darryl Henriquez CNP [address] [place] [address], [address] [place] [address] PCP - General Family Medicine 03/23/21 03/30/21 Heriberto Apodaca MD [address] [place] [address], [address] [place] [address] [email or web address] PCP - General Family Medicine 03/31/21 05/31/21 Darryl Henriquez CNP [address] [place] [address], [address] [place] [address] [email or web address] PCP - General Family Medicine 06/01/21 07/19/21 Heriberto Apodaca MD [address] [place] [address], [address] [place] [address] [email or web address] PCP - General Family Medicine 07/20/21 08/30/21 Darryl Henriquez CNP [address] [place] [address], [address] [place] [address] [email or web address] PCP - General Family Medicine 08/31/21 10/23/23 Don Chen MD [address] [place] [address], [address] [place] [address] [email or web address] PCP - General Internal Medicine 10/24/23 11/19/23 Darryl Henriquez CNP [address] [place] [address], [address] [place] [address] [email or web address] PCP - General Adult Health 11/20/23 Bay Aguilar MD [address] [place] [address] [email or web address] Historical LMR Provider 02/28/17 05/22/21 Heriberto Apodaca MD [address] [place] [address], [address] [place] [address] Historical LMR Provider 02/28/17 10/30/18 Santino Santacruz MD [address] [place] [address], [address] [place] [address] Historical LMR Provider 02/28/17 05/22/21 Bren Walker MD [address] [place] [address], [address] [place] [address] Historical LMR Provider 02/28/17 11/25/19 Heriberto Apodaca MD [address] [place] [address], [address] [place] [address] Insurance Assigned Provider 09/15/18 08/20/22 Russell Ge MD [address] [place] [address], [address] [place] [address] Ophthalmology 10/31/18 Maryan Christy, COST ENGINEER [address] [place] [address] Psychiatry 11/26/19 Sisi Pinto MD [address] [place] [address], [address] [place] [address] General Surgery 01/13/20 Francois Nails MD [address] [place] [address] [email or web address] Endocrinology 01/28/20 Justen Etienne DO [address] [place] [address] [email or web address] 09/29/20 Meghana Green PA [address] [place] [address] [email or web address] Physician Furnace Repairer Oncology 11/10/20 02/02/21 Bin Hsieh MD [address] [place] [address] [email or web address] Palliative Care 02/27/21 Silvia Spencer MD [address] [place] [address] [email or web address] Primary Oncologist Medical Oncology 02/28/22 Don Chen MD [address] [place] [address], [address] [place] [address] [email or web address] Insurance Assigned Provider 08/19/23 09/21/24 Soledad Menard MD [address] [place] [address] Ophthalmology 10/24/23 Heriberto Apodaca MD [address] [place] [address], [address] [place] [address] [email or web address] Insurance Assigned Provider 09/21/24 documented as of this encounter Additional Source Comments The information contained in this document represents components of the legal health record. It is not the complete legal health record.[facility]
--- OUTSIDE RECORDS SUMMARY | 2025-01-28 15:28 | XMS_ITS | Encounter Summary ---
Author Organization [facility] Address [address] [place] [address] [address] [place] [address] Phone Care Team Providers Care Highway Commissioner Name Role Phone Bay Aguilar MD Unavailable [phone] Santino Santacruz MD Unavailable Heriberto Apodaca MD Unavailable [phone] Russell Ge MD Unavailable Maryan Christy [facility] Unavailable Heriberto Apodaca MD Primary Care Provider [phone] Darryl Henriquez BANBURY OPERATOR Primary Care Provider [phone] Sisi Pinto MD Unavailable Heriberto Apodaca MD Primary Care Provider +[phone] Francois Nails MD Unavailable [phone] Darryl Henriquez CNP Primary Care Provider [phone] Heriberto Apodaca MD Primary Care Provider [phone] Darryl Henriquez BANBURY OPERATOR Primary Care Provider +[phone] Justen Etienne DO Unavailable [phone] Meghana Green Unavailable Bin Hsieh MD Unavailable Darryl Henriquez CNP Primary Care Provider [phone] Darryl Henriquez BANBURY OPERATOR Primary Care Provider +[phone] Heriberto Apodaca MD Primary Care Provider + Darryl Henriquez BANBURY OPERATOR Primary Care Provider +[phone] Heriberto Apodaca MD Primary Care Provider +[phone] Darryl Henriquez [facility] Primary Care Provider [phone] Silvia Spencer MD Unavailable [phone] Don Chen MD Unavailable [phone] Soledad Menard MD Unavailable [phone] Don Chen MD Primary Care Provider +[phone] Darryl Henriquez [facility] Primary Care Provider + Heriberto Apodaca MD Unavailable +[phone] Encounter Details Date Type Department Care Team (Late Contact Info) Description 01/01/2020 Procedure Pass [facility] Radiology [address] [place] [address] [phone] Social History Tobacco Use Types Packs/Day Years [...] Description 01/31/2025 2:00 PM EDT Office Visit [facility] [address] [place], [place] [phone] Silvia Spencer MD [address] [place] [address] [email or web address] documented as of this encounter Visit Diagnoses [...] documented as of this encounter Care Teams Highway Commissioner Relationship Specialty Start Date End Date Heriberto Apodaca MD [address] [place] [address], [address] [place] [address] [email or web address] PCP - General Family Medicine 12/31/19 01/07/20 Darryl Henriquez CNP [address] [place] [address], [address] [place] [address] PCP - General Family Medicine 01/08/20 01/20/20 Heriberto Apodaca MD [address] [place] [address], [address] [place] [address] PCP - General Family Medicine 01/21/20 01/27/20 Darryl Henriquez CNP [address] [place] [address], [address] [place] [address] PCP - General Family Medicine 01/28/20 07/29/20 Heriberto Apodaca MD 22 [facility], [address] [place] [address] [email or web address] PCP - General Family Medicine 07/30/20 08/13/20 Darryl Henriquez BANBURY OPERATOR 22 [facility], [address] [place] [address] [email or web address] PCP - General Family Medicine 08/14/20 03/21/21 Darryl Henriquez CNP [address] [place] [address], [address] [place] [address] [email or web address] PCP - General Family Medicine 03/22/21 03/22/21 Darryl Henriquez BANBURY OPERATOR [address] [place] [address], [address] [place] [address] [email or web address] PCP - General Family Medicine 03/23/21 03/30/21 Heriberto Apodaca MD [address] [place] [address], [address] [place] [address] [email or web address] PCP - General Family Medicine 03/31/21 05/31/21 Darryl Henriquez BANBURY OPERATOR [address] [place] [address], [address] [place] [address] [email or web address] PCP - General Family Medicine 06/01/21 07/19/21 Heriberto Apodaca MD [address] [place] [address], [address] [place] [address] PCP - General Family Medicine 07/20/21 08/30/21 Darryl Henriqeuz CNP [address] [place] [address], [address] [place] [address] PCP - General Family Medicine 08/31/21 10/23/23 Don Chen MD [address] [place] [address], [address] [place] [address] [email or web address] PCP - General Internal Medicine 10/24/23 11/19/23 Darryl Henriquez CNP [address] [place] [address], [address] [place] [address] [email or web address] PCP - General Adult Health 11/20/23 Bay Aguilar MD [address] [place] [address] [email or web address] Historical LMR Provider 02/28/17 05/22/21 Santino Santacruz MD [address] [place] [address], [address] [place] [address] [email or web address] Historical LMR Provider 02/28/17 05/22/21 Heriberto Apodaca MD [address] [place] [address], [address] [place] [address] [email or web address] Insurance Assigned Provider 09/15/18 08/20/22 Russell Ge MD [address] [place] [address], [address] [place] [address] [email or web address] Ophthalmology 10/31/18 Maryan Christy, ANALYTICAL RESEARCH PROGRAM MANAGER [address] [place] [address] Psychiatry 11/26/19 Sisi Pinto MD [address] [facility], 2nd [place] [address] [email or web address] General Surgery 01/13/20 Francois Nails MD [address] [place] [address] [email or web address] Endocrinology 01/28/20 Justen Etienne DO [address] [place] [address] [email or web address] 09/29/20 Meghana Green PA [address] [place] [address] [email or web address] Physician Therapeutic Program Worker Oncology 11/10/20 02/02/21 Bin Hsieh MD [address] [place] [address] Palliative Care 02/27/21 Silvia Spencer MD [address] [place] [address] Primary Oncologist Medical Oncology 02/28/22 Don Chen MD [address] [place] [address], [address] [place] [address] [email or web address] Insurance Assigned Provider 08/19/23 09/21/24 Soledad Menard MD [address] [place] [address] Ophthalmology 10/24/23 Heriberto Apodaca MD [address] [place] [address], [address] [place] [address] [email or web address] Insurance Assigned Provider 09/21/24 documented as of this encounter Additional Source Comments The information contained in this document represents components of the legal health record. It is not the complete legal health record.[facility]
--- OUTSIDE RECORDS SUMMARY | 2025-01-28 15:29 | XMS_ITS | Encounter Summary ---
Author Organization [facility] Address [address] [place] [address] Phone Care Team Providers Care Director Employee Communications Name Role Phone Heriberto Apodaca MD Unavailable [phone] Russell Ge MD Unavailable [phone] Maryan Christy [facility] Unavailable [phone] Sisi Pinto MD Unavailable [phone] Francois Nails MD Unavailable Justen Etienne DO Unavailable [phone] Bin Hsieh MD Unavailable Darryl Henriquez CNP Primary Care Provider [phone] Silvia Spencer MD Unavailable [phone] Don Chen MD Unavailable Soledad Menard MD Unavailable [phone] Don Chen MD Primary Care Provider [phone] Darryl Henriquez CNP Primary Care Provider [phone] Heriberto Apodaca MD Unavailable [phone] Encounter Details Date Type Department Care Team (Latest Contact Info) Description 04/01/2022 Transcribe Orders [facility] [address] [id number] Lyndsey Rivas PA-C [address] [place] [address] [email or web address] Change in bowel habits (Primary Dx) Social History Tobacco Use Types Packs/Day Years Used Date Smoking Tobacco: Former Cigarettes 1 25 1 979 - 2003 Smokeless Tobacco: Never Alcohol Use Standard Drinks/Week Comments Not Currently 0 (1 standard drink = 0.6 oz pur e alcohol) rarely Comments No Sex and Gender Information Value [...] Description 01/31/2025 2:00 PM EDT Office Visit [facility] at [address] [address] Silvia Spencer MD [address] [place] [address] [email or web address] documented as of this encounter Results * Pancreatic Elastase, Stool (04/12/2022 12:00 PM EST) Pancreatic Elastase, Feces 394 >200 (Normal) mcg/g [facility] Stool (Stool) 04/12/2022 12: 00 PM EST 04/13/2022 9:40 AM EST Lyndsey Rivas PA-C BODY FLUIDS AND STOOLS ORDERABL ES Final Result [facility] [address] [place] [address] * Stool culture (04/12/2022 12:00 PM EST) Special Requests None 04/13/2022 9:38 AM EST [facility] Stool Culture NO SALMONELLA, SHIGELLA OR CAMPYLOBACTER ISOLATED 04/14/2022 8:55 AM EST [facility] Stool (Stool) 04/12/2022 12: 00 PM EST 04/13/2022 9:39 AM EST Comment:STOOL Lyndsey Rivas PA-C MICROBIOLOGY - GENERAL ORDERABL ES Final Result Performing Organization Address City/[facility]/ZIP Co de Phone Number [address] [address] * Fecal immunochemical test x1 (FIT) (04/11/2022 7:00 PM EST) Pathologist [facility] Immuno Fecal Occult Negative Negative [facility] Stool (Stool) 04/11/2022 7:0 0 PM EST 04/13/2022 9:37 AM EST Lyndsey Rivas PA-C BODY FLUIDS AND STOOLS ORDERABL ES Final Result Performing Organization Address [facility] Co de Phone Number [address] [address] * Ova and parasites, stool (04/06/2022 3:00 PM EST) Pathologist [facility] Parasitic exam Test Not Performed. [facility] DPT OF LAB MED AND PAT+ Comment: (NOTE) SOURCE: STOOL OVA AND PARASITE, MICROSCOPY, F Cancel reason - 04/09/2022 13:01 Quantity was not sufficient for testing. STOOL !CNCL! Stool (Stool) 04/06/2022 3:0 0 PM EST 04/06/2022 3:58 PM EST Lyndsey Rivas PA-C MICROBIOLOGY - GENERAL ORDERABL ES Final Result Performing Organization Address City/[facility]/ZIP Co de Phone Number [facility] DPT OF LAB MED AND PAT+ [address] [place] [address] * Ova and parasites, stool (04/04/2022 1:00 PM EST) Parasitic exam FINAL 2 2228 [facility] DPT OF LAB MED AND PAT+ Comment: (NOTE) SOURCE: STOOL OVA AND PARASITE, MICROSCOPY, F FINAL No parasites seen. Cryptosporidium, Cyclospora, and microsporidia are not readily detected by this method. Single negative specimen does not rule out parasitic infection. Stool (Stool) 04/04/2022 1:0 0 PM EST 04/06/2022 4:00 PM EST Lyndsey Rivas PA-C MICROBIOLOGY - GENERAL ORDERABL ES Final Result Performing Organization Address [facility] Co de Phone Number [facility] DPT OF LAB MED AND PAT+ [address] [place] [address] * Ova and parasites, stool (04/03/2022 12:00 PM EST) Parasitic exam FINAL 2 2258 [facility] DPT OF LAB MED AND PAT+ Comment: (NOTE) SOURCE: STOOL OVA AND PARASITE, MICROSCOPY, F FINAL No parasites seen. Cryptosporidium, Cyclospora, and microsporidia are not readily detected by this method. Single negative specimen does not rule out parasitic infection. Stool (Stool) 04/03/2022 12: 00 PM EST 04/06/2022 4:04 PM EST Lyndsey Rivas PA-C MICROBIOLOGY - GENERAL ORDERABL ES Final Result Performing Organization Address City/[facility] Co de Phone Number [facility] DPT OF LAB MED AND PAT+ [address] [place] [address] * TSH (04/01/2022 10:21 AM EST) TSH 0.96 0.27 - 4.20 uIU/mL [facility] Blood 04/01/2022 10:2 1 AM EST 04/01/2022 10:32 AM EST Lyndsey Rivas PA-C LAB BLOOD ORDERABLES Final Resu lt Performing Organization Address City/[facility]/ZIP Co de Phone Number [address] [address] * Lipase (04/01/2022 10:21 AM EST) LIPASE 47 16 - 63 U/L [facility] Blood 04/01/2022 10:2 1 AM EST 04/01/2022 10:32 AM EST us Lyndsey Rivas PA-C LAB BLOOD ORDERABLES Final Resu lt Performing Organization Address City/[facility]/ZIP Co de Phone Number [address] [address] * Immunoglobulin A (04/01/2022 10:21 AM EST) IgA 201 70 - 400 mg/dL [facility] Blood 04/01/2022 10:2 1 AM EST 04/01/2022 10:32 AM EST us Lyndsey Rivas PA-C LAB BLOOD ORDERABLES Final Resu lt Performing Organization Address [facility] Co de Phone Number [address] [address] * Tissue transglutaminase IgA (04/01/2022 10:21 AM EST) TTG IGA ANTIBODY <1.2 <4.0 (Negative) U/mL [facility] Blood 04/01/2022 10:2 1 AM EST 04/01/2022 10:31 AM EST Lyndsey Rivas PA-C LAB BLOOD ORDERABLES Final Resu lt Performing Organization Address City/[facility]/ZIP Co de Phone Number [facility] [address] [place] [address] documented in this encounter Visit Diagnoses Diagnosis Change in bowel habits- Primary Other symptoms involving digestive system documented in this encounter Additional Health Concerns Infection Onset Date Last Indicated Resolved Time CoV-Risk 06/22/2022 06/22/2022 07/03/2022 1:22 AM EST COVID-19 05/03/2024 05/03/2024 05/24/2024 1:23 AM EST Assessment Noted Time PHQ-2 Depression Total Score: 0 11/01/19 8:47 AM EDT documented as of this encounter Care Teams Director Employee Communications Relationship Specialty Start Date End Date Darryl Henriquez CNP [address] [facility], [address] [place] [address] PCP - General Family Medicine 08/31/21 10/23/23 Don Chen MD [address] [place] [address], [address] [address] PCP - General Internal Medicine 10/24/23 11/19/23 Darryl Henriquez CNP [address] [place] [address], [address] [place] [address] PCP - General Adult Health 11/20/23 Heriberto Apodaca MD [address] [place] [address], [address] [address] [email or web address] Insurance Assigned Provider 09/15/18 08/20/22 Russell Ge MD [address] [place] [address], [address] [address] Ophthalmology 10/31/18 Maryan Christy CNS [address] [place] [address] Psychiatry 11/26/19 Sisi Pinto MD [address] [place] [address], [address] [place] [address] [email or web address] General Surgery 01/13/20 Francois Nails MD [address] [place] [address] [email or web address] Endocrinology 01/28/20 Justen Etienne DO [address] [place] [address] [email or web address] Allergy and Immunology 09/29/20 Bin Hiseh MD [address] [place] [address] Palliative Care 02/27/21 Silvia Spencer MD [address] [place] [address] Primary Oncologist Medical Oncology 02/28/22 Don Chen MD [address] [place] [address], [address] [place] [address] Insurance Assigned Provider 08/19/23 09/21/24 Soledad Meanrd MD [address] [place] [address] Ophthalmology 10/24/23 Heriberto Apodaca MD [address] [place] [address], [address] [address] [email or web address] Insurance Assigned Provider 09/21/24 documented as of this encounter Additional Source Comments The information contained in this document represents components of the legal health record. It is not the complete legal health record.[facility]
--- OUTSIDE RECORDS SUMMARY | 2025-01-28 15:29 | XMS_ITS | Encounter Summary ---
Author Organization [facility] Address [address] [facility] [address] [place] [address] Phone Care Team Providers Care Ground Intelligence Officer Name Role Phone Heriberto Apodaca MD Unavailable [phone] Russell Ge MD Unavailable [phone] Maryan Christy [facility] Unavailable [phone] Sisi Pinto MD Unavailable [phone] Francois Nails MD Unavailable [phone] Justen Etienne DO Unavailable [phone] Bin Hsieh MD Unavailable Darryl Henriquez CNP Primary Care Provider [phone] Silvia Spencer MD Unavailable [phone] Don Chen MD Unavailable [phone] Soledad Menard MD Unavailable [phone] Don Chen MD Primary Care Provider [phone] Darryl Henriquez CNP Primary Care Provider [phone] Heriberto Apodaca MD Unavailable [phone] Encounter Details Date Type Department Care Team (Late st Contact Info) Description 12/03/2021 Telephone [facility] Palliative Care [address] [place] [address] Bin Hsieh MD [address] [place] [address] Social History Tobacco Use Types Packs/Day Years [...] Description 01/31/2025 2:00 PM EDT Office Visit [facility] at [address] [address] Silvia Spencer MD [address] [place] [address] [email or web address] documented as of this encounter Visit Diagnoses Not on filedocumented in this encounter Additional Health Concerns Infection Onset Date Last Indicated Resolved Time CoV-Risk 01/12/2022 01/12/2022 01/23/2022 1:22 AM EDT CoV-Risk 06/22/2022 06/22/2022 07/03/2022 1:22 AM EST COVID-19 05/03/2024 05/03/2024 05/24/2024 1:23 AM EST Assessment Noted Time PHQ-2 Depression Total Score: 0 11/01/19 8:47 AM EDT documented as of this encounter Care Teams Ground Intelligence Officer Relationship Specialty Start Date End Date Darryl Henriquez CNP [address] [facility], [address] [place] [address] [email or web address] PCP - General Family Medicine 08/31/21 10/23/23 Don Chen MD [address] [place] [address], [address] [place] [address] [email or web address] PCP - General Internal Medicine 10/24/23 11/19/23 Darryl Henriquez CNP [address] [place] [address], [address] [place] [address] [email or web address] PCP - General Adult Health 11/20/23 Heriberto Apodaca MD [address] [place] [address], [address] [place] [address] [email or web address] Insurance Assigned Provider 09/15/18 08/20/22 Russell Ge MD [address] [place] [address], [address] [place] [address] [email or web address] Ophthalmology 10/31/18 Maryan Christy CNS [address] [place] [address] Psychiatry 11/26/19 Siis Pinto MD [address] [place] [address], 2nd [place] [address] [email or web address] General Surgery 01/13/20 Francois Nails MD [address] [place] [address] [email or web address] Endocrinology 01/28/20 Justen Etienne DO [address] [place] [address] [email or web address] Allergy and Immunology 09/29/20 Bin Hsieh MD [address] [place] [address] Palliative Care 02/27/21 Silvia Spencer MD [address] [place] [address] Primary Oncologist Medical Oncology 02/28/22 Don Chen MD [address] [place] [address], [address] [address] Insurance Assigned Provider 08/19/23 09/21/24 Soledad Menard MD [address] [place] [address] Ophthalmology 10/24/23 Heriberto Apodaca MD [address] [place] [address], [address] [address] Insurance Assigned Provider 09/21/24 documented as of this encounter Additional Source Comments The information contained in this document represents components of the legal health record. It is not the complete legal health record.[facility]
--- OUTSIDE RECORDS SUMMARY | 2025-01-28 15:29 | XMS_ITS | Encounter Summary ---
Author Organization [facility] Address [address] [facility] [address] [place] [address] Phone Care Team Providers Care Waredresser Name Role Phone Russell Ge MD Unavailable [phone] Maryan Christy [facility] Unavailable Sisi Pinto MD Unavailable [phone] Francois Nails MD Unavailable [phone] Justen Etienne DO Unavailable Bin Hsieh MD Unavailable Silvia Specner MD Unavailable [phone] Soledad Menard MD Unavailable [phone] Darryl Henriquez [facility] Primary Care Provider [phone] Heriberto Apodaca MD Unavailable [phone] Reason for Visit * Reason Comments Medication Refill Encounter Details Date Type Department Care Team (Late st Contact Info) Description 11/28/2024 Refill [facility] [address] [place], [place] [phone] Darryl Henriquez CNP [address] [facility] [place], [address] [place] [address] Medication Refill Social History Tobacco Use Types [...] high school, GED, job training, learning the Ang[place] language, technical skills, or developing parenting skills)? [...] your housing situation today? I have chastity ge 10/04/2023 How many times have you move [...] as of this encounter Progress Notes * Elmer Apodaca MA - 11/28/2024 9:52 AM EDT Rx Care Gap Status - Instructions for Clinical Staff (prescriber discretion applies): > Mismatch review guide > No future appt: Please schedule if appropriate. Visit Info Last visit: 10/21/2024 Darryl Henriquez, BLAZE - Family Medicine [facility] > Requested f/u: Not specified Upcoming visit: None ACTIONS TAKEN BY Elmer Apodaca MA Cholesterol Medication Rx Protocol - atorvastatin calcium Criteria met; renew for up to 12 months. Visit in the past 14 months: Yes Clinical criteria: - Lipid panel within past year: Yes Lab Results Component Value Date LDL 138 (H) 08/26/2024 HDL 58 08/26/2024 CARDIAC RISK RATIO 4.1 08/26/2024 TRIGLYCERIDES 222 (H) 08/26/2024 CHOLESTEROL 240 08/26/2024 documented in this encounter Plan of Treatment Upcoming Encounters Date Type Department Care Team (Late st Contact Info) Description 01/31/2025 2:00 PM EDT Office Visit [facility] at [address] [address] Silvia Spencer MD [address] [place] [address] [email or web address] documented as of this encounter Visit Diagnoses Diagnosis Atherosclerosis of aorta documented in this encounter Additional Health Concerns Assessment Noted Time PHQ-9 Depression Total Score: 4 03/13/20 23 3:55 PM EDT PHQ-2 Depression Total Score: 1 03/13/20 23 3:55 PM EDT documented as of this encounter Care Teams Waredresser Relationship Specialty Start Date End Date Darryl Henriquez CNP [address] [facility], [address] [place] [address] [email or web address] PCP - General Adult Health 11/20/23 Russell Ge MD [email or web address] Ophthalmology 10/31/18 Maryan Christy CNS [address] [place] [address] Psychiatry 11/26/19 Sisi Pinto MD [address] [facility], 2nd [place] [address] [email or web address] General Surgery 01/13/20 Francois Nails MD [address] [place] [address] [email or web address] Endocrinology 01/28/20 Justen Etienne DO [address] [place] [address] [email or web address] [email or web address] and Immunology 09/29/20 Bin Hsieh MD [address] [place] [address] [email or web address] Palliative Care 02/27/21 Silvia Spencer MD [address] [place] [address] [email or web address] Primary Oncologist Medical Oncology 02/28/22 Soledad Menard MD [address] [place] [address] Ophthalmology 10/24/23 Heriberto Apodaca MD [address] [facility], [address] [place] [address] [email or web address] Insurance Assigned Provider 09/21/24 documented as of this encounter Additional Source Comments The information contained in this document represents components of the legal health record. It is not the complete legal health record.[facility]
--- OUTSIDE RECORDS SUMMARY | 2025-01-28 15:29 | XMS_ITS | Encounter Summary ---
Author Organization [facility] Address [address] [facility] [address] [place] [address] Phone Care Team Providers Care Pyroglazer Name Role Phone Russell Ge MD Unavailable [phone] Maryan Christy [facility] Unavailable Sisi Pinto MD Unavailable Francois Nails MD Unavailable Justen Etienne DO Unavailable Bin Hsieh MD Unavailable Silvia Spencer MD Unavailable Soledad Menard MD Unavailable [phone] Darryl Henriquez [facility] Primary Care Provider [phone] Heriberto Apodaca MD Unavailable [phone] Reason for Visit * Auth/Cert (Routine) Specialty Diagnoses / Procedures Referred By Contac t Referred To Contact Diagnoses Dysphagia, pharyngoesophageal phase Dysphagia, pharyngoesophageal phase [R13.14] Procedures ESOPHAGEAL FUNCTION TEST PH WITH IMPEDANCE CATHETER Referral ID Status Reason Start Date Expiration Date Visits Re quested Visits Authorized [id number] 1 1 Encounter Details Date Type Department Care Team (Late st Contact Info) Description 11/20/2024 Hospital Encounter [facility] Admitting Dept Virtual Department [address] [place] [address] Victoriano Casey MD [address] [address] [email or web address] Social History Tobacco Use Types Packs/Day Years [...] high school, GED, job training, learning the Algerian language, technical skills, or developing parenting skills)? [...] Description 01/31/2025 2:00 PM EDT Office Visit [facility] at [address] [address] Silvia Spencer MD [address] [place] [address] [email or web address] documented as of this encounter Visit Diagnoses Not on filedocumented in this encounter Additional Health Concerns Assessment Noted Time PHQ-9 Depression Total Score: 4 03/13/20 23 3:55 PM EDT PHQ-2 Depression Total Score: 1 03/13/20 23 3:55 PM EDT documented as of this encounter Care Teams Pyroglazer Relationship Specialty Start Date End Date Darryl Henriquez CNP [address] [place] [address], [address] [place] [address] [email or web address] PCP - General Adult Health 11/20/23 Russell Ge MD Ophthalmology 10/31/18 Maryan Christy CNS [address] [place] [address] Psychiatry 11/26/19 Sisi Pinto MD 15 [facility], 2nd [place] [address] [email or web address] General Surgery 01/13/20 Francois Nails MD [address] [place] [address] [email or web address] Endocrinology 01/28/20 Justen Etienne DO [address] [place] [address] [email or web address] and Immunology 09/29/20 Bin Hsieh MD [address] [place] [address] [email or web address] Palliative Care 02/27/21 Silvia Spencer MD [address] [place] [address] [email or web address] Primary Oncologist Medical Oncology 02/28/22 Soledad Menard MD [address] [place] [address] Ophthalmology 10/24/23 Heriberto Apodaca MD 22 [facility], [address] [place] [address] [email or web address] Insurance Assigned Provider 09/21/24 documented as of this encounter Additional Source Comments The information contained in this document represents components of the legal health record. It is not the complete legal health record.[facility]
--- OUTSIDE RECORDS SUMMARY | 2025-01-28 15:29 | XMS_ITS | Encounter Summary ---
Author Organization [facility] Address [address] [place] [address] [address] [place] [address] Phone Care Team Providers Care Watch Crystal Cutter Name Role Phone Bay Aguilar MD Unavailable [phone] Santino Santacruz MD Unavailable Heriberto Apodaca MD Unavailable [phone] Russell Ge MD Unavailable Maryan Christy GLYCERIN OPERATOR Unavailable Sisi Pinto MD Unavailable [phone] Francois Nails MD Unavailable Darryl Henriquez [facility] Primary Care Provider [phone] Heriberto Apodaca MD Primary Care Provider [phone] Darryl Henriquez [facility] Primary Care Provider [phone] Justen Etienne DO Unavailable Meghana Green Unavailable [phone] Bin Hsieh MD Unavailable Darryl Henriquez [facility] Primary Care Provider [phone] Darryl Henriquez [facility] Primary Care Provider [phone] Heriberto Apodaca MD Primary Care Provider [phone] FlorenceDarryl GENERATION MANAGER Primary Care Provider [phone] Heriberto Apodaca MD Primary Care Provider +[phone] Darryl Henriquez [facility] Primary Care Provider + Silvia Spencer MD Unavailable [phone] Don Chen MD Unavailable [phone] Soledad Menard MD Unavailable [phone] Don Chen MD Primary Care Provider JurgenmarioParisjessy [facility] Primary Care Provider + Heriberto Apodaca MD Unavailable + [phone] Encounter Details Date Type Department Care Team (Late Contact Info) Description 07/07/2020 Procedure Pass [facility] [address] [place] [address] Social History Tobacco Use Types Packs/Day Years [...] Upcoming Encounters Date Type Department Care Team ([facility] Contact Info) Description 01/31/2025 2:00 PM EDT Office Visit [facility] at [address] [address] Silvia Spencer MD [address] [place] [address] [email or web address] documented as of [...] documented as of this encounter Care Teams Watch Crystal Cutter Relationship Specialty Start Date End Date Darryl Henriqeuz CNP [address] [place] [address], [address] [place] [address] PCP - General Family Medicine 01/28/20 07/29/20 Heriberto Apodaca MD [address] [place] [address], [address] [place] [address] PCP - General Family Medicine 07/30/20 08/13/20 Darryl Henriquez CNP [address] [place] [address], [address] [place] [address] PCP - General Family Medicine 08/14/20 03/21/21 Darryl Henriquez CNP [address] [place] [address], [address] [place] [address] PCP - General Family Medicine 03/22/21 03/22/21 Darryl Henriquez CNP [address] [place] [address], [address] [place] [address] PCP - General Family Medicine 03/23/21 03/30/21 Heriberto Apodaca MD [address] [place] [address], [address] [place] [address] [email or web address] PCP - General Family Medicine 03/31/21 05/31/21 Darryl Henriquez CNP [address] [place] [address], [address] [place] [address] [email or web address] PCP - General Family Medicine 06/01/21 07/19/21 Heriberto Apodaca MD [address] [place] [address], [address] [place] [address] [email or web address] PCP - General Family Medicine 07/20/21 08/30/21 Darryl Henriquez CNP [address] [place] [address], [address] [place] [address] [email or web address] PCP - General Family Medicine 08/31/21 10/23/23 Don Chen MD [address] [place] [address], [address] [place] [address] [email or web address] PCP - General Internal Medicine 10/24/23 11/19/23 Darryl Henriquez CNP [address] [place] [address], [address] [place] [address] [email or web address] PCP - General Adult Health 11/20/23 Bay Aguilar MD [address] [place] [address] [email or web address] Historical LMR Provider 02/28/17 05/22/21 Satnino Santacruz MD [address] [place] [address], [address] [place] [address] [email or web address] Historical LMR Provider 02/28/17 05/22/21 Heriberto Apodaca MD [address] [place] [address], [address] [place] [address] [email or web address] Insurance Assigned Provider 09/15/18 08/20/22 Russell Ge MD [address] [place] [address], [address] [place] [address] [email or web address] Ophthalmology 10/31/18 Maryan Christy, GLYCERIN OPERATOR [address] [place] [address] Psychiatry 11/26/19 Sisi Pinto MD [address] [place] [address], 2nd [place] [address] [email or web address] General Surgery 01/13/20 Francois Naisl MD [address] [place] [address] [email or web address] Endocrinology 01/28/20 Justen Etienne DO [address] [place] [address], [address] [place] [address] [email or web address] and [email or web address] 09/29/20 Meghana Green PA [address] [place] [address] [email or web address] Physician Virtual Customer Assistant Oncology 11/10/20 02/02/21 Bin Hsieh MD [address] [place] [address] Palliative Care 02/27/21 Silvia Spencer MD [address] [place] [address] Primary Oncologist Medical Oncology 02/28/22 Don Chen MD [address] [place] [address], [address] [place] [address] Insurance Assigned Provider 08/19/23 09/21/24 Soledad Menard MD [address] [place] [address] Ophthalmology 10/24/23 Heriberto Apodaca MD [address] [place] [address], [address] [place] [address] Insurance Assigned Provider 09/21/24 documented as of this encounter Additional Source Comments The information contained in this document represents components of the legal health record. It is not the complete legal health record.[facility]
--- OUTSIDE RECORDS SUMMARY | 2025-01-28 15:29 | XMS_ITS | Encounter Summary ---
Author Organization [facility] Address [address] [facility] [address] [place] [address] Phone Care Team Providers Care High Value Associate Name Role Phone Russell Ge MD Unavailable Maryan Christy [facility] Unavailable Sisi Pinto MD Unavailable Francois Nails MD Unavailable Justen Etienne DO Unavailable Bin Hsieh MD Unavailable Darryl Henriquez CNP Primary Care Provider [phone] Silvia Spencer MD Unavailable [phone] Don Chen MD Unavailable [phone] Soledad Menard MD Unavailable [phone] Don Chen MD Primary Care Provider Darryl Henriquez CNP Primary Care Provider [phone] Heriberto Apodaca MD Unavailable [phone] Encounter Details Date Type Department Care Team (Late st Contact Info) Description 08/26/2022 Procedure Pass [facility], [facility] - [address] [place] [address] Social History Tobacco Use Types Packs/Day Years Used Date Smoking Tobacco: Former Cigarettes 1 25 1 979 - 2003 Smokeless Tobacco: Never Alcohol Use Standard Drinks/Week Comments Yes 7 (1 standard drink = 0.6 oz pur e alcohol) (2022) Child or Family Care Answer Date Record ed Do you have problems with on e of the following making it difficult for you to work, study, or receive health care? No 07/13/2022 Education Answer Date Recorded Are you interested in help w ith more adult education (for example, completing high school, GED, job training, learning the Telugu language, technical skills, or developing parenting skills)? No 07/13/2022 Food Answer Date Recorded Within the past 6 months we worried whether our food would run out before we got money to buy more. Sometimes True 023 Within the past 6 months the food we bought just didn't last and we didn't have enough money to get more. Sometimes True 05/2022 Residential Stability Answer Date Recor ded What is your housing situation today? I have chastity sing 07/13/2022 How many times have you moved in the past 12 mon? One time 07/13/2022 Paying for Meds Answer Date Recorded Do you have trouble paying for medicines? Yes 07/13/2022 Paying Utility Bills Answer Date Record ed Do you have trouble paying your heating or elect ricity bill? Yes 07/13/2022 Transportation Answer Date Recorded Has the lack of transportati on kept you from medical appointments or from getting medications? No 07/13/2022 Unemployment Answer Date Recorded Are you currently unemployed or working on a part-time or temporary basis, and looking for work? No 07/13/2022 Comments No Sex and Gender Information Value [...] - Inhaled Oxygen Concentration - - Weight 82.6 kg (182 lb) 08/28/2022 12:14 PM EDT Height 170.2 cm (5' 7 ) 08/28/2022 12:14 PM EDT Body Mass Index 28.51 08/28/2022 12:14 PM EDT documented in this encounter Plan of Treatment Upcoming Encounters Date Type Department Care Team (Late st Contact Info) Description 01/31/2025 2:00 PM EDT Office Visit [facility] at [facility] [address] [place] [address] Silvia Spencer MD [address] [place] [email or web address] documented as of this encounter Visit Diagnoses Not on filedocumented in this encounter Additional Health Concerns Infection Onset Date Last Indicated Resolved Time COVID-19 05/03/2024 05/03/2024 05/24/2024 1:23 AM EST Assessment Noted Time PHQ-9 Depression Total Score: 15 023 11:01 AM EST PHQ-2 Depression Total Score: 4 07/14/19 23 11:01 AM EST documented as of this encounter Care Teams High Value Associate Relationship Specialty Start Date End Date Darryl Henriquez CNP [address] [place] [address], [address] [address] PCP - General Family Medicine 08/31/21 10/23/23 Don Cehn MD [address] [place] [address], [address] [address] PCP - General Internal Medicine 10/24/23 11/19/23 Darryl Henriquez CNP [address] [place] [address], [address] [address] PCP - General Adult Health 11/20/23 Russell Ge MD Ophthalmology 10/31/18 Maryan Christy, RESIDENTIAL SERVICE TECHNICIAN [address] [place] [address] Psychiatry 11/26/19 Sisi Pinto MD [address] [place] [address], 2nd [place] [address] [email or web address] General Surgery 01/13/20 Francois Nails MD [address] [place] [address] [email or web address] Endocrinology 01/28/20 Justen Etienne DO [address] [place] [address] [email or web address] 09/29/20 Bin Hsieh MD [address] [place] [address] [email or web address] Palliative Care 02/27/21 Silvia Spencer MD [address] [place] [address] [email or web address] Primary Oncologist Medical Oncology 02/28/22 Don Chen MD [address] [facility], [address] [place] [address] [email or web address] Insurance Assigned Provider 08/19/23 09/21/24 Soledad Menard MD [address] [place] [address] Ophthalmology 10/24/23 Heriberto Apodaca MD [address] [place] [address], [address] [place] [address] [email or web address] Insurance Assigned Provider 09/21/24 documented as of this encounter Additional Source Comments The information contained in this document represents components of the legal health record. It is not the complete legal health record.[facility]
--- OUTSIDE RECORDS SUMMARY | 2025-01-28 15:29 | XMS_ITS | Encounter Summary ---
Author Organization [facility] Address [address] [facility] [address] [place] [address] Phone Care Team Providers Care Spar Machine Operator Name Role Phone Russell Ge MD Unavailable Maryan Christy [facility] Unavailable Sisi Pinto MD Unavailable [phone] Francois Nails MD Unavailable Justen Etienne DO Unavailable [phone] Bin Hsieh MD Unavailable Darryl Henriquez CNP Primary Care Provider [phone] Silvia Spencer MD Unavailable [phone] Don Chen MD Unavailable [phone] Soledad Menard MD Unavailable [phone] Don Chen MD Primary Care Provider Darryl Henriquez CNP Primary Care Provider [phone] Heriberto Apodaca MD Unavailable [phone] Encounter Details Date Type Department Care Team (Late st Contact Info) Description 05/09/2023 Procedure Pass [facility], Ct Scan - [facility] [address] [place] [address] Social History Tobacco Use Types Packs/Day Years [...] high school, GED, job training, learning the Yakut language, technical skills, or developing parenting skills)? [...] housing situation today? I have chastity ge 07/13/2022 How many times have you moved in the past 12 mon th? One time 07/13/2022 Paying for Meds Answer [...] on file documented as of this encounter Functional Status * Calculated C-SSRS Risk Score (Lifetime/Recent) Answer Date of Assessment Author No Risk Indicated 05/09/2023 7:45 PM Carol Ann Walker RN * [place] Suicide Severity Rating Scale (Screener/Recent Self-Report) Question Answer Date of Assessment Author 1. Wish to be (Past 1 Month) No 05/09/2023 7:45 PM Carol Ann Walker RN 2. Non-Specific Active Suicidal Thoughts (Past 1 Month) No 05/09/2023 7:45 PM Carol Ann Walker RN 6. Suicidal Behavior (Lifetime) No 05/09/2023 7:45 PM Carol Ann Walker RN documented as of this encounter Plan of Treatment Upcoming Encounters Date Type Department Care Team (Late st Contact Info) Description 01/31/2025 2:00 PM EDT Office Visit [facility] at [address] [address] Silvia Spencer MD [address] [place] [address] [email or web address] documented as of this encounter Visit Diagnoses Not on filedocumented in this encounter Additional Health Concerns Infection Onset Date Last Indicated Resolved Time COVID-19 05/03/2024 05/03/2024 05/24/2024 1:23 AM EST Assessment Noted Time PHQ-9 Depression Total Score: 4 03/13/20 23 3:55 PM EDT PHQ-2 Depression Total Score: 1 03/13/20 23 3:55 PM EDT documented as of this encounter Care Teams Spar Machine Operator Relationship Specialty Start Date End Date Darryl Henriquez CNP [address] [facility], [address] [place] [address] [email or web address] PCP - General Family Medicine 08/31/21 10/23/23 Don Chen MD [address] [place] [address], [address] [place] [address] [email or web address] PCP - General Internal Medicine 10/24/23 11/19/23 Darryl Henriquez CNP [address] [facility], [address] [place] [address] [email or web address] PCP - General Adult Health 11/20/23 Russell Ge MD [email or web address] Ophthalmology 10/31/18 Maryan Christy CNS [address] [place] [address] Psychiatry 11/26/19 Sisi Pinto MD [address] [facility], 2nd [place] [address] [email or web address] General Surgery 01/13/20 Francois Nails MD [address] [place] [address] [email or web address] Endocrinology 01/28/20 Justen Etienne DO [address] [place] [address] [email or web address] and [email or web address] 09/29/20 Bin Hsieh MD [address] [place] [address] [email or web address] Palliative Care 02/27/21 Silvia Spencer MD [address] [place] [email or web address] Primary Oncologist Medical Oncology 02/28/22 Don Chen MD [address] [place] [address], [address] [place] [address] [email or web address] Insurance Assigned Provider 08/19/23 09/21/24 Soledad Menard MD [address] [place] [address] Ophthalmology 10/24/23 Heriberto Apodaca MD [address] [place] [address], [address] [address] [email or web address] Insurance Assigned Provider 09/21/24 documented as of this encounter Additional Source Comments The information contained in this document represents components of the legal health record. It is not the complete legal health record.[facility]
--- OUTSIDE RECORDS SUMMARY | 2025-01-28 15:29 | XMS_ITS | Encounter Summary ---
Author Organization [facility] Address [address] [facility] [address] [place] [address] Phone Care Team Providers Care Housekeeper Head Name Role Phone Russell Ge MD Unavailable Maryan Christy [facility] Unavailable Sisi Pinto MD Unavailable Francois Nails MD Unavailable [phone] Justen Etienne DO Unavailable Bin Hsieh MD Unavailable Silvia Spencer MD Unavailable [phone] Soledad Menard MD Unavailable [phone] Darryl Henriquez [facility] Primary Care Provider [phone] Heriberto Apodaca MD Unavailable [phone] Encounter Details Date Type Department Care Team (Late st Contact Info) Description 10/15/2024 Procedure Pass [facility] Endoscopy Admitting Dept Virtual Department [address] [place] [address] Social History Tobacco Use Types Packs/Day Years [...] high school, GED, job training, learning the Belarusian language, technical skills, or developing parenting skills)? [...] Description 01/31/2025 2:00 PM EDT Office Visit [facility] at [facility] [address] [place] [address] Silvia Spencer MD [address] [place] [address] [email or web address] documented as of this encounter Visit Diagnoses Not on filedocumented in this encounter Additional Health Concerns Assessment Noted Time PHQ-9 Depression Total Score: 4 03/13/20 23 3:55 PM EDT PHQ-2 Depression Total Score: 1 03/13/20 23 3:55 PM EDT documented as of this encounter Care Teams Housekeeper Head Relationship Specialty Start Date End Date Darryl Henriquez CNP [address] [facility], [address] [place] [address] PCP - General Adult Health 11/20/23 Russell Ge MD Ophthalmology 10/31/18 Maryan Christy CNS [address] [place] [address] Psychiatry 11/26/19 Sisi Pinto MD [address] [facility], 2nd [place] [address] [email or web address] General Surgery 01/13/20 Francois Nails MD [address] [place] [address] [email or web address] Endocrinology 01/28/20 Justen Etienne DO [address] [place] [address] [email or web address] and [email or web address] 09/29/20 Bin Hsieh MD [address] [place] [address] Palliative Care 02/27/21 Silvia Spencer MD [address] [place] [address] [email or web address] Primary Oncologist Medical Oncology 02/28/22 Soledad Menard MD [address] [place] [address] Ophthalmology 10/24/23 Heriberto Apodaca MD [address] [place] [address], [address] [place] [address] [email or web address] Insurance Assigned Provider 09/21/24 documented as of this encounter Additional Source Comments The information contained in this document represents components of the legal health record. It is not the complete legal health record.[facility]
--- OUTSIDE RECORDS SUMMARY | 2025-01-28 15:29 | XMS_ITS | Encounter Summary ---
Author Organization [facility] Address [address] [place] [address] [place] [phone] Phone Care Team Providers Care Developer [employer] Name Role Phone Bay Aguilar MD Unavailable [phone] Santino Santacruz MD Unavailable Heriberto Apodaca MD Unavailable [phone] Russell eG MD Unavailable Maryan Christy BUFFET SERVER Unavailable Sisi Pinto MD Unavailable Francois Nails MD Unavailable Darryl Henriquez [facility] Primary Care Provider [phone] Justen Etienne DO Unavailable Bin Hsieh MD Unavailable Darryl Henriquez [facility] Primary Care Provider [phone] Darryl Henriquez [employer] Primary Care Provider [phone] Heriberto Apodaca MD Primary Care Provider [phone] Darryl Henriquez [employer] Primary Care Provider [phone] Heriberto Apodaca MD Primary Care Provider [phone] Darryl Henriquez [facility] Primary Care Provider [phone] Silvia Spencer MD Unavailable [phone] Don Chen MD Unavailable Soledad Menard MD Unavailable Don Chen MD Primary Care Provider JurgenrabiaDarryl jacobson BLAZE Primary Care Provider [phone] Heriberto Apodaca MD Unavailable [phone] Encounter Details Date Type Department Care Team (Late Contact Info) Description 02/05/2021 Procedure Pass [facility] [address] [place] [address] Social History Tobacco Use Types Packs/Day Years Used Date Smoking Tobacco: Former Cigarettes 9 2003 Smokeless Tobacco: Never Alcohol Use Standard [...] [facility] at [address] [address] Silvia Spencer MD [address] [place] [address] [email or web address] documented as of this encounter Visit Diagnoses Not on filedocumented in this encounter Additional Health Concerns Infection Onset Date Last Indicated Resolved Time CoV-Presumed 10/29/2021 10/29/2021 11/19/2021 1:21 AM EDT CoV-Risk 01/12/2022 01/12/2022 01/23/2022 1:22 AM EDT CoV-Risk 06/22/2022 06/22/202207/0307/03/2022 1:22 AM EST COVID-19 05/03/2024 05/03/2024 05/24/2024 1:23 AM EST Assessment Noted Time PHQ-2 Depression Total Score: 0 11/01/19 19 8:47 AM EDT documented as of this encounter Care Teams Developer [employer] Relationship Specialty Start Date End Date Darryl Henriquez CNP [address] [place] [address] [email or web address] PCP - General Family Medicine 08/14/20 03/21/21 Darryl Henriquez CNP [address] [place] [address] [email or web address] PCP - General Family Medicine 03/22/21 03/22/21 Darryl Henriquez CNP [address] [place] [address], [address] [place] [address] PCP - General Family Medicine 03/23/21 03/30/21 Heriberto Apodaca MD [address] [place] [address], [address] [place] [address] PCP - General Family Medicine 03/31/21 05/31/21 Darryl Henriquez CNP [address] [place] [address] PCP - General Family Medicine 06/01/21 07/19/21 Heriberto Apodaca MD [address] [place] [address], [address] [place] [address] PCP - General Family Medicine 07/20/21 08/30/21 Darryl Henriquez CNP [address] [place] [address], [address] [place] [address] PCP - General Family Medicine 08/31/21 10/23/23 Don Chen MD [address] [place] [address], [address] [place] [address] [email or web address] PCP - General Internal Medicine 10/24/23 11/19/23 Darryl Henriquez CNP [address] [place] [address], [address] [place] [address] [email or web address] PCP - General Adult Health 11/20/23 Bay Aguilar MD [address] [place] [address] [email or web address] Historical LMR Provider 02/28/17 05/22/21 Santino Santacruz MD [address] [place] [address], [address] [place] [address] [email or web address] Historical LMR Provider 02/28/17 05/22/21 Heriberto Apodaca MD [address] [place] [address], [address] [place] [address] [email or web address] Insurance Assigned Provider 09/15/18 08/20/22 Russell Ge MD [address] [place] [address], [address] [place] [address] Ophthalmology 10/31/18 Maryan Christy, BUFFET SERVER [address] [place] [address] Psychiatry 11/26/19 Sisi Pinto MD [address] [place] [address], 2nd [place] [address] [email or web address] General Surgery 01/13/20 Francois Nails MD [address] [place] [address] [email or web address] Endocrinology 01/28/20 Justen Etienne DO [address] [place] [address], [address] [place] [address] [email or web address] [facility] 09/29/20 Bin Hsieh MD [address] [place] [id number] Palliative Care 02/27/21 Silvia Spencer MD [address] [place] [address] [email or web address] Primary Oncologist Medical Oncology 02/28/22 Don Chen MD [address] [place] [address], [address] [place] [address] [email or web address] Insurance Assigned Provider 08/19/23 09/21/24 Soledad Menard MD [address] [place] [id number] Ophthalmology 10/24/23 Heriberto Apodaca MD [address] [place] [address], [address] [place] [address] [email or web address] Insurance Assigned Provider 09/21/24 documented as of this encounter Additional Source Comments The information contained in this document represents components of the legal health record. It is not the complete legal health record.[facility]
--- OUTSIDE RECORDS SUMMARY | 2025-01-28 15:29 | XMS_ITS | Clinical Summary ---
Author Organization [facility] Address [address] [place] [address] Phone Care Team Providers Care Hairspring Studder Name Role Phone Russell Ge MD Unavailable [phone] Maryan Christy [facility] Unavailable Sisi Pinto MD Unavailable Francois Nails MD Unavailable Justen Etienne DO Unavailable [phone] Bin Hsieh MD Unavailable Silvia Spencer MD Unavailable [phone] Soledad Menard MD Unavailable [phone] Darryl Henriquez [facility] Primary Care Provider [phone] Heriberto Apodaca MD Unavailable [phone] Allergies Active Allergy Reactions Criticality Noted Date Comments Duloxetine Mental Status Change 07/13/2022 Thoughts of self harm Bupropion Hcl Mental Status Change 01/12/2022 Suicidal ideation Medications escitalopram oxalate (LEXAPRO) 20 MG tablet Take 20 mg by mouth daily. Active EPINEPHrine 0.3 mg/0.3 mL auto-injector Inject 0.3 mg into the muscle as needed for anaphylaxis. Active triamcinolone acetonide 0.025 % ointmentIndicati ons:Eczema, unspecified type Apply topically 2 (two) times a day. 30 g 4 Active oxyCODONE 5 MG immediate release tablet TAKE 1 TABLET BY MOUTH 2 TIMES A DAY NEEDED FOR PAIN FOR 15 DAYS 4 Active gabapentin (NEURONTIN) 800 MG tablet Take 1 tablet (800 mg total) by mouth 3 (three) times a day. 72 tablet 5 Active anastrozole (ARIMIDEX) 1 mg tabletIndication s:Malignant neoplasm of overlapping sites of left breast in female, estrogen receptor positive TAKE ONE TABLET BY MOUTH ONCE DAILY 90 tablet 3 5 Active LORazepam (ATIVAN) 1 MG tablet Take 1 mg by mouth 2 (two) times a day as needed. 5 Active atorvastatin (LIPITOR) 10 MG tabletIndication s:Atherosclerosi s of aorta TAKE 1 TABLET BY MOUTH EVERY DAY 90 tablet 3 5 Active albuterol 90 mcg/actuation inhaler TAKE 2 PUFFS INHALED EVERY 6 HOURS NEEDED FOR SHORTNESS OF BREATH OR WHEEZING OR COUGH 5 Active Active Problems Patient Care Coordination No te Formatting of this note migh t be different from the original. Height 172 cm no shoes 03/08/22 Problem Noted Date Diagnosed Date Abnormal barium swallow 07/03/2024 Assessment & Plan (01/01/2025 12:18 PM EDT): She will call [facility] to reschedule the esophageal manometry. She [...] EDT): On opioid therapy and gabapentin through [facility] [place] [facility]. FEATHER SHAPER checked. Assessment & Plan (10/24/2023 11:36 AM [...] if pain improves. She is referred to [facility] to discuss further. Wellbutrin and [...] 04/10/2017 Seborrheic dermatitis 04/10/2017 Viral wart 04/10/2017 Resolved Problems Problem Noted Date Diagnosed Date [...] Acute midline low back pain without sciatica 10/24/2023 Assessment & Plan (06/19/2023 4:17 PM [...] visit today. Blood pressure readings through the [facility] system recently have been fine as well. [...] BP at that time. Syncope 04/10/2017 10/24/2023 Encounters Date Type Department Care Team Description 01/20/[address] [place] [id number] Beatrice Villatoro, RN Results 01/16/2025 Telephone [facility] at [facility] [address] [place] [address] Silvia Spencer MD Follow-up 01/15/2025 12:59 PM EDT - 01/15/2025 11:59 PM EDT Hospital Encounter [facility] EEG & Cardiology [address] [place] [address] Darryl Henriquez CNP Discharge Disposition: Home or Self Care 01/10/[address] [place] [address] Beatrice Villatoro, RN Results 01/09/2025 10:41 AM EDT - 01/09/2025 11:59 PM EDT Hospital Encounter [facility] Laboratory [address] [place] [address] Darryl Henriquez CNP Discharge Disposition: Home or Self Care 01/02/2025 1:00 PM EDT Telemedicine - audio only [facility] Genetic Counseling [address] [place] [address] Silvia Spencer MD Seidel, Meredith, CGC Personal history of breast cancer (Primary Dx); Family history of breast cancer; Family history of prostate cancer; Family history of colon cancer; Family history of stomach cancer; Encounter for nonprocreative genetic counseling 01/01/2025 11:30 AM EDT Office Visit [address] [place] [address] Darryl Henriquez CNP Chills (Primary Dx); Malignant neoplasm of overlapping sites of left breast in female, estrogen receptor positive; Chemotherapy-induced peripheral neuropathy; Abnormal barium swallow; Involuntary movements; Elevated LDL cholesterol level; Anxiety 11/28/2024 Refill [facility] [address] [place] [address] Darryl Henriquez CNP Medication Refill 11/20/2024 Procedure Pass [facility] Endoscopy Admitting Dept Virtual Department [address] [place] [address] 11/20/2024 Hospital Encounter [facility] Endoscopy Admitting Dept Virtual Department [address] [place] [address] Victoriano Casey MD 11/12/2024 Telephone [facility] Main Endoscopy [address] [place] [address] Elaine Kumar RN 11/06/2024 Procedure Pass [facility] Endoscopy Admitting Dept Virtual Department [address] [place] [phone] from Last 3 Months Immunizations Immunization Administration Dates Next Due COVID-19 (Pre-03/06) Pfizer Vaccine, mRNA, PF 08/22/2020,08/01/2020 INFLUENZA, SPLIT VIRUS, TRIVALENT PF 04/04/2017, 03/09/2016 INFLUENZA, SPLIT VIRUS, TRIV ALENT W/ PRESERVATIVE IM 02/23/2021,02/11/2014,05/04/2012,2011,02/16/2010 Influenza Quadrivalent Prese rvative Free IM 03/09/2023,03/09/2022,01/29/2020,2018,02/15/2018,01/13/2018,04/04/2017,1 07/12/2014 Influenza Quadrivalent w/ Preservative IM 02/11/2019 Influenza Trivalent MDCK Pre servative Free IM 04/28/2024 Pneumococcal conjugate PCV13 06/14/2021 Pneumococcal conjugate PCV20 07/13/2022 Td (adult),2 Lf Tetanus Toxo id, PF, Adsorbed 12/26/2003 Tdap 01/27/2023,01/10/2014 Family History Medical History Relation Comments Alcohol abuse Brother No Known Problems Father Stroke Maternal Grandfather Hypertension Maternal Grandmother Sudden cardiac Maternal Grandmother Cerebral aneurysm Maternal Uncle Alcohol abuse Mother age 52 Esophageal varices Mother Hemorrhage at home Alcohol abuse Sister 1 Bipolar disorder Sister 1 Hypertension Sister 1 No Known Problems Sister 2 Addicted to p ills Alcohol abuse Sister 3 Breast cancer Neg Hx Colon cancer Neg Hx Diabetes Neg Hx Glaucoma Neg Hx Heart attack Neg Hx Relation Status Comments Brother Alive Father Alive Maternal Grandfather Maternal Grandmother Maternal Uncle Mother (Age 52) Paternal Grandfather Paternal Grandmother Sister 1 Alive Sister 2 Alive Sister 3 Alive Social History Tobacco Use Types Packs/Day Years Used Date Smoking Tobacco: Former Cigarettes 1 25 1 979 - 2004 Smokeless Tobacco: Never Tobacco Cessation:Counseling Given: Not Answered Alcohol Use Standard Drinks/Week Comments Not Currently [...] high school, GED, job training, learning the Azeri language, technical skills, or developing parenting skills)? [...] file Not on file Not on file Last Filed Vital Signs Vital Sign Reading Time Taken Comments Blood Pressure 112/60 01/01/2025 11:16 AM EDT Pulse 78 01/01/2025 11:16 AM EDT Temperature 36.8 C (98.2 F) 01/01/2025 11:16 AM EDT Respiratory Rate 18 10/21/2024 3:19 PM EDT Oxygen Saturation 98% 01/01/2025 11:16 AM EDT Inhaled Oxygen Concentration - - Weight 83 kg (183 lb) 01/01/2025 11:16 AM EDT Height 172 cm (5' 7.72 ) 01/01/2025 11:16 AM EDT Body Mass Index 28.06 01/01/2025 11:16 AM EDT Plan of Treatment Upcoming Encounters Date Type Department Care Team (Late st Contact Info) Description 01/31/2025 2:00 PM EDT Office Visit [facility] at [address] [address] Silvia Spencer MD [address] [place] [phone] [email or web address] Health Maintenance Due Date Last Done Comments ZOSTER VACCINES (1 of 2) 11/25/1979 COLOGUARD 2005 FOBT 2005 SIGMOIDOSCOPY 2005 VIRTUAL COLONOSCOPY 2005 FIT TEST 04/11/2023 04/11/2022 INFLUENZA VACCINE (#1) 2024 , 03/09/2023, 03/09/2022, Additional history exists REPEAT PHQ 02/01/2025 01/01/2025, 01/01/2025 DEPRESSION SCREENING 01/01/2026 01/01/2025, 01/02/20 25 LIPID PANEL 01/09/2026 01/09/2025, 08/13, 09/05/2022, Additional history exists PAP SMEAR 10/22/2026 10/22/2021, 04/14, 05/01/2017, Additional history exists COLONOSCOPY 06/17/2027 06/17/2022, 06/04/2012 COLORECTAL CANCER SCREENING 06/17/2027 SCREENING FOR DIABETES 01/10/2028 01/09/2025, 01/22/ 2022 Adult Td,Tdap Booster 01/27/2033 01/27/2023 , 01/10/2014, 12/26/2003 RSV VACCINE (1 - 1-dose 75+ series) 11/25/2035 HEPATITIS C SCREENING Completed 02/03/2014 PNEUMOCOCCAL VACCINES (50+ years) Completed 07/13/2022, 06/14/2021 HIV ONE-TIME SCREENING (18-65 YEARS) Completed 09/05/2022 COVID-19 VACCINE Completed 04/28/2024, , 03/16/2022, Additional history exists SMOKING STATUS SCREENING (Once After 26 Yrs) Completed 01/01/2025 HEPATITIS A VACCINES Aged Out No long er eligible based on patient's age to complete this topic HIB VACCINES Aged Out No longer eligi ble based on patient's age to complete this topic MENINGOCOCCAL VACCINES (ACWY) Aged Out No longer eligible based on patient's age to complete this topic MENINGOCOCCAL VACCINES (B) Aged Out N o longer eligible based on patient's age to complete this topic Medical Devices Implanted Type Area Group Rooms Coordinator Device Identifier Shelf Expiration Date Model / Serial / Lot Marker Ultraclip 17ga 10cm Tissue Dual Trigger Breast Ti [place] Shape Bx/5ea - [id number] Implanted:Qty: 1 on 12/23/2019 by Betty Bernard MD at [facility] Left: Breast [employer] [id number] / / Marker Ultraclip Ii 17ga 10cm Breast Tissue Ribbon Shaped Titanium Bx/5ea - [id number] Implanted:Qty: 1 on 12/23/2019 by Betty Bernard MD at [facility] Left: Breast [employer] [id number] / / Marker Ultraclip 17ga 10cm Tissue Dual Trigger Breast Ti Heart Shape Bx/5ea - [id number] Implanted:Qty: 1 on 12/23/2019 by Betty Bernard MD at [facility] Left: Breast [employer] [id number] / / Marker Ultraclip 17ga 10cm Tissue Dual Trigger Breast Ti Heart Shape Bx/5ea - [id number] Implanted:Qty: 1 on 01/01/2020 by Cuba Tyson MD at [facility] Left: Axilla [employer] [id number] 09/09/2022 [id number] / / Port Powerport Isp 8fr Injectable [place] Polyurethane Catheter Implant Soft Silicone Body - [id number] Implanted:Qty: 1 on 01/16/2020 by Sisi Pinto MD at [facility] Right: Chest Wall [employer] 02/11/2021 [id number] / / [id number] Procedures Procedure Name Priority Date/Time Associated Diagnosis Comments EEG Routine 01/15/2025 2:31 PM EDT Involuntary movements LIPID PANEL Routine 01/09/2025 11:04 AM EDT Elevated LDL cholesterol level CBC AND DIFFERENTIAL Routine 01/09/2025 11:04 AM EDT Chills BASIC METABOLIC PANEL Routine 01/09/2025 11:04 AM EDT Chills TSH WITH REFLEX Routine 01/09/2025 11:04 AM EDT Chills LFTS (HEPATIC PANEL) Routine 01/09/2025 11:04 AM EDT Atherosclerosis of aorta COLONOSCOPY FOR RESULT ENTRY ONLY Routine 06/17/2022 HC BLOOD OCCULT FECAL HGB DETER IA QUAL FECES 1-3 Routine 04/11/2022 7:00 PM EST Change in bowel habits PAP TEST Routine 10/22/2021 12:00 AM EDT OUTSIDE HEPATITIS C VIRUS SCREENING Routine 02/03/2014 from Last 3 Months or Most Recently Relevant to Health Maintenance Results * EEG (01/15/2025 2:31 PM EDT) Anatomical Region Laterality Modality EEG Narrative 01/19/2025 9:13 PM EDT [facility] AFFIL[facility]ATE ELECTROENCEPHALOGRAPHY (EEG) LAB INTRODUCTION: The patient is a 64 year old woman referred for a question of seizures. MEDICATIONS: not listed CONDITION OF RECORDING: Digitally recorded EEG with no instructions for sleep deprivation. All electrodes were applied in accordance with the International 10-20 System. A single channel EKG lead was recorded to help identify artifact. SPECIAL PROCEDURES: None. EEG DESCRIPTION: Cerebral electrical activity with the patient awake was characterized by a well organized background with a 9 Hz, 15-40 uV posterior maximum reactive alpha rhythm. Stage I sleep was characterized by an increase in slow eye movements and a fragmentation of the alpha rhythm. Stage II sleep was characterized by synchronous and symmetric sleep spindles, vertex waves and K complexes. Photic stimulation yielded no abnormalities. Hyperventilation yielded no abnormalities. INTERPRETATION: This routine EEG, obtained with the patient awake, drowsy, and asleep, is within normal limits. No epileptiform activity or persistent focal asymmetries occurred. Asa Mcguire MD [facility] Neurology [facility] NEUROLOGY ORDERABLES Janene l Result * TSH with reflex (01/09/2025 11:04 AM EDT) TSH 1.37 0.27 - 4.20 uIU/mL [facility] Blood 01/09/2025 11:0 4 AM EDT 01/09/2025 11:13 AM EDT [facility] LAB BLOOD ORDERABLES Janene l Result [address] [id number] * LFTs (hepatic panel) (01/09/2025 11:04 AM EDT) ALKALINE PHOSPHATASE 86 39 - 117 U/L [facility] TOTAL BILIRUBIN 0.3 0.0 - 1.2 mg/dL [facility] DIRECT BILIRUBIN <0.1 0.0 - 0.2 mg/dL [facility] Bilirubin (Indirect) NOT CALCULATED 0 - 1.5 mg/dL [facility] AST 22 0 - 37 U/L [facility] ALT 21 0 - 40 U/L [facility] TOTAL PROTEIN 7.2 6.5 - 8.0 g/dL [facility] ALBUMIN 4.5 3.9 - 4.8 g/dL [facility] GLOBULIN 2.7 1 - 4.8 g/dL [facility] A/G Ratio 1.67 1.00 - 4.80 RATIO [facility] Blood 01/09/2025 11:0 4 AM EDT 01/09/2025 11:13 AM EDT us Darryl Henriquez [employer]PER[employer] LAB BLOOD ORDERABLES Janene giancarlo Result [facility] [address] [place] [address] * (ABNORMAL) CBC and differential (01/09/2025 11:04 AM EDT) WBC 4.62 4.00 - 11.00 K/uL [facility] RBC 4.88 4.00 - 5.20 M/uL [facility] HGB 14.9 12.0 - 16.0 g/dL [facility] HCT 44.1 36.0 - 46.0 % [facility] PLT 253 150 - 450 K/uL [facility] MCV 90.4 80.0 - 100.0 fL [facility] MCH 30.5 27.0 - 31.0 pg [facility] MCHC 33.8 32.0 - 36.0 g/dL [facility] RDW 12.5 11.5 - 14.5 % [facility] MPV 9.7 8.4 - 12.0 fL [facility] NRBC 0.00 0.00 /100 WBCs [facility] ABSOLUTE NRBC 0.00 0.00 K/uL [facility] DIFF METHOD Auto [facility] NEUTS 47.5(L) 48.0 - 76.0 % [facility] LYMPHS 36.6 18.0 - 41.0 % [facility] MONOS 5.8 4.0 - 11.0 % [facility] EOS 8.0(H) 0.0 - 5.0 % [facility] BASOS 1.9(H) 0.0 - 1.5 % [facility] Granulocytes, immature (%) 0.2 0.0 - 0.9 % [facility] ABSOLUTE NEUTS 2.19 1.92 - 7.60 K/uL [facility] ABSOLUTE LYMPHS 1.69 0.72 - 4.10 K/uL [facility] ABSOLUTE MONOS 0.27 0.16 - 1.10 K/uL [facility] ABSOLUTE EOS 0.37 0.00 - 0.50 K/uL [facility] ABSOLUTE BASOS 0.09 0.00 - 0.15 K/uL [facility] Granulocytes, immature 0.01 0.00 - 0.09 K/uL [facility] Blood 01/09/2025 11:0 4 AM EDT 01/09/2025 11:13 AM EDT Darryl Henriquez [facility] LAB BLOOD ORDERABLES Janene l Result Performing Organization Address City/State/[facility] Co de Phone Number [address] [address] * (ABNORMAL) Lipid panel (01/09/2025 11:04 AM EDT) HDL 53 mg/dL [facility] Comment: Interpretation <40 mg/dL: Low HDL cholesterol (major risk factor for CHD) Greater than or equal to 60 mg/dL: High HDL cholesterol ( negative risk factor for CHD) HDL - cholesterol is affected by a number of factors, e.g. smoking, excerise, hormones, sex and age. CHOLESTEROL 192 0 - 240 mg/dL [facility] TRIGLYCERIDES 200(H) 30 - 160 mg/dL [facility] LDL 99 50 - 129 mg/dL [facility] Comment: LDL levels in terms of risk for coronary heart disease: <100 mg/dL: Optimal 100-129 mg/dL: Near or above optimal 130-159 mg/dL: Borderline high 160-189 mg/dL: High >190 mg/dL: Very High CARDIAC RISK RATIO 3.6 3.3 - 4.4 [facility] Blood 01/09/2025 11:0 4 AM EDT 01/09/2025 11:14 AM EDT Darryl Henriquez [employer] LAB BLOOD ORDERABLES Janene l Result [address] [address] * (ABNORMAL) Basic metabolic panel (01/09/2025 11:04 AM EDT) SODIUM 142 133 - 146 mmol/L [facility] CHLORIDE 106 96 - 108 mmol/L [facility] POTASSIUM 4.6 3.3 - 5.1 mmol/L [facility] CO2 26 21 - 35 mmol/L [facility] BUN 21(H) 6 - 19 mg/dL [facility] CREATININE 0.70 0.5 - 1.5 mg/dL [facility] GLUCOSE 103(H) 70 - 99 mg/dL [facility] CALCIUM 10.1 8.4 - 10.3 mg/dL [facility] EGFR 97 >59 mL/min/1.7 3m2 [facility] Comment:Estimated glomerular filtration rate calculated using the CKD-EPI refit equation. ANION GAP 15 10 - 20 mmol/L [facility] Blood 01/09/2025 11:0 4 AM EDT 01/09/2025 11:13 AM EDT Darryl Henriquez [facility] LAB BLOOD ORDERABLES Janene l Result Performing Organization Address [facility] de Phone Number [address] [address] * HM COLONOSCOPY FOR RESULT ENTRY ONLY (06/17/2022) Darryl Henriquez [facility] HEALTH MAINTENANCE Edited Result - Final * Fecal immunochemical test x1 (FIT) (04/11/2022 7:00 PM EST) Immuno Fecal Occult Negative Negative [facility] Stool (Stool) 04/11/2022 7:0 0 PM EST 04/13/2022 9:37 AM EST Lyndsey Rivas PA-C BODY FLUIDS AND STOOLS ORDERABL ES Final Result Performing Organization Address [facility] Co de Phone Number [address] [address] * Pap Smear (10/22/2021 12:00 AM EDT) 10/22/2021 10/25/2021 8:4 3 AM EDT Narrative SEE NARRATIVE - 10/27/2021 10:44 AM EDT [address] [address] Geological Engineering Teacher: Sharona Cuevas MD LAUNDRY TECHNICIAN Cytology Report FINAL DIAGNOSIS A. PAP SMEAR (SUREPATH) CE: SPECIMEN ADEQUACY: Satisfactory for evaluation; transformation zone absent/insufficient. INTERPRETATION: NEGATIVE FOR INTRAEPITHELIAL LESION OR MALIGNANCY. Electronically Signed Out By: LEONIDAS Parson(ASCP) The Pap test is a screening test primarily for squamous cancers and precursors and has associated false-negative and false-positive results. New technologies such as liquid-based preparations may decrease but will not eliminate all false-negative results. Regular sampling and follow-up of unexplained clinical signs and symptoms are recommended to minimize false negative results. PROCEDURES/ADDENDA HPV Testing (Requested) Ordered Date: 10/25/2021 A. PAP SMEAR (SUREPATH) CE: Human Papilloma Virus Test Negative for high-risk human papillomavirus types 16, 18, 45 and the Other high risk probe set (Includes 31, 33, 35, 39, 51, 52, 56, 58, 59, 66, 68) by [employer] Onclarity HR-HPV analysis. Clinical correlation is advised. This HPV test was performed at [facility], [address] [place] [address]. This test has been FDA approved for SurePath cervical cytology specimens. The accuracy and precision of this test for all other specimen sources has been verified in the Cytopathology Laboratory of the [facility] and has not been cleared or approved by the U.S. Food and Drug Administration. Clinical correlation is advised. CLINICAL HISTORY Date of Last Menstrual Period: Not Provided Menstrual History: Post Menopausal Other Clinical Conditions: Screening Pap SPECIMEN SOURCE A: PAP SMEAR (SUREPATH) CE Patient Name: JAVIER WHITFIELD : 1960 (Age: 60) Sex: F Institution: [facility] Location: [facility] Date of Collection: 10/22/2021 Date of Reported: 10/27/2021 10:44 Results to: Lisa Potter CNM us Lisa Potter CNM CYTOLOGY ORDERABLES Final Result SEE NARRATIVE * Outside Hepatitis C Virus Screening (02/03/2014) Hepatitis C Screening - External Neg us Historical Provider LAB BLOOD ORDERABLES Janene l Result from Last 3 Months or Most Recently Relevant to Health Maintenance Insurance POS EPO [facility] O [place] [address] [place], [place] [address]O POS EPO [facility] EPO Advance Directives For more information, please contact: [phone] (9AM - 5PM [facility], Monday-Monday) Documents on File Type Date Recorded 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 Expl anation Healthcare Proxy 04/07/2021 3:34 PM * Full Code (Latest Code Status on File) Date Activated Date Inactivated Comments 04/07/2020 8:38 AM Question Answer Comments Code Status Confirmed With: Patient * Full Code Date Activated Date Inactivated Comments 01/16/2020 10:41 AM 04/07/2020 8:31 AM Question Answer Comments Code Status Confirmed With: Patient Care Teams Hairspring Studder Relationship Specialty Start Date End Date Darryl Henriquez CNP [address] [place] [address], [address] [place] [address] PCP - General Adult Health 11/20/23 Russell Ge MD Ophthalmology 10/31/18 Maryan Christy CNS [address] [place] [address] Psychiatry 11/26/19 Sisi Pinto MD [address] [facility], 2nd [place] [address] [email or web address] General Surgery 01/13/20 Francois Nails MD [address] [place] [address] [email or web address] Endocrinology 01/28/20 Justen Etienne DO [address] [place] [address] [email or web address] Allergy and Immunology 09/29/20 Bin Hsieh MD [address] [place] [address] Palliative Care 02/27/21 Silvia Spencer MD [address] [place] [email or web address] Primary Oncologist Medical Oncology 02/28/22 Soledad Menard MD [address] [place] [id number] Ophthalmology 10/24/23 Heriberto Apodaca MD [address] [facility], [address] [place] [address] [email or web address] Insurance Assigned Provider 09/21/24 Additional Source Comments The information contained in this document represents components of the legal health record. It is not the complete legal health record.[facility]
--- OUTSIDE RECORDS SUMMARY | 2025-01-28 15:29 | XMS_ITS | Encounter Summary ---
Author Organization Formerly [facility] Address [address] [facility] [address] [place] [address] Phone Care Team Providers Care Dressmaker Or Tailor Name Role Phone Heriberto Apodaca MD Unavailable [phone] Russell Ge MD Unavailable [phone] Maryan Christy [facility] Unavailable [phone] Sisi Pinto MD Unavailable Francois Nails MD Unavailable [phone] Justen Etienne DO Unavailable [phone] Bin Hsieh MD Unavailable Darryl Henriquez CNP Primary Care Provider [phone] Silvia Spencer MD Unavailable [phone] Don Chen MD Unavailable [phone] Soledad Menard MD Unavailable [phone] Don Chen MD Primary Care Provider [phone] Darryl Henriquez CNP Primary Care Provider [phone] Heriberto Apodaca MD Unavailable [phone] Reason for Visit * Reason Onset Date Comments Refill 11/26/2021 Encounter Details Date Type Department Care Team (Late st Contact Info) Description 11/26/2021 Telephone [facility] Palliative Care [address] [place] [address] Ana Soria, VIRY [address] [place] [address] [email or web address] Refill Social History Tobacco Use Types Packs/Day [...] as of this encounter Progress Notes * Mely Raza RN - 11/26/2021 10:[address] Jori Yi sent Farzana's Oxycodone to [facility] on November 22. She is in [place] taking care of her father. Dr. Hsieh is off today. Would you please re-send the rx to the [facility] in [place]. The pharmacy is listed on her pharmacy list. Thanks Jose documented in this encounter Plan of Treatment Upcoming Encounters Date Type Department Care Team (Late st Contact Info) Description 01/31/2025 2:00 PM EDT Office Visit [facility] [address] [place] [address] Silvia Spencer MD [address] [place] [address] [email or web address] documented as of this encounter Visit Diagnoses Not on filedocumented in this encounter Additional Health Concerns Infection Onset Date Last Indicated Resolved Time CoV-Risk 01/12/2022 01/12/2022 01/23/2022 1:22 AM EDT CoV-Risk 06/22/2022 06/22/2022 07/03/2022 1:22 AM EST COVID-19 05/03/2024 05/03/2024 05/24/2024 1:23 AM EST Assessment Noted Time PHQ-2 Depression Total Score: 0 11/01/19 8:47 AM EDT documented as of this encounter Care Teams Dressmaker Or Tailor Relationship Specialty Start Date End Date Darryl Henriquez CNP [address] [place] [address], [address] [place] [address] [email or web address] PCP - General Family Medicine 08/31/21 10/23/23 Don Chen MD [address] [place] [address], [address] [address] PCP - General Internal Medicine 10/24/23 11/19/23 Darryl Henriquez CNP [address] [place] [address], [address] [address] PCP - General Adult Health 11/20/23 Heriberto Apodaca MD [address] [place] [address], [address] [address] Insurance Assigned Provider 09/15/18 08/20/22 Russell Ge MD [address] [place] [address], [address] [address] Ophthalmology 10/31/18 Maryan Christy CNS [address] [place] [address] Psychiatry 11/26/19 Sisi Pinto MD [address] [place] [address], 2nd [place] [address] [email or web address] General Surgery 01/13/20 Francois Nails MD [address] [place] [address] [email or web address] Endocrinology 01/28/20 Justen Etienne DO [address] [place] [address] [email or web address] and [email or web address] 09/29/20 Bin Hsieh MD [address] [place] [address] [email or web address] Palliative Care 02/27/21 Silvia Spencer MD [address] [place] [address] [email or web address] Primary Oncologist Medical Oncology 02/28/22 Don Chen MD [address] [place] [address], [address] [place] [address] [email or web address] Insurance Assigned Provider 08/19/23 09/21/24 Soledad Menard MD [address] [place] [address] Ophthalmology 10/24/23 Heriberto Apodaca MD [address] [place] [address], [address] [place] [address] [email or web address] Insurance Assigned Provider 09/21/24 documented as of this encounter Additional Source Comments The information contained in this document represents components of the legal health record. It is not the complete legal health record.[facility]
--- OUTSIDE RECORDS SUMMARY | 2025-01-28 15:29 | XMS_ITS | Encounter Summary ---
Author Organization [facility] Address [address] [facility] [address] [place] [address] Phone Care Team Providers Care Signwriter Name Role Phone Russell Ge MD Unavailable [phone] Maryan Christy [facility] Unavailable Sisi Pinto MD Unavailable Francois Nails MD Unavailable Justen Etienne DO Unavailable [phone] Bin Hsieh MD Unavailable Darryl Henriquez CNP Primary Care Provider [phone] Silvia Spencer MD Unavailable [phone] Don Chen MD Unavailable [phone] Soledad Menard MD Unavailable [phone] Don Chen MD Primary Care Provider Darryl Henriquez CNP Primary Care Provider [phone] Heriberto Apodaca MD Unavailable [phone] Encounter Details Date Type Department Care Team (Late st Contact Info) Description 05/09/2023 Procedure Pass [facility], Ct Scan - [facility] [address] [place] [address] Social History Tobacco Use Types Packs/Day Years [...] high school, GED, job training, learning the Pashto language, technical skills, or developing parenting skills)? [...] 7:45 PM Carol Ann Walker RN * Haigler Suicide Severity Rating Scale (Screener/Recent Self-Report) Question [...] Description 01/31/2025 2:00 PM EDT Office Visit [facility] Center at [address] [address] Silvia Spencer MD [address] [place] [address] [email or web address] documented as of this encounter Visit Diagnoses Not on filedocumented in this encounter Additional Health Concerns Infection Onset Date Last Indicated Resolved Time COVID-19 05/03/2024 05/03/2024 05/24/2024 1:23 AM EST Assessment Noted Time PHQ-9 Depression Total Score: 4 03/13/20 23 3:55 PM EDT PHQ-2 Depression Total Score: 1 03/13/20 23 3:55 PM EDT documented as of this encounter Care Teams Signwriter Relationship Specialty Start Date End Date Darryl Henriquez CNP [address] [facility], [address] [place] [address] [email or web address] PCP - General Family Medicine 08/31/21 10/23/23 Don Chen MD [address] [place] [address], [address] [place] [address] [email or web address] PCP - General Internal Medicine 10/24/23 11/19/23 Darryl Henriquez CNP [address] [facility] [place] [address] [email or web address] PCP - General Adult Health 11/20/23 Russell Ge MD [email or web address] Ophthalmology 10/31/18 Maryan Christy CNS [address] [place] [address] Psychiatry 11/26/19 Sisi Pinto MD [address] [facility], 2nd [place] [address] [email or web address] General Surgery 01/13/20 Francois Nails MD [address] [place] [address] [email or web address] Endocrinology 01/28/20 Justen Etienne DO [address] [place] [address] [email or web address] and [email or web address] 09/29/20 Bin Hsieh MD [address] [place] [address] [email or web address] Palliative Care 02/27/21 Silvia Spencer MD [address] [place] [address] [email or web address] Primary Oncologist Medical Oncology 02/28/22 Don Chen MD [address] [place] [address], [address] [place] [address] [email or web address] Insurance Assigned Provider 08/19/23 09/21/24 Soledad Menard MD [address] [place] [address] Ophthalmology 10/24/23 Heriberto Apodaca MD [address] [place] [address], [address] [address] [email or web address] Insurance Assigned Provider 09/21/24 documented as of this encounter Additional Source Comments The information contained in this document represents components of the legal health record. It is not the complete legal health record.[facility]
--- OUTSIDE RECORDS SUMMARY | 2025-01-28 15:30 | XMS_ITS | Encounter Summary ---
Author Organization [facility] Address [address] [facility] [address] [place] [address] Phone Care Team Providers Care Government Affairs Manager Name Role Phone Russell Ge MD Unavailable [phone] Maryan Christy [facility] Unavailable Sisi Pinto MD Unavailable Francois Nails MD Unavailable [phone] Justen Etienne DO Unavailable [phone] Bin Hsieh MD Unavailable Darryl Henriquez CNP Primary Care Provider [phone] Silvia Spencer MD Unavailable [phone] Don Chen MD Unavailable [phone] Soledad Menard MD Unavailable [phone] Don Chen MD Primary Care Provider Darryl Henriquez CNP Primary Care Provider [phone] Heriberto Apodaca MD Unavailable [phone] Encounter Details Date Type Department Care Team (Late st Contact Info) Description 07/14/2023 Telephone [facility] at [facility] [address] [place] [address] Nimo Ramey RN [address] [place] [address] Social History Tobacco Use Types Packs/Day Years Used Date Smoking Tobacco: Former Cigarettes [id number] Smokeless Tobacco: Never Alcohol Use Standard Drinks/Week [...] high school, GED, job training, learning the Vietnamese language, technical skills, or developing parenting skills)? [...] you moved in the past 12 mon ths? One time 07/13/2022 Paying for Meds Answer [...] Description 01/31/2025 2:00 PM EDT Office Visit [facility] at [address] [address] Sivlia Spencer MD [address] [place] [address] [email or web address] documented as [...] documented as of this encounter Care Teams Government Affairs Manager Relationship Specialty Start Date End Date Darryl Henriquez CNP [address] [place] [address], [address] [place] [address] PCP - General Family Medicine 08/31/21 10/23/23 Don Chen MD [address] [place] [address], [address] [place] [address] [email or web address] PCP - General Internal Medicine 10/24/23 11/19/23 Darryl Henriquez CNP [address] [facility], [address] [place] [address] PCP - General Adult Health 11/20/23 Russell Ge MD Ophthalmology 10/31/18 [facility] [address] [place] [address] Psychiatry 11/26/19 Sisi Pinto MD [address] [facility], 2nd [place] [address] General Surgery 01/13/20 Francois Nails MD [address] [place] [address] [email or web address] Endocrinology 01/28/20 Justen Etienne DO [address] [place] [address] [email or web address] [email or web address] and Immunology 09/29/20 Bin Hsieh MD 30 [place] [address] Palliative Care 02/27/21 Silvia Spencer MD 30 [place] [address] [email or web address] Primary Oncologist Medical Oncology 02/28/22 Don Chen MD [address] [place] [address], [address] [place] [address] [email or web address] Insurance Assigned Provider 08/19/23 09/21/24 Soledad Menard MD [address] [place] [address] Ophthalmology 10/24/23 Heriberto Apodaca MD [address] [place] [address], [address] [place] [address] [email or web address] Insurance Assigned Provider 09/21/24 documented as of this encounter Additional Source Comments The information contained in this document represents components of the legal health record. It is not the complete legal health record.[facility]
--- OUTSIDE RECORDS SUMMARY | 2025-01-28 15:30 | XMS_ITS | Encounter Summary ---
Author Organization [facility] Address [address] [place] [address] [place] [address] Phone Care Team Providers Care Psychologist Industrial Organizational Name Role Phone Bay Aguilar MD Unavailable Santino Santacruz MD Unavailable Heriberto Apodaca MD Unavailable [phone] Russell Ge MD Unavailable [phone] Maryan Christy [facility] Unavailable Sisi Pinto MD Unavailable Francois Nails MD Unavailable Justen Etienne DO Unavailable Bin Hsieh MD Unavailable Heriberto Apodaca MD Primary Care Provider [phone] Darryl Henriquez CNP Primary Care Provider [phone] Heriberto Apodaca MD Primary Care Provider [phone] Draryl Henriquez CNP Primary Care Provider [phone] Silvia Spencer MD Unavailable [phone] Don Chen MD Unavailable [phone] Soledad Menard MD Unavailable [phone] Don Chen MD Primary Care Provider Darryl Henriquez CNP Primary Care Provider [phone] Heriberto Apodaca MD Unavailable [phone] Encounter Details Date Type Department Care Team (Late Contact Info) Description 04/06/2021 Procedure Pass [place] Admitting Dept - Virtual Department [address] [place] [address] Social History Tobacco Use Types Packs/Day Years Used Date Smoking Tobacco: Former Cigarettes 979 2003 Smokeless Tobacco: Never Alcohol Use Standard [...] Visit [facility] at [address] [address] Silvia Spencer MD [address] [place] [address] [email or web address] documented as of this encounter Visit Diagnoses Not on filedocumented in this encounter Additional Health Concerns Infection Onset Date Last Indicated Resolved Time CoV-Presumed 10/29/2021 10/29/2021 11/19/2021 1:21 AM EDT CoV-Risk 01/12/2022 01/12/2022 01/23/2022 1:22 AM EDT CoV-Risk 06/22/2022 06/22/2022 07/03/2022 1:22 AM EST COVID-19 05/03/2024 05/03/2024 05/24/2024 1:23 AM EST Assessment Noted Time PHQ-2 Depression Total Score: 0 06/19/20 19 8:47 AM EDT documented as of this encounter Care Teams Psychologist Industrial Organizational Relationship Specialty Start Date End Date Heriberto Apodaca MD [address] [place] [address], [address] [place] [address] [email or web address] PCP - General Family Medicine 03/31/21 05/31/21 Darryl Henriquez CNP [address] [place] [address], [address] [place] [address] [email or web address] PCP - General Family Medicine 06/01/21 07/19/21 Heriberto Apodaca MD [address] [place] [address], [address] [place] [address] [email or web address] PCP - General Family Medicine 07/20/21 08/30/21 Darryl Henriquez CNP [address] [place] [address], [address] [place] [address] [email or web address] PCP - General Family Medicine 08/31/21 10/23/23 Don Chen MD [address] [place] [address], [address] [place] [address] [email or web address] PCP - General Internal Medicine 10/24/23 11/19/23 Darryl Henriquez CNP [address] [place] [address], [address] [place] [address] [email or web address] PCP - General Adult Health 11/20/23 Bay Aguilar MD [address] [place] [address] [email or web address] Historical LMR Provider 02/28/17 05/22/21 Santino Santacruz MD [address] [place] [address], [address] [place] [address] [email or web address] Historical LMR Provider 02/28/17 05/22/21 Heriberto Apodaca MD [address] [place] [address], [address] [place] [address] [email or web address] Insurance Assigned Provider 09/15/18 08/20/22 Russell Ge MD [address] [place] [address], [address] [place] [address] [email or web address] Ophthalmology 10/31/18 Maryan Christy, CHANNELING MACHINE RUNNER [address] [place] [address] Psychiatry 11/26/19 Sisi Pinto MD [address] [place] [address], 2nd [place] [address] [email or web address] General Surgery 01/13/20 Francois Nails MD [address] [place] [address] [email or web address] Endocrinology 01/28/20 Justen Etienne DO [address] [place] [address] [email or web address] Allergy and Immunology 09/29/20 Bin Hsieh MD [address] [place] [address] [email or web address] Palliative Care 02/27/21 Silvia Spencer MD [address] [place] [address] Primary Oncologist Medical Oncology 02/28/22 Don Chen MD [address] [place] [address], [address] [place] [address] [email or web address] Insurance Assigned Provider 08/19/23 09/21/24 Soledad Menard MD [address] [place] [address] Ophthalmology 10/24/23 Heriberto Apodaca MD [address] [place] [address], [address] [place] [address] [email or web address] Insurance Assigned Provider 09/21/24 documented as of this encounter Additional Source Comments The information contained in this document represents components of the legal health record. It is not the complete legal health record.[facility]
== END 2025-01-28 11:41 | disposition home or self-care (01) ==
PROVIDERS: PCP Nurse Practitioner Adult Health; Visit Provider Nurse Practitioner Family
DX: G62.0 Drug-induced polyneuropathy (principal); T45.1X5A Adverse effect of antineoplastic and immunosuppressive drugs, initial encounter; G89.4 Chronic pain syndrome; Z79.891 Long term (current) use of opiate analgesic
CPT/HCPCS: 99214

== ENCOUNTER 2025-02-27 12:51 | Outpatient (AMB) | payer OTHER, SELFPAY ==
--- NOTE | 2025-02-27 12:54 | A.OFFVIS_ITS ---
Vital Signs 02/27/25 13:02 Height 5 ft 8 in Weight 185 lb BMI 28.1 BP 134/92 H Blood Pressure Location Rt brachial Position Sitting Pulse 91 Pulse Source Pulse Oximeter Pulse Oximetry (%) 97 Oxygen Delivery Method Room Air Intake Visit Reasons: Pill count Intake Note: Maki comes in today for a pill count oxycodone, patient should have 64 tablets and presents with 74 tablets which she last took last night 02/26/25 at 8pm. Pain today 09/21 Helicopter Specialist Required: No Accompanied by: Friend Allergies No Known Allergies Allergy (Verified 02/27/25 13:02) HPI Comments Details: Patient presents today for a pill count. Patient is supposed to have #76 pills, in her possession has #74 pills. She reports adequate analgesia on current regime oxycodone 5 mg QID prn without noted side effects. Pain is rated at 7/10. Her chronic pain syndrome primarily affects her feet, with associated neuropathy in her hands. Patient supplements her pain management with gabapentin for neuropathy and a liquid form of marijuana for sleep. The patient experiences anxiety and is prescribed lorazepam as needed, which she recently picked up. She mentions that her anxiety is managed by her counselor Maryan Chritsy NP who also prescribes her antidepressants. The patient has a history of balance issues and tremors, which have not shown significant improvement. She recalls undergoing a neurological evaluation, including imaging, which returned normal results. Denies any fever, chills, nausea, sedation, dizziness, or urinary retention. She utilizes dietary fiber and Smooth move tea for rare constipation. 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 Alert and oriented. Mood and affect appropriate. Follows and participates in conversation appropriately. Respiratory effort is unlabored. Able to transition from sit to stand unassisted. Ambulates with bilaterally normal heel strike and toe off. Eyes General: appearance normal, both eyes and all related structures Back/Spine/Pelvis Cervical Spine: cervical ROM normal, cervical muscular tenderness, pain with cervical ROM and No Cervical spine tenderness Thoracic/Lumbar Spine: thoraco-lumbar ROM normal, paraspinal muscle tenderness, thoraco-lumbar ROM limited, No thoracic spinal tenderness and No lumbar spinal tenderness Extrem General: Yes capillary refill normal, Yes no clubbing, cyanosis or edema and Yes no calf tenderness Psych Appearance: grossly normal Mental Status: mental status grossly normal Speech and movement: Normal speech and movement present and Clear speech present Affect: normal affect and Sad affect present Attitude: cooperative Thought process: Normal thought process present Thought content: Normal thought content present, suicidality (none), no hallucinations and Depressive thoughts present Insight: Good insight present (Psych) Judgement: Good judgement present (Psych) Results Reviewed Results Reviewed: NE electromyogram (EMG); NE nerve conduction velocity 03/28/24: FINDINGS: Right peroneal nerve showed prolonged distal latency, normal amplitude and normal conduction velocity. Right tibial nerve showed normal distal latency, normal amplitude and slow conduction velocity. Left tibial nerve showed prolonged distal latency, normal amplitude and slow conduction velocity. Bilateral sural nerves were present but on the low side for amplitude. Concentric needle EMG was performed in selected muscles of the bilateral lower extremity and lumbar paraspinals. Study revealed signs of electric abnormalities as shown in the table above. Bilateral AH showed increased insertional activity, PSWs and fibrillations. No denervation seen on lumbar paraspinals. IMPRESSION: 1. This is an abnormal study. 2. There are electrodiagnostic findings suggestive for peripheral neuropathy, affecting motor primarily. 3. There is no electrodiagnostic evidence for lumbosacral plexopathy or lumbar radiculopathy. Assessment & Plan Assessment & Plan (1) Chemotherapy-induced peripheral neuropathy: Code(s): G62.0 - Drug-induced polyneuropathy; T45.1X5A - Adverse effect of antineoplastic and immunosuppressive drugs, initial encounter Category: Medical (2) Chronic pain syndrome: Code(s): G89.4 - Chronic pain syndrome Category: Medical (3) Opioid contract exists: Code(s): Z79.891 - group home (current) use of opiate analgesic Category: Medical Plan Patient has shown accountability for her medication regimen and the pill count was accurate. There is no evidence of misuse, abuse or diversion at this time. MassPat reviewed. Refill sent for oxycodone 5 mg QID prn for moderate-severe pain with advanced date of 03/17/25. Patient has Narcan at home. Discussed with the patient the risks associated with benzodiazepine and opioid use. She is aware and verbalized an agreement to take the medications at least two hours apart. All questions and concerns have been answered and patient agreed with the plan. Follow up in 4-5 weeks for pill count and sooner as needed. Patient was informed and verbally consented to the use of an ambient scribe for clinic note documentation during this visit. Medications: Refilled naloxone 4 mg/actuation (Narcan) spray 1 dose into ONE nostril; alternate nostrils w each dose until help arrives 4 mg intranasal Q2M PRN 2 ea 0RF opioid overdose Z79.891 - computer terminal operator (current) use of opiate analgesic oxycodone Partial Fill upon patient request. 5 mg PO Q6H PRN 120 tabs 0RF pain (scale score 7-10) 30 days G62.0 - Drug-induced polyneuropathy, G89.4 - Chronic pain syndrome, T45.1X5A - Adverse effect of antineoplastic and immunosuppressive drugs, initial encounter, Z79.891 - computer terminal operator (current) use of opiate analgesic Coding Level of Care Code Est Pt Level 4 (04406) Complex EM visit Add On G2211 Diagnoses Chemotherapy-induced peripheral neuropathy G62.0; T45.1X5A Chronic pain syndrome G89.4 Opioid contract exists Z79.891
[2025-02-27 13:02] VITALS: BP 134/92; PULSE 91; O2SAT 97; BMI 28.1
== END 2025-02-27 13:16 | disposition home or self-care (01) ==
LOC: HO.PMC 12:51
PROVIDERS: PCP Nurse Practitioner Adult Health; Visit Provider Nurse Practitioner Family
DX: G62.0 Drug-induced polyneuropathy (principal); T45.1X5A Adverse effect of antineoplastic and immunosuppressive drugs, initial encounter; G89.4 Chronic pain syndrome; Z79.891 Long term (current) use of opiate analgesic
CPT/HCPCS: 99214

== ENCOUNTER 2025-03-20 12:30 | Outpatient (RCR) | payer OTHER, SELFPAY ==
[2025-03-07 10:58] VITALS: BP 122/70; PULSE 60; TEMP 37.1; BMI 27.9
--- NOTE | 2025-03-07 12:27 | PC.ADMIT ---
Patient is a 64 year old female who was referred to [facility] by her PCP secondary to struggling with PTSD sxs. Patient also stated she is struggling with dissociation, anxiety, and depression. Patient reports she is unable to concentrate, having panic attacks, and is unable to focus. In addition patient reports having issues with her boss. Patient is taking a LORI from work to work on her mental health while at [facility]. Patient is alert and oriented x4. She is calm and cooperative. Patient presents with depressed mood tearful affect at times. She denied SI, no HI. She was given a copy of her safety plan if needed. Patient reports history of alcohol use. She reports she had a problem with alcohol 8-10 months ago drinking daily with a history of blacking out. Patient reports she had a 1/2 beer recently and is having cravings for alcohol at times. She is interested in the [facility] groups while attending [facility] for more support. [facility] staff is aware. Patient also has a history of overusing her prescription Oxycodone after having a double mastectomy. Patient stated she is currently taking her prescription Oxycodone as prescribed and attends the [facility] pain [facility] clinic where they do a pill count with her along with [facility]. Patient stated she would like to eventually decrease her use of Oxycodone. Patient does have a prescription for Narcan if needed.
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
--- NOTE | 2025-03-14 11:14 | HO.PHP ---
Maki's case was opened during weekly treatment team meeting on 03/13/25
--- NOTE | 2025-03-18 11:42 | P.PNPSP_ITS ---
Subjective Subjective Date of Service: 03/18/25 Reason For Visit: PTSD,dissociation Healthcare Proxy: No Guardianship: No Medical Problems Affecting Mental Status: No Interim History: Patient was seen for a follow-up today. Records were reviewed. She wanted to be seen today with several questions pertaining to her medications, the times she takes them and future plans pertaining to lamotrigine and. These were r eviewed and addressed. She is being discharged at the end of this week and does have appointments with her outpatient psychiatrist, Dr. Sarmiento. Review of Systems Review of Systems Yes all other systems are reviewed and are negative Mental Status Exam Mental Status Exam Narrative: In today's visit the she is alert, oriented and pleasant. Normal speech. Good eye contact. Affect is appropriate and varied. No signs of hypomania. No signs of psychosis. No delusions. Cognitively is intact. Judgment is intact. No SI. She moves all limbs. No gait abnormalities. Diagnostics Vital Signs (24Hr): BMI result Body Mass Index 27.9 Assessment & Plan Assessment & Plan (1) Chronic post-traumatic stress disorder (PTSD): Status: Acute Code(s): F43.12 - Post-traumatic stress disorder, chronic Plan Continue current regimen and plans and work towards discharge Patient educated on: diagnosis and medication risk/benefits Certification I certify that partial hospital treatment is medically necessary due to the symptoms and problems resulting from the patient's mental illness and the failure to treat the patient at the partial hospital level of care would likely result in the patient requiring inpatient psychiatric care which could not be prevented at a less intensive level of care. Total time managing care of this patient today ____ minutes. Discharge Plan Discharge Attending provider: Nieves Rhodes Medications: New prazosin 1 mg capsule 1 mg PO BEDTIME Qty: 20 0RF risperidone 0.25 mg tablet 0.125 - 0.25 mg PO BID PRN (Reason: agitation/grounding for traumatic trigger s) Qty: 20 0RF Continued lamotrigine 25 mg Tablet See Rx Instructions .ROUTE .COMPLEX Rx Instructions: Patient to take one tab daily at bedtime x 2 weeks then increase to Two tabs at bedtime for 2 weeks, then take Four tabs daily at bedtime. aspirin 81 mg Capsule 81 mg PO DAILY atorvastatin 10 mg tablet 10 mg PO DAILY anastrozole 1 mg tablet 1 mg PO DAILY escitalopram oxalate [Lexapro] 20 mg tablet 20 mg PO DAILY No Action gabapentin 100 mg capsule 800 mg PO TID 30 Days Qty: 720 3RF Rx Instructions: Take 8 caps three times a day for pain. cholecalciferol (vitamin D3) [Vitamin D3] 125 mcg (5,000 unit) Tablet 125 mcg PO DAILY lorazepam 1 mg tablet 1 - 2 mg PO DAILY PRN (Reason: Anxiety) naloxone [Narcan] 4 mg/actuation spray,non-aerosol 4 mg intranasal Q2M PRN (Reason: opioid overdose) Qty: 2 0RF Rx Instructions: spray 1 dose into ONE nostril; alternate nostrils w each dose until help arrives oxycodone 5 mg tablet 5 mg PO Q6H PRN (Reason: pain (scale score 7-10)) 30 Days Qty: 120 0RF Rx Instructions: Partial Fill upon patient request. Print Language: Russian
== END 2025-03-20 23:59 | disposition home or self-care (01) ==
LOC: HO.PHPA 12:30
PROVIDERS: Visit Provider Psychiatry & Neurology Psychiatry
DX: F43.12 Post-traumatic stress disorder, chronic (principal); F34.89 Other specified persistent mood disorders; F41.9 Anxiety disorder, unspecified; F10.11 Alcohol abuse, in remission; F19.90 Other psychoactive substance use, unspecified, uncomplicated; Z79.899 Other long term (current) drug therapy
CPT/HCPCS: 90791; 90853

== ENCOUNTER 2025-03-27 12:53 | Outpatient (AMB) | payer OTHER, SELFPAY ==
--- NOTE | 2025-03-27 12:55 | A.OFFVIS_ITS ---
Vital Signs 03/27/25 13:11 Height 5 ft 8 in Weight 185 lb BMI 28.1 BP 135/77 Blood Pressure Location Rt brachial Position Sitting Pulse 72 Pulse Source Pulse Oximeter Pulse Oximetry (%) 99 Oxygen Delivery Method Room Air Intake Visit Reasons: PILL COUNT Intake Note: Maki comes in today for a pill count to oxycodone, patient should have 88 tablets and presents with 88 tablets which she last took last night 03/26/25 at 8pm. Pain today 7/10 Gynecological Assistant Required: No Allergies No Known Allergies Allergy (Verified 03/27/25 13:12) HPI Comments Details: Patient presents today for a pill count. Patient is supposed to have #88 pills, in her possession has #88 pills. She reports adequate analgesia on current regime oxycodone 5 mg QID prn without noted side effects. Pain is rated at 7/10. Her chronic pain syndrome primarily affects her feet, with associated neuropathy in her hands. Patient supplements her pain management with gabapentin for neuropathy and a liquid form of marijuana for sleep. The patient reports recent psychiatric inpatient admission for PTSD and dissociation and was discharged home on 03/20/25. She reports feeling better since adjustment of her medications and recently starting on prazosin and risperidone. She mentions that her anxiety is managed by her counselor Maryan Christy NP who also prescribes her antidepressants. Denies any fever, chills, nausea, sedation, dizziness, or urinary retention. She utilizes dietary fiber and Smooth move tea for occasional constipation. [facility] Medical History (Updated 03/14/25 @ 04:32 by Nieves hRodes MD) Cataract Malignant neoplasm of overlapping sites of left breast in female, estrogen receptor positive Elevated LDL cholesterol level Posterior vitreous detachment of left eye Alvarado fracture Retinal hole of left eye Seborrheic dermatitis FH: cholecystectomy Chronic pain GERD (gastroesophageal reflux disease) Palpitations Anxiety Hyperlipidemia Anxiety HX: breast cancer Surgical History (Updated 03/12/25 @ 15:42 by Jenny Lovell RN) H/O repair of rotator cuff H/O colonoscopy Hx of bilateral mastectomy Social History Household Members: Significant Other Alcohol intake: current Alcohol intake frequency: holidays/special occasions only Alcohol type: beer Patient Tobacco Use Status: Former Tobacco user Tobacco use type: Cigarette Current occupational status: employed 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 Alert and oriented. Mood and affect appropriate. Follows and participates in conversation appropriately. Respiratory effort is unlabored. Able to transition from sit to stand unassisted. Ambulates with bilaterally normal heel strike and toe off. Eyes General: appearance normal, both eyes and all related structures Extrem General: Yes capillary refill normal, Yes no clubbing, cyanosis or edema and Yes no calf tenderness Psych Appearance: grossly normal Mental Status: mental status grossly normal Speech and movement: Normal speech and movement present and Clear speech present Affect: normal affect and Sad affect present Attitude: cooperative Thought process: Normal thought process present Thought content: Normal thought content present, suicidality (none), no hallucinations and Depressive thoughts present Insight: Good insight present (Psych) Judgement: Good judgement present (Psych) Results Reviewed Results Reviewed: NE electromyogram (EMG); NE nerve conduction velocity 03/28/24: FINDINGS: Right peroneal nerve showed prolonged distal latency, normal amplitude and normal conduction velocity. Right tibial nerve showed normal distal latency, normal amplitude and slow conduction velocity. Left tibial nerve showed prolonged distal latency, normal amplitude and slow conduction velocity. Bilateral sural nerves were present but on the low side for amplitude. Concentric needle EMG was performed in selected muscles of the bilateral lower extremity and lumbar paraspinals. Study revealed signs of electric abnormalities as shown in the table above. Bilateral AH showed increased insertional activity, PSWs and fibrillations. No denervation seen on lumbar paraspinals. IMPRESSION: 1. This is an abnormal study. 2. There are electrodiagnostic findings suggestive for peripheral neuropathy, affecting motor primarily. 3. There is no electrodiagnostic evidence for lumbosacral plexopathy or lumbar radiculopathy. 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 There is no evidence of misuse, abuse or diversion at this time. MassPat reviewed. Refill sent for oxycodone 5 mg QID prn for moderate-severe pain with advanced date of 04/17/25. Patient has Narcan at home. Discussed with the patient the risks associated with benzodiazepine and opioid use. She is aware and verbalized an agreement to take the medications at least two hours apart. All questions and concerns have been answered and patient agreed with the plan. Follow up in 4-5 weeks for pill count and sooner as needed. Patient was informed and verbally consented to the use of an ambient scribe for clinic note documentation during this visit. Medications: Refilled oxycodone Partial Fill upon patient request. 5 mg PO Q6H PRN 120 tabs 0RF pain (scale score 7-10) 30 days G62.0 - Drug-induced polyneuropathy, G89.4 - Chronic pain syndrome, T45.1X5A - Adverse effect of antineoplastic and immunosuppressive drugs, initial encounter, Z79.891 - [facility] (current) use of opiate analgesic Coding Level of Care Code Est Pt Level 4 (45912) Complex EM visit Add On G2211 Diagnoses Chemotherapy-induced peripheral neuropathy G62.0; T45.1X5A Chronic pain syndrome G89.4 Opioid contract exists Z79.891
[2025-03-27 13:11] VITALS: BP 135/77; PULSE 72; O2SAT 99; BMI 28.1
== END 2025-03-27 13:20 | disposition home or self-care (01) ==
LOC: HO.PMC 12:54
PROVIDERS: PCP Nurse Practitioner Adult Health; Visit Provider Nurse Practitioner Family
DX: G62.0 Drug-induced polyneuropathy (principal); T45.1X5A Adverse effect of antineoplastic and immunosuppressive drugs, initial encounter; G89.4 Chronic pain syndrome; Z79.891 Long term (current) use of opiate analgesic
CPT/HCPCS: 99214

== ENCOUNTER 2025-04-05 18:06 | Emergency (ER) | payer OTHER, SELFPAY ==
--- NOTE | ~2025-04-05 | XR_ITS ---
CLINICAL HISTORY: fever 2 view chest x-ray Comparison: None provided Findings: No consolidation or pleural effusion. Heart size is normal. No acute fracture. Left rotator cuff repair. IMPRESSION: 1. No acute findings. This document has been electronically signed by: Melyssa Beck MD on 04/05/2025 19:07:04
[2025-04-05 18:14] VITALS: BP 161/80; PULSE 66; RESP 18; TEMP 37.6; O2SAT 98; BMI 28.1
--- NOTE | 2025-04-05 18:16 | ED.GENADULT ---
HPI - General Adult General Chief complaint: General Medical Stated complaint: Skin Rash Time Seen by Provider: 04/05/25 20:11 Source: patient Limitations: no limitations History of Present Illness ED Provider: Dulce Maria Walters PA-C HPI narrative: 64-year-old female with a history of breast cancer, status post bilateral mastectomy on anastrozole, hyperlipidemia, anxiety and GERD who presents with rash over chest for 2 days. Patient was told if she ever develops a rash, she should seek medical attention, her oncologist provided her with the information. The rash is not itchy it is not painful. It is only over anterior upper chest. Denies new medication, body products, food. She has no related allergic type symptoms; urticaria, angioedema, dysphagia, dyspnea. Related Data Home Medications ?Medication ?Instructions ?Recorded ?Confirmed anastrozole 1 mg tablet 1 mg PO DAILY 11/23/22 03/07/25 escitalopram oxalate 20 mg tablet 20 mg PO DAILY 11/23/22 03/07/25 (Lexapro) atorvastatin 10 mg tablet 10 mg PO DAILY 02/27/25 03/07/25 lorazepam 1 mg tablet 1 - 2 mg PO DAILY PRN Anxiety 02/27/25 03/07/25 aspirin 81 mg capsule 81 mg PO DAILY 03/07/25 03/07/25 cholecalciferol (vitamin D3) 125 125 mcg PO DAILY 03/07/25 03/07/25 mcg (5,000 unit) tablet (Vitamin D3) lamotrigine 25 mg tablet See Rx Instructions .Route .COMPLEX 03/07/25 03/07/25 Previous Rx's ?Medication ?Instructions ?Recorded gabapentin 100 mg capsule 800 mg (8 x 100 mg) PO TID pain 30 01/14/25 days #720 caps naloxone 4 mg/actuation nasal 4 mg intranasal Q2M PRN opioid 02/27/25 spray (Narcan) overdose #2 ea prazosin 1 mg capsule 1 mg PO BEDTIME as directed #20 03/11/25 caps risperidone 0.25 mg tablet 0.125 - 0.25 mg (0.5 - 1 x 0.25 03/11/25 mg) PO BID PRN agitation/grounding for traumatic triggers #20 tabs oxycodone 5 mg tablet 5 mg PO Q6H PRN pain (scale score 03/27/25 7-10) 30 days #120 tabs Allergies Allergy/AdvReac Type Severity Reaction Status Date / Time No Known Allergies Allergy Verified 04/05/25 18:16 Review of Systems Review of Systems: Yes all other systems are reviewed and are negative Constitutional: Constitutional: Denies fatigue and Denies fever(s) ENT: Denies lip swelling, Denies sore throat, Denies throat swelling and Denies tongue swelling Cardiovascular: Cardiovascular: Denies chest pain and Denies dyspnea Respiratory: Respiratory: Denies cough and Denies dyspnea Integumentary/Breasts: Skin/Breast: Denies pruritus, Reports rash, Denies skin pain and Denies skin swelling Endocrine: Endocrine: Denies fatigue Allergic/Immunologic: Allergic/Immunologic: Denies lip swelling, Denies throat swelling and Denies tongue swelling [facility] Past Medical History Attestation statement: The following information was validated with the patient. Medical History (Updated 04/06/25 @ 00:00 by Oscar Matthew) Cataract Malignant neoplasm of overlapping sites of left breast in female, estrogen receptor positive Elevated LDL cholesterol level Posterior vitreous detachment of left eye Alvarado fracture Retinal hole of left eye Seborrheic dermatitis FH: cholecystectomy Chronic pain GERD (gastroesophageal reflux disease) Palpitations Anxiety Hyperlipidemia Anxiety HX: breast cancer Surgical History (Updated 03/12/25 @ 15:42 by Jenny Lovell RN) H/O repair of rotator cuff H/O colonoscopy Hx of bilateral mastectomy Social History Social History Household Members: Significant Other Alcohol intake: current Alcohol intake frequency: holidays/special occasions only Alcohol type: beer Patient Tobacco Use Status: Former Tobacco user Tobacco use type: Cigarette Advance Directives: No Advance Directives Information Provided: No Do you have a plan to hurt others: No Plan Current occupational status: employed 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, 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 Physical Exam ED Vital Signs: Vital Signs - 24 hr 04/05/25 18:14 Temperature 99.6 F Pulse Rate 66 Respiratory Rate 18 Blood Pressure 161/80 H Pulse Oximetry 98 Oxygen Delivery Method Room Air BMI result Body Mass Index 28.1 Const Other: Alert well-appearing Orientation/consciousness: patient oriented x3 Chest Other: Fine, pink reticular like rash over upper anterior chest, is faintly raised in palpable, does not omari Resp Effort & Inspection: normal respiratory effort Cardio Other: Normal peripheral perfusion Skin Other: Warm dry overall no rash Neuro General: patient oriented x3, gait normal, no focal motor deficits and CN's II-XI intact bilaterally Psych Other: Cooperative Course Course Course Narrative: RME, this is a rapid medical exam performed by Patrice Farr please refer to primary provider for complete H&P- 64-year-old female presents for evaluation of a rash to the left side of her face in her chest. She also endorses fevers and chills, her temperature in triage was 99.6 orally. Denies any other symptoms at this time. She has a history of breast cancer but does not been on any Chemotherapy treatment in the last 4 years. Plan for labs, viral swabs and a chest x-ray Medical Decision Making Medical Decision Making MDM Narrative: 64-year-old female with a history of breast cancer, status post bilateral mastectomy on anastrozole, hyperlipidemia, anxiety and GERD who presents with rash over chest for 2 days. Patient was told if she ever develops a rash, she should seek medical attention, her oncologist provided her with the information. The rash is not itchy it is not painful. It is only over anterior upper chest. Denies new medication, body products, food. She has no related allergic type symptoms; urticaria, angioedema, dysphagia, dyspnea. Problem: Prior breast cancer History: Per patient I have considered the following differential diagnoses: Tinea, strep/staph infection, bedbugs, scabies, shingles, contact dermatitis, urticaria Plan: The rash the patient has a is very nonspecific, she has no symptoms with the rash, she can follow up with derm and her oncologist. It is unclear what rash they are speaking of that she was told to watch out for. One of the side effects from the medication she takes is for a rash, however if it were a drug related rash I would expected to be more diffuse and not focal. Screening labs obtained from triage and are unremarkable I have independently reviewed the following tests: Labs: No leukocytosis, not anemic, no electrolyte abnormality, viral panel negative Chest x-ray:Findings: No consolidation or pleural effusion. Heart size is normal. No acute fracture. Left rotator cuff repair. IMPRESSION: 1. No acute findings. EKG: Normal sinus rhythm, rate of 61, no ischemic changes no ectopy no change in prior study QTC 434 Differential Diagnosis Differential Diagnoses: The differential diagnosis associated with the presentation includes See MDM Admission/Observation Consideration of admission/observation: Escalation of care including admission/observation considered Not applicable Lab Data 04/05/25 18:35 04/05/25 18:35 Labs: Lab Results 04/05/25 Range/Units 18:35 WBC 3.6 L (4.8-10.8) X10*3/uL RBC 4.57 (4.20-5.50) X10*6/uL Hgb 13.6 (12.0-16.0) g/dl Hct 39.9 (37.0-47.0) % MCV 87.3 (80.0-98.0) fL MCH 29.8 (27.0-33.0) pg MCHC 34.1 (31.0-35.0) g/dl RDW 12.1 (11.0-16.0) % Plt Count 177 D (160-400) X10*3/uL MPV 9.6 (9.4-12.3) fL Immature Gran % (Auto) 0.0 (0.0-0.4) % Neut % (Auto) 44.6 L (45-73) % Lymph % (Auto) 28.3 (20-40) % [place] % (Auto) 10.6 (2-11) % Eos % (Auto) 15.1 H (0-4) % Baso % (Auto) 1.4 (0-2) % Lymph # (Auto) 1.0 L (1.2-4.9) X10*3/uL [place] # (Auto) 0.4 (0.1-1.2) X10*3/uL Eos # (Auto) 0.5 H (0.0-0.4) X10*3/uL Baso # (Auto) 0.1 (0.0-0.2) X10*3/uL Abs Immat Gran (auto) 0.00 (0.00-0.03) X10*3/uL Absolute Neuts (auto) 1.6 L (2.0-8.3) x10*3/uL Absolute Nucleated RBC 0.000 (0.0-0.012) X10*3/uL Nucleated RBC % (auto) 0.0 (0.0-0.2) /100WBC Sodium 140 (135-145) mmol/L Potassium 4.1 (3.3-5.1) mmol/L Chloride 107 (96-108) mmol/L Carbon Dioxide 25 (22-29) mmol/L Anion Gap 12 (12-20) BUN 20 H (9-16) mg/dL Creatinine 0.95 (0.5-1.4) mg/dL Estim Creat Clear Calc 67.8 Estimated GFR 59 Random Glucose 103 (60-115) mg/dL Lactic Acid 1.4 (0.5-2.0) mmol/L Calcium 9.8 (8.4-10.2) mg/dL Total Bilirubin 0.5 (0.0-1.0) mg/dL AST 25 (5-31) U/L ALT 28 (0-31) U/L Alkaline Phosphatase 89 (39-117) U/L Total Protein 7.4 (6.5-8.0) g/dL Albumin 4.7 (3.5-5.0) g/dL TSH 1.10 (0.32-4.0) uIU/mL Influenza Type A (PCR) NEGATIVE (Negative) Influenza Type B (PCR) NEGATIVE (Negative) RSV RNA Qual (PCR) NEGATIVE (Negative) SARS-CoV-2 RNA (RT-PCR) NEGATIVE (Negative) Discharge Plan Discharge Clinical Impression: Rash Patient Disposition: Home, Self-Care Additional Instructions: You have a very nonspecific rash, we recommend that you continue to follow up with your oncologist. Today, your screening labs are normal for you. You were tested for COVID, influenza and RSV, the viral panel was negative. The chest x-ray is clear, and there were no concerning changes on the EKG. Prescriptions: No Action gabapentin 100 mg capsule 800 mg PO TID 30 Days Qty: 720 3RF Rx Instructions: Take 8 caps three times a day for pain. lamotrigine 25 mg Tablet See Rx Instructions .ROUTE .COMPLEX Rx Instructions: Patient to take one tab daily at bedtime x 2 weeks then increase to Two tabs at bedtime for 2 weeks, then take Four tabs daily at bedtime. cholecalciferol (vitamin D3) [Vitamin D3] 125 mcg (5,000 unit) Tablet 125 mcg PO DAILY aspirin 81 mg Capsule 81 mg PO DAILY prazosin 1 mg capsule 1 mg PO BEDTIME Qty: 20 0RF risperidone 0.25 mg tablet 0.125 - 0.25 mg PO BID PRN (Reason: agitation/grounding for traumatic triggers) Qty: 20 0RF atorvastatin 10 mg tablet 10 mg PO DAILY lorazepam 1 mg tablet 1 - 2 mg PO DAILY PRN (Reason: Anxiety) naloxone [Narcan] 4 mg/actuation spray,non-aerosol 4 mg intranasal Q2M PRN (Reason: opioid overdose) Qty: 2 0RF Rx Instructions: spray 1 dose into ONE nostril; alternate nostrils w each dose until help arrives oxycodone 5 mg tablet 5 mg PO Q6H PRN (Reason: pain (scale score 7-10)) 30 Days Qty: 120 0RF Rx Instructions: Partial Fill upon patient request. anastrozole 1 mg tablet 1 mg PO DAILY escitalopram oxalate [Lexapro] 20 mg tablet 20 mg PO DAILY Interventions: ED Discharge Assessment Last Done: 04/05/25 21:05 Discharge Date/Time: 04/05/25 21:06 Print Language: Egyptian
--- NOTE | 2025-04-05 18:18 | ECG_ITS ---
Test Reason : WEAKNESS Blood Pressure : */* mmHG Vent. Rate : 61 BPM Atrial Rate : 61 BPM P-R Int : 144 ms QRS Dur : 74 ms QT Int : 432 ms P-R-T Axes : 52 14 61 degrees QTcB Int : 434 ms Normal sinus rhythm Low voltage QRS Borderline ECG When compared with ECG of 12-Mar-2023 10:49, No significant change was found Referred By: Magdiel Farr Electronically Signed By: LULU MEI
[2025-04-05 19:09] LABS: Alanine Aminotransferase 28 U/L (0-31); Albumin Level 4.7 g/dL (3.5-5.0); Alkaline Phosphatase 89 U/L (39-117); Anion Gap 12 (12-20); Aspartate Amino Transferase 25 U/L (5-31); Blood Urea Nitrogen 20 mg/dL (9-16); Calcium 9.8 mg/dL (8.4-10.2); Carbon Dioxide 25 mmol/L (22-29); Chloride 107 mmol/L (96-108); Creatinine Clr Calc Pharmacy 67.8; Estimated Glomerular Filt Rate 59; Potassium 4.1 mmol/L (3.3-5.1); Sodium 140 mmol/L (135-145); Total Protein 7.4 g/dL (6.5-8.0)
[2025-04-05 19:10] LABS: Hematocrit 39.9 % (37.0-47.0); Hemoglobin 13.6 g/dl (12.0-16.0); Imm Gran Abs Auto 0.00 X10*3/uL (0.00-0.03); Imm Gran Pct Auto 0.0 % (0.0-0.4); Lymphocytes Absolute Auto 1.0 X10*3/uL (1.2-4.9); MANUAL DIFF FLAG NO; Mean Corpuscular HGB Conc 34.1 g/dl (31.0-35.0); Mean Corpuscular Hemoglobin 29.8 pg (27.0-33.0); Mean Corpuscular Volume 87.3 fL (80.0-98.0); NRBC Abs Auto 0.000 X10*3/uL (0.0-0.012); NRBC Pct Auto 0.0 /100WBC (0.0-0.2); Platelet Count 177 X10*3/uL (160-400); Red Blood Count 4.57 X10*6/uL (4.20-5.50); White Blood Count 3.6 X10*3/uL (4.8-10.8)
[2025-04-05 19:20] LABS: Resp Syncy Virus RNA Qual PCR NEGATIVE (Negative); SARS COV2 PCR INHOUSE NEGATIVE (Negative)
[2025-04-05 21:05] VITALS: BP 161/80; PULSE 66; RESP 18; TEMP 37.6; O2SAT 98
== END 2025-04-05 21:06 | disposition home or self-care (01) ==
PROVIDERS: Physician Assistant; Emergency Provider Emergency Medicine; PCP Nurse Practitioner Adult Health
DX: R21 Rash and other nonspecific skin eruption (principal); R94.31 Abnormal electrocardiogram [ECG] [EKG]; R53.1 Weakness; R50.9 Fever, unspecified; Z79.899 Other long term (current) drug therapy; Z03.818 Encounter for observation for suspected exposure to other biological agents ruled out
CPT/HCPCS: 36415; 71046; 80053; 83605; 84443; 85025; 87040; 87637; 93005; 99283

== ENCOUNTER → 2025-04-05 18:17 | Outpatient (BNV) | payer OTHER, SELFPAY | PROVIDERS: PCP Nurse Practitioner Adult Health; Visit Provider Student in an Organized Health Care Education/Training Program | DX: R50.9 Fever, unspecified (principal) | CPT/HCPCS: 71046 ==

== ENCOUNTER → 2025-04-05 18:18 | Outpatient (BNV) | payer OTHER, SELFPAY | PROVIDERS: Emergency Provider Emergency Medicine; PCP Nurse Practitioner Adult Health; Visit Provider Internal Medicine | DX: R53.1 Weakness (principal) | CPT/HCPCS: 93010 ==

== ENCOUNTER 2025-04-22 20:08 | Inpatient (IN) | payer OTHER, SELFPAY ==
--- NOTE | 2025-04-22 | ECG_ITS ---
Test Reason : OD Blood Pressure : */* mmHG Vent. Rate : 72 BPM Atrial Rate : 72 BPM P-R Int : 162 ms QRS Dur : 80 ms QT Int : 410 ms P-R-T Axes : 56 22 54 degrees QTcB Int : 448 ms Normal sinus rhythm Normal ECG When compared with ECG of 05-Apr-2025 18:24, No significant change was found Referred By: Generic ED Physician Electronically Signed By: YOKASTA HAQ MD
[2025-04-22 20:09] VITALS: BP 138/74; PULSE 99; O2SAT 95
[2025-04-22 20:11] VITALS: BP 124/71; PULSE 73; RESP 14; TEMP 37.1; O2SAT 93
[2025-04-22 20:13] VITALS: BMI 27.7
[2025-04-22 20:28] VITALS: PULSE 65; RESP 13; O2SAT 88
--- NOTE | 2025-04-22 20:34 | PC.NURSE ---
pt 88% on RA while asleep. MD aware. 2mg IV Narcan given per MAR. pt more talkative at this time. MD at bedside. 99% on 3L nc
--- NOTE | 2025-04-22 20:41 | ED.OVERDOSE ---
HPI - Overdose General Chief Complaint: Overdose Stated Complaint: OD Time Seen by Provider: 04/22/25 20:23 Source: patient and police Mode of arrival: ambulatory Limitations: no limitations History of Present Illness ED Provider: DR. Jamison HPI Narrative: 64-year-old female history of chronic pain takes oxycodone 5 mg tablet 4 times day daily patient felt depressed because she broke up with her partner today patient feels depressed and suicidal told to 1 of her friend that she is going to end it, patient took a full hand (ED pills ) of 5 mg oxycodone trying to end her life at 19:00, the friend called 911 who brought the patient to the ED patient came in under police custody under section 12.Declined any other coingestion. Related Data Home Medications ?Medication ?Instructions ?Recorded ?Confirmed anastrozole 1 mg tablet 1 mg PO DAILY 11/23/22 03/07/25 escitalopram oxalate 20 mg tablet 20 mg PO DAILY 11/23/22 03/07/25 (Lexapro) atorvastatin 10 mg tablet 10 mg PO DAILY 02/27/25 03/07/25 lorazepam 1 mg tablet 1 - 2 mg PO DAILY PRN Anxiety 02/27/25 03/07/25 aspirin 81 mg capsule 81 mg PO DAILY 03/07/25 03/07/25 cholecalciferol (vitamin D3) 125 125 mcg PO DAILY 03/07/25 03/07/25 mcg (5,000 unit) tablet (Vitamin D3) lamotrigine 25 mg tablet See Rx Instructions .Route .COMPLEX 03/07/25 03/07/25 Previous Rx's ?Medication ?Instructions ?Recorded gabapentin 100 mg capsule 800 mg (8 x 100 mg) PO TID pain 30 01/14/25 days #720 caps naloxone 4 mg/actuation nasal 4 mg intranasal Q2M PRN opioid 02/27/25 spray (Narcan) overdose #2 ea prazosin 1 mg capsule 1 mg PO BEDTIME as directed #20 03/11/25 caps risperidone 0.25 mg tablet 0.125 - 0.25 mg (0.5 - 1 x 0.25 03/11/25 mg) PO BID PRN agitation/grounding for traumatic triggers #20 tabs oxycodone 5 mg tablet 5 mg PO Q6H PRN pain (scale score 03/27/25 7-10) 30 days #120 tabs Allergies Allergy/AdvReac Type Severity Reaction Status Date / Time No Known Allergies Allergy Verified 04/22/25 20:16 Review of Systems Review of Systems: All other systems are reviewed and are negative Constitutional: Reports as per HPI and Reports no additional constitutional complaints Eyes: Reports as per HPI and Reports no additional eye complaints Reports system reviewed and no additional complaints, except as documented Cardiovascular: Reports as per HPI and Reports no additional cardiovascular complaints Respiratory: Reports as per HPI and Reports no additional respiratory complaints Gastrointestinal: Reports as per HPI and Reports no additional gastrointestinal complaints Genitourinary: Reports no additional female genitourinary complaints Musculoskeletal: Reports no additional musculoskeletal complaints Skin/Breast: Reports system reviewed and no additional complaints, except as docu Psychiatric: Reports no additional psychiatric complaints Endocrine: Reports no additional endocrine complaints Hematologic/Lymphatic: Reports no additional hematologic/lymphatic complaints Allergic/Immunologic: Reports no additional allergic/immunologic complaints Reports system reviewed and no additional complaints, except as documented and Reports Abnormal speech present PMFSH Past Medical History Medical History Cataract Malignant neoplasm of overlapping sites of left breast in female, estrogen receptor positive Elevated LDL cholesterol level Posterior vitreous detachment of left eye Alvarado fracture Retinal hole of left eye Seborrheic dermatitis FH: cholecystectomy Chronic pain GERD (gastroesophageal reflux disease) Palpitations Anxiety Hyperlipidemia Anxiety HX: breast cancer Surgical History H/O repair of rotator cuff H/O colonoscopy Hx of bilateral mastectomy Social History Social History Household Members: Significant Other Alcohol intake: current Alcohol intake frequency: holidays/special occasions only Alcohol type: beer Patient Tobacco Use Status: Former Tobacco user Tobacco use type: Cigarette Smoked in Last 30 Days: No Use of substances other than those prescribed or required for medical reasons: No Advance Directives: No Advance Directives Information Provided: No Current occupational status: employed 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 Blood pressure elevated. Heart rate normal. Respiratory rate normal. Temperature normal. Oxygen saturation normal. Appearance: Alert. Oriented X3. No acute distress. Head: Normal external exam. Normocephalic. Atraumatic. No Blunt signs noted. No raccoon eyes noted Eyes: PERRLA. EOMI. Conjunctiva and sclera normal. Eyelids normal. ENT: TM's Normal. Pharynx normal. Uvula midline. Moist mucous membranes. No trismus noted. No drooling noted. No muffled voice noted. Neck: Normal inspection. Neck supple. FROM. No adenopathy. Thyroid Normal. No meningeal signs. No neck mass noted. CVS: Normal heart rate and rhythm. Heart sound normal. No murmurs noted. Pulses normal throughout. Respiratory: No respiratory distress. Painless inspiration. Breath sounds normal. No wheezes/rales/rhonchi noted. Chest nontender. No accessory muscle usage noted or decreased air movement noted. Abdomen: Soft and nontender. Bowel sounds normal in all 4 quadrants. No distention noted. No organomegaly noted. No visible injury noted. Back: No CVA tenderness. Full range of motion noted. Skin: Skin warm and dry. Normal skin color. Normal skin turgor. No rashes/lesions/lacerations noted. Extremities: No lower extremity edema. Extremities exhibit normal range of motion. Extremities nontender. Neuro: Oriented X 3. Cranial nerve exam: II-XII are grossly intact No motor deficit. No sensory deficit. Reflexes normal. Patient Orientation: Person, Place, Time and Situation, okay hygiene and grooming. Fair eye contact, attentive, no tics or tremors. Level of Consciousness: Awake, Appropriate and Alert Patient Behavior: Appropriate, Guarded, Cooperative and Anxious Mood Description: Constricted, Blunted and Apprehensive Affect Description: Constricted, Blunted and Apprehensive Patient Cognition Impaired: No Ability to Follow Directions: Excellent Speech Pattern: Clear, Appropriate and Spontaneous Speech, nonpressured, spontaneous with regular rate and rhythm, normal volume and prosody. No dysarthria. Memory Description: Intact, Immediate Intact and Short Term Intact Hallucinations: None Delusions: Not Present Thought Process: Intact Thought Content: + depression and suicidal ideation with attempt. Depressive Symptoms: Not present. Judgement and Insight: Limited but adequate. Course Reevaluation(s) Reevaluation #1: 64-year-old female overdosed on 400 mg of her prescribed oxycodone, patient is semi lethargic required 2 mg of Narcan in the ED secondary to hypoxia of 88% on room air, patient currently is awake and able to answer questions. Time: 20:45 Reevaluation #2: 1. patient received activated charcoal. 2. Semi lethargic easily arousable by verbal stimuli. 3. Case discussed poison control patient to be admitted for 24 hours and Narcan drip if needed. Case discussed with who accepted the patient to the hospitalist service. Time: 22:33 Medications Administered Discontinued Medications Generic Name Dose Route Start Last Admin Trade Name Freq PRN Reason Stop Dose Admin Charcoal 100 gm 04/22/25 20:38 04/22/25 20:51 Activated Charcoal 50 Gm/240 Ml Oral.Susp PO 04/22/25 20:39 100 gm ONCE ONE Administration Lactated Ringer's 1,000 mls @ 999 mls/hr 04/22/25 20:45 04/22/25 20:51 Lr IV 04/22/25 21:45 999 mls/hr .Q1H1M CANDIDA Administration Naloxone HCl 2 mg 04/22/25 20:28 04/22/25 20:31 Naloxone Hcl 2 Mg/2 Ml Syringe IVPUSH 04/22/25 20:29 2 mg ONCE ONE Administration Medical Decision Making Differential Diagnosis Differential Diagnoses: The differential diagnosis associated with the presentation includes ( Depression, SI, congestion aspirin and Tylenol, electrolyte derangement, severe anemia, central respiratory depression, no need for Narcan.) Admission/Observation Consideration of admission/observation: Escalation of care including admission/observation considered Lab Data MDM Lab Attestation statement: I reviewed the patient's lab results. 04/22/25 21:01 04/22/25 21:01 Labs: Lab Results 04/22/25 Range/Units 21: WBC 5.4 (4.8-10.8) X10*3/uL RBC 4.61 (4.20-5.50) X10*6/uL Hgb 13.6 (12.0-16.0) g/dl Hct 40.8 (37.0-47.0) % MCV 88.5 (80.0-98.0) fL MCH 29.5 (27.0-33.0) pg MCHC 33.3 (31.0-35.0) g/dl RDW 12.0 (11.0-16.0) % Plt Count 267 D (160-400) X10*3/uL MPV 8.7 L (9.4-12.3) fL Immature Gran % (Auto) 0.2 (0.0-0.4) % Neut % (Auto) 60.3 (45-73) % Lymph % (Auto) 26.4 (20-40) % [place] % (Auto) 6.3 (2-11) % Eos % (Auto) 4.8 H (0-4) % Baso % (Auto) 2.0 (0-2) % Lymph # (Auto) 1.4 (1.2-4.9) X10*3/uL [place] # (Auto) 0.3 (0.1-1.2) X10*3/uL Eos # (Auto) 0.3 (0.0-0.4) X10*3/uL Baso # (Auto) 0.1 (0.0-0.2) X10*3/uL Abs Immat Gran (auto) 0.01 (0.00-0.03) X10*3/uL Absolute Neuts (auto) 3.2 (2.0-8.3) x10*3/uL Absolute Nucleated RBC 0.000 (0.0-0.012) X10*3/uL Nucleated RBC % (auto) 0.0 (0.0-0.2) /100WBC PT 12.5 (11.2-13.5) SEC INR 1.0 (0.9-1.1) Sodium 141 (135-145) mmol/L Potassium 5.0 D (3.3-5.1) mmol/L Chloride 109 H (96-108) mmol/L Carbon Dioxide 27 (22-29) mmol/L Anion Gap 10 L (12-20) BUN 17 H (9-16) mg/dL Creatinine 0.76 (0.5-1.4) mg/dL Estim Creat Clear Calc 84.2 Estimated GFR > 60 Random Glucose 112 (60-115) mg/dL Calcium 9.4 (8.4-10.2) mg/dL Total Bilirubin 0.4 (0.0-1.0) mg/dL Direct Bilirubin 0.2 (0.0-0.5) mg/dL AST 27 (5-31) U/L ALT 31 (0-31) U/L Alkaline Phosphatase 89 (39-117) U/L Total Protein 6.9 (6.5-8.0) g/dL Albumin 4.5 (3.5-5.0) g/dL Lipase 44 (8-78) U/L Salicylates < 5.0 L (15-30) mg/dL Acetaminophen < 3 (<30) mcg/mL Ethyl Alcohol < 10 mg/dL Critical Care Time Critical Care Time Critical Care Time: Yes Total Critical Care Time: 60 Attestation: The patient was critically ill with a high probability of imminent or life-threatening deterioration. I spent greater than 30 minutes of discontinuous time evaluating the patient, delivering critical care at the bedside, discussing evaluating data with consultants. Critical care time does not include time spent performing separately billable procedures or teaching. Time spent performing critical care was 60 minutes. Discharge Plan Discharge Clinical Impression: Depression, Suicide attempt, Overdose Patient Disposition: Admitted As Inpatient Print Language: Trinidadian
[2025-04-22] MEDS: Lactated Ringers 1,000 ML 999 ML IV (20:51)
[2025-04-22 21:10] LABS: MANUAL DIFF FLAG NO
[2025-04-22 21:11] LABS: Hematocrit 40.8 % (37.0-47.0); Hemoglobin 13.6 g/dl (12.0-16.0); Imm Gran Abs Auto 0.01 X10*3/uL (0.00-0.03); Imm Gran Pct Auto 0.2 % (0.0-0.4); Lymphocytes Absolute Auto 1.4 X10*3/uL (1.2-4.9); Mean Corpuscular HGB Conc 33.3 g/dl (31.0-35.0); Mean Corpuscular Hemoglobin 29.5 pg (27.0-33.0); Mean Corpuscular Volume 88.5 fL (80.0-98.0); NRBC Abs Auto 0.000 X10*3/uL (0.0-0.012); NRBC Pct Auto 0.0 /100WBC (0.0-0.2); Platelet Count 267 X10*3/uL (160-400); Red Blood Count 4.61 X10*6/uL (4.20-5.50); White Blood Count 5.4 X10*3/uL (4.8-10.8)
--- NOTE | 2025-04-22 21:16 | PC.NURSE ---
spoke with poison control. will call back once labs have resulted. recommending admit for 24hrs for observation, narcan drip if needed.
[2025-04-22 21:17] LABS: INTERNATIONAL NORM RATIO 1.0 (0.9-1.1); Prothrombin Time 12.5 SEC (11.2-13.5)
[2025-04-22 21:27] LABS: Alanine Aminotransferase 31 U/L (0-31); Albumin Level 4.5 g/dL (3.5-5.0); Alkaline Phosphatase 89 U/L (39-117); Anion Gap 10 (12-20); Aspartate Amino Transferase 27 U/L (5-31); Blood Urea Nitrogen 17 mg/dL (9-16); Calcium 9.4 mg/dL (8.4-10.2); Carbon Dioxide 27 mmol/L (22-29); Chloride 109 mmol/L (96-108); Creatinine Clr Calc Pharmacy 84.2; Estimated Glomerular Filt Rate > 60; Lipase 44 U/L (8-78); Potassium 5.0 mmol/L (3.3-5.1); Sodium 141 mmol/L (135-145); Total Protein 6.9 g/dL (6.5-8.0)
[2025-04-22 21:29] LABS: Acetaminophen LAB < 3 mcg/mL (<30); Salicylate < 5.0 mg/dL (15-30)
[2025-04-22 21:30] VITALS: BP 129/73; PULSE 70; RESP 14; O2SAT 97
[2025-04-22 22:07] VITALS: BP 117/75; PULSE 76; RESP 16; TEMP 36.3; O2SAT 96
--- NOTE | 2025-04-22 22:10 | PC.NURSE ---
updated poison control on labs. no new orders at this time
--- NOTE | 2025-04-22 22:40 | P.HPHOSP_ITS ---
History of Present Illness Date of Service: 04/22/25 Chief Complaint: intentional oxycodone overdose 64F PMH breast cancer, bipolar, hld, brought in by ambulance for intentional overdose. At about 19:45 patient took about 40 pills of 5 mg oxycodone in attempt to commit suicide. Was given activated charcoal and Narcan. Patient became more rousable, maintaining respiratory rate around 10-12, able to give history. EKG normal sinus rhythm of 72. Review of Systems 2 Review of Systems: Yes all other systems are reviewed and are negative [facility] Medical History Cataract Malignant neoplasm of overlapping sites of left breast in female, estrogen receptor positive Elevated LDL cholesterol level Posterior vitreous detachment of left eye Alvarado fracture Retinal hole of left eye Seborrheic dermatitis FH: cholecystectomy Chronic pain GERD (gastroesophageal reflux disease) Palpitations Anxiety Hyperlipidemia Anxiety HX: breast cancer Surgical History H/O repair of rotator cuff H/O colonoscopy Hx of bilateral mastectomy Social History Household Members: Significant Other Alcohol intake: current Alcohol intake frequency: holidays/special occasions only Alcohol type: beer Patient Tobacco Use Status: Former Tobacco user Tobacco use type: Cigarette Smoked in Last 30 Days: No Use of substances other than those prescribed or required for medical reasons: No Advance Directives: No Advance Directives Information Provided: No Current occupational status: employed 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, 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 Meds Allergies Allergy/AdvReac Type Severity Reaction Status Date / Time No Known Allergies Allergy Verified 04/22/25 20:16 Active Medications: Current Medications Acetaminophen (Acetaminophen 325 Mg Tablet) 650 mg PO Q6H PRN PRN Reason: Pain, Mild 1-3,fever,headache Calcium Carbonate (Calcium Carbonate 750 Mg Tab.Chew) 750 mg PO Q4H PRN PRN Reason: Heartburn Magnesium Hydroxide (Milk Of Magnesia 30 Ml Oral.Susp) 30 ml PO DAILY PRN PRN Reason: Constipation Melatonin (Melatonin 3 Mg Tablet) 6 mg PO BEDTIME PRN PRN Reason: Insomnia Naloxone HCl (Naloxone Hcl 0.4 Mg/Ml Vial) 0.4 mg IVPUSH Q1H PRN PRN Reason: RR<10 Sodium Chloride (0.9 % Sodium Chloride Flush 3 Ml Syringe) 3 ml IVFLUSH QSHIFT [facility] Home Medications ?Medication ?Instructions ?Recorded ?Confirmed ?Last Taken ?Type anastrozole 1 mg tablet 1 mg PO DAILY 11/23/2203/07 Unknown History escitalopram oxalate 20 mg tablet 20 mg PO DAILY 11/2303/07/25 Unknown History (Lexapro) atorvastatin 10 mg tablet 10 mg PO DAILY 02/27/2502/13 Unknown History lorazepam 1 mg tablet 1 - 2 mg PO DAILY PRN Anxiet y 02/27/25 03/07/25 Unknown History aspirin 81 mg capsule 81 mg PO DAILY 03/07/2502/13 Unknown History cholecalciferol (vitamin D3) 125 125 mcg PO DAILY 02/1303/07/25 Unknown History mcg (5,000 unit) tablet (Vitamin D3) lamotrigine 25 mg tablet See Rx Instructions .Route . COMPLEX 03/07/25 03/07/25 Unknown History Physical Exam 2 Vital Signs and Narrative: Vital Signs: Last Vital Signs Temp 97.4 F 04/22/25 22:07 Pulse 76 04/22/25 22:07 Resp 16 04/22/25 22:07 BP 117/75 04/22/25 22:07 Pulse Ox 96 04/22/25 22:07 O2 Del Method Room Air 04/22/25 22:07 BMI result Body Mass Index 27.7 General: Obtunded to lethargic but rousable and answers questions appropriately O X 3 Resp: CTA bilateral, no accessory muscles used CVS: S1,S2,RRR GI: soft, non tender, non distended Neuro: motor grossly intact Psych: Depressed affect, appropriate insight Results Labs 04/22/25 21:01 04/22/25 21:01 Labs: Laboratory Results - last 24 hr 04/22/25 21:01 MCV 88.5 MCH 29.5 MCHC 33.3 RDW 12.0 Plt Count 267 D MPV 8.7 L Immature Gran % (Auto) 0.2 Neut % (Auto) 60.3 Lymph % (Auto) 26.4 [place] % (Auto) 6.3 Eos % (Auto) 4.8 H Baso % (Auto) 2.0 Lymph # (Auto) 1.4 [place] # (Auto) 0.3 Eos # (Auto) 0.3 Baso # (Auto) 0.1 Abs Immat Gran (auto) 0.01 Absolute Neuts (auto) 3.2 Absolute Nucleated RBC 0.000 Nucleated RBC % (auto) 0.0 PT 12.5 INR 1.0 Anion Gap 10 L Estim Creat Clear Calc 84.2 Estimated GFR > 60 Random Glucose 112 Calcium 9.4 Total Bilirubin 0.4 Direct Bilirubin 0.2 AST 27 ALT 31 Alkaline Phosphatase 89 Total Protein 6.9 Albumin 4.5 Lipase 44 Salicylates < 5.0 L Acetaminophen < 3 Ethyl Alcohol < 10 Assessment and Plan (1) Suicide attempt: Status: Acute Plan 64F PMH breast cancer, bipolar, hld, brought in by ambulance for intentional overdose Acute toxic metabolic encephalopathy due to intentional oxycodone overdose Toxicology recommending admission for 24 hours of monitoring, Narcan as needed, monitor respiratory rate 1-1 sitter When medically cleared she will need care team eval Bipolar Holding sedating meds Hyperlipidemia Statin Breast cancer Anastrozole DVT prophylaxis Lovenox Full code Given dose of oxycodone taken and resulting encephalopathy and need for Narcan expected require at least 2 midnights inpatient Quality Stroke Does the patient have a stroke diagnosis?: No VTE Prior VTE?: No VTE Risk Level:: Medical - moderate - high VTE Device Contraindication: Treatment Not Indicated VTE Drug Contraindication: N/A - Med Ordered
[2025-04-22 23:17] VITALS: BP 101/69; PULSE 69; RESP 8; O2SAT 92
[2025-04-22 23:35] LABS: Troponin-I High Sensitivity < 2.7 ng/L (<3.5-17.0)
[2025-04-23] VITALS (13 sets, daily range): BP systolic 90–140; BP diastolic 53–83; PULSE 60–90; RESP 7–18; TEMP 36.1–36.7; O2SAT 91–98
[2025-04-23] MEDS: 0.9 % Sodium Chloride Flush 3 ML SYRINGE IVFLUSH ×4 (00:20→23:44)
--- NOTE | 2025-04-23 02:38 | PC.NURSE ---
pt resting comfortably in bed, sitter at bedside for safety. pt easily arousable and answers questions when asked, respirations do drop <10 but still wakes easily and O2% remains >90%. pt has no complaints at this time but feels tired. PRN IV narcan given 3x so far. hospital aware, at bedside.
[2025-04-23 03:40] LABS: Appearance Urine Clear; Glucose Urine UA Negative (Negative); PH 5.5 (5.0-9.0); Specific Gravity - Urine 1.015 (1.005-1.025)
--- NOTE | 2025-04-23 03:41 | PC.NURSE ---
pt awake, requesting to use the bathroom. 1 assist to bathroom, UA/BAINS collected. pt ambulated with slow gait. pt A/O x4, reports feeling tired but more awake. pt awake drinking apple juice at this time.
[2025-04-23 03:52] LABS: Cannabinoid Screen Urine Not Detected (Not Detect)
[2025-04-23 04:00] LABS: Hematocrit 38.4 % (37.0-47.0); Hemoglobin 12.9 g/dl (12.0-16.0); Mean Corpuscular HGB Conc 33.6 g/dl (31.0-35.0); Mean Corpuscular Hemoglobin 29.4 pg (27.0-33.0); Mean Corpuscular Volume 87.5 fL (80.0-98.0); NRBC Abs Auto 0.000 X10*3/uL (0.0-0.012); NRBC Pct Auto 0.0 /100WBC (0.0-0.2); Platelet Count 285 X10*3/uL (160-400); Red Blood Count 4.39 X10*6/uL (4.20-5.50); White Blood Count 5.1 X10*3/uL (4.8-10.8)
[2025-04-23 04:27] LABS: Alanine Aminotransferase 29 U/L (0-31); Albumin Level 4.2 g/dL (3.5-5.0); Alkaline Phosphatase 85 U/L (39-117); Anion Gap 14 (12-20); Aspartate Amino Transferase 20 U/L (5-31); Blood Urea Nitrogen 13 mg/dL (9-16); Calcium 8.9 mg/dL (8.4-10.2); Carbon Dioxide 23 mmol/L (22-29); Chloride 108 mmol/L (96-108); Creatinine Clr Calc Pharmacy 85.3; Estimated Glomerular Filt Rate > 60; Magnesium 2.2 mg/dL (1.6-2.6); Potassium 3.8 mmol/L (3.3-5.1); Sodium 141 mmol/L (135-145); Total Protein 6.4 g/dL (6.5-8.0)
--- NOTE | 2025-04-23 05:25 | PC.NURSE ---
MD aware of soft BP, will encourage PO intake
--- NOTE | 2025-04-23 06:07 | HO.NURTONUR ---
pt BIBA from home after SI attempt. took 80 5mg oxycodone. in ED pt was given activated charcoal and Nacrcan IV. RR does drop to 10, but pt does wake easily, O2 remains >93% 20g IV LAC. NSR on tele. BP has been soft, encourage PO intake. pt is A/O x4, arouses easily, calm and cooperative with care, uses cane at baseline. walked to bathroom with 1 assist, did well. poison control recommending admission for observation x24hrs. care team consult needed. denies SI at this time
--- NOTE | 2025-04-23 07:39 | HO.PM.IMPN ---
Subjective Subjective Date of Service: 04/23/25 Interval History: Patient is medically cleared Sectioned 12 Awaiting a bed at psych Review of Systems Review of Systems: Yes all other systems are reviewed and are negative Physical Exam Exam: Exam: General: AOx3, mildly somnolent , not in distress Resp: CTA bilaterally CVS: S1, S2, RRR GI: +BS, NT, no distention Psych: states what I did was a mistake Vital Signs: Vital Signs: Last Vital Signs Temp 98.1 F 04/23/25 03:35 Pulse 64 04/23/25 06:34 Resp 14 04/23/25 06:34 BP 95/61 04/23/25 06:34 Pulse Ox 97 04/23/25 06:34 O2 Del Method Room Air 04/23/25 06:34 BMI result Body Mass Index 27.7 Objective Data Active Medications Acetaminophen (Acetaminophen 325 Mg Tablet) 650 mg PO Q6H PRN PRN Reason: Pain, Mild 1-3,fever,headache Anastrozole (Anastrozole 1 Mg Tablet) 1 mg PO DAILY [facility] Atorvastatin Calcium (Atorvastatin Calcium 10 Mg Tablet) 10 mg PO BEDTIME C[facility]IDA Calcium Carbonate (Calcium Carbonate 750 Mg Tab.Chew) 750 mg PO Q4H PRN PRN Reason: Heartburn Enoxaparin Sodium (Enoxaparin Sodium 40 Mg/0.4 Ml Syringe) 40 mg SUBCUT Q24H [facility] Magnesium Hydroxide (Milk Of Magnesia 30 Ml Oral.Susp) 30 ml PO DAILY PRN PRN Reason: Constipation Melatonin (Melatonin 3 Mg Tablet) 6 mg PO BEDTIME PRN PRN Reason: Insomnia Naloxone HCl (Naloxone Hcl 0.4 Mg/Ml Vial) 0.4 mg IVPUSH Q1H PRN PRN Reason: RR<10 Last Admin: 04/23/25 02:31 Dose: 0.4 mg Documented By: ELISABET Sodium Chloride (0.9 % Sodium Chloride Flush 3 Ml Syringe) 3 ml IVFLUSH QSHIFT [facility] Last Admin: 04/23/25 00:20 Dose: 3 ml Documented By: ELISABET Labs 04/23/25 03:33 04/23/25 03:33 Labs: Laboratory Results - last 24 hr 04/22/25 04/23/25 04/23/25 21:01 03:32 03:33 MCV 88.5 87.5 MCH 29.5 29.4 MCHC 33.3 33.6 RDW 12.0 12.1 Plt Count 267 D 285 MPV 8.7 L 8.8 L Immature Gran % (Auto) 0.2 Neut % (Auto) 60.3 Lymph % (Auto) 26.4 [place] % (Auto) 6.3 Eos % (Auto) 4.8 H Baso % (Auto) 2.0 Lymph # (Auto) 1.4 [place] # (Auto) 0.3 Eos # (Auto) 0.3 Baso # (Auto) 0.1 Abs Immat Gran (auto) 0.01 Absolute Neuts (auto) 3.2 Absolute Nucleated RBC 0.000 0.000 Nucleated RBC % (auto) 0.0 0.0 PT 12.5 INR 1.0 Anion Gap 10 L 14 Estim Creat Clear Calc 84.2 85.3 Estimated GFR > 60 > 60 Random Glucose 112 99 Calcium 9.4 8.9 Magnesium 2.2 Total Bilirubin 0.4 0.5 Direct Bilirubin 0.2 0.2 AST 27 20 ALT 31 29 Alkaline Phosphatase 89 85 Troponin I High Sens < 2.7 Total Protein 6.9 6.4 L Albumin 4.5 4.2 Lipase 44 Urine Color Yellow Urine Appearance Clear Urine pH 5.5 Ur Specific [place] 1.015 Urine Protein Negative Urine Glucose (UA) Negative Urine Ketones Negative Urine Blood Negative Urine Nitrite Negative Ur Leukocyte Esterase Negative Salicylates < 5.0 L Urine Opiates Screen POSITIVE H Ur Buprenorphine Scrn Not Detected Ur Oxycodone Screen Positive H Urine Methadone Screen Not Detected Urine Fentanyl Screen Not Detected Acetaminophen < 3 Ur Barbiturates Screen Not Detected Ur Phencyclidine Scrn Not Detected Ur Amphetamines Screen Not Detected U Benzodiazepines Scrn Not Detected Urine Cocaine Screen Not Detected U Marijuana (THC) Screen Not Detected Ethyl Alcohol < 10 Assessment and Plan (1) Suicide attempt: Status: Acute Assessment and Plan: Pt is a 64F PMH breast cancer, bipolar, hld, brought in by ambulance for intentional overdose on Oxycodone, medically cleared, section [address], awating a bed in Psych # Acute toxic metabolic encephalopathy due to intentional oxycodone overdose Toxicology recommending admission for 24 hours of monitoring, Narcan as needed, monitor respiratory rate Cont 1-1 sitter Medically cleared, CARE team accepeted, awaiting a bed in psych #Bipolar Holding sedating meds #Hyperlipidemia Statin #Breast cancer Anastrozole DVT prophylaxis Lovenox Full code medically cleared, section [address], awating a bed in [facility] Stroke Does the patient have a stroke diagnosis?: No VTE Prior VTE?: No VTE Risk Level:: Medical - moderate - high VTE Device Contraindication: Treatment Not Indicated VTE Drug Contraindication: N/A - Med Ordered
--- NOTE | 2025-04-23 08:34 | PHA.MEDREC ---
Pharmacy Consult ? Medication Reconciliation Pharmacy has completed the medication reconciliation. Spoke with pt and Delia to confirm medications. Pt is currently tapering up on Lamotrigine. Will remain on 50mg until 05/06 (per Delia) and then will increased to 100mg daily.
--- NOTE | 2025-04-23 08:38 | MHC.CM.PN ---
THIS CM MET WITH PATIENT IN THE ED. PATIENT A BIT GROGGY, BUT ABLE TO TO ENGAGE IN CONVERSATION. PATIENT STATES SHE LIVES ALONE AT HOME, HAS INDEPENDENT WITH HER CARE, USES A CANE. NO HCP ON FILE, BUT PATIENT WOULD LIKE TO NAME HER FRIEND OF 40 YEARS RAE ROWLAND, SHE DOES NOT CURRENTLY HAVE HER INFORMATION AVAILABLE IN ORDER TO COMPLETE HCP, BUT WOULD LIKE TO COMPLETE HCP IF SHE IS ABLE TO OBTAIN RAE'S INFORMATION. PATIENT STATES SHE WILL ARRANGE HER OWN TRANSPORT HOME AT DISCHARGE. DP: PATIENT WOULD BENEFIT FROM CARE TEAM EVAL TO ASSIST WITH DISCHARGE DISPO. PCP: [facility]
--- NOTE | 2025-04-23 12:57 | MHC.CARE ---
Pt meets the criteria for IPLOC secondary to an intentional OD in a suicide attempt. Section 12a in chart. Hospitalist in agreement.
[2025-04-23] MEDS: Aspirin Enteric Coated 81 MG TABLET.DR PO (16:32)
[2025-04-23] MEDS: Milk of Magnesia 30 ML ORAL.SUSP PO (18:21)
[2025-04-24 03:28] VITALS: BP 132/67; PULSE 57; RESP 17; TEMP 36; O2SAT 94
[2025-04-24 06:04] LABS: MANUAL DIFF FLAG NO
[2025-04-24 06:23] LABS: Alanine Aminotransferase 24 U/L (0-31); Albumin Level 3.8 g/dL (3.5-5.0); Alkaline Phosphatase 77 U/L (39-117); Anion Gap 11 (12-20); Aspartate Amino Transferase 21 U/L (5-31); Blood Urea Nitrogen 17 mg/dL (9-16); Calcium 8.9 mg/dL (8.4-10.2); Carbon Dioxide 28 mmol/L (22-29); Chloride 108 mmol/L (96-108); Creatinine Clr Calc Pharmacy 80.0; Estimated Glomerular Filt Rate > 60; Magnesium 2.4 mg/dL (1.6-2.6); Potassium 4.3 mmol/L (3.3-5.1); Sodium 143 mmol/L (135-145); Total Protein 5.8 g/dL (6.5-8.0)
[2025-04-24 06:25] LABS: Hematocrit 36.8 % (37.0-47.0); Hemoglobin 12.3 g/dl (12.0-16.0); Imm Gran Abs Auto 0.01 X10*3/uL (0.00-0.03); Imm Gran Pct Auto 0.2 % (0.0-0.4); Lymphocytes Absolute Auto 1.7 X10*3/uL (1.2-4.9); Mean Corpuscular HGB Conc 33.4 g/dl (31.0-35.0); Mean Corpuscular Hemoglobin 29.4 pg (27.0-33.0); Mean Corpuscular Volume 88.0 fL (80.0-98.0); NRBC Abs Auto 0.000 X10*3/uL (0.0-0.012); NRBC Pct Auto 0.0 /100WBC (0.0-0.2); Platelet Count 253 X10*3/uL (160-400); Red Blood Count 4.18 X10*6/uL (4.20-5.50); White Blood Count 5.8 X10*3/uL (4.8-10.8)
[2025-04-24 06:52] VITALS: BP 108/54; PULSE 60; RESP 16; TEMP 36.6; O2SAT 95
--- NOTE | 2025-04-24 07:23 | HO.PM.IMPN ---
Subjective Subjective Date of Service: 04/24/25 Interval History: 1-[address] Currently awaiting bed at psych floor Sectioned [address] Review of Systems Review of Systems: Yes all other systems are reviewed and are negative Physical Exam Exam: Exam: General: AOx3, mildly somnolent , not in distress Resp: CTA bilaterally CVS: S1, S2, RRR GI: +BS, NT, no distention Psych: Agreeable to going to psych Vital Signs: Vital Signs: Last Vital Signs Temp 97.9 F 04/24/25 06:52 Pulse 60 04/24/25 06:52 Resp 16 04/24/25 06:52 BP 108/54 L 04/24/25 06:52 Pulse Ox 95 04/24/25 06:52 O2 Del Method Room Air 04/24/25 06:52 BMI result Body Mass Index 27.7 Objective Data Active Medications Acetaminophen (Acetaminophen 325 Mg Tablet) 650 mg PO Q6H PRN PRN Reason: Pain, Mild 1-3,fever,headache Albuterol Sulfate (Albuterol Sulfate 90 Mcg 8 Gm Inhaler) 2 puff INHALE RQ4H PRN PRN Reason: Shortness Of Breath Or Wheezing Anastrozole (Anastrozole 1 Mg Tablet) 1 mg PO DAILY [facility] Last Admin: 04/23/25 12:42 Dose: 1 mg Documented By: KEVYN Aspirin (Aspirin Enteric Coated 81 Mg Tablet.Dr) 81 mg PO DAILY [facility] Last Admin: 04/23/25 16:32 Dose: 81 mg Documented By: FROILAN Atorvastatin Calcium (Atorvastatin Calcium 10 Mg Tablet) 10 mg PO BEDTIME [facility] Last Admin: 04/23/25 20:10 Dose: 10 mg Documented By: FROILAN Calcium Carbonate (Calcium Carbonate 750 Mg Tab.Chew) 750 mg PO Q4H PRN PRN Reason: Heartburn Cyanocobalamin (Cyanocobalamin (Vitamin B-12) 500 Mcg Tablet) 500 mcg PO DAILY [facility] Last Admin: 04/23/25 16:32 Dose: 500 mcg Documented By: FROILAN Enoxaparin Sodium (Enoxaparin Sodium 40 Mg/0.4 Ml Syringe) 40 mg SUBCUT Q24H [facility] Last Admin: 04/23/25 12:41 Dose: Not Given Documented By: KEVYN Non-Admin Reason: Patient Refused Escitalopram Oxalate (Escitalopram Oxalate 20 Mg Tablet) 20 mg PO DAILY [facility] Last Admin: 04/23/25 16:32 Dose: 20 mg Documented By: FROILAN Famotidine (Famotidine 20 Mg Tablet) 20 mg PO BEDTIME [facility] Last Admin: 04/23/25 20:09 Dose: Not Given Documented By: FROILAN Non-Admin Reason: Patient Refused Gabapentin (Gabapentin 400 Mg Capsule) 800 mg PO TID [facility] Last Admin: 04/23/25 23:42 Dose: 800 mg Documented By: FROILAN Lamotrigine (Lamotrigine 25 Mg Tablet) 50 mg PO DAILY [facility] Last Admin: 04/23/25 16:32 Dose: 50 mg Documented By: FROILAN Lorazepam (Lorazepam 1 Mg Tablet) 1 mg PO DAILY PRN PRN Reason: Anxiety Last Admin: 04/23/25 20:09 Dose: 1 mg Documented By: FROILAN Magnesium Hydroxide (Milk Of Magnesia 30 Ml Oral.Susp) 30 ml PO DAILY PRN PRN Reason: Constipation Last Admin: 04/23/25 18:21 Dose: 30 ml Documented By: FROILAN Melatonin (Melatonin 3 Mg Tablet) 6 mg PO BEDTIME PRN PRN Reason: Insomnia Last Admin: 04/23/25 23:47 Dose: 6 mg Documented By: FROILAN Naloxone HCl (Naloxone Hcl 0.4 Mg/Ml Vial) 0.4 mg IVPUSH Q1H PRN PRN Reason: RR<10 Last Admin: 04/23/25 02:31 Dose: 0.4 mg Documented By: ELISABET Naloxone HCl (Naloxone Hcl Nasal 4 Mg Bazine) 4 mg NOSTRILALT Q2M PRN PRN Reason: opioid overdose Omeprazole (Omeprazole 20 Mg Capsule.Dr) 20 mg PO DAILY@0630 [facility] Last Admin: 04/24/25 06:10 Dose: 20 mg Documented By: FROILAN Oxycodone HCl (Oxycodone Hcl Immed Release 5 Mg Tablet) 5 mg PO Q6H PRN PRN Reason: pain (scale score 7-10) Risperidone (Risperidone 0.25 Mg Tablet) 0.125 mg PO BID PRN PRN Reason: agitation/grounding for traumatic triggers Sodium Chloride (0.9 % Sodium Chloride Flush 3 Ml Syringe) 3 ml IVFLUSH QSHIFT [facility] Last Admin: 04/23/25 23:44 Dose: 3 ml Documented By: FROILAN Vitamin D (Cholecalciferol (Vitamin D3) 25 Mcg Tablet) 125 mcg PO DAILY [facility] Last Admin: 04/23/25 16:31 Dose: 125 mcg Documented By: FROILAN Labs 04/24/25 05:53 04/24/25 05:53 Labs: Laboratory Results - last 24 hr 04/24/25 05:53 MCV 88.0 MCH 29.4 MCHC 33.4 RDW 12.1 Plt Count 253 MPV 9.1 L Immature Gran % (Auto) 0.2 Neut % (Auto) 49.7 Lymph % (Auto) 29.7 [place] % (Auto) 7.7 Eos % (Auto) 10.8 H Baso % (Auto) 1.9 Lymph # (Auto) 1.7 [place] # (Auto) 0.5 Eos # (Auto) 0.6 H Baso # (Auto) 0.1 Abs Immat Gran (auto) 0.01 Absolute Neuts (auto) 2.9 Absolute Nucleated RBC 0.000 Nucleated RBC % (auto) 0.0 Anion Gap 11 L Estim Creat Clear Calc 80.0 Estimated GFR > 60 Random Glucose 97 Calcium 8.9 Magnesium 2.4 Total Bilirubin 0.3 AST 21 ALT 24 Alkaline Phosphatase 77 Total Protein 5.8 L Albumin 3.8 Assessment and Plan (1) Suicide attempt: Status: Acute Assessment and Plan: Pt is a 64F H breast cancer, bipolar, hld, brought in by ambulance for intentional overdose on Oxycodone, medically cleared, section [address], awating a bed in Psych # Acute toxic metabolic encephalopathy due to intentional oxycodone overdose Toxicology recommending admission for 24 hours of monitoring, Narcan as needed, monitor respiratory rate Cont 1-1 sitter Medically cleared, CARE team accepeted, awaiting a bed in psych #Bipolar Holding sedating meds #Hyperlipidemia Statin #Breast cancer Anastrozole DVT prophylaxis Lovenox Full code medically cleared, section [address], awating a bed in Psych Quality Stroke Does the patient have a stroke diagnosis?: No VTE Prior VTE?: No VTE Risk Level:: Medical - moderate - high VTE Device Contraindication: Treatment Not Indicated VTE Drug Contraindication: N/A - Med Ordered
[2025-04-24] MEDS: Aspirin Enteric Coated 81 MG TABLET.DR PO (08:58)
[2025-04-24] MEDS: 0.9 % Sodium Chloride Flush 3 ML SYRINGE IVFLUSH (09:03)
--- NOTE | 2025-04-24 12:22 | PM.DS ---
DS: Providers Provider Date of admission: 04/22/25 22:36 Date of discharge: 04/24/25 Primary care physician: Darryl Henriquez NP Consults: 04/22/25 22:39 Consult for Sitter Routine Reason for consultation: SI 04/23/25 09:42 Inpt CARE Team Crisis Consult Routine Comment: Reason for consultation: medically clear DS: Diagnosis Discharge Diagnosis (1) Suicide attempt: Status: Acute DS: Summary Hospital Course Hospital Course: Chief Complaint: intentional oxycodone overdose 64F PMH breast cancer, bipolar, hld, brought in by ambulance for intentional overdose. At about 19:45 patient took about 40 pills of 5 mg oxycodone in attempt to commit suicide. Was given activated charcoal and Narcan. Patient became more rousable, maintaining respiratory rate around 10-12, able to give history. EKG normal sinus rhythm of 72. Hospital course: Discharge Diagnosis: Acute toxic metabolic encephalopathy, resolved Suicide attempt, stabilized Bipolar disorder Hyperlipidemia History of breast cancer Status post intentional oxycodone overdose Hospital Course: The patient is a 64-year-old female with a past medical history significant for breast cancer, bipolar disorder, and hyperlipidemia, who was brought in by ambulance after an intentional overdose of oxycodone in a suicide attempt. Upon arrival, she was medically stabilized and evaluated by the toxicology team, who recommended 24 hours of monitoring for opioid toxicity. She was placed on continuous 1:1 observation and monitored for respiratory depression, with Narcan available as needed. No further episodes of respiratory compromise occurred during her stay. Psychiatry was consulted, and a Section 12 was placed. The CARE team accepted the patient, and she was medically cleared for psychiatric admission. Sedating psychiatric medications were held during the acute period. Her chronic medications, including statin for hyperlipidemia and anastrozole for breast cancer, were continued. She received DVT prophylaxis with Lovenox during her admission. The patient remained hemodynamically stable and did not exhibit further signs of acute toxicity. She was transferred to the inpatient psychiatric unit for further management of her underlying psychiatric condition and ongoing suicide risk. Discharge Medications: Statin (continue home dose) Anastrozole (continue home dose) Lovenox (if indicated per psychiatric unit protocol) Other home medications as appropriate, except sedating psychotropics (held per psychiatry) Condition on Discharge: Medically stable, alert, and oriented. No acute distress. Disposition: Transferred to inpatient psychiatric unit for further evaluation and management. Time spent discussing smoking cessation with patient: more than 10 minutes Status at Discharge Functional status at discharge: independent ambulation Overall status at discharge: patient is back to baseline Time Attestation Discharge Coordination Time (in mins): 65 Quality: Safe Use of Opioids Does Pt have an Active Cancer Diagnosis on the Problem List?: No Quality: Stroke Does the patient have a stroke diagnosis?: No Physical Exam Vital Signs: Vital Signs: Last Vital Signs Temp 97.9 F 04/24/25 06:52 Pulse 60 04/24/25 06:52 Resp 16 04/24/25 06:52 BP 108/54 L 04/24/25 06:52 Pulse Ox 95 04/24/25 06:52 O2 Del Method Room Air 04/24/25 06:52 BMI result Body Mass Index 27.7 DS: Data Data Completed and Pending Labs on day of discharge: Laboratory Results - last 24 hr 04/24/25 05:53 WBC 5.8 RBC 4.18 L Hgb 12.3 Hct 36.8 L MCV 88.0 MCH 29.4 MCHC 33.4 RDW 12.1 Plt Count 253 MPV 9.1 L Immature Gran % (Auto) 0.2 Neut % (Auto) 49.7 Lymph % (Auto) 29.7 [place] % (Auto) 7.7 Eos % (Auto) 10.8 H Baso % (Auto) 1.9 Lymph # (Auto) 1.7 [place] # (Auto) 0.5 Eos # (Auto) 0.6 H Baso # (Auto) 0.1 Abs Immat Gran (auto) 0.01 Absolute Neuts (auto) 2.9 Absolute Nucleated RBC 0.000 Nucleated RBC % (auto) 0.0 Sodium 143 Potassium 4.3 Chloride 108 Carbon Dioxide 28 Anion Gap 11 L BUN 17 H Creatinine 0.80 Estim Creat Clear Calc 80.0 Estimated GFR > 60 Random Glucose 97 Calcium 8.9 Magnesium 2.4 Total Bilirubin 0.3 AST 21 ALT 24 Alkaline Phosphatase 77 Total Protein 5.8 L Albumin 3.8 Discharge Plan Discharge Patient Disposition: Xfer Psychiatric Hosp Discharge Diagnosis: Acute toxic metabolic encephalopathy secondary to intentional oxycodone overdose Referrals: Physician,Unknown J [Physician, Medical] - 1 Week Discharge Medications: Continued gabapentin 100 mg capsule 800 mg PO TID 30 Days Qty: 720 3RF Rx Instructions: Take 8 caps three times a day for pain. lamotrigine 25 mg Tablet 50 mg PO DAILY Patient Comments: Pt is still on 50mg until 05/06 then will increase to 100mg cholecalciferol (vitamin D3) [Vitamin D3] 125 mcg (5,000 unit) Tablet 125 mcg PO DAILY aspirin 81 mg Capsule 81 mg PO DAILY risperidone 0.25 mg tablet 0.125 - 0.25 mg PO BID PRN (Reason: agitation/grounding for traumatic triggers) Qty: 20 0RF cyanocobalamin (vitamin B-12) [Vitamin B-12] 500 mcg Tablet 500 mcg PO DAILY famotidine [Pepcid] 20 mg Tablet 20 mg PO BEDTIME omeprazole 20 mg Capsule,Delayed Release(Dr/Ec) 20 mg PO DAILY@0630 albuterol sulfate 90 mcg/actuation HFA aerosol inhaler 1 - 2 puff inhalation Q4-6H PRN (Reason: Shortness Of Breath Or Wheezing) atorvastatin 10 mg tablet 10 mg PO DAILY lorazepam 1 mg tablet 1 - 2 mg PO DAILY PRN (Reason: Anxiety) naloxone [Narcan] 4 mg/actuation spray,non-aerosol 4 mg intranasal Q2M PRN (Reason: opioid overdose) Qty: 2 0RF Rx Instructions: spray 1 dose into ONE nostril; alternate nostrils w each dose until help arrives oxycodone 5 mg tablet 5 mg PO Q6H PRN (Reason: pain (scale score 7-10)) 30 Days Qty: 120 0RF Rx Instructions: Partial Fill upon patient request. anastrozole 1 mg tablet 1 mg PO DAILY escitalopram oxalate [Lexapro] 20 mg tablet 20 mg PO DAILY Discharge Orders: Discharge Order (Routine); Ordered 04/24/25 Ordered By: Amirah Brush Diet: Advance to usual diet Activity on Discharge: As tolerated Stand Alone Forms: Patient Portal Discharge page Print Language: Italian
--- NOTE | 2025-04-24 12:38 | MHC.CM.PN ---
DP: PT HAS BEEN MEDICALLY CLEARED FOR TRANSFER TO PSYCH UNIT.
== END 2025-04-24 12:38 | DRG 917 ==
LOC: HO.ED 22:25 → HO.EDOVER 22:42 → HO.S3 04-23 12:19
PROVIDERS: Admitting Provider Internal Medicine; Emergency Provider Emergency Medicine; PCP Nurse Practitioner Adult Health; Visit Provider Student in an Organized Health Care Education/Training Program
DX: T40.2X2A Poisoning by other opioids, intentional self-harm, initial encounter (principal); G92.8 Other toxic encephalopathy; C50.912 Malignant neoplasm of unspecified site of left female breast; F31.9 Bipolar disorder, unspecified; E78.5 Hyperlipidemia, unspecified; Z87.891 Personal history of nicotine dependence; Z79.811 Long term (current) use of aromatase inhibitors; Z63.0 Problems in relationship with spouse or partner; Z90.13 Acquired absence of bilateral breasts and nipples; Z79.82 Long term (current) use of aspirin; Z79.891 Long term (current) use of opiate analgesic; Z79.899 Other long term (current) drug therapy
CPT/HCPCS: 36415; 80048; 80053; 80076; 80143; 80179; 80307; 81003; 83690; 83735; 84484; 85025; 85027; 85610; 93005; 99285; J2312; J7120; S9485

== ENCOUNTER → 2025-04-22 20:20 | Outpatient (BNV) | payer OTHER, SELFPAY | PROVIDERS: Admitting Provider Internal Medicine; Emergency Provider Emergency Medicine; Visit Provider Internal Medicine Cardiovascular Disease | DX: T50.901A Poisoning by unspecified drugs, medicaments and biological substances, accidental (unintentional), initial encounter (principal) | CPT/HCPCS: 93010 ==

== ENCOUNTER → 2025-04-22 22:36 | Outpatient (BNV) | payer OTHER, SELFPAY | PROVIDERS: Admitting Provider Internal Medicine; Emergency Provider Emergency Medicine; Visit Provider Internal Medicine | DX: T40.2X2A Poisoning by other opioids, intentional self-harm, initial encounter (principal); T14.91XA Suicide attempt, initial encounter; G92.8 Other toxic encephalopathy; F13.90 Sedative, hypnotic, or anxiolytic use, unspecified, uncomplicated | CPT/HCPCS: 99222; 99232; 99239; 99499 ==

== ENCOUNTER 2025-04-24 13:02 | Inpatient (IN) | payer OTHER, SELFPAY ==
[2025-04-24 13:37] VITALS: BP 118/60; PULSE 75; RESP 16; O2SAT 98
[2025-04-24 14:47] VITALS: BMI 27.7
--- NOTE | 2025-04-24 17:45 | PC.NURSE ---
Pt previously received Flu vaccine
--- NOTE | 2025-04-24 17:58 | PC.ADMIT ---
Maki was admitted to on a CV for treatment of unspecified depressive disorder from S[facility] after an intentional overdose. She reports her girlfriend of 5 years recently broke up with her and Maki felt like she had no other reason to live. She reports that she called her friend just prior to taking the remainder of her prescribed Oxycodone, who has a singh to her house, and also left a container of Narcan next to her thinking that maybe someone may save her life. She reports that she has learned many lessons from this and is grateful that she survived the overdose. She reports she learned that she is so much more than her relationship and that she plans to make the most of this admission. Upon admission assessment, she is calm and cooperative and forthcoming with information. Her thought process is clear and linear, she shows no evidence of perceptual disturbances. She denies current SI/HI/AVH but endorses some anxiety/depression, related to being here. She reports being able to come to staff if these thoughts occur. She denies any disturbances to her appetite or sleep. She denies current substance use or alcohol use, her tox screen was positive for opiates and oxycodone which she is prescribed. She has a PMH of GERD, malignant neoplasm of the breasts, HLD, and Bipolar disorder. She reports having bilateral feet neuropathy as well. She denies any physical complaints. Her skin check was unremarkable. She was placed on 15 minute checks for safety. She reports using a cane at home for walking but declines a walker while in the hospital. She is a high fall risk due to falls prior to arrival.
[2025-04-24 20:00] VITALS: BP 149/63; PULSE 72; RESP 16; TEMP 37; O2SAT 97
[2025-04-24] MEDS: Milk of Magnesia 30 ML ORAL.SUSP PO (20:31)
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
[2025-04-25 08:00] VITALS: BP 118/58; PULSE 52; RESP 12; TEMP 36.7; O2SAT 93
[2025-04-25] MEDS: Aspirin Enteric Coated 81 MG TABLET.DR PO (09:14)
--- NOTE | 2025-04-25 10:12 | HO.PSYCHPN ---
Subjective Subjective Date of Service: 04/25/25 Reason For Visit: N/A Subjective Notes: 3 Day Medication Compliance: Yes Side effects from medications: No Attending Groups: Intermittent Mental Status Exam Mental Status Exam Patient Appearance: Appropriate Patient Orientation: Person, Place, Time and Situation Level of Consciousness: Awake and Alert Patient Behavior: Appropriate, Cooperative and Good Eye Contact Mood Description: Calm Affect Description: Calm Ability to Follow Directions: Good Speech Pattern: Clear Memory Description: Intact Hallucinations: None Delusions: Not Present Thought Process: Intact Thought Content: positive for Intact Diagnostics Vital Signs (24Hr): Vital Signs - 24 hr 04/24/25 13:37 04/24/25 20:00 04/25/25 08:00 Temperature 98.6 F 98.1 F Pulse Rate 75 72 52 Respiratory Rate 16 16 12 Blood Pressure 118/60 149/63 H 118/58 L Pulse Oximetry 98 97 93 Oxygen Delivery Method Room Air Room Air Room Air BMI result Body Mass Index 27.7 Labs 04/25/25 14:39 Medications Medications Current Medications Acetaminophen (Acetaminophen 325 Mg Tablet) 650 mg PO Q6H PRN PRN Reason: Headache/Pain, Scale 1-10 Al Hydroxide/Mg Hydroxide (Magnesium Hydrox/Alum Hydrox 30 Ml Oral.Susp) 30 ml PO Q6H PRN PRN Reason: Heartburn/Nausea Albuterol Sulfate (Albuterol Sulfate 90 Mcg 8 Gm Inhaler) 1 - 2 puff INHALE Q4H PRN PRN Reason: Shortness Of Breath Or Wheezing Anastrozole (Anastrozole 1 Mg Tablet) 1 mg PO DAILY [facility] Last Admin: 04/25/25 09:15 Dose: 1 mg Aspirin (Aspirin Enteric Coated 81 Mg Tablet.) 81 mg PO DAILY [facility] Last Admin: 04/25/25 09:14 Dose: 81 mg Atorvastatin Calcium (Atorvastatin Calcium 10 Mg Tablet) 10 mg PO DAILY [facility] Last Admin: 04/25/25 09:15 Dose: 10 mg Cyanocobalamin (Cyanocobalamin (Vitamin B-12) 500 Mcg Tablet) 500 mcg PO DAILY [facility] Last Admin: 04/25/25 09:15 Dose: 500 mcg Escitalopram Oxalate (Escitalopram Oxalate 20 Mg Tablet) 20 mg PO DAILY [facility] Last Admin: 04/25/25 09:15 Dose: 20 mg Gabapentin (Gabapentin 400 Mg Capsule) 800 mg PO TID [facility] Last Admin: 04/25/25 09:13 Dose: 800 mg Hydroxyzine HCl (Hydroxyzine Hcl 25 Mg Tablet) 25 mg PO Q6H PRN PRN Reason: mild anxiety Last Admin: 04/24/25 21:42 Dose: 25 mg Lamotrigine (Lamotrigine 25 Mg Tablet) 50 mg PO DAILY [facility] Last Admin: 04/25/25 09:13 Dose: 50 mg Lorazepam (Lorazepam 1 Mg Tablet) 1 mg PO DAILY PRN PRN Reason: Anxiety Last Admin: 04/24/25 20:58 Dose: 1 mg Magnesium Hydroxide (Milk Of Magnesia 30 Ml Oral.Susp) 30 ml PO DAILY PRN PRN Reason: Constipation Last Admin: 04/24/25 20:31 Dose: 30 ml Melatonin (Melatonin 3 Mg Tablet) 6 mg PO BEDTIME PRN PRN Reason: Insomnia Last Admin: 04/24/25 21:42 Dose: 6 mg Nicotine (Nicotine 21 Mg Patch.Td24) 21 mg TRANSDERMA DAILY [facility] Last Admin: 04/25/25 09:16 Dose: Not Given Nicotine Polacrilex (Nicotine Polacrilex 2 Mg Gum) 4 mg BUCCAL Q2H PRN PRN Reason: Nicotine Cravings Omeprazole (Omeprazole 20 Mg Capsule.Dr) 20 mg PO DAILY@0630 [facility] Last Admin: 04/25/25 09:15 Dose: 20 mg Risperidone (Risperidone 0.25 Mg Tablet) 0.5 mg PO BID PRN PRN Reason: agitation/grounding for traumatic triggers Last Admin: 04/24/25 20:58 Dose: 0.5 mg Trazodone HCl (Trazodone Hcl 50 Mg Tablet) 50 mg PO BEDTIME MRX1 PRN PRN Reason: Insomnia Last Admin: 04/24/25 23:12 Dose: 50 mg Vitamin D (Cholecalciferol (Vitamin D3) 25 Mcg Tablet) 125 mcg PO DAILY [facility] Last Admin: 04/25/25 09:14 Dose: 125 mcg Allergies Allergies Allergy/AdvReac Type Severity Reaction Status Date / Time No Known Allergies Allergy Verified 04/22/25 20:16 Assessment & Plan Assessment & Plan (1) Chronic post-traumatic stress disorder (PTSD): Status: Acute Code(s): F43.12 - Post-traumatic stress disorder, chronic (2) Overdose: Status: Acute Code(s): T50.901A - Poisoning by unspecified drugs, medicaments and biological substances, accidental (unintentional), initial encounter (3) Other specified persistent mood disorders: Status: Acute Code(s): F34.89 - Other specified persistent mood disorders Plan patient is a 64-year-old female with a past medical history significant for breast cancer, bipolar disorder, and hyperlipidemia, who was brought in by ambulance after an intentional overdose of oxycodone in a suicide attempt. Was admitted to Medical floor for about 2 days prior to be transfered to M3. Patient is medically clear. Formulation/clinical reasoning: OD's on own pain prescribed medications, increased in stress, and has been dealing with lots of lost and grief, recently broke up with girlfriend on the evening prior to OD. Hx of Bipolar, Chronic PTSD, given above information, patient would benefit in acute restrictive environment for own safety, continue to monitor for mental status , medication management, and refer patient to back to OP psychiatric services for aftercare. Continue with Lamictal 50mg, patient does not want any changes in her meds COntinue with Ativan 1mg PRN daily for severe anxiety and hydroxyzine PRN for mild anxiety escitalopram 20 mg qd gabapentin 800 mg TID risperidone 0.5 mg BID prn agitation/grounding prazosin 1 mg qhs: not currently on med list atorvastatin 10 mg anastrazole 1 mg qd aspirin 81 mg qd vitamin D3 125 mcg qd oxycodone 5 mg QID prn pain: Just OD on this. oxycodone contine to be held until further notice. Fish oil B12 Plan: Patient on 15 minute checks for safety. Admitted to M3. TDN on 04/29/25 Work with treatment team to do collateral Per record: Previous trials: Wellbutrin, Cymbalta, Prozac, Zoloft, XAnax, GBT, Lexapro, Lamictal 04/25: Active on unit. social with peers. attending some groups. Patient reports feeling fine today; pt stated, I'm not anxious or depressed. My ex broke up with me on Monday, it was sudden. I felt like there was nothing else. I know better now. I was lost that night. I don't want to be defined by one person if they love me or not . patient denies SI/HI/VH/AH. She reports visit with friends has been helpful. Pt reports poor sleep last night but is unclear to reason; encouraged to utilize PRN medications. Encouraged to attend groups. 3 day notice up on 04/29/25. Continue tx plan. Patient educated on: diagnosis, medication risk/benefits and therapeutic strategies Reason for continued inpatient stay Substantial Risk for: med/psych decompensation Time Spent With Patient Time: Total time managing care of this patient today _20___ minutes.
--- NOTE | 2025-04-25 13:29 | P.CONHOSP_ITS ---
History of Present Illness Data of Consult Service Date: 04/25/25 Primary Care Provider: Unknown Physician HPI Reason for consult: Medical consult 64-year-old female with a past medical history of depression, mood disorder, PTSD, hyperlipidemia, chronic pain syndrome, chemotherapy-induced peripheral neuropathy, history of breast cancer presented to emergency department after taking overdose of 5 mg of oxycodone trying to end life. She presented to the ED in police custody. Patient ingested approximately 400 mg of her prescribed oxycodone. She was lethargic and hypoxic, required 2 mg of Narcan and activated charcoal in the emergency department. She was admitted to the hospital. While in the hospital she became more arousable, maintaining her oxygenation and had normal EKGs. She was medically stable and transferred to inpatient psychiatric unit for further stabilization. On exam she has no medical concerns. Review of Systems Review of Systems: Denies any shortness of breath, chest pain, headaches, dysuria, abdominal pain or discomfort, nausea, vomiting or diarrhea. Denies fever or chills. [facility] Medical History Cataract Malignant neoplasm of overlapping sites of left breast in female, estrogen receptor positive Elevated LDL cholesterol level Posterior vitreous detachment of left eye Alvarado fracture Retinal hole of left eye Seborrheic dermatitis FH: cholecystectomy Chronic pain GERD (gastroesophageal reflux disease) Palpitations Anxiety Hyperlipidemia Anxiety HX: breast cancer Surgical History H/O repair of rotator cuff H/O colonoscopy Hx of bilateral mastectomy Social History Household Members: None Housing: House Do you presently have visiting nurse or other home services: No Alcohol intake: current Alcohol intake frequency: holidays/special occasions only Alcohol type: beer Comment: 1:1 sitter Patient Tobacco Use Status: Former Tobacco user Tobacco use type: Cigarette Currently Displaying Signs/Symptoms of Drug Intoxication Withdrawal: No Have you been hit, kicked, punched, or otherwise hurt by someone within the past year? If so, by whom?: No Do you feel safe in your current relationship?: No Current Relationship Is there a partner from a previous relationship who is making you feel unsafe now?: No Are you made to feel afraid or neglected: No Advance Directives: No Advance Directives Information Provided: Yes Do you have thoughts of harming others: None Do you have a plan to hurt others: No Plan Recently lost weight without trying: No How much weight loss: Not applicable Eating poorly because of decreased appetite: No Nutrition screen score: 0 Nutrition Risks: No Nutritional Risk Patient : No : No Poor oral hygiene: No service: No Current occupational status: employed 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, 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 Meds Allergies Allergy/AdvReac Type Severity Reaction Status Date / Time No Known Allergies Allergy Verified 04/22/25 20:16 Active Medications: Current Medications Acetaminophen (Acetaminophen 325 Mg Tablet) 650 mg PO Q6H PRN PRN Reason: Headache/Pain, Scale 1-10 Al Hydroxide/Mg Hydroxide (Magnesium Hydrox/Alum Hydrox 30 Ml Oral.Susp) 30 ml PO Q6H PRN PRN Reason: Heartburn/Nausea Albuterol Sulfate (Albuterol Sulfate 90 Mcg 8 Gm Inhaler) 1 - 2 puff INHALE Q4H PRN PRN Reason: Shortness Of Breath Or Wheezing Anastrozole (Anastrozole 1 Mg Tablet) 1 mg PO DAILY COUNTS INCLUDE 234 BEDS AT THE [facility] Last Admin: 04/25/25 09:15 Dose: 1 mg Aspirin (Aspirin Enteric Coated 81 Mg Tablet.Dr) 81 mg PO DAILY COUNTS INCLUDE 234 BEDS AT THE [facility] Last Admin: 04/25/25 09:14 Dose: 81 mg Atorvastatin Calcium (Atorvastatin Calcium 10 Mg Tablet) 10 mg PO DAILY COUNTS INCLUDE 234 BEDS AT THE [facility] Last Admin: 04/25/25 09:15 Dose: 10 mg Cyanocobalamin (Cyanocobalamin (Vitamin B-12) 500 Mcg Tablet) 500 mcg PO DAILY COUNTS INCLUDE 234 BEDS AT THE [facility] Last Admin: 04/25/25 09:15 Dose: 500 mcg Escitalopram Oxalate (Escitalopram Oxalate 20 Mg Tablet) 20 mg PO DAILY COUNTS INCLUDE 234 BEDS AT THE [facility] Last Admin: 04/25/25 09:15 Dose: 20 mg Gabapentin (Gabapentin 400 Mg Capsule) 800 mg PO TID COUNTS INCLUDE 234 BEDS AT THE [facility] Last Admin: 04/25/25 09:13 Dose: 800 mg Hydroxyzine HCl (Hydroxyzine Hcl 25 Mg Tablet) 25 mg PO Q6H PRN PRN Reason: mild anxiety Last Admin: 04/24/25 21:42 Dose: 25 mg Lamotrigine (Lamotrigine 25 Mg Tablet) 50 mg PO DAILY COUNTS INCLUDE 234 BEDS AT THE [facility] Last Admin: 04/25/25 09:13 Dose: 50 mg Lorazepam (Lorazepam 1 Mg Tablet) 1 mg PO DAILY PRN PRN Reason: Anxiety Last Admin: 04/24/25 20:58 Dose: 1 mg Magnesium Hydroxide (Milk Of Magnesia 30 Ml Oral.Susp) 30 ml PO DAILY PRN PRN Reason: Constipation Last Admin: 04/24/25 20:31 Dose: 30 ml Melatonin (Melatonin 3 Mg Tablet) 6 mg PO BEDTIME PRN PRN Reason: Insomnia Last Admin: 04/24/25 21:42 Dose: 6 mg Nicotine (Nicotine 21 Mg Patch.Td24) 21 mg TRANSDERMA DAILY COUNTS INCLUDE 234 BEDS AT THE [facility] Last Admin: 04/25/25 09:16 Dose: Not Given Nicotine Polacrilex (Nicotine Polacrilex 2 Mg Gum) 4 mg BUCCAL Q2H PRN PRN Reason: Nicotine Cravings Omeprazole (Omeprazole 20 Mg Capsule.Dr) 20 mg PO DAILY@0630 COUNTS INCLUDE 234 BEDS AT THE [facility] Last Admin: 04/25/25 09:15 Dose: 20 mg Risperidone (Risperidone 0.25 Mg Tablet) 0.5 mg PO BID PRN PRN Reason: agitation/grounding for traumatic triggers Last Admin: 04/24/25 20:58 Dose: 0.5 mg Trazodone HCl (Trazodone Hcl 50 Mg Tablet) 50 mg PO BEDTIME MRX1 PRN PRN Reason: Insomnia Last Admin: 04/24/25 23:12 Dose: 50 mg Vitamin D (Cholecalciferol (Vitamin D3) 25 Mcg Tablet) 125 mcg PO DAILY COUNTS INCLUDE 234 BEDS AT THE [facility] Last Admin: 04/25/25 09:14 Dose: 125 mcg Home Medications ?Medication ?Instructions ?Recorded ?Confirmed ?Last Taken ?Type anastrozole 1 mg tablet 1 mg PO DAILY 11/23/2204/2404/22/25 History escitalopram oxalate 20 mg tablet 20 mg PO DAILY 11/2304/24/25 04/24/25 09:19 History (Lexapro) atorvastatin 10 mg tablet 10 mg PO DAILY 02/27/2504/1404/22/25 History lorazepam 1 mg tablet 1 - 2 mg PO DAILY PRN Anxiet y 02/27/25 04/24/25 04/23/25 20:09 History 1 mg aspirin 81 mg capsule 81 mg PO DAILY 03/07/2504/1404/24/25 08:58 History cholecalciferol (vitamin D3) 125 125 mcg PO DAILY 02/1304/24/2525 08:58 History mcg (5,000 unit) tablet (Vitamin D3) lamotrigine 25 mg tablet 50 mg PO DAILY 03/07/2504/1404/24/25 08:58 History albuterol sulfate 90 mcg/actuation 1 - 2 puff inhalati on Q4-6H PRN 04/23/25 04/24/25 Unknown History aerosol inhaler (Ventolin HFA) Shortness Of Breath Or Wheezing cyanocobalamin (vitamin B-12) 500 500 mcg PO DAILY 03/0804/24/25 04/24/25 08:58 History mcg tablet (Vitamin B-12) famotidine 20 mg tablet (Pepcid) 20 mg PO BEDTIME 04/1404/24/25 04/22/25 History omeprazole 20 mg capsule,delayed 20 mg PO DAILY@0630 1 06/24/24 04/24/25 04/24/25 06:10 History release Physical Exam Vital Signs and Narrative: Vital Signs: Last Vital Signs Temp 98.1 F 04/25/25 08:00 Pulse 52 04/25/25 08:00 Resp 12 04/25/25 08:00 BP 118/58 L 04/25/25 08:00 Pulse Ox 93 04/25/25 08:00 O2 Del Method Room Air 04/25/25 08:00 BMI result Body Mass Index 27.7 Alert and oriented X3, calm and cooperative. Answers questions. Neuro: CN II-X11 intact, no deficits, visual acuity intact EYES: PERRLA, EOM intact ENT: Hearing intact, MMM Cardiac: S1 S2 RRR, No ectopy Pulmonary: lungs clear to auscultation, No increased WOB. Abdominal: BS active in all 4 quadrants, no guarding or tenderness MSK: Strength 5/5 upper and lower extremities : Deferred Extremities: No edema in lower extremities Psych: Mood stable, Quiet and cooperative. Skin: Warm and dry, Intact Assessment and Plan (1) Chemotherapy-induced peripheral neuropathy: Status: Acute Plan 64-year-old female with a past medical history listed below presents to the emergency department after intentional overdose. Now medically cleared and transferred to inpatient psychiatry for further care and treatment. Depression/PTSD/anxiety/bipolar disorder/intentional overdose Patient reports dysfunctional grieving. Patient overdosed on prescribed oxycodone. Admitted to medical floor now medically cleared and presents to inpatient psychiatry for further care and treatment Treatment plan per Psychiatry team History of breast cancer/cervical lymphadenopathy Status post bilateral mastectomy Underwent chemotherapy, followed by Oncology at [facility] Follows with oncology every 6 months. Patient has a upcoming appointment with surgical oncology for cervical lymphadenopathy investigation. Continues anastrozole. Neuropathy/chronic pain syndrome Continues with gabapentin 800 t.i.d. Patient was followed by a pain clinic with prescribed oxycodone Patient had a recent overdose on oxycodone tablets Recommend outpatient follow up with pain management clinic for further treatment of neuropathy and chronic pain syndrome Thank you for allowing me to participate in the care of this patient. Will follow with you, please notify medical provider with any changes in condition or concerns.
[2025-04-25 15:00] LABS: Alanine Aminotransferase 28 U/L (0-31); Albumin Level 4.7 g/dL (3.5-5.0); Alkaline Phosphatase 87 U/L (39-117); Anion Gap 11 (12-20); Aspartate Amino Transferase 34 U/L (5-31); Blood Urea Nitrogen 16 mg/dL (9-16); Calcium 10.0 mg/dL (8.4-10.2); Carbon Dioxide 28 mmol/L (22-29); Chloride 108 mmol/L (96-108); Cholesterol 155 mg/dL (<200); Creatinine Clr Calc Pharmacy 85.4; Estimated Glomerular Filt Rate > 60; HDL Cholesterol 49 mg/dL (>40); Potassium 4.1 mmol/L (3.3-5.1); Sodium 143 mmol/L (135-145); Total Protein 7.2 g/dL (6.5-8.0); Triglycerides 245 mg/dL (<150)
[2025-04-25 20:00] VITALS: BP 126/75; PULSE 79; RESP 16; TEMP 36.9; O2SAT 97
[2025-04-25] MEDS: Milk of Magnesia 30 ML ORAL.SUSP PO (20:34)
[2025-04-26 09:00] VITALS: BP 108/66; PULSE 79; RESP 16; TEMP 36.8; O2SAT 97
[2025-04-26] MEDS: Aspirin Enteric Coated 81 MG TABLET.DR PO (09:01)
--- NOTE | 2025-04-26 15:46 | HO.PSYCHPN ---
Subjective Subjective Date of Service: 04/26/25 Reason For Visit: N/A Subjective Notes: 3 Day Healthcare Proxy: No Guardianship: No Medical Problems Affecting Mental Status: No Interim History: She was seen in OT room, 3-day due 04/29 states that she is doing much better overall. Full of gratitude. Concerned about poor sleep. Trazodone caused racing thoughts, melatonin didn't work. Will trial Doxepin - discussed potential risks and benefits and she was agreeable. She mentioned Ambien and states that she discussed it with her primary team psychiatric provider, unclear what the decision was about that medication but patient aware of potential risks there. Medication Compliance: Yes Side effects from medications: No Attending Groups: Yes Review of Systems Acute medical concerns: No Medical Review of Systems: unchanged Review of Systems Review of Systems Yes all other systems are reviewed and are negative Mental Status Exam Mental Status Exam Narrative: Patient Appearance: Well Groomed, adequate hygiene Patient Behavior: Appropriate Level of Consciousness: Awake, alert Patient Orientation: Person, Place and Time, situational context Memory: grossly intact to recent events Psychomotor: no agitation or slowing Speech: normal rate, tone, volume Mood: ?a lot of gratitude? Affect: appropriate range Thought Process: Goal Oriented Thought Content: denies SI/HI; focused on treatment questions Hallucinations: Denies; does not appear preoccupied Delusions: None evinced Insight: mild impairment Judgment: mild impairment Impulsivity: low Diagnostics Vital Signs (24Hr): Vital Signs - 24 hr 04/25/25 20:00 04/26/25 09:00 Temperature 98.4 F 98.2 F Pulse Rate 79 79 Respiratory Rate 16 16 Blood Pressure 126/75 108/66 Pulse Oximetry 97 97 Oxygen Delivery Method Room Air Room Air BMI result Body Mass Index 27.7 Labs 04/25/25 14:39 Labs: Laboratory Results - last 48 hr 04/25/25 14:39 Sodium 143 Potassium 4.1 Chloride 108 Carbon Dioxide 28 Anion Gap 11 L BUN 16 Creatinine 0.75 Estim Creat Clear Calc 85.4 Estimated GFR > 60 Random Glucose 92 Estimat Average Glucose 100 Hemoglobin A1c % 5.1 Calcium 10.0 D Total Bilirubin 0.3 AST 34 H ALT 28 Alkaline Phosphatase 87 Total Protein 7.2 Albumin 4.7 Triglycerides 245 H Cholesterol 155 LDL Cholesterol, Calc 57 HDL Cholesterol 49 Medications Medications Current Medications Acetaminophen (Acetaminophen 325 Mg Tablet) 650 mg PO Q6H PRN PRN Reason: Headache/Pain, Scale 1-10 Al Hydroxide/Mg Hydroxide (Magnesium Hydrox/Alum Hydrox 30 Ml Oral.Susp) 30 ml PO Q6H PRN PRN Reason: Heartburn/Nausea Albuterol Sulfate (Albuterol Sulfate 90 Mcg 8 Gm Inhaler) 1 - 2 puff INHALE Q4H PRN PRN Reason: Shortness Of Breath Or Wheezing Anastrozole (Anastrozole 1 Mg Tablet) 1 mg PO DAILY [facility] Last Admin: 04/26/25 09:01 Dose: 1 mg Aspirin (Aspirin Enteric Coated 81 Mg Tablet.) 81 mg PO DAILY [facility] Last Admin: 04/26/25 09:01 Dose: 81 mg Atorvastatin Calcium (Atorvastatin Calcium 10 Mg Tablet) 10 mg PO DAILY [facility] Last Admin: 04/26/25 09:01 Dose: 10 mg Cyanocobalamin (Cyanocobalamin (Vitamin B-12) 500 Mcg Tablet) 500 mcg PO DAILY [facility] Last Admin: 04/26/25 09:01 Dose: 500 mcg Escitalopram Oxalate (Escitalopram Oxalate 20 Mg Tablet) 20 mg PO DAILY [facility] Last Admin: 04/26/25 09:01 Dose: 20 mg Gabapentin (Gabapentin 400 Mg Capsule) 800 mg PO TID [facility] Last Admin: 04/26/25 15:15 Dose: 800 mg Hydroxyzine HCl (Hydroxyzine Hcl 25 Mg Tablet) 25 mg PO Q6H PRN PRN Reason: mild anxiety Last Admin: 04/24/25 21:42 Dose: 25 mg Lamotrigine (Lamotrigine 25 Mg Tablet) 50 mg PO DAILY [facility] Last Admin: 04/26/25 09:01 Dose: 50 mg Lorazepam (Lorazepam 1 Mg Tablet) 1 mg PO DAILY PRN PRN Reason: Anxiety Last Admin: 04/25/25 20:39 Dose: 1 mg Magnesium Hydroxide (Milk Of Magnesia 30 Ml Oral.Susp) 30 ml PO DAILY PRN PRN Reason: Constipation Last Admin: 04/25/25 20:34 Dose: 30 ml Melatonin (Melatonin 3 Mg Tablet) 6 mg PO BEDTIME PRN PRN Reason: Insomnia Last Admin: 04/25/25 20:31 Dose: 6 mg Nicotine Polacrilex (Nicotine Polacrilex 2 Mg Gum) 4 mg BUCCAL Q2H PRN PRN Reason: Nicotine Cravings Omeprazole (Omeprazole 20 Mg Capsule.) 20 mg PO DAILY@0630 [facility] Last Admin: 04/26/25 06:49 Dose: 20 mg Risperidone (Risperidone 0.25 Mg Tablet) 0.5 mg PO BID PRN PRN Reason: agitation/grounding for traumatic triggers Last Admin: 04/25/25 20:39 Dose: 0.5 mg Trazodone HCl (Trazodone Hcl 50 Mg Tablet) 50 mg PO BEDTIME MRX1 PRN PRN Reason: Insomnia Last Admin: 04/24/25 23:12 Dose: 50 mg Vitamin D (Cholecalciferol (Vitamin D3) 25 Mcg Tablet) 125 mcg PO DAILY [facility] Last Admin: 04/26/25 09:55 Dose: 125 mcg Allergies Allergies Allergy/AdvReac Type Severity Reaction Status Date / Time No Known Allergies Allergy Verified 04/22/25 20:16 Assessment & Plan Assessment & Plan (1) Chronic post-traumatic stress disorder (PTSD): Status: Acute Code(s): F43.12 - Post-traumatic stress disorder, chronic (2) Overdose: Status: Acute Code(s): T50.901A - Poisoning by unspecified drugs, medicaments and biological substances, accidental (unintentional), initial encounter (3) Other specified persistent mood disorders: Status: Acute Code(s): F34.89 - Other specified persistent mood disorders Plan patient is a 64-year-old female with a past medical history significant for breast cancer, bipolar disorder, and hyperlipidemia, who was brought in by ambulance after an intentional overdose of oxycodone in a suicide attempt. Was admitted to Medical floor for about 2 days prior to be transfered to . Patient is medically clear. Formulation/clinical reasoning: OD's on own pain prescribed medications, increased in stress, and has been dealing with lots of lost and grief, recently broke up with girlfriend on the evening prior to OD. Hx of Bipolar, Chronic PTSD, given above information, patient would benefit in acute restrictive environment for own safety, continue to monitor for mental status , medication management, and refer patient to back to OP psychiatric services for aftercare. Continue with Lamictal 50mg, patient does not want any changes in her meds COntinue with Ativan 1mg PRN daily for severe anxiety and hydroxyzine PRN for mild anxiety escitalopram 20 mg qd gabapentin 800 mg TID risperidone 0.5 mg BID prn agitation/grounding prazosin 1 mg qhs: not currently on med list atorvastatin 10 mg anastrazole 1 mg qd aspirin 81 mg qd vitamin D3 125 mcg qd oxycodone 5 mg QID prn pain: Just OD on this. oxycodone contine to be held until further notice. Fish oil B12 Plan: Patient on 15 minute checks for safety. Admitted to M3. TDN on 04/29/25 Work with treatment team to do collateral Per record: Previous trials: Wellbutrin, Cymbalta, Prozac, Zoloft, Xanax, GBT, Lexapro, Lamictal 04/25: Active on unit. social with peers. attending some groups. Patient reports feeling fine today; pt stated, I'm not anxious or depressed. My ex broke up with me on Monday, it was sudden. I felt like there was nothing else. I know better now. I was lost that night. I don't want to be defined by one person if they love me or not . patient denies SI/HI/VH/AH. She reports visit with friends has been helpful. Pt reports poor sleep last night but is unclear to reason; encouraged to utilize PRN medications. Encouraged to attend groups. 3 day notice up on 04/29/25. Continue tx plan. 04/26: doing well, focused on gratitude will start Doxepin 10 mg QHS for sleep maintenance Patient educated on: diagnosis and medication risk/benefits Informed Consent: understands Reason for continued inpatient stay Substantial Risk for: rapid decompensation Time Spent With Patient Time: Total time managing care of this patient today _20__ minutes.
[2025-04-26 20:00] VITALS: BP 117/68; PULSE 73; RESP 16; TEMP 36.9; O2SAT 96
[2025-04-26] MEDS: Milk of Magnesia 30 ML ORAL.SUSP PO (20:11)
[2025-04-27 07:56] VITALS: BP 157/68; PULSE 80; RESP 16; TEMP 36.4; O2SAT 98
[2025-04-27] MEDS: Aspirin Enteric Coated 81 MG TABLET.DR PO (08:51)
--- NOTE | 2025-04-27 10:18 | HO.PSYCHPN ---
Subjective Subjective Date of Service: 04/27/25 Reason For Visit: N/A Subjective Notes: Conditional Voluntary Healthcare Proxy: No Guardianship: No Medical Problems Affecting Mental Status: No Interim History: Seen in OT room. 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 She has to do some paperwork tomorrow and then she will go home on Monday. Took some time to fall asleep last night, also got a PRN ativan. When she fell asleep she slept well. Denies SI/HI/AVH. Medication Compliance: Yes Side effects from medications: No Attending Groups: Yes Review of Systems Acute medical concerns: No Medical Review of Systems: unchanged Review of Systems Review of Systems Yes all other systems are reviewed and are negative Mental Status Exam Mental Status Exam Narrative: Patient Appearance: Well Groomed, adequate hygiene Patient Behavior: Appropriate Level of Consciousness: Awake, alert Patient Orientation: Person, Place and Time, situational context Memory: grossly intact to recent events Psychomotor: no agitation or slowing Speech: normal rate, tone, volume Mood: ?loan clerk? Affect: appropriate range Thought Process: Goal Oriented Thought Content: denies SI/HI; focused on treatment questions Hallucinations: Denies; does not appear preoccupied Delusions: None evinced Insight: mild impairment Judgment: mild impairment Impulsivity: low Diagnostics Vital Signs (24Hr): Vital Signs - 24 hr 04/26/25 20:00 04/27/25 07:56 Temperature 98.4 F 97.5 F Pulse Rate 73 80 Respiratory Rate 16 16 Blood Pressure 117/68 157/68 H Pulse Oximetry 96 98 Oxygen Delivery Method Room Air Room Air BMI result Body Mass Index 27.7 Labs 04/25/25 14:39 Labs: Laboratory Results - last 48 hr 04/25/25 14:39 Sodium 143 Potassium 4.1 Chloride 108 Carbon Dioxide 28 Anion Gap 11 L BUN 16 Creatinine 0.75 Estim Creat Clear Calc 85.4 Estimated GFR > 60 Random Glucose 92 Estimat Average Glucose 100 Hemoglobin A1c % 5.1 Calcium 10.0 D Total Bilirubin 0.3 AST 34 H ALT 28 Alkaline Phosphatase 87 Total Protein 7.2 Albumin 4.7 Triglycerides 245 H Cholesterol 155 LDL Cholesterol, Calc 57 HDL Cholesterol 49 Medications Medications Current Medications Acetaminophen (Acetaminophen 325 Mg Tablet) 650 mg PO Q6H PRN PRN Reason: Headache/Pain, Scale 1-10 Al Hydroxide/Mg Hydroxide (Magnesium Hydrox/Alum Hydrox 30 Ml Oral.Susp) 30 ml PO Q6H PRN PRN Reason: Heartburn/Nausea Albuterol Sulfate (Albuterol Sulfate 90 Mcg 8 Gm Inhaler) 1 - 2 puff INHALE Q4H PRN PRN Reason: Shortness Of Breath Or Wheezing Anastrozole (Anastrozole 1 Mg Tablet) 1 mg PO DAILY [facility] Last Admin: 04/27/25 08:54 Dose: 1 mg Aspirin (Aspirin Enteric Coated 81 Mg Tablet.) 81 mg PO DAILY [facility] Last Admin: 04/27/25 08:51 Dose: 81 mg Atorvastatin Calcium (Atorvastatin Calcium 10 Mg Tablet) 10 mg PO DAILY [facility] Last Admin: 04/27/25 08:53 Dose: 10 mg Cyanocobalamin (Cyanocobalamin (Vitamin B-12) 500 Mcg Tablet) 500 mcg PO DAILY [facility] Last Admin: 04/27/25 08:53 Dose: 500 mcg Doxepin HCl (Doxepin Hcl 10 Mg Capsule) 10 mg PO BEDTIME [facility] Last Admin: 04/26/25 20:11 Dose: 10 mg Escitalopram Oxalate (Escitalopram Oxalate 20 Mg Tablet) 20 mg PO DAILY [facility] Last Admin: 04/27/25 08:53 Dose: 20 mg Gabapentin (Gabapentin 400 Mg Capsule) 800 mg PO TID [facility] Last Admin: 04/27/25 08:53 Dose: 800 mg Hydroxyzine HCl (Hydroxyzine Hcl 25 Mg Tablet) 25 mg PO Q6H PRN PRN Reason: mild anxiety Last Admin: 04/24/25 21:42 Dose: 25 mg Lamotrigine (Lamotrigine 25 Mg Tablet) 50 mg PO DAILY [facility] Last Admin: 04/27/25 08:52 Dose: 50 mg Lorazepam (Lorazepam 1 Mg Tablet) 1 mg PO DAILY PRN PRN Reason: Anxiety Last Admin: 04/26/25 20:15 Dose: 1 mg Magnesium Hydroxide (Milk Of Magnesia 30 Ml Oral.Susp) 30 ml PO DAILY PRN PRN Reason: Constipation Last Admin: 04/26/25 20:11 Dose: 30 ml Melatonin (Melatonin 3 Mg Tablet) 6 mg PO BEDTIME PRN PRN Reason: Insomnia Last Admin: 04/25/25 20:31 Dose: 6 mg Nicotine Polacrilex (Nicotine Polacrilex 2 Mg Gum) 4 mg BUCCAL Q2H PRN PRN Reason: Nicotine Cravings Omeprazole (Omeprazole 20 Mg Capsule.) 20 mg PO DAILY@0630 [facility] Last Admin: 04/27/25 06:49 Dose: 20 mg Risperidone (Risperidone 0.25 Mg Tablet) 0.5 mg PO BID PRN PRN Reason: agitation/grounding for traumatic triggers Last Admin: 04/25/25 20:39 Dose: 0.5 mg Vitamin D (Cholecalciferol (Vitamin D3) 25 Mcg Tablet) 125 mcg PO DAILY [facility] Last Admin: 04/27/25 08:50 Dose: 125 mcg Allergies Allergies Allergy/AdvReac Type Severity Reaction Status Date / Time No Known Allergies Allergy Verified 04/22/25 20:16 Assessment & Plan Assessment & Plan (1) Chronic post-traumatic stress disorder (PTSD): Status: Acute Code(s): F43.12 - Post-traumatic stress disorder, chronic (2) Overdose: Status: Acute Code(s): T50.901A - Poisoning by unspecified drugs, medicaments and biological substances, accidental (unintentional), initial encounter (3) Other specified persistent mood disorders: Status: Acute Code(s): F34.89 - Other specified persistent mood disorders Plan patient is a 64-year-old female with a past medical history significant for breast cancer, bipolar disorder, and hyperlipidemia, who was brought in by ambulance after an intentional overdose of oxycodone in a suicide attempt. Was admitted to Medical floor for about 2 days prior to be transfered to . Patient is medically clear. Formulation/clinical reasoning: OD's on own pain prescribed medications, increased in stress, and has been dealing with lots of lost and grief, recently broke up with girlfriend on the evening prior to OD. Hx of Bipolar, Chronic PTSD, given above information, patient would benefit in acute restrictive environment for own safety, continue to monitor for mental status , medication management, and refer patient to back to OP psychiatric services for aftercare. Continue with Lamictal 50mg, patient does not want any changes in her meds COntinue with Ativan 1mg PRN daily for severe anxiety and hydroxyzine PRN for mild anxiety escitalopram 20 mg qd gabapentin 800 mg TID risperidone 0.5 mg BID prn agitation/grounding prazosin 1 mg qhs: not currently on med list atorvastatin 10 mg anastrazole 1 mg qd aspirin 81 mg qd vitamin D3 125 mcg qd oxycodone 5 mg QID prn pain: Just OD on this. oxycodone contine to be held until further notice. Fish oil B12 Plan: Patient on 15 minute checks for safety. Admitted to M3. TDN on 04/29/25 Work with treatment team to do collateral Per record: Previous trials: Wellbutrin, Cymbalta, Prozac, Zoloft, Xanax, GBT, Lexapro, Lamictal 04/25: Active on unit. social with peers. attending some groups. Patient reports feeling fine today; pt stated, I'm not anxious or depressed. My ex broke up with me on Monday, it was sudden. I felt like there was nothing else. I know better now. I was lost that night. I don't want to be defined by one person if they love me or not . patient denies SI/HI/VH/AH. She reports visit with friends has been helpful. Pt reports poor sleep last night but is unclear to reason; encouraged to utilize PRN medications. Encouraged to attend groups. 3 day notice up on 04/29/25. Continue tx plan. 04/26: doing well, focused on gratitude will start Doxepin 10 mg QHS for sleep maintenance 04/27: no changes today, plan for discharge Monday Patient educated on: diagnosis and medication risk/benefits Informed Consent: understands Reason for continued inpatient stay Substantial Risk for: rapid decompensation Time Spent With Patient Time: Total time managing care of this patient today _15___ minutes.
[2025-04-27] MEDS: Milk of Magnesia 30 ML ORAL.SUSP PO (18:09)
[2025-04-27 20:00] VITALS: BP 138/64; PULSE 72; RESP 17; TEMP 36.3; O2SAT 96
[2025-04-28 07:53] VITALS: BP 141/64; PULSE 71; RESP 14; TEMP 36.5; O2SAT 96
[2025-04-28] MEDS: Aspirin Enteric Coated 81 MG TABLET.DR PO (08:18)
--- NOTE | 2025-04-28 14:34 | P.PNPSI_ITS ---
Subjective Subjective Date of Service: 04/28/25 Reason For Visit: N/A Subjective Notes: Conditional Voluntary Interim History: Active on unit. social with peers. attending groups. Patient reports having a good weekend d/t laughing with peers. She reports groups have been helpful on the unit in helping with coping skills; suggested PHP, however pt declined at this time. Patient reports sleeping well last night. denies SI/HI/VH/AH. Patient reports she plans on following up with her outpatient providers. Medication Compliance: Yes Side effects from medications: No Attending Groups: Yes Mental Status Exam Mental Status Exam Narrative: Pt is alert and oriented; behavior is cooperative and calm; dressed in casual attire; mood is described as good ; eye contact appropriate; Speech is normal rate, volume and not pressured; thought process is organized; Thought content is on tx; denies SI/HI/VH/AH. Diagnostics Vital Signs (24Hr): Vital Signs - 24 hr 04/27/25 20:00 04/28/25 07:53 Temperature 97.3 F 97.7 F Pulse Rate 72 71 Respiratory Rate 17 14 Blood Pressure 138/64 141/64 H Pulse Oximetry 96 96 Oxygen Delivery Method Room Air Room Air BMI result Body Mass Index 27.7 Labs 04/25/25 14:39 Medications Medications Current Medications Acetaminophen (Acetaminophen 325 Mg Tablet) 650 mg PO Q6H PRN PRN Reason: Headache/Pain, Scale 1-10 Al Hydroxide/Mg Hydroxide (Magnesium Hydrox/Alum Hydrox 30 Ml Oral.Susp) 30 ml PO Q6H PRN PRN Reason: Heartburn/Nausea Albuterol Sulfate (Albuterol Sulfate 90 Mcg 8 Gm Inhaler) 1 - 2 puff INHALE Q4H PRN PRN Reason: Shortness Of Breath Or Wheezing Anastrozole (Anastrozole 1 Mg Tablet) 1 mg PO DAILY [facility] Last Admin: 04/28/25 08:18 Dose: 1 mg Aspirin (Aspirin Enteric Coated 81 Mg Tablet.) 81 mg PO DAILY [facility] Last Admin: 04/28/25 08:18 Dose: 81 mg Atorvastatin Calcium (Atorvastatin Calcium 10 Mg Tablet) 10 mg PO DAILY [facility] Last Admin: 04/28/25 08:17 Dose: 10 mg Cyanocobalamin (Cyanocobalamin (Vitamin B-12) 500 Mcg Tablet) 500 mcg PO DAILY [facility] Last Admin: 04/28/25 08:18 Dose: 500 mcg Doxepin HCl (Doxepin Hcl 10 Mg Capsule) 10 mg PO BEDTIME [facility] Last Admin: 04/27/25 20:31 Dose: 10 mg Escitalopram Oxalate (Escitalopram Oxalate 20 Mg Tablet) 20 mg PO DAILY [facility] Last Admin: 04/28/25 08:18 Dose: 20 mg Gabapentin (Gabapentin 400 Mg Capsule) 800 mg PO TID [facility] Last Admin: 04/28/25 08:17 Dose: 800 mg Hydroxyzine HCl (Hydroxyzine Hcl 25 Mg Tablet) 25 mg PO Q6H PRN PRN Reason: mild anxiety Last Admin: 04/24/25 21:42 Dose: 25 mg Lamotrigine (Lamotrigine 25 Mg Tablet) 50 mg PO DAILY [facility] Last Admin: 04/28/25 08:18 Dose: 50 mg Lorazepam (Lorazepam 1 Mg Tablet) 1 mg PO DAILY PRN PRN Reason: Anxiety Last Admin: 04/27/25 20:31 Dose: 1 mg Magnesium Hydroxide (Milk Of Magnesia 30 Ml Oral.Susp) 30 ml PO DAILY PRN PRN Reason: Constipation Last Admin: 04/27/25 18:09 Dose: 30 ml Melatonin (Melatonin 3 Mg Tablet) 6 mg PO BEDTIME PRN PRN Reason: Insomnia Last Admin: 04/27/25 20:31 Dose: 6 mg Nicotine Polacrilex (Nicotine Polacrilex 2 Mg Gum) 4 mg BUCCAL Q2H PRN PRN Reason: Nicotine Cravings Omeprazole (Omeprazole 20 Mg Capsule.Dr) 20 mg PO DAILY@0630 [facility] Last Admin: 04/28/25 06:25 Dose: 20 mg Risperidone (Risperidone 0.25 Mg Tablet) 0.5 mg PO BID PRN PRN Reason: agitation/grounding for traumatic triggers Last Admin: 04/27/25 20:31 Dose: 0.5 mg Vitamin D (Cholecalciferol (Vitamin D3) 25 Mcg Tablet) 125 mcg PO DAILY [facility] Last Admin: 04/28/25 08:17 Dose: 125 mcg Allergies Allergies Allergy/AdvReac Type Severity Reaction Status Date / Time No Known Allergies Allergy Verified 04/22/25 20:16 Assessment & Plan Assessment & Plan (1) Chronic post-traumatic stress disorder (PTSD): Status: Acute Code(s): F43.12 - Post-traumatic stress disorder, chronic (2) Overdose: Status: Acute Code(s): T50.901A - Poisoning by unspecified drugs, medicaments and biological substances, accidental (unintentional), initial encounter (3) Other specified persistent mood disorders: Status: Acute Code(s): F34.89 - Other specified persistent mood disorders Plan patient is a 64-year-old female with a past medical history significant for breast cancer, bipolar disorder, and hyperlipidemia, who was brought in by ambulance after an intentional overdose of oxycodone in a suicide attempt. Was admitted to Medical floor for about 2 days prior to be transfered to M3. Patient is medically clear. Formulation/clinical reasoning: OD's on own pain prescribed medications, increased in stress, and has been dealing with lots of lost and grief, recently broke up with girlfriend on the evening prior to OD. Hx of Bipolar, Chronic PTSD, given above information, patient would benefit in acute restrictive environment for own safety, continue to monitor for mental status , medication management, and refer patient to back to OP psychiatric services for aftercare. Continue with Lamictal 50mg, patient does not want any changes in her meds COntinue with Ativan 1mg PRN daily for severe anxiety and hydroxyzine PRN for mild anxiety escitalopram 20 mg qd gabapentin 800 mg TID risperidone 0.5 mg BID prn agitation/grounding prazosin 1 mg qhs: not currently on med list atorvastatin 10 mg anastrazole 1 mg qd aspirin 81 mg qd vitamin D3 125 mcg qd oxycodone 5 mg QID prn pain: Just OD on this. oxycodone contine to be held until further notice. Fish oil B12 Plan: Patient on 15 minute checks for safety. Admitted to M3. TDN on 04/29/25 Work with treatment team to do collateral Per record: Previous trials: Wellbutrin, Cymbalta, Prozac, Zoloft, Xanax, GBT, Lexapro, Lamictal 04/25: Active on unit. social with peers. attending some groups. Patient reports feeling fine today; pt stated, I'm not anxious or depressed. My ex broke up with me on Monday, it was sudden. I felt like there was nothing else. I know better now. I was lost that night. I don't want to be defined by one person if they love me or not . patient denies SI/HI/VH/AH. She reports visit with friends has been helpful. Pt reports poor sleep last night but is unclear to reason; encouraged to utilize PRN medications. Encouraged to attend groups. 3 day notice up on 04/29/25. Continue tx plan. 04/26: doing well, focused on gratitude will start Doxepin 10 mg QHS for sleep maintenance 04/27: no changes today, plan for discharge Saturday 04/28: Active on unit. social with peers. attending groups. Patient reports having a good weekend d/t laughing with peers. She reports groups have been helpful on the unit in helping with coping skills; suggested PHP, however pt declined at this time. Patient reports sleeping well last night. denies SI/HI/VH/AH. Patient reports she plans on following up with her outpatient providers. Patient educated on: diagnosis and medication risk/benefits Reason for continued inpatient stay Substantial Risk for: stable for discharge Time Spent With Patient Time: Total time managing care of this patient today _20___ minutes.
[2025-04-28 20:00] VITALS: BP 151/73; PULSE 67; RESP 18; TEMP 36.3; O2SAT 94
[2025-04-29 08:00] VITALS: BP 131/60; PULSE 75; RESP 16; TEMP 36.4; O2SAT 98
[2025-04-29] MEDS: Naloxone HCl Nasal TAKE HOME 4 MG SPRAY 8 MG NOSTRILALT (08:46)
[2025-04-29] MEDS: Aspirin Enteric Coated 81 MG TABLET.DR PO (08:48)
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
== END 2025-04-29 10:00 | disposition home or self-care (01) | DRG 885 ==
PROVIDERS: Admitting Provider Student in an Organized Health Care Education/Training Program; Responsible Provider Registered Nurse; Visit Provider Psychiatry & Neurology Psychiatry
DX: F34.89 Other specified persistent mood disorders (principal); F43.12 Post-traumatic stress disorder, chronic; C50.812 Malignant neoplasm of overlapping sites of left female breast; G62.0 Drug-induced polyneuropathy; G89.4 Chronic pain syndrome; T45.1X5S Adverse effect of antineoplastic and immunosuppressive drugs, sequela; Z79.811 Long term (current) use of aromatase inhibitors; Z91.51 Personal history of suicidal behavior; Z63.4 Disappearance and death of family member; Z90.13 Acquired absence of bilateral breasts and nipples; Z87.891 Personal history of nicotine dependence; Z79.82 Long term (current) use of aspirin; Z79.899 Other long term (current) drug therapy
CPT/HCPCS: 36415; 80053; 80061; 83036

== ENCOUNTER → 2025-04-24 13:02 | Outpatient (BNV) | payer OTHER, SELFPAY | PROVIDERS: Admitting Provider Student in an Organized Health Care Education/Training Program; Visit Provider Nurse Practitioner Family | DX: G62.0 Drug-induced polyneuropathy (principal); T45.1X5A Adverse effect of antineoplastic and immunosuppressive drugs, initial encounter | CPT/HCPCS: 99221 ==

== ENCOUNTER → 2025-04-24 13:02 | Outpatient (BNV) | payer OTHER, SELFPAY | PROVIDERS: Admitting Provider Student in an Organized Health Care Education/Training Program; Visit Provider Nurse Practitioner Psychiatric/Mental Health | DX: F34.89 Other specified persistent mood disorders (principal); T50.901A Poisoning by unspecified drugs, medicaments and biological substances, accidental (unintentional), initial encounter; F43.12 Post-traumatic stress disorder, chronic | CPT/HCPCS: 90792; 99231; 99232; 99238 ==

== ENCOUNTER 2025-04-30 09:48 | Outpatient (AMB) | payer OTHER, SELFPAY ==
--- NOTE | 2025-04-30 09:54 | A.OFFVIS_ITS ---
Vital Signs 04/30/25 10:18 Height 5 ft 8 in Weight 182 lb BMI 27.7 BP 136/68 Blood Pressure Location Rt brachial Position Sitting Pulse 76 Pulse Source Pulse Oximeter Pulse Oximetry (%) 97 Oxygen Delivery Method Room Air Intake Visit Reasons: Dysphagia Intake Note: [employer] ADVISOR for initial consult of GERD + dysphagia. CC: C/O exacerbation of chronic GERD + dysphagia. Pt states that her PPI still helps more than not taking anything, but not as much as it had previously. Reports she had an EGD and BA FL through [facility] within the last 6 mos. Pipe Stripper Required: No Accompanied by: Self / Same As Patient Allergies No Known Allergies Allergy (Verified 05/27/25 14:06) HPI HPI Dysphagia: Details: 64-year-old female with past medical history of nicotine dependence in remission, depression, chronic pain syndrome, is here today for initial consultation. Patient has seen GI in the past where she had upper endoscopy and barium swallow done. Upper endoscopy was done 10/15/2024. Patient was found to have no pathology abnormality in the stomach. GE junction with inflammation and reactive changes negative for intestinal metaplasia and dysplasia and normal squamous mucosa in the esophagus. Patient had barium swallow prior to that back in June. It showed moderate to severe esophageal dysmotility and decreased relaxation of the lower esophageal sphincter. Patient reports ongoing symptoms of acid reflux, dyspepsia will with occasional dysphagia. Patient also reports abdominal pain and bloating. Denies nausea or vomiting. Denies melena, hematochezia, unintentional weight loss or ribbon like stools. Patient reports taking omeprazole 20 mg which helps but she still has breakthrough symptoms at times. [facility] Medical History Cataract Malignant neoplasm of overlapping sites of left breast in female, estrogen receptor positive Elevated LDL cholesterol level Posterior vitreous detachment of left eye Alvarado fracture Retinal hole of left eye Seborrheic dermatitis FH: cholecystectomy Chronic pain GERD (gastroesophageal reflux disease) Palpitations Anxiety Hyperlipidemia Anxiety HX: breast cancer Surgical History History of esophagogastroduodenoscopy (EGD) H/O repair of rotator cuff H/O colonoscopy Hx of bilateral mastectomy Social History Household Members: None Housing: House Do you presently have visiting nurse or other home services: No Alcohol intake: current Alcohol intake frequency: holidays/special occasions only Alcohol type: beer Comment: 1:1 sitter Patient Tobacco Use Status: Former Tobacco user Tobacco use type: Cigarette service: No Current occupational status: employed 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, 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 Sexual orientation: Lesbian/Montiel/Homosexual Review of Systems Const Denies weight gain and Denies weight loss ENT Reports no additional complaints, Denies dysphagia and Denies odynophagia Card Reports no additional complaints Resp Reports no additional complaints GI Denies abdominal pain, Denies belching, Denies melena, Reports bloating, Denies change in bowel habits, Denies dysphagia, Denies excessive flatus, Denies dyspepsia, Reports heartburn, Denies diarrhea, Denies loose stools, Reports nausea, Denies odynophagia and Denies vomiting Reports no additional complaints Musc Reports no additional complaints Neuro Reports no additional complaints Psych Reports no additional complaints Endo Reports no additional complaints Physical Exam Vital Signs: Last Vital Signs Pulse 76 04/30/25 10:18 BP 136/68 04/30/25 10:18 Pulse Ox 97 04/30/25 10:18 Oxygen Delivery Method Room Air 04/30/25 10:18 BMI result Body Mass Index 27.7 Const General: healthy appearing, no acute distress and well developed Nutritional Appearance: well nourished Orientation/consciousness: patient oriented x3 Resp Effort & Inspection: normal respiratory effort, able to speak in complete sentences, no tracheal deviation and symmetric chest movement Auscultation: clear to auscultation bilaterally Cardio Rate: regular rate GI Inspection: Yes normal to inspection and No distended Palpation (GI): Soft to palpation, not firm, nontender and No hepatosplenomegaly present Auscultation: normal bowel sounds General: Yes no CVA tenderness Back/Spine/Pelvis Back: no CVA tenderness Skin General skin exam: elasticity normal, turgor normal and dry skin Neuro General: patient oriented x3 Psych Appearance: grossly normal Mental Status: mental status grossly normal Assessment & Plan Assessment & Plan (1) History of esophagogastroduodenoscopy (EGD): Code(s): Z98.890 - Other specified postprocedural states (2) GERD (gastroesophageal reflux disease): Code(s): K21.9 - Gastro-esophageal reflux disease without esophagitis Qualifiers: Esophagitis presence: esophagitis presence not specified Qualified Code(s): K21.9 - Gastro-esophageal reflux disease without esophagitis (3) Postprandial epigastric pain: Code(s): R10.13 - Epigastric pain (4) Dysphagia: Code(s): R13.10 - Dysphagia, unspecified Qualifiers: Dysphagia type: esophageal phase Qualified Code(s): R13.19 - Other dysphagia Plan Patient will start taking omeprazole 40 mg daily. Avoid dietary triggers and late night snacking. Staying upright for minimal 3 hours after meals discussed with patient. Patient will be sent for upper endoscopy might need dilation. Will check transglutaminase and thyroid study. Orders: Orders TSH reflex Free T4 04/30/25 K59.00 - Constipation, unspecified Transglutaminase IgA 04/30/25 R10.9 - Unspecified abdominal pain Referrals GI Procedure Notification R13.10 - Dysphagia, unspecified Medications: New omeprazole 40 mg PO DAILY 90 caps 3RF K21.9 - Gastro-esophageal reflux disease without esophagitis Coding Level of Care Code New Pt Level 4 (27929) Diagnoses History of esophagogastroduodenoscopy (EGD) Z98.890 Gastroesophageal reflux disease, unspecified whether esophagitis present K21.9 Esophagitis presence: esophagitis presence not specified Postprandial epigastric pain R10.13 Esophageal dysphagia R13.19 Dysphagia type: esophageal phase Time Spent (min) 45 Comment 35 minutes spent with patient and additional 10 minutes spent reviewing her records
[2025-04-30 10:18] VITALS: BP 136/68; PULSE 76; O2SAT 97; BMI 27.7
== END 2025-04-30 10:37 | disposition home or self-care (01) ==
LOC: HO.HGI 09:48
PROVIDERS: PCP Nurse Practitioner Adult Health; Visit Provider Nurse Practitioner Family
DX: Z98.890 Other specified postprocedural states (principal); K21.9 Gastro-esophageal reflux disease without esophagitis; R10.13 Epigastric pain; R13.19 Other dysphagia
CPT/HCPCS: 99204